=== PATIENT | male | born 1980 | race Caucasian/White ===

== ENCOUNTER 2016-06-10 08:00 | Outpatient (RCR) | payer BC, MEDICAID | END 2016-06-15 | LOC: M ST 08:00 | PROVIDERS: ATTEND Family Medicine | DX: F95.2 Tourette's disorder (principal) ==

== ENCOUNTER 2016-06-17 08:01 | Outpatient (RCR) | payer BC | END 2016-07-13 | LOC: M ST 08:01 | PROVIDERS: ATTEND Family Medicine | DX: F95.2 Tourette's disorder (principal) ==

== ENCOUNTER → 2016-07-09 | Outpatient (REF) | payer BC, MEDICAID ==
[2016-07-09 13:23] LABS: BASO % 0.8 % (0.0-1.0); EOS # 0.2 K/mm3 (0.0-0.50); EOS % 3.8 % (0.0-3.0); LARGE UNSTAINED CELL # 0.1 K/mm3 (0.0-0.4); LARGE UNSTAINED CELL % 2.5 % (0.0-4.0); LYMPH # 1.7 K/mm3 (1.5-4.5); LYMPH % 35.4 % (24.0-44.0); MEAN CORPUSCULAR HEMOGLOBIN 29.2 pg (27.0-33.0); MEAN CORPUSCULAR HGB CONC 34.4 g/dl (32.0-36.5); MONO # 0.3 K/mm3 (0.0-0.8); MONO % 6.5 % (0.0-5.0); NEUTROPHILS # 2.5 K/mm3 (1.8-7.7); PLATELET COUNT, AUTOMATED 318 k/mm3 (150-450); WHITE BLOOD COUNT 4.8 K/mm3 (4.0-10.0)
[2016-07-09 13:42] LABS: VITAMIN B12 LEVEL 492 PG/ML (247-911)
[2016-07-09 14:11] LABS: ALBUMIN 4.1 GM/DL (3.2-5.2); ALBUMIN/GLOBULIN RATIO 1.52 (1.00-1.93); ALKALINE PHOSPHATASE 77 U/L (45-117); ALT/SGPT 55 U/L (12-78); ANION GAP 10 MEQ/L (8-16); AST/SGOT 31 U/L (15-37); BILIRUBIN,TOTAL 0.5 MG/DL (0.2-1.0); BLOOD UREA NITROGEN 13 MG/DL (7-18); CALCIUM LEVEL 9.1 MG/DL (8.5-10.1); CARBON DIOXIDE LEVEL 30 MEQ/L (21-32); CHLORIDE LEVEL 105 MEQ/L (98-107); CREATININE FOR GFR 0.86 MG/DL (0.70-1.30); FREE T4 0.98 NG/DL (0.76-1.46); GLOMERULAR FILTRATION RATE > 60.0 (>60); GLUCOSE, FASTING 78 MG/DL (70-105); POTASSIUM SERUM 3.7 MEQ/L (3.5-5.1); SODIUM LEVEL 145 MEQ/L (136-145); TOTAL PROTEIN 6.8 GM/DL (6.4-8.2)
[2016-07-13 08:08] LABS: T PALLIDUM AB (FTA-AB) Non Reactive (Non Reactive)
== END ==
LOC: M SFHCADAM 08:52
PROVIDERS: ATTEND Family Medicine
DX: R44.3 Hallucinations, unspecified (principal)

== ENCOUNTER 2016-07-29 08:01 | Outpatient (RCR) | payer BC | END 2016-08-13 | LOC: M ST 08:01 | PROVIDERS: ATTEND Family Medicine | DX: F95.2 Tourette's disorder (principal) ==

== ENCOUNTER → 2016-12-08 | Outpatient (REF) | payer BC, MEDICAID ==
[2016-12-08 19:37] LABS: MEAN CORPUSCULAR HEMOGLOBIN 30.3 pg (27.0-33.0); MEAN CORPUSCULAR HGB CONC 35.5 g/dl (32.0-36.5); MEAN CORPUSCULAR VOLUME 85.3 fl (80.0-96.0); RED CELL DISTRIBUTION WIDTH 12.4 % (11.5-14.5); WHITE BLOOD COUNT 8.9 K/mm3 (4.0-10.0)
[2016-12-08 20:11] LABS: ALBUMIN 4.4 GM/DL (3.2-5.2); ALBUMIN/GLOBULIN RATIO 1.57 (1.00-1.93); ALKALINE PHOSPHATASE 74 U/L (45-117); ALT/SGPT 43 U/L (12-78); ANION GAP 7 MEQ/L (8-16); AST/SGOT 23 U/L (15-37); BILIRUBIN,TOTAL 0.6 MG/DL (0.2-1.0); BLOOD UREA NITROGEN 12 MG/DL (7-18); CALCIUM LEVEL 9.6 MG/DL (8.5-10.1); CARBON DIOXIDE LEVEL 31 MEQ/L (21-32); CHLORIDE LEVEL 100 MEQ/L (98-107); CHOLESTEROL LEVEL 148 MG/DL (<200); CREATININE FOR GFR 0.91 MG/DL (0.70-1.30); FREE T4 0.94 NG/DL (0.76-1.46); GLOMERULAR FILTRATION RATE > 60.0 (>60); GLUCOSE, FASTING 101 MG/DL (70-105); POTASSIUM SERUM 3.8 MEQ/L (3.5-5.1); SODIUM LEVEL 138 MEQ/L (136-145); TOTAL PROTEIN 7.2 GM/DL (6.4-8.2); TRIGLYCERIDES LEVEL 58 MG/DL (<150)
== END ==
LOC: M SFHCADAM 16:45
PROVIDERS: ATTEND Family Medicine
DX: F32.9 Major depressive disorder, single episode, unspecified (principal); E78.4 Other hyperlipidemia

== ENCOUNTER → 2017-05-11 | Outpatient (CLI) | payer BC, MEDICAID ==
[2017-05-11 13:08] LABS: BASO # 0.1 10^3/uL (0.0-0.2); BASO % 0.8 % (0.0-1.0); EOS # 0.2 10^3/uL (0.0-0.50); EOS % 2.5 % (0.0-3.0); IMMATURE GRANULOCYTE % 0.5 % (0-0); LYMPH # 2.1 10^3/uL (1.5-4.5); LYMPH % 28.3 % (24.0-44.0); MEAN CORPUSCULAR HEMOGLOBIN 29.1 pg (27.0-33.0); MEAN CORPUSCULAR HGB CONC 34.4 g/dl (32.0-36.5); MEAN CORPUSCULAR VOLUME 84.7 fl (80.0-96.0); MONO # 0.8 10^3/uL (0.0-0.8); MONO % 10.2 % (0.0-5.0); NEUTROPHILS # 4.4 10^3/uL (1.8-7.7); NEUTROPHILS % 57.7 % (36.0-66.0); PLATELET COUNT, AUTOMATED 333 10^3/uL (150-450); RED CELL DISTRIBUTION WIDTH 12.2 % (11.5-14.5); WHITE BLOOD COUNT 7.6 10^3/uL (4.0-10.0)
[2017-05-11 13:23] LABS: ANION GAP 5 MEQ/L (8-16); BLOOD UREA NITROGEN 15 MG/DL (7-18); CALCIUM LEVEL 9.6 MG/DL (8.5-10.1); CARBON DIOXIDE LEVEL 32 MEQ/L (21-32); CHLORIDE LEVEL 105 MEQ/L (98-107); CREATININE FOR GFR 0.83 MG/DL (0.70-1.30); GLOMERULAR FILTRATION RATE > 60.0 (>60); GLUCOSE, FASTING 83 MG/DL (70-105); POTASSIUM SERUM 4.4 MEQ/L (3.5-5.1); SODIUM LEVEL 142 MEQ/L (136-145)
== END ==
LOC: M SMT 10:23
DX: Z79.899 Other long term (current) drug therapy (principal)
CPT/HCPCS: 80048

== ENCOUNTER → 2017-07-01 | Outpatient (REF) | payer BC, MEDICAID ==
[2017-07-01 12:45] LABS: ALBUMIN 4.3 GM/DL (3.2-5.2); ALBUMIN/GLOBULIN RATIO 1.39 (1.00-1.93); ALKALINE PHOSPHATASE 85 U/L (45-117); ALT/SGPT 93 U/L (12-78); AST/SGOT 48 U/L (7-37); BILIRUBIN,DIRECT 0.2 MG/DL (0.0-0.2); BILIRUBIN,TOTAL 0.7 MG/DL (0.2-1.0); TOTAL PROTEIN 7.4 GM/DL (6.4-8.2); VALPROIC ACID (DEPAKOTE) 34.7 UG/ML (50.0-100.0)
== END ==
LOC: M LABDRAW1 10:23
DX: Z79.899 Other long term (current) drug therapy (principal)
CPT/HCPCS: 80164

== ENCOUNTER → 2017-08-04 | Outpatient (REF) | payer BC, MEDICAID ==
[2017-08-04 20:09] LABS: HEMOGLOBIN 14.9 g/dl (14.0-18.0); MEAN CORPUSCULAR HEMOGLOBIN 29.2 pg (27.0-33.0); MEAN CORPUSCULAR HGB CONC 33.1 g/dl (32.0-36.5); MEAN CORPUSCULAR VOLUME 88.2 fl (80.0-96.0); PLATELET COUNT, AUTOMATED 312 10^3/uL (150-450); RED CELL DISTRIBUTION WIDTH 12.5 % (11.5-14.5); WHITE BLOOD COUNT 6.6 10^3/uL (4.0-10.0)
[2017-08-04 20:21] LABS: ALBUMIN 4.1 GM/DL (3.2-5.2); ALBUMIN/GLOBULIN RATIO 1.32 (1.00-1.93); ALKALINE PHOSPHATASE 87 U/L (45-117); ALT/SGPT 53 U/L (12-78); ANION GAP 5 MEQ/L (8-16); AST/SGOT 26 U/L (7-37); BILIRUBIN,TOTAL 0.5 MG/DL (0.2-1.0); BLOOD UREA NITROGEN 20 MG/DL (7-18); CALCIUM LEVEL 9.2 MG/DL (8.5-10.1); CARBON DIOXIDE LEVEL 33 MEQ/L (21-32); CHLORIDE LEVEL 106 MEQ/L (98-107); CHOLESTEROL LEVEL 139 MG/DL (<200); CHOLESTEROL RISK RATIO 3.232 (<5); CREATININE FOR GFR 0.82 MG/DL (0.70-1.30); FREE T4 0.83 NG/DL (0.76-1.46); GLOMERULAR FILTRATION RATE > 60.0 (>60); GLUCOSE, FASTING 85 MG/DL (70-100); HDL CHOLESTEROL 43 MG/DL (>40); LDL CHOLESTEROL 68.8 MG/DL (<100); NON-HDL-C 96 MG/DL; POTASSIUM SERUM 4.2 MEQ/L (3.5-5.1); SODIUM LEVEL 144 MEQ/L (136-145); THYROID STIMULATING HORMONE 0.947 uIU/ML (0.358-3.740); TOTAL PROTEIN 7.2 GM/DL (6.4-8.2); TRIGLYCERIDES LEVEL 136 MG/DL (<150)
== END ==
LOC: M SFHCADAM 12:03
DX: E78.4 Other hyperlipidemia (principal); S06.9X0S Unspecified intracranial injury without loss of consciousness, sequela; F32.9 Major depressive disorder, single episode, unspecified

== ENCOUNTER → 2018-02-14 | Outpatient (REF) | payer BC, MEDICAID ==
[2018-02-14 12:47] LABS: ALBUMIN 4.1 GM/DL (3.2-5.2); ALBUMIN/GLOBULIN RATIO 1.28 (1.00-1.93); ALKALINE PHOSPHATASE 87 U/L (45-117); ALT/SGPT 38 U/L (12-78); AST/SGOT 25 U/L (7-37); BILIRUBIN,DIRECT 0.1 MG/DL (0.0-0.2); BILIRUBIN,TOTAL 0.6 MG/DL (0.2-1.0); TOTAL PROTEIN 7.3 GM/DL (6.4-8.2); VALPROIC ACID (DEPAKOTE) 26.2 UG/ML (50.0-100.0)
== END ==
LOC: M LABDRAW1 09:31
DX: Z79.899 Other long term (current) drug therapy (principal)
CPT/HCPCS: 80164

== ENCOUNTER → 2018-04-27 | Outpatient (REF) | payer BC, MEDICAID ==
[2018-04-27 13:24] LABS: HEMOGLOBIN 15.3 g/dl (13.5-17.5); MEAN CORPUSCULAR HEMOGLOBIN 29.7 pg (27.0-33.0); MEAN CORPUSCULAR VOLUME 87.2 fl (80.0-96.0); PLATELET COUNT, AUTOMATED 303 10^3/uL (150-450); RED BLOOD COUNT 5.16 10^6/uL (4.30-6.10); RED CELL DISTRIBUTION WIDTH 12.5 % (11.5-14.5); WHITE BLOOD COUNT 5.9 10^3/uL (4.0-10.0)
[2018-04-27 13:36] LABS: ALBUMIN 3.9 GM/DL (3.2-5.2); ALBUMIN/GLOBULIN RATIO 1.15 (1.00-1.93); ALKALINE PHOSPHATASE 84 U/L (45-117); ALT/SGPT 43 U/L (12-78); ANION GAP 6 MEQ/L (8-16); AST/SGOT 22 U/L (7-37); BILIRUBIN,TOTAL 0.7 MG/DL (0.2-1.0); BLOOD UREA NITROGEN 13 MG/DL (7-18); CALCIUM LEVEL 9.3 MG/DL (8.5-10.1); CARBON DIOXIDE LEVEL 31 MEQ/L (21-32); CHLORIDE LEVEL 105 MEQ/L (98-107); CHOLESTEROL LEVEL 140 MG/DL (<200); CHOLESTEROL RISK RATIO 3.111 (<5); CREATININE FOR GFR 0.89 MG/DL (0.70-1.30); FREE T4 0.94 NG/DL (0.76-1.46); GLOMERULAR FILTRATION RATE > 60.0 (>60); GLUCOSE, FASTING 81 MG/DL (70-100); HDL CHOLESTEROL 45 MG/DL (>40); LDL CHOLESTEROL 83 MG/DL (<100); NON-HDL-C 95 MG/DL; POTASSIUM SERUM 4.4 MEQ/L (3.5-5.1); SODIUM LEVEL 142 MEQ/L (136-145); TOTAL PROTEIN 7.3 GM/DL (6.4-8.2); TRIGLYCERIDES LEVEL 62 MG/DL (<150)
== END ==
LOC: M SFHCADAM 10:40
DX: E78.49 Other hyperlipidemia (principal); F32.9 Major depressive disorder, single episode, unspecified
CPT/HCPCS: 84443

== ENCOUNTER → 2018-07-06 | Outpatient (REF) | payer BC, MEDICAID | LOC: M LABDRAW1 11:43 | PROVIDERS: ATTEND Psychiatry & Neurology Psychiatry | DX: Z51.81 Encounter for therapeutic drug level monitoring (principal) ==

== ENCOUNTER → 2018-08-10 | Outpatient (REF) | payer BC, MEDICAID | LOC: M LABDRAW1 11:47 | PROVIDERS: ATTEND Psychiatry & Neurology Psychiatry | DX: Z79.899 Other long term (current) drug therapy (principal) ==

== ENCOUNTER → 2018-11-07 | Outpatient (REF) | payer BC, MEDICAID ==
[2018-11-07 13:18] LABS: HEMATOCRIT 43.4 % (42.0-52.0); HEMOGLOBIN 14.6 g/dl (13.5-17.5); MEAN CORPUSCULAR HEMOGLOBIN 29.4 pg (27.0-33.0); MEAN CORPUSCULAR HGB CONC 33.6 g/dl (32.0-36.5); MEAN CORPUSCULAR VOLUME 87.5 fl (80.0-96.0); PLATELET COUNT, AUTOMATED 264 10^3/uL (150-450); RED BLOOD COUNT 4.96 10^6/uL (4.30-6.10); WHITE BLOOD COUNT 5.3 10^3/uL (4.0-10.0)
[2018-11-07 13:59] LABS: ALBUMIN 3.9 GM/DL (3.2-5.2); ALT/SGPT 39 U/L (12-78); BILIRUBIN,TOTAL 0.5 MG/DL (0.2-1.0); BLOOD UREA NITROGEN 23 MG/DL (7-18); CALCIUM LEVEL 9.2 MG/DL (8.5-10.1); CARBON DIOXIDE LEVEL 31 MEQ/L (21-32); CHLORIDE LEVEL 105 MEQ/L (98-107); CHOLESTEROL LEVEL 136 MG/DL (<200); CHOLESTEROL RISK RATIO 2.833 (<5); CREATININE FOR GFR 1.01 MG/DL (0.70-1.30); FREE T4 0.88 NG/DL (0.76-1.46); GLOMERULAR FILTRATION RATE > 60.0 (>60); GLUCOSE, FASTING 89 MG/DL (70-100); HDL CHOLESTEROL 48 MG/DL (>40); LDL CHOLESTEROL 67 MG/DL (<100); NON-HDL-C 88 MG/DL; POTASSIUM SERUM 3.7 MEQ/L (3.5-5.1); SODIUM LEVEL 141 MEQ/L (136-145); TOTAL PROTEIN 6.8 GM/DL (6.4-8.2); TRIGLYCERIDES LEVEL 105 MG/DL (<150)
== END ==
LOC: M LABDRAW1 11:51
PROVIDERS: ATTEND Family Medicine
DX: S06.9X0S Unspecified intracranial injury without loss of consciousness, sequela (principal); E78.49 Other hyperlipidemia; W18.30XS Fall on same level, unspecified, sequela; Y92.009 Unspecified place in unspecified non-institutional (private) residence as the place of occurrence of the external cause

== ENCOUNTER → 2019-03-01 | Outpatient (CLI) | payer BC, MEDICAID | LOC: M SMT 10:44 | PROVIDERS: ATTEND Psychiatry & Neurology Psychiatry | DX: Z51.81 Encounter for therapeutic drug level monitoring (principal); Z79.899 Other long term (current) drug therapy ==

== ENCOUNTER → 2019-04-23 | Outpatient (REF) | payer BC, MEDICAID | LOC: M LAB REF 19:16 | PROVIDERS: ATTEND Dermatology | DX: C43.4 Malignant melanoma of scalp and neck (principal) ==

== ENCOUNTER → 2019-04-24 | Outpatient (REF) | payer BC, MEDICAID | LOC: M LABDRAW1 15:40 | PROVIDERS: ATTEND Psychiatry & Neurology Psychiatry | DX: Z79.899 Other long term (current) drug therapy (principal) ==

== ENCOUNTER 2019-05-05 19:39 | Emergency (ER) | payer BC, MEDICAID ==
[~2019-05-05] VITALS: Ht 165.1 cm; Wt 67.6 kg
[2019-05-05] MEDS ORDERED: SIMV10TA21 PO (20:19)
[2019-05-05] MEDS ORDERED: DIVA500T9 PO (20:19)
[2019-05-05] MEDS ORDERED: KEFL500C17 PO (20:19)
[2019-05-05] MEDS ORDERED: BUSP30TA PO (20:19)
[2019-05-05 20:43] VITALS: BP 129/65
== END 2019-05-05 20:46 | disposition home or self-care (01) ==
LOC: M ED 19:39
DX: L03.115 Cellulitis of right lower limb (principal); E78.5 Hyperlipidemia, unspecified; C43.9 Malignant melanoma of skin, unspecified; F95.2 Tourette's disorder; Z79.02 Long term (current) use of antithrombotics/antiplatelets; Z79.83 Long term (current) use of bisphosphonates; Z79.899 Other long term (current) drug therapy

== ENCOUNTER → 2019-06-13 | Outpatient (REF) | payer BC, MEDICAID ==
[~2019-06-13] MED LIST: BUSP30TA PO; DIVA500T9 PO; KEFL500C17 PO; SIMV10TA21 PO
[2019-06-13 13:18] LABS: HEMATOCRIT 44.9 % (42.0-52.0); MEAN CORPUSCULAR HEMOGLOBIN 30.2 pg (27.0-33.0); MEAN CORPUSCULAR HGB CONC 33.4 g/dl (32.0-36.5); MEAN CORPUSCULAR VOLUME 90.5 fl (80.0-96.0); PLATELET COUNT, AUTOMATED 271 10^3/uL (150-450); RED BLOOD COUNT 4.96 10^6/uL (4.30-6.10); WHITE BLOOD COUNT 5.3 10^3/uL (4.0-10.0)
[2019-06-13 13:27] LABS: ALT/SGPT 35 U/L (12-78); BILIRUBIN,TOTAL 0.4 MG/DL (0.2-1.0); BLOOD UREA NITROGEN 14 MG/DL (7-18); CALCIUM LEVEL 9.3 MG/DL (8.5-10.1); CARBON DIOXIDE LEVEL 30 MEQ/L (21-32); CHLORIDE LEVEL 107 MEQ/L (98-107); CHOLESTEROL LEVEL 175 MG/DL (<200); CHOLESTEROL RISK RATIO 2.966 (<5); CREATININE FOR GFR 0.99 MG/DL (0.70-1.30); FREE T4 1.01 NG/DL (0.76-1.46); GLOMERULAR FILTRATION RATE > 60.0 (>60); GLUCOSE, FASTING 76 MG/DL (70-100); HDL CHOLESTEROL 59 MG/DL (>40); LDL CHOLESTEROL 100 MG/DL (<100); NON-HDL-C 116 MG/DL; POTASSIUM SERUM 3.8 MEQ/L (3.5-5.1); SODIUM LEVEL 143 MEQ/L (136-145); TRIGLYCERIDES LEVEL 80 MG/DL (<150)
== END ==
LOC: M SFHCADAM 09:48
PROVIDERS: ATTEND Family Medicine
DX: S06.9X0S Unspecified intracranial injury without loss of consciousness, sequela (principal); F32.9 Major depressive disorder, single episode, unspecified; E78.49 Other hyperlipidemia; X58.XXXA Exposure to other specified factors, initial encounter

== ENCOUNTER → 2019-08-30 | Outpatient (REF) | payer BC, MEDICAID ==
[2019-08-30 12:29] LABS: BASO % 0.7 % (0.0-1.0); EOS # 0.2 10^3/uL (0.0-0.5); EOS % 5.2 % (0.0-3.0); HEMATOCRIT 42.2 % (42.0-52.0); HEMOGLOBIN 14.1 g/dl (13.5-17.5); LYMPH % 48.9 % (24.0-44.0); MEAN CORPUSCULAR HEMOGLOBIN 29.8 pg (27.0-33.0); MEAN CORPUSCULAR HGB CONC 33.4 g/dl (32.0-36.5); MEAN CORPUSCULAR VOLUME 89.2 fl (80.0-96.0); MONO # 0.5 10^3/uL (0.0-0.8); NEUTROPHILS # 1.3 10^3/uL (1.5-8.5); NEUTROPHILS % 32.7 % (36.0-66.0); PLATELET COUNT, AUTOMATED 266 10^3/uL (150-450); RED BLOOD COUNT 4.73 10^6/uL (4.30-6.10)
[2019-08-30 12:55] LABS: ALBUMIN 3.9 GM/DL (3.2-5.2); ALT/SGPT 31 U/L (12-78); BILIRUBIN,TOTAL 0.4 MG/DL (0.2-1.0); BLOOD UREA NITROGEN 20 MG/DL (7-18); CALCIUM LEVEL 9.7 MG/DL (8.5-10.1); CARBON DIOXIDE LEVEL 29 MEQ/L (21-32); CHLORIDE LEVEL 106 MEQ/L (98-107); CREATININE FOR GFR 0.75 MG/DL (0.70-1.30); GLOMERULAR FILTRATION RATE > 60.0 (>60); GLUCOSE, FASTING 95 MG/DL (70-100); POTASSIUM SERUM 3.9 MEQ/L (3.5-5.1); SODIUM LEVEL 140 MEQ/L (136-145); TOTAL PROTEIN 7.2 GM/DL (6.4-8.2)
== END ==
LOC: M SFHCPLAZ 08:54
PROVIDERS: ATTEND Internal Medicine Infectious Disease
DX: A04.71 Enterocolitis due to Clostridium difficile, recurrent (principal)

== ENCOUNTER → 2019-09-12 | Outpatient (CLI) | payer BC, MEDICAID ==
--- NOTE | 2019-09-13 05:29 | REP ---
Clinical: History of malignant melanoma of the neck/scalp. Technique: Real time clemente scale and color evaluation using linear high frequency transducer. Findings: Ultrasound examination along the right lateral neck at the site of palpable mass demonstrates two hypoechoic nodules in the subcutaneous tissues measuring 7 x 5 x 8 mm and 10 x 6 x 13 mm. Lesions demonstrate small amount of vascularity and may represent lymph nodes. Impression: Two palpable nodules suggest lymph nodes. Electronically Signed by Jasvir Petersen MD 09/13/2019 05:21 A
== END ==
LOC: M RAD 11:59
DX: C43.4 Malignant melanoma of scalp and neck (principal)

== ENCOUNTER → 2020-02-21 | Outpatient (REF) | payer BC, MEDICAID ==
[~2020-02-21] MED LIST changes: +MEKI2TAB2 PO; +TAFI75CA2 PO
[2020-02-21 17:45] LABS: BASO # 0.1 10^3/uL (0.0-0.2); BASO % 0.8 % (0.0-1.0); EOS # 0.1 10^3/uL (0.0-0.5); EOS % 1.3 % (0.0-3.0); HEMATOCRIT 45.8 % (42.0-52.0); HEMOGLOBIN 15.3 g/dl (13.5-17.5); LYMPH # 2.9 10^3/uL (1.5-5.0); LYMPH % 45.5 % (24.0-44.0); MEAN CORPUSCULAR HEMOGLOBIN 30.2 pg (27.0-33.0); MEAN CORPUSCULAR HGB CONC 33.4 g/dl (32.0-36.5); MEAN CORPUSCULAR VOLUME 90.5 fl (80.0-96.0); MONO # 0.5 10^3/uL (0.0-0.8); MONO % 8.5 % (0.0-5.0); NEUTROPHILS # 2.7 10^3/uL (1.5-8.5); NEUTROPHILS % 43.6 % (36.0-66.0); PLATELET COUNT, AUTOMATED 266 10^3/uL (150-450); RED BLOOD COUNT 5.06 10^6/uL (4.30-6.10); WHITE BLOOD COUNT 6.3 10^3/uL (4.0-10.0)
[2020-02-21 18:08] LABS: ALBUMIN 4.1 GM/DL (3.2-5.2); ALT/SGPT 35 U/L (12-78); BILIRUBIN,TOTAL 0.3 MG/DL (0.2-1.0); BLOOD UREA NITROGEN 14 MG/DL (7-18); CALCIUM LEVEL 9.2 MG/DL (8.5-10.1); CARBON DIOXIDE LEVEL 32 MEQ/L (21-32); CHLORIDE LEVEL 106 MEQ/L (98-107); CREATININE FOR GFR 0.82 MG/DL (0.70-1.30); GLOMERULAR FILTRATION RATE > 60.0 (>60); GLUCOSE, FASTING 103 MG/DL (70-100); POTASSIUM SERUM 4.3 MEQ/L (3.5-5.1); SODIUM LEVEL 142 MEQ/L (136-145); TOTAL PROTEIN 6.9 GM/DL (6.4-8.2)
== END ==
LOC: M SFHCADAM 15:44
PROVIDERS: ATTEND Family Medicine
DX: K92.1 Melena (principal)

== ENCOUNTER 2020-02-22 18:45 | Emergency (ER) | payer BC, MEDICAID ==
[~2020-02-22] VITALS: Ht 165.1 cm; Wt 70.9 kg
[~2020-02-22 18:45] MED LIST changes: -MEKI2TAB2 PO; -TAFI75CA2 PO
[2020-02-22] MEDS ORDERED: TAFI75CA2 PO (18:59)
[2020-02-22] MEDS ORDERED: MEKI2TAB2 PO (18:59)
[2020-02-22 20:24] LABS: HEMATOCRIT 43.1 % (42.0-52.0); HEMOGLOBIN 14.4 g/dl (13.5-17.5); MEAN CORPUSCULAR HEMOGLOBIN 29.6 pg (27.0-33.0); MEAN CORPUSCULAR HGB CONC 33.4 g/dl (32.0-36.5); MEAN CORPUSCULAR VOLUME 88.7 fl (80.0-96.0); PLATELET COUNT, AUTOMATED 242 10^3/uL (150-450); RED BLOOD COUNT 4.86 10^6/uL (4.30-6.10); WHITE BLOOD COUNT 5.9 10^3/uL (4.0-10.0)
[2020-02-22 20:29] VITALS: BP 117/77
[2020-02-22 20:37] LABS: INR 0.97
[2020-02-22 20:38] LABS: PARTIAL THROMBOPLASTIN TIME 30.3 SECONDS (24.2-38.5)
== END 2020-02-22 20:55 | disposition home or self-care (01) ==
LOC: M ED 18:45
DX: K92.1 Melena (principal); C43.9 Malignant melanoma of skin, unspecified; Z79.899 Other long term (current) drug therapy

== ENCOUNTER → 2020-02-25 | Outpatient (REF) | payer BC, MEDICAID ==
[~2020-02-25] MED LIST changes: +MEKI2TAB2 PO; +TAFI75CA2 PO
[2020-02-25 17:13] LABS: BASO % 0.6 % (0.0-1.0); EOS # 0.2 10^3/uL (0.0-0.5); EOS % 3.8 % (0.0-3.0); HEMATOCRIT 43.1 % (42.0-52.0); HEMOGLOBIN 14.4 g/dl (13.5-17.5); LYMPH # 2.6 10^3/uL (1.5-5.0); LYMPH % 41.1 % (24.0-44.0); MEAN CORPUSCULAR HEMOGLOBIN 30.1 pg (27.0-33.0); MEAN CORPUSCULAR HGB CONC 33.4 g/dl (32.0-36.5); MEAN CORPUSCULAR VOLUME 90.2 fl (80.0-96.0); MONO # 0.6 10^3/uL (0.0-0.8); MONO % 8.9 % (0.0-5.0); NEUTROPHILS # 2.9 10^3/uL (1.5-8.5); NEUTROPHILS % 44.8 % (36.0-66.0); PLATELET COUNT, AUTOMATED 274 10^3/uL (150-450); RED BLOOD COUNT 4.78 10^6/uL (4.30-6.10); WHITE BLOOD COUNT 6.4 10^3/uL (4.0-10.0)
[2020-02-25 17:44] LABS: ALBUMIN 3.8 GM/DL (3.2-5.2); ALT/SGPT 37 U/L (12-78); BILIRUBIN,TOTAL 0.3 MG/DL (0.2-1.0); BLOOD UREA NITROGEN 7 MG/DL (7-18); CALCIUM LEVEL 9.8 MG/DL (8.5-10.1); CARBON DIOXIDE LEVEL 32 MEQ/L (21-32); CHLORIDE LEVEL 104 MEQ/L (98-107); CREATININE FOR GFR 0.76 MG/DL (0.70-1.30); GLOMERULAR FILTRATION RATE > 60.0 (>60); GLUCOSE, FASTING 77 MG/DL (70-100); POTASSIUM SERUM 4.4 MEQ/L (3.5-5.1); SODIUM LEVEL 141 MEQ/L (136-145); TOTAL PROTEIN 6.8 GM/DL (6.4-8.2)
== END ==
LOC: M LABDRWAD 16:10
PROVIDERS: ATTEND Physician Assistant Medical
DX: C43.9 Malignant melanoma of skin, unspecified (principal); R19.4 Change in bowel habit; R14.3 Flatulence; K62.5 Hemorrhage of anus and rectum

== ENCOUNTER → 2020-03-12 | Outpatient (CLI) | payer BC, MEDICAID | LOC: M LABSMTC 11:08 | PROVIDERS: ATTEND Anesthesiology | DX: Z01.812 Encounter for preprocedural laboratory examination (principal); Z20.828 Contact with and (suspected) exposure to other viral communicable diseases ==

== ENCOUNTER 2020-03-17 11:01 | Day surgery (SDC) | payer BC, MEDICAID ==
[~2020-03-17] VITALS: Ht 175.3 cm; Wt 72.1 kg
[~2020-03-17 11:01] MED LIST changes: +NS 1,000 ML IV ONE
[2020-03-17] MEDS ORDERED: LIDOCAINE 2% 100MG/5ML SDV (FOR ANES.) As Ordered ONE (11:18)
[2020-03-17] MEDS ORDERED: propofoL 200 MG/20 ML VIAL As Ordered ONE (11:18)
[2020-03-17] MEDS ORDERED: fentaNYL 100 MCG/2 ML INJECTION (J3010) As Ordered ONE (12:13)
--- NOTE | 2020-03-17 12:26 | ROOR ---
Patient Name: Janes Bender Procedure Date: 03/17/2020 12:09 PM Date of : 1980 Age: 39 Room: [facility] Gender: Male Note Status: Finalized Procedure: Upper GI endoscopy Indications: Hematochezia, diarrhea,loose stools Providers: Reinaldo ALVARADO MD Referring MD: Janes Kelly MD Requesting Provider: Medicines: Monitored Anesthesia Care Complications: No immediate complications. Procedure: Pre-Anesthesia Assessment: - The heart rate, respiratory rate, oxygen saturations, blood pressure, adequacy of pulmonary ventilation, and response to care were monitored throughout the procedure. The Endoscope was introduced through the mouth, and advanced to the second part of duodenum. The upper GI endoscopy was accomplished without difficulty. The patient tolerated the procedure well. Findings: The examined esophagus was normal. The entire examined stomach was normal. Biopsies were taken with a cold forceps for Helicobacter pylori testing. Scattered mild inflammation characterized by erythema was found in the first portion of the duodenum. Biopsies were taken with a cold forceps for histology. Impression: - Normal esophagus. - Normal stomach. Biopsied. - Minimal duodenitis. Biopsied. Recommendation: - Observe patient's clinical course. - Telephone endoscopist for pathology results in 2 weeks. Reinaldo Alvarado MD Reinaldo ALVARADO MD 03/17/2020 12:26:10 PM Electronically signed by Reinaldo ALVARADO MD Number of Addenda: 0 Note Initiated On: 03/17/2020 12:09 PM Estimated Blood Loss: Estimated blood loss: none.
--- NOTE | 2020-03-17 12:44 | ROOR ---
Patient Name: Janes Bender Procedure Date: 03/17/2020 12:10 PM Date of : 1980 Age: 39 Room: [facility] Gender: Male Note Status: Finalized Procedure: Colonoscopy Indications: Hematochezia. (Gi bleeding in pt on BRAF kinase inhibitor and MEK inhibitor) Providers: Reinaldo ALVARADO MD Referring MD: Janes Kelly MD Requesting Provider: Medicines: Monitored Anesthesia Care Complications: No immediate complications. Procedure: Pre-Anesthesia Assessment: - The heart rate, respiratory rate, oxygen saturations, blood pressure, adequacy of pulmonary ventilation, and response to care were monitored throughout the procedure. The Colonoscope was introduced through the anus and advanced to 15 cm into the ileum. The colonoscopy was performed without difficulty. The patient tolerated the procedure well. The quality of the bowel preparation was good. Findings: The perianal and digital rectal examinations were normal. A localized area of mildly erythematous mucosa was found in the distal rectum. This was biopsied with a cold forceps for histology. Small Internal Hemorrhoids. The colon (entire examined portion) appeared normal. The terminal ileum appeared normal. Biopsies were taken with a cold forceps in the entire colon and in the terminal ileum for histology. Impression: - Mildly erythematous mucosa in the distal rectum. Biopsied. - Small Internal Hemorrhoids. - The entire examined colon is normal. - The examined portion of the ileum was normal. - Biopsies were taken with a cold forceps for histology in the entire colon and in the terminal ileum. Recommendation: - Telephone endoscopist for pathology results in 2 weeks. - Return to referring physician as previously scheduled. Reinaldo Alvarado MD Reinaldo ALVARADO MD 03/17/2020 12:43:30 PM Electronically signed by Reinaldo ALVARADO MD Number of Addenda: 0 Note Initiated On: 03/17/2020 12:10 PM Estimated Blood Loss: Estimated blood loss: none.
[2020-03-17 13:10] VITALS: BP 152/81
== END 2020-03-17 13:16 | disposition home or self-care (01) ==
LOC: M OPP 11:01
PROVIDERS: ATTEND Internal Medicine Gastroenterology
DX: K92.1 Melena (principal); R19.7 Diarrhea, unspecified; D12.6 Benign neoplasm of colon, unspecified; D12.8 Benign neoplasm of rectum; K62.89 Other specified diseases of anus and rectum; K64.8 Other hemorrhoids; D13.1 Benign neoplasm of stomach; D13.2 Benign neoplasm of duodenum; K29.80 Duodenitis without bleeding; F31.9 Bipolar disorder, unspecified; Z92.21 Personal history of antineoplastic chemotherapy; Z87.820 Personal history of traumatic brain injury; Z91.040 Latex allergy status; Z79.899 Other long term (current) drug therapy; Z85.820 Personal history of malignant melanoma of skin
CPT/HCPCS: 43239; 45380; 88305; J3010

== ENCOUNTER → 2020-04-17 | Outpatient (CLI) | payer BC, MEDICAID ==
[~2020-04-17] MED LIST changes: -NS 1,000 ML IV ONE
[2020-04-17 17:52] LABS: BASO % 0.7 % (0.0-1.0); EOS # 0.1 10^3/uL (0.0-0.5); EOS % 1.7 % (0.0-3.0); HEMATOCRIT 45.2 % (42.0-52.0); HEMOGLOBIN 15.5 g/dl (13.5-17.5); LYMPH % 50.9 % (24.0-44.0); MEAN CORPUSCULAR HEMOGLOBIN 31.4 pg (27.0-33.0); MEAN CORPUSCULAR HGB CONC 34.3 g/dl (32.0-36.5); MEAN CORPUSCULAR VOLUME 91.5 fl (80.0-96.0); MONO # 0.5 10^3/uL (0.0-0.8); MONO % 7.7 % (0.0-5.0); NEUTROPHILS # 2.3 10^3/uL (1.5-8.5); NEUTROPHILS % 38.5 % (36.0-66.0); PLATELET COUNT, AUTOMATED 225 10^3/uL (150-450); RED BLOOD COUNT 4.94 10^6/uL (4.30-6.10); WHITE BLOOD COUNT 5.8 10^3/uL (4.0-10.0)
[2020-04-17 19:00] LABS: ALBUMIN 3.9 GM/DL (3.2-5.2); ALT/SGPT 35 U/L (12-78); BILIRUBIN,TOTAL 0.3 MG/DL (0.2-1.0); BLOOD UREA NITROGEN 21 MG/DL (7-18); CALCIUM LEVEL 9.3 MG/DL (8.5-10.1); CARBON DIOXIDE LEVEL 31 MEQ/L (21-32); CHLORIDE LEVEL 105 MEQ/L (98-107); CREATININE FOR GFR 1.05 MG/DL (0.70-1.30); GLOMERULAR FILTRATION RATE > 60.0 (>60); GLUCOSE, FASTING 95 MG/DL (70-100); POTASSIUM SERUM 4.3 MEQ/L (3.5-5.1); SODIUM LEVEL 141 MEQ/L (136-145); TOTAL PROTEIN 6.8 GM/DL (6.4-8.2)
== END ==
LOC: M LAB 16:49
PROVIDERS: ATTEND Internal Medicine Hematology & Oncology
DX: C43.4 Malignant melanoma of scalp and neck (principal)

== ENCOUNTER 2020-05-08 19:18 | Emergency (ER) | payer BC, MEDICAID ==
[~2020-05-08] VITALS: Ht 165.1 cm; Wt 75.3 kg
[2020-05-08 20:24] LABS: BASO # 0.1 10^3/uL (0.0-0.2); BASO % 1.7 % (0.0-1.0); EOS # 0.3 10^3/uL (0.0-0.5); EOS % 4.3 % (0.0-3.0); HEMATOCRIT 39.3 % (42.0-52.0); HEMOGLOBIN 12.9 g/dl (13.5-17.5); LYMPH # 2.5 10^3/uL (1.5-5.0); LYMPH % 36.1 % (24.0-44.0); MEAN CORPUSCULAR HEMOGLOBIN 29.5 pg (27.0-33.0); MEAN CORPUSCULAR HGB CONC 32.8 g/dl (32.0-36.5); MEAN CORPUSCULAR VOLUME 89.9 fl (80.0-96.0); MONO # 0.9 10^3/uL (0.0-0.8); MONO % 12.9 % (0.0-5.0); NEUTROPHILS # 2.8 10^3/uL (1.5-8.5); NEUTROPHILS % 40.1 % (36.0-66.0); PLATELET COUNT, AUTOMATED 272 10^3/uL (150-450); RED BLOOD COUNT 4.37 10^6/uL (4.30-6.10)
[2020-05-08 20:43] LABS: BLOOD UREA NITROGEN 20 MG/DL (7-18); CALCIUM LEVEL 9.3 MG/DL (8.5-10.1); CARBON DIOXIDE LEVEL 28 MEQ/L (21-32); CHLORIDE LEVEL 104 MEQ/L (98-107); CREATININE FOR GFR 1.32 MG/DL (0.70-1.30); GLOMERULAR FILTRATION RATE > 60.0 (>60); GLUCOSE, FASTING 117 MG/DL (70-100); SODIUM LEVEL 140 MEQ/L (136-145)
[2020-05-08] MEDS ORDERED: ISOVUE-370 76% 100ML VIAL As Ordered ONE (20:45)
[2020-05-08 20:48] LABS: ERYTHROCYTE SEDIMENTATION RATE 20 mm/hr (0-15)
[2020-05-08] MEDS ORDERED: NS 1,000 ML IV ONE (21:00)
--- NOTE | 2020-05-08 21:26 | REPVR ---
PROCEDURE INFORMATION: Exam: CT Neck With Contrast Exam date and time: 05/08/2020 8:57 PM Age: 40 years old Clinical indication: Mass, lump, or swelling in neck; Prior surgery; Surgery date: <1 month; Surgery type: Had right sided lymph node resection 10 days ago; Additional info: Recent lymph node resection, right side. Inc pain/swelling TECHNIQUE: Imaging protocol: Computed tomography images of the neck with intravenous contrast. Radiation optimization: All CT scans at this facility use at least one of these dose optimization techniques: automated exposure control; mA and/or kV adjustment per patient size (includes targeted exams where dose is matched to clinical indication); or iterative reconstruction. Contrast material: ISOVUE 370; Contrast volume: 75 ml; Contrast route: INTRAVENOUS (IV); COMPARISON: Thyroid, ST head+neck US 09/12/2019 12:20 PM FINDINGS: Nasopharynx: Unremarkable. Oropharynx: Unremarkable. No significant tonsillar enlargement. Hypopharynx: Unremarkable. Larynx: Unremarkable. Normal epiglottis. Retropharyngeal space: Unremarkable. Submandibular/Parotid glands: Normal. Glands are normal in size. Thyroid: Normal. No enlarged or calcified nodules. Lymph nodes: Unremarkable. No lymphadenopathy. Trachea: Visualized trachea is unremarkable. Lungs: Unremarkable as visualized. Bones/joints: Unremarkable. No acute fracture. Soft tissues: There is subcutaneous induration of the right lower face and right neck with scattered foci of gas and skin thickening consistent with recent surgery. There is induration and stranding which surrounds the right sternocleidomastoid muscle which appears slightly larger than the left and may be reflection of edema. There is a relatively localized fluid collection in the lower lateral right neck which begins at the posterior aspect of the right sternocleidomastoid and extends anteriorly around the muscle more caudally. The fluid collection measures approximately the 2.8 x 5.2 x 4.3 cm and does contain some air at the cephalad aspect with a central Hounsfield measurement of 22. There are some scattered densities in the area with some having a rectangular appearance and appear to reflect residua of surgery. IMPRESSION: 1. Induration, edema and skin thickening of the lower right face and right neck with scattered gas and small scattered foreign bodies which are likely related to recent surgery. There is a relatively localized collection of fluid just beneath the skin and extending along the anterolateral aspect of the sternocleidomastoid muscle which also contains some foci of gas. Findings may reflect a postoperative seroma or lymphocele. With gas present, abscess is not excluded. 2. Otherwise negative CT soft tissue neck. Electronically signed by: Hamzah Mandujano On 05/08/2020 21:26:10 PM
[2020-05-08] MEDS ORDERED: LIDOCAINE 4% CREAM 5GM (LMX4) TOP ONE (22:15)
[2020-05-08 23:35] VITALS: BP 148/84
--- NOTE | 2020-05-09 10:02 | ED PDOC ---
Post-Departure Follow-Up radiology rpeort faxed to Kristie Garcias MD May 09, 2020 10:02
== END 2020-05-08 23:37 | disposition home or self-care (01) ==
LOC: M ED 19:18
DX: L76.34 Postprocedural seroma of skin and subcutaneous tissue following other procedure (principal); C43.9 Malignant melanoma of skin, unspecified; Z91.040 Latex allergy status
CPT/HCPCS: 70491; 80048; 85025; 85652; 86140; 96360; 99283; Q9967

== ENCOUNTER → 2020-06-05 | Outpatient (CLI) | payer BC, MEDICAID ==
[~2020-06-05] MED LIST changes: +HYDR-643 PO; +PROC10TA4 PO; +SIME125T PO
--- NOTE | 2020-06-05 11:04 | REP ---
INDICATION: LYMPHADENOPATHY SYNDROME COMPARISON: None. TECHNIQUE: Grayscale and color evaluation using linear high-frequency transducer. FINDINGS: Directed ultrasound examination to the right groin demonstrates few normal appearing lymph nodes measuring 8 x 5 x 4 mm, 7 x 5 x 4 mm, and 5 x 3 x 3 mm. No abnormal fluid collection or further pathology appreciated. IMPRESSION: Few normal right inguinal lymph nodes. <Electronically signed by Jasvir Petersen > 06/05/20 1100
== END ==
LOC: M RAD 10:20
PROVIDERS: ATTEND Family Medicine
DX: R59.9 Enlarged lymph nodes, unspecified (principal)

== ENCOUNTER → 2020-06-10 | Outpatient (REF) | payer BC, MEDICAID | LOC: M LABDRWAD 16:28 | PROVIDERS: ATTEND Registered Nurse | DX: C43.9 Malignant melanoma of skin, unspecified (principal) ==

== ENCOUNTER → 2020-06-18 | Outpatient (CLI) | payer BC, MEDICAID | LOC: M LABSMTC 09:37 | PROVIDERS: ATTEND Anesthesiology | DX: Z01.812 Encounter for preprocedural laboratory examination (principal); Z20.822 Contact with and (suspected) exposure to COVID-19 ==

== ENCOUNTER → 2020-06-20 | Outpatient (REF) | payer BC, MEDICAID | LOC: M LABDRWAD 12:26 | DX: C43.9 Malignant melanoma of skin, unspecified (principal) ==

== ENCOUNTER 2020-06-23 06:56 | Day surgery (SDC) | payer BC, MEDICAID ==
[~2020-06-23] VITALS: Ht 165.1 cm; Wt 73.9 kg
[2020-06-23] MEDS ORDERED: NS 1,000 ML IV ONE (07:00)
[2020-06-23] MEDS ORDERED: propofoL 200 MG/20 ML VIAL As Ordered ONE (07:07)
[2020-06-23] MEDS ORDERED: LIDOCAINE 2% 100MG/5ML SDV (FOR ANES.) As Ordered ONE (07:08)
--- NOTE | 2020-06-23 08:06 | ROOR ---
Patient Name: Janes Bender Procedure Date: 06/23/2020 7:33 AM Date of : 1980 Age: 40 Room: [facility] Gender: Male Note Status: Finalized Procedure: Colonoscopy Indications: Rectal bleeding, "i smell blood", change in bowels, bloating Providers: Reinaldo ALVRAADO MD Referring MD: Janes Kelly MD Requesting Provider: Medicines: Monitored Anesthesia Care Complications: No immediate complications. Procedure: Pre-Anesthesia Assessment: - The heart rate, respiratory rate, oxygen saturations, blood pressure, adequacy of pulmonary ventilation, and response to care were monitored throughout the procedure. The Colonoscope was introduced through the anus and advanced to 10 cm into the ileum. The colonoscopy was performed without difficulty. The patient tolerated the procedure well. The quality of the bowel preparation was good. Findings: The perianal and digital rectal examinations were normal. The colon (entire examined portion) appeared normal. The terminal ileum appeared normal. Biopsies for histology were taken with a cold forceps for evaluation of microscopic colitis. Impression: - The entire examined colon is normal. - The examined portion of the ileum was normal. - The perianal and digital rectal examinations were normal. - On retroflexed view, I only see minimal, if any hemorrhoidal tissue. No irritation, No erythema.- Banding not done - Colonic fluid is light yellow. - Biopsies were taken with a cold forceps for evaluation of microscopic colitis. Recommendation: - To visualize the small bowel, perform video capsule endoscopy at appointment to be scheduled. - Await pathology results. - For recurrent episodes of rectal bleeding, would refer to surgery for detail evaluation of anal canal under general anesthesia. - My office will call you in the next few days to set you up for this study/exam. Procedure Code(s): --- Professional --- 77737, Colonoscopy, flexible; with biopsy, single or multiple Diagnosis Code(s): --- Professional --- K62.5, Hemorrhage of anus and rectum CPT copyright 2019 [employer]. All rights reserved. The codes documented in this report are preliminary and upon investments manager review may be revised to meet current compliance requirements. Reinaldo Alvarado MD Reinaldo ALVARADO MD 06/23/2020 8:06:13 AM Electronically signed by Reinaldo ALVARADO MD Number of Addenda: 0 Note Initiated On: 06/23/2020 7:33 AM Estimated Blood Loss: Estimated blood loss: none.
[2020-06-23 08:20] VITALS: BP 135/97
== END 2020-06-23 08:29 | disposition home or self-care (01) ==
LOC: M OPP 06:56
PROVIDERS: ATTEND Internal Medicine Gastroenterology
DX: K62.5 Hemorrhage of anus and rectum (principal); R19.4 Change in bowel habit; R14.0 Abdominal distension (gaseous); D12.6 Benign neoplasm of colon, unspecified; E78.5 Hyperlipidemia, unspecified; R12 Heartburn; F41.9 Anxiety disorder, unspecified; F32.9 Major depressive disorder, single episode, unspecified; G47.30 Sleep apnea, unspecified; Z87.820 Personal history of traumatic brain injury; Z92.21 Personal history of antineoplastic chemotherapy; Z91.040 Latex allergy status; Z79.899 Other long term (current) drug therapy; Z85.820 Personal history of malignant melanoma of skin

== ENCOUNTER → 2020-06-27 | Outpatient (REF) | payer BC, MEDICAID | LOC: M LABDRWAD 12:14 | PROVIDERS: ATTEND Registered Nurse | DX: C43.9 Malignant melanoma of skin, unspecified (principal) ==

== ENCOUNTER → 2020-07-08 | Outpatient (REF) | payer BC, MEDICAID | LOC: M LABDRWAD 16:33 | PROVIDERS: ATTEND Registered Nurse | DX: Z01.89 Encounter for other specified special examinations (principal) ==

== ENCOUNTER → 2020-07-14 | Outpatient (REF) | payer BC, MEDICAID | LOC: M LABDRWAD 12:25 | PROVIDERS: ATTEND Registered Nurse | DX: D43.9 Neoplasm of uncertain behavior of central nervous system, unspecified (principal) ==

== ENCOUNTER → 2020-10-11 | Outpatient (CLI) | payer BC, MEDICAID ==
--- NOTE | 2020-10-14 16:10 | SLEEPCENT ---
NOCTURNAL POLYSOMNOGRAPHY DATE: 10/11/2020 ORDERED BY: NORRIS Dhillon Nocturnal polysomnography was performed evaluation of sleep physiology in this patient with a history of nonrestorative sleep. 8 hours and 38 minutes of data were reviewed. There were 428 minutes of sleep identified. Sleep latency was mildly prolonged at 35.5 minutes. REM latency was more so prolonged at 174 minutes. Sleep architecture showed fragmentation. There were two to three REM cycles noted. Overall sleep efficiency was good at 84.1%. The electrocardiogram showed a sinus rhythm with occasional ectopic beats. Average heart rate of 54 beats per minute; rate range 40 to 70. EEG showed reasonably normal waveforms for wake and sleep. There was only one obstructive respiratory event identified of 10 seconds in duration or greater; however, snoring was noted throughout the study. Respiratory related arousals were insignificant at 0.8 per hour. Of note, limb activity was noted over the entire course of the test. The limb movement arousal index was 16.7. Oxygen saturations remained 90% plus throughout the test. IMPRESSION: Periodic limb movement disorder (G47.61), limb movement arousal index 16.7. RECOMMENDATION: Interventions to reduce the frequently of arousal from limb activity should improve the quality of the patient's sleep.
== END ==
LOC: M SLEEP 20:00
PROVIDERS: ATTEND Nurse Practitioner Family
DX: R06.83 Snoring (principal)

== ENCOUNTER 2020-11-06 20:47 | Emergency (ER) | payer BC, MEDICAID ==
[~2020-11-06] VITALS: Ht 165.1 cm; Wt 74.0 kg
[2020-11-07] MEDS ORDERED: LIDOCAINE VISCOUS 2% SOLN 15ML UDC PO ONE (00:40)
[2020-11-07] MEDS ORDERED: NS 1,000 ML IV ONE (00:40)
[2020-11-07] MEDS ORDERED: MORPHINE 2 MG/ML 1ML VIAL (J2270) IV PRN (01:00)
[2020-11-07 01:02] LABS: BASO # 0.2 10^3/uL (0.0-0.2); BASO % 1.7 % (0.0-1.0); EOS # 0.2 10^3/uL (0.0-0.5); EOS % 2.1 % (0.0-3.0); HEMATOCRIT 45.7 % (42.0-52.0); HEMOGLOBIN 15.3 g/dl (13.5-17.5); LYMPH # 2.2 10^3/uL (1.5-5.0); LYMPH % 24.7 % (24.0-44.0); MEAN CORPUSCULAR HEMOGLOBIN 29.4 pg (27.0-33.0); MEAN CORPUSCULAR HGB CONC 33.5 g/dl (32.0-36.5); MEAN CORPUSCULAR VOLUME 87.7 fl (80.0-96.0); MONO # 1.1 10^3/uL (0.0-0.8); NEUTROPHILS # 4.9 10^3/uL (1.5-8.5); NEUTROPHILS % 54.7 % (36.0-66.0); PLATELET COUNT, AUTOMATED 313 10^3/uL (150-450); RED BLOOD COUNT 5.21 10^6/uL (4.30-6.10); WHITE BLOOD COUNT 8.9 10^3/uL (4.0-10.0)
[2020-11-07 01:30] LABS: BLOOD UREA NITROGEN 11 MG/DL (7-18); CALCIUM LEVEL 9.1 MG/DL (8.5-10.1); CARBON DIOXIDE LEVEL 33 MEQ/L (21-32); CHLORIDE LEVEL 101 MEQ/L (98-107); CREATININE FOR GFR 1.02 MG/DL (0.70-1.30); GLOMERULAR FILTRATION RATE > 60.0 (>60); GLUCOSE, FASTING 106 MG/DL (70-100); SODIUM LEVEL 137 MEQ/L (136-145)
[2020-11-07] MEDS ORDERED: RACEPINEPHrine 2.25 % UD INHA INH ONE (03:55)
[2020-11-07 04:50] LABS: RSV AMPLIFICATION NEGATIVE (NEGATIVE)
[2020-11-07] MEDS ORDERED: ACETAMINOPHEN/CODEINE 300MG/30MG 12.5 ML UDC PO ONE (05:10)
[2020-11-07] MEDS ORDERED: HYDR1SOL PO (06:22)
[2020-11-07 06:41] VITALS: BP 146/96
[2020-11-12] MEDS ORDERED: FLUO10CA16 (03:57)
== END 2020-11-07 06:43 | disposition home or self-care (01) ==
LOC: M ED 20:47
DX: H92.09 Otalgia, unspecified ear (principal); R07.0 Pain in throat; G89.18 Other acute postprocedural pain; Z91.040 Latex allergy status
CPT/HCPCS: 80048; 85025; 86850; 86900; 86901; 87631; 94640; 96361; 96374; 99284; J2270

== ENCOUNTER 2020-11-11 23:44 | Emergency (ER) | payer BC, MEDICAID ==
[~2020-11-11] VITALS: Ht 165.1 cm; Wt 73.8 kg
[~2020-11-11 23:44] MED LIST changes: +HYDR1SOL PO
[2020-11-12] MEDS ORDERED: OXYMETAZOLINE 0.05% NASAL SPRAY (AFRIN) ONE (00:55)
[2020-11-12 01:16] LABS: BASO # 0.1 10^3/uL (0.0-0.2); BASO % 0.8 % (0.0-1.0); EOS # 0.1 10^3/uL (0.0-0.5); EOS % 1.6 % (0.0-3.0); HEMOGLOBIN 11.3 g/dl (13.5-17.5); LYMPH # 2.6 10^3/uL (1.5-5.0); LYMPH % 32.6 % (24.0-44.0); MEAN CORPUSCULAR HGB CONC 34.2 g/dl (32.0-36.5); MEAN CORPUSCULAR VOLUME 87.5 fl (80.0-96.0); MONO # 0.6 10^3/uL (0.0-0.8); MONO % 7.8 % (2.0-8.0); NEUTROPHILS # 4.5 10^3/uL (1.5-8.5); NEUTROPHILS % 55.9 % (36.0-66.0); PLATELET COUNT, AUTOMATED 279 10^3/uL (150-450); RED BLOOD COUNT 3.77 10^6/uL (4.30-6.10)
[2020-11-12 01:26] LABS: INR 1.09; PROTHROMBIN TIME 14.3 SECONDS (12.5-14.3)
[2020-11-12 01:27] LABS: PARTIAL THROMBOPLASTIN TIME 28.1 SECONDS (24.2-38.5)
[2020-11-12 01:51] LABS: BLOOD UREA NITROGEN 31 MG/DL (7-18); CALCIUM LEVEL 8.4 MG/DL (8.5-10.1); CARBON DIOXIDE LEVEL 29 MEQ/L (21-32); CHLORIDE LEVEL 105 MEQ/L (98-107); GLOMERULAR FILTRATION RATE > 60.0 (>60); GLUCOSE, FASTING 100 MG/DL (70-100); POTASSIUM SERUM 3.9 MEQ/L (3.5-5.1); SODIUM LEVEL 141 MEQ/L (136-145)
[2020-11-12] MEDS ORDERED: NS 1,000 ML IV ONE (01:55)
[2020-11-12 03:45] VITALS: BP 135/85
[2020-11-12] MEDS ORDERED: FLUO10CA16 PO (03:57)
== END 2020-11-12 04:19 | disposition home or self-care (01) ==
LOC: M ED 23:44
DX: R04.0 Epistaxis (principal); Z90.89 Acquired absence of other organs; E78.5 Hyperlipidemia, unspecified; F42.9 Obsessive-compulsive disorder, unspecified; F95.2 Tourette's disorder; Z79.899 Other long term (current) drug therapy; Z91.040 Latex allergy status

== ENCOUNTER 2020-11-13 17:14 | Inpatient (IN) | payer BC, MEDICAID ==
[~2020-11-13] VITALS: Ht 165.1 cm; Wt 74.0 kg
[~2020-11-13 17:14] MED LIST changes: +FLUO10CA16 PO
[2020-11-13] MEDS ORDERED: ONDANSETRON 4 MG ORAL DISINTEGRATING TAB PO ONE (18:40)
[2020-11-13 20:45] LABS: BASO # 0.1 10^3/uL (0.0-0.2); BASO % 0.8 % (0.0-1.0); EOS # 0.1 10^3/uL (0.0-0.5); EOS % 1.2 % (0.0-3.0); HEMATOCRIT 30.2 % (42.0-52.0); HEMOGLOBIN 9.8 g/dl (13.5-17.5); LYMPH # 3.1 10^3/uL (1.5-5.0); LYMPH % 27.9 % (24.0-44.0); MEAN CORPUSCULAR HEMOGLOBIN 29.9 pg (27.0-33.0); MEAN CORPUSCULAR HGB CONC 32.5 g/dl (32.0-36.5); MEAN CORPUSCULAR VOLUME 92.1 fl (80.0-96.0); MONO # 0.9 10^3/uL (0.0-0.8); MONO % 7.6 % (2.0-8.0); NEUTROPHILS # 6.9 10^3/uL (1.5-8.5); NEUTROPHILS % 61.3 % (36.0-66.0); PLATELET COUNT, AUTOMATED 344 10^3/uL (150-450); RED BLOOD COUNT 3.28 10^6/uL (4.30-6.10); WHITE BLOOD COUNT 11.3 10^3/uL (4.0-10.0)
[2020-11-13 20:56] LABS: INR 1.08; PROTHROMBIN TIME 14.2 SECONDS (12.5-14.3)
[2020-11-13] MEDS: SIMVASTATIN 10 MG TAB PO SCH (21:00)
[2020-11-13] MEDS: DIVALPROEX 125 MG TAB PO SCH (21:00)
[2020-11-13] MEDS: DIVALPROEX 500MG *ER* TAB PO SCH (21:00)
[2020-11-13] MEDS ORDERED: SILVER NITRATE APPLICATOR TOP ONE (21:05)
[2020-11-13] MEDS ORDERED: METOCLOPRAMIDE 10 MG TAB PO ONE (21:10)
[2020-11-13] MEDS ORDERED: NS 1,000 ML IV ONE (22:40)
[2020-11-13] MEDS ORDERED: PANTOPRAZOLE 40MG VIAL (C9113 PER 1) IV ONE (22:40)
[2020-11-14] VITALS (21 sets, daily range): BP systolic 101–148; BP diastolic 56–81
[2020-11-14 00:17] LABS: HEMATOCRIT 23.7 % (42.0-52.0); HEMOGLOBIN 7.9 g/dl (13.5-17.5)
[2020-11-14] MEDS ORDERED: ONDANSETRON 4MG/2ML VIAL IV PRN (00:30)
--- NOTE | 2020-11-14 00:55 | HPEPDOC ---
[facility] Medical History & Physical Date of Admission Nov 13, 2020 Date of Service: Nov 13, 2020 Attending Physician: BHAVNA DE SOUZA MD MPH History and Physical CHIEF COMPLAINT: hematemesis and melena HISTORY OF PRESENT ILLNESS: Mr. Bender is a 40 year old male currently being treated for melanoma at [facility] and is now 12 days post op from bilateral tonsillectomy who presents to the ED for the third time in a week with continued production of blood. Mr. Bender received a bilateral tonsillectomy for PET signal enhancement of bilateral tonsillar pillars concerning for possible extension of malignancy. Post operatively he had poorly controlled pain for which he sought treatment at [facility] ED and was later discharged. Several days later he represented for epistaxis which was managed with Afrin and tonight he presents for continued bleeding. He has been spitting up blood and has filled up two emesis bags and a sink this evening with blood with clots. He reports a single episode of melena yesterday afternoon but other than that has been experiencing constipation. He denies true nausea or emesis of bile, but does spit up a lot of blood which he is unsure of coming from his throat or his stomach. He was seen this afternoon by ENT and was instructed to follow up in clinic for a scope and then ENT also saw the patient in the ED this evening and performed a scope during which several small castellano perficial vessels were cauterize with silver nitrate but it was determined that the bleeding was not likely caused by those lesions. ROS: A 10 point ROS was obtained and was unremarkable except as per above. 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 TOBACCO: denies ALCOHOL: occasional PHYSICAL EXAMINATION: VITAL SIGNS: Reviewed, see below GENERAL: Very pale middle aged male, sitting up in bed, not in obvious distress, dried blood on chin HEENT: AT/NC, pale conjunctiva, sclera are anicteric, EOMI, PERRLA, throat and tongue have flecks of dark blood, no obvious posterior oropharyngeal swelling or bleeding NECK: No appreciable LAD, scarring to right lateral SCM from surgical resection of melanoma HEART: slightly tachycardic, regular rhythm, no M/R/G LUNGS: CTAB ABDOMEN: Soft, non tender, active bowel sounds, no hepatomegaly, no ascites, no caput medusa SKIN: pale, warm, dry, no appreciable rashes, surgical scarring to posterior scalp and lateral neck MSK: moving all extremities, no deformities NEURO: AOx3, no FND PSYCH: euthymic LABS: reviewed RADIOLOGY: No recent MICROBIOLOGY: No recent ASSESSMENT: Mr. Bender is a 40 year old male now 12 days post tonsillectomy presenting for hematochezia. He was scoped with ENT and the throat was not felt to be the etiology of his bleeding and was thus admitted for serial CBCs and possible scope by gen surg in the morning as GI is not prison classification counselor this weekend. PLAN: # Hematochezia: Not likely from ENT source despite recent tonsillectomy. Patient does not have prior history of GI bleed and is not at high risk for ulceration or variceal bleed, has no history of cirrhosis and no LFT abnormalities to suggest previously undiagnosed cirrhosis. At this time will closely monitor blood counts and have type and crossed for 2U PRBCs. Meds: Protonix 40mg IV BID Zofran 2mg Q4H PRN nausea Consider Erythromycin 250mg just prior to an endoscopy Gen Surg consult in the morning for possible EGD NPO after midnight Consented for blood products and type and crossed 2U PRBCs Transfusion threshold 12/03 # Acute blood loss anemia Meds: As per above # Leukocytosis This is a new issue and is without bandemia. Likely reactive in the setting of recent surgery and acute blood loss. Will continue to monitor. Low threshold to administer abx and obtain cultures. Meds: None Daily CBC # Bipolar disorder No active issues, continue home medications. DISPO: ICU obs pending consideration for EGD in the AM DIET: NPO after midnight DVT PROPHY: Mechanical DISCHARGE: Pending stabilization of H&H CONSULTS: General surgery in the morning Vital Signs Vital Signs Date Time Temp Pulse Resp B/P (MAP) Pulse Ox O2 Delivery O2 Flow Rate FiO2 11/13/20 22:34 103 18 129/78 (95) 99 Room Air 11/13/20 17:15 98.2 Laboratory Data Labs 24H Laboratory Tests 2 11/13/20 20:26: Immature Granulocyte % (Auto) 1.2, Neutrophils (%) (Auto) 61.3, Lymphocytes (%) (Auto) 27.9, Monocytes (%) (Auto) 7.6, Eosinophils (%) (Auto) 1.2, Basophils (%) (Auto) 0.8, Neutrophils # (Auto) 6.9, Lymphocytes # (Auto) 3.1, Monocytes # (Auto) 0.9H, Eosinophils # (Auto) 0.1, Basophils # (Auto) 0.1, Nucleated Red Blood Cells % (auto) 0.0, Prothrombin Time 14.2H, Prothromb Time International Ratio 1.08 11/14/20 00:29: CBC/BMP Laboratory Tests 11/13/20 20:26 11/13/20 23:35 Home Medications Scheduled Buspirone HCl (Buspirone HCl) 30 Mg Tablet, 30 MG PO BID Divalproex Sodium (Divalproex Sodium ER) 500 Mg Tab.er.24h, 1,500 MG PO QPM Fluoxetine Hcl (Fluoxetine HCl) 10 Mg Capsule, 10 MG DAILY Simethicone (Gas-X) 125 Mg Tab.chew, 125 MG PO PRN Simvastatin (Simvastatin) 10 Mg Tablet, 10 MG PO DAILY Scheduled PRN Hydrocodone/Acetaminophen (Hydrocodone-Acetamn 7.5-325/15) 118 Ml Solution, 15 ML PO Q4-6HP PRN for pain Hydroxyzine HCl (Hydroxyzine HCl) 10 Mg Tablet, 10 MG PO PRN PRN for AN XIETY/AGITATION Prochlorperazine Maleate (Prochlorperazine Maleate) 10 Mg Tablet, 10 MG PO Q6H PRN for NAUSEA OR VOMITING Allergies Coded Allergies: latex (Verified Allergy, Unknown, rash, 06/20/20) A-FIB/CHADSVASC A-FIB History Current/History of A-Fib/PAF?: No Current PO Anticoag Therapy: No Age/Risk Factor Scoring CHADSVASC: CHADSVASC Response (Comments) Value Age Risk Factor Age < 65 years old 0 Gender Risk Factor Male 0 Hx of CHF No 0 Hx of HTN No 0 Hx of Stroke/TIA/or VTE No 0 Hx of Diabetes No 0 Hx of Vascular Disease No 0 Total 0 Treatment Treatment ordered: NONE Reason Anticoagulant not given: Current bleeding BHAVNA DE SOUZA MD MPH Nov 14, 2020 00:55
[2020-11-14] MEDS ORDERED: LIDVISCBTL PO (01:55)
[2020-11-14] MEDS ORDERED: FLON1SPR (01:55)
[2020-11-14] MEDS ORDERED: HYDR1SOL PO (01:55)
[2020-11-14] MEDS ORDERED: DIVA1TAB48 PO (01:55)
[2020-11-14] MEDS ORDERED: BETA5OI TOP (01:55)
[2020-11-14] MEDS ORDERED: KETO2CR EXT (01:55)
[2020-11-14 06:38] LABS: HEMATOCRIT 27.9 % (42.0-52.0); HEMOGLOBIN 9.5 g/dl (13.5-17.5); MEAN CORPUSCULAR HEMOGLOBIN 30.3 pg (27.0-33.0); MEAN CORPUSCULAR HGB CONC 34.1 g/dl (32.0-36.5); MEAN CORPUSCULAR VOLUME 88.9 fl (80.0-96.0); RED BLOOD COUNT 3.14 10^6/uL (4.30-6.10); WHITE BLOOD COUNT 8.4 10^3/uL (4.0-10.0)
[2020-11-14 06:39] LABS: PLATELET COUNT, AUTOMATED 226 10^3/uL (150-450)
[2020-11-14] MEDS ORDERED: KETOROLAC 30 MG/ML 1ML VIAL IV PRN (06:50)
[2020-11-14 07:06] LABS: BLOOD UREA NITROGEN 39 MG/DL (7-18); CALCIUM LEVEL 7.8 MG/DL (8.5-10.1); CARBON DIOXIDE LEVEL 28 MEQ/L (21-32); CHLORIDE LEVEL 110 MEQ/L (98-107); CREATININE FOR GFR 0.61 MG/DL (0.70-1.30); GLOMERULAR FILTRATION RATE > 60.0 (>60); GLUCOSE, FASTING 102 MG/DL (70-100); POTASSIUM SERUM 3.9 MEQ/L (3.5-5.1); SODIUM LEVEL 143 MEQ/L (136-145)
[2020-11-14] MEDS: PANTOPRAZOLE 40MG VIAL (C9113 PER 1) IV SCH ×2 (08:18→21:45)
[2020-11-14] MEDS: FLUoxetine 10 MG CAP PO SCH (08:18)
[2020-11-14] MEDS: busPIRone 10 MG TAB PO SCH ×2 (08:19→21:44)
--- NOTE | 2020-11-14 09:25 | IPNPDOC ---
Text Note Date of Service The patient was seen on 11/14/20. NOTE This is a 40 yo who underwent uncomplicated Tonisllectomy for positive PET 2 w eeks ago. He has been producing blood per os, vomiting up large amounts of old clot and and has hematochezia His Hct has dropped to 23.1 His exam has NEVER revealed any blood leaving his tonsil fossa. He was seen in [place] by his surgeon 4 days ago and at that time, no sign of bleeding could be elicited. His endoscopic exam shows no obvious upper airway bleeding site TIMES 3 !!!!! The appearance of his emesis struck me as more of a GI bleeding event , as to lose this much blood from a post Tonsillectomy hemorrhage, one would expect to see some active bright red bleeding from his tonsil fossa. He needs transfusion and a GI work up in the meantime VS,Ham[place]bone, I+O VS, [place], I+O Laboratory Tests 11/13/20 20:26 11/13/20 23:35 11/14/20 06:25 Vital Signs Date Time Temp Pulse Resp B/P (MAP) Pulse Ox O2 Delivery O2 Flow Rate FiO2 11/14/20 08:00 97.9 56 18 118/73 (88) 100 Room Air 11/14/20 03:48 99.0 I&O- Last 24 Hours up to 6 AM 11/14/20 06:00 Intake Total 800 ml Output Total 525 ml Balance 275 ml YAKELIN BALLARD MD Nov 14, 2020 09:25
[2020-11-14] MEDS ORDERED: CARBAMIDE PEROXIDE 6.5% OTIC SOLN 15ML AU SCH (09:55)
--- NOTE | 2020-11-14 10:51 | IPNPDOC ---
Subjective Date Seen The patient was seen on 11/14/20. Subjective Chief Complaint/HPI Mr. Bender is a 40 year old male with melanoma being treated at [facility] who is here for hematemesis and acute blood loss anemia. This morning, he was feeling better. Nausea and abdominal pain improved. He is still has soft dark brown bowel movements this morning. I reached out to General surgery, Dr. Braxton, this morning to discuss this case. ED did speak with Dr. Braxton prior, and he was aware of the patient. At this time, recommended monitoring patient's symptoms and hemoglobin. Objective Physical Examination General Exam: Positive: Alert, Cooperative Eye Exam: Negative: Sclera icteric ENT Exam: Positive: Atraumatic Neck Exam: Positive: Supple Chest Exam: Positive: Clear to auscultation; Negative: Rales, Rhonchi, Wheezing Heart Exam: Positive: Rate Normal, Regular Rhythm Abdomen Exam: Positive: Normal bowel sounds, Soft Psych Exam: Positive: Mental status NL, Mood NL Assessment /Plan Assessment Mr. Bender is a 40 year old male with melanoma being treated at [facility] who is here for hematemesis and acute blood loss anemia. Will monitor patient's symptoms. If patient were to have more hematemesis, drop in blood pressure, or drop in H&H, will reach out to general surgery again. Otherwise, IV Protonix and clear liquid diet. Plan/VTE VTE Prophylaxis Ordered?: Yes Plan 1. Acute blood loss anemia from suspected UGI source -Patient was having hematemesis on admission -ENT evaluated patient, and cauterized several small superficial vessels, but symptoms unlikely from this source -Spoke with general surgery, plan to monitor symptoms and H&H. If worsening, will recontact general surgery -Clear liquid diet -IV protonix 2. Bipolar disorder -Stable -Continue home medication 3. Hyperlipidemia -Continue simvastatin 4. DVT ppx -No chemical ppx due to suspected UGIB -SCD and TEDs Disposition: Pending improvement in symptoms and H&H VS, I&O, 24H, Fishbone Vital Signs/I&O Vital Signs Date Time Temp Pulse Resp B/P (MAP) Pulse Ox O2 Delivery O2 Flow Rate FiO2 11/14/20 08:00 97.9 56 18 118/73 (88) 100 Room Air 11/14/20 03:48 99.0 I&O- Last 24 Hours up to 6 AM 11/14/20 05:59 Intake Total 800 ml Output Total 525 ml Balance 275 ml Laboratory Data 24H LABS Laboratory Tests 2 11/13/20 20:26: Immature Granulocyte % (Auto) 1.2, Neutrophils (%) (Auto) 61.3, Lymphocytes (%) (Auto) 27.9, Monocytes (%) (Auto) 7.6, Eosinophils (%) (Auto) 1.2, Basophils (%) (Auto) 0.8, Neutrophils # (Auto) 6.9, Lymphocytes # (Auto) 3.1, Monocytes # (Auto) 0.9H, Eosinophils # (Auto) 0.1, Basophils # (Auto) 0.1, Nucleated Red Blood Cells % (auto) 0.0, Prothrombin Time 14.2H, Prothromb Time International Ratio 1.08 11/14/20 00:29: Coronavirus (COVID-19)(PCR) NEGATIVE 11/14/20 06:25: Nucleated Red Blood Cells % (auto) 0.0, Anion Gap 5L, Glomerular Filtration Rate > 60.0, Calcium Level 7.8L CBC/BMP Laboratory Tests 11/13/20 20:26 11/13/20 23:35 11/14/20 06:25 LARISSA LANGFORD DO Nov 14, 2020 10:51
[2020-11-14 12:22] LABS: HEMATOCRIT 27.5 % (42.0-52.0); HEMOGLOBIN 9.4 g/dl (13.5-17.5); MEAN CORPUSCULAR HEMOGLOBIN 30.4 pg (27.0-33.0); MEAN CORPUSCULAR HGB CONC 34.2 g/dl (32.0-36.5); PLATELET COUNT, AUTOMATED 215 10^3/uL (150-450); RED BLOOD COUNT 3.09 10^6/uL (4.30-6.10); WHITE BLOOD COUNT 7.2 10^3/uL (4.0-10.0)
[2020-11-14 18:58] LABS: HEMATOCRIT 27.1 % (42.0-52.0); HEMOGLOBIN 9.2 g/dl (13.5-17.5); MEAN CORPUSCULAR HEMOGLOBIN 30.1 pg (27.0-33.0); MEAN CORPUSCULAR HGB CONC 33.9 g/dl (32.0-36.5); MEAN CORPUSCULAR VOLUME 88.6 fl (80.0-96.0); PLATELET COUNT, AUTOMATED 214 10^3/uL (150-450); RED BLOOD COUNT 3.06 10^6/uL (4.30-6.10); WHITE BLOOD COUNT 6.3 10^3/uL (4.0-10.0)
[2020-11-14] MEDS: SIMVASTATIN 10 MG TAB PO SCH (21:44)
[2020-11-14] MEDS: DIVALPROEX 500MG *ER* TAB PO SCH (21:45)
[2020-11-14] MEDS: DIVALPROEX 125 MG TAB PO SCH (21:45)
[2020-11-14] MEDS: PERCOCET 5MG/325MG TAB PO PRN (21:46)
[2020-11-14 23:52] LABS: HEMOGLOBIN 9.2 g/dl (13.5-17.5); MEAN CORPUSCULAR HEMOGLOBIN 30.4 pg (27.0-33.0); MEAN CORPUSCULAR HGB CONC 34.1 g/dl (32.0-36.5); MEAN CORPUSCULAR VOLUME 89.1 fl (80.0-96.0); PLATELET COUNT, AUTOMATED 204 10^3/uL (150-450); RED BLOOD COUNT 3.03 10^6/uL (4.30-6.10); WHITE BLOOD COUNT 5.9 10^3/uL (4.0-10.0)
[2020-11-15] MEDS: hydrOXYzine 10 MG TAB PO PRN
[2020-11-15 02:00] VITALS: BP 129/68
[2020-11-15 06:00] VITALS: BP 133/84
[2020-11-15] MEDS: PERCOCET 5MG/325MG TAB PO PRN (06:09)
[2020-11-15 06:21] LABS: HEMATOCRIT 27.3 % (42.0-52.0); HEMOGLOBIN 9.3 g/dl (13.5-17.5); MEAN CORPUSCULAR HEMOGLOBIN 30.3 pg (27.0-33.0); MEAN CORPUSCULAR HGB CONC 34.1 g/dl (32.0-36.5); MEAN CORPUSCULAR VOLUME 88.9 fl (80.0-96.0); PLATELET COUNT, AUTOMATED 220 10^3/uL (150-450); RED BLOOD COUNT 3.07 10^6/uL (4.30-6.10); WHITE BLOOD COUNT 5.8 10^3/uL (4.0-10.0)
[2020-11-15 06:42] LABS: BLOOD UREA NITROGEN 16 MG/DL (7-18); CALCIUM LEVEL 8.3 MG/DL (8.5-10.1); CARBON DIOXIDE LEVEL 29 MEQ/L (21-32); CHLORIDE LEVEL 109 MEQ/L (98-107); CREATININE FOR GFR 0.64 MG/DL (0.70-1.30); GLOMERULAR FILTRATION RATE > 60.0 (>60); GLUCOSE, FASTING 88 MG/DL (70-100); POTASSIUM SERUM 3.6 MEQ/L (3.5-5.1); SODIUM LEVEL 144 MEQ/L (136-145)
[2020-11-15] MEDS: busPIRone 10 MG TAB PO SCH ×2 (09:44→20:57)
[2020-11-15] MEDS: FLUoxetine 10 MG CAP PO SCH (09:44)
[2020-11-15] MEDS: PANTOPRAZOLE 40MG VIAL (C9113 PER 1) IV SCH ×2 (09:44→20:58)
--- NOTE | 2020-11-15 11:21 | IPN ---
PROGRESS NOTE DATE: 11/15/2020 SUBJECTIVE: Cooper is seen on [address] Gutierrez asked to transfer him to my service. He is admitted with hematemesis and acute blood loss anemia. He is passing melena today. He has previously been seen by ENT cauterized of some superficial vessels. He did not feel that the symptoms were coming from that source. General surgery is also involved. I did speak to Janes's today as well and have a call out for Dr. Braxton. OBJECTIVE: VITAL SIGNS: Afebrile. Vital signs stable with blood pressure 133/84. GENERAL APPEARANCE: He is alert and conversant in no distress. LUNGS: Clear. HEART: Regular rhythm. ABDOMEN: Soft and nontender with no masses. EXTREMITIES: No peripheral edema. LABORATORY DATA: Hemoglobin stable at 9.3. BUN is down to 16. IMPRESSION AND PLAN: 1. Upper either airway or gastrointestinal tract bleeding with acute blood loss anemia status post transfusion of two units of packed red blood cells. I have reviewed the ENT note who does not feel the bleeding is coming from the tonsil surgical site. Dr. Braxton is involved from general surgery and we will discuss the case. Hemoglobin is stable. If he drops his hemoglobin, he will need an upper endoscopy. There is no GI coverage for the next four days at this facility. 2. Melanoma metastatic. Status post recent bilateral tonsillectomy at [facility]. 3. Bipolar disorder. Continue current medications. 4. Seizure disorder. Continue current medications.
[2020-11-15 13:14] LABS: HEMATOCRIT 28.2 % (42.0-52.0); HEMOGLOBIN 9.3 g/dl (13.5-17.5); MEAN CORPUSCULAR HEMOGLOBIN 30.4 pg (27.0-33.0); MEAN CORPUSCULAR VOLUME 92.2 fl (80.0-96.0); PLATELET COUNT, AUTOMATED 224 10^3/uL (150-450); RED BLOOD COUNT 3.06 10^6/uL (4.30-6.10); WHITE BLOOD COUNT 5.3 10^3/uL (4.0-10.0)
[2020-11-15 14:00] VITALS: BP 127/87
[2020-11-15] MEDS: ACETAMINOPHEN TAB 650MG DOSE (2X325MG) PO PRN ×2 (15:29→20:58)
[2020-11-15] MEDS: DIVALPROEX 125 MG TAB PO SCH (20:57)
[2020-11-15] MEDS: SIMVASTATIN 10 MG TAB PO SCH (20:57)
[2020-11-15] MEDS: DIVALPROEX 500MG *ER* TAB PO SCH (20:57)
[2020-11-15 22:00] VITALS: BP 136/84
[2020-11-15 22:29] LABS: HEMATOCRIT 28.8 % (42.0-52.0); HEMOGLOBIN 9.5 g/dl (13.5-17.5); MEAN CORPUSCULAR HEMOGLOBIN 30.1 pg (27.0-33.0); MEAN CORPUSCULAR VOLUME 91.1 fl (80.0-96.0); PLATELET COUNT, AUTOMATED 266 10^3/uL (150-450); RED BLOOD COUNT 3.16 10^6/uL (4.30-6.10); WHITE BLOOD COUNT 5.2 10^3/uL (4.0-10.0)
[2020-11-16] MEDS: hydrOXYzine 10 MG TAB PO PRN (00:51)
[2020-11-16 06:00] VITALS: BP 123/83
[2020-11-16] MEDS: ACETAMINOPHEN TAB 650MG DOSE (2X325MG) PO PRN (06:27)
[2020-11-16 06:51] LABS: HEMATOCRIT 28.8 % (42.0-52.0); HEMOGLOBIN 9.7 g/dl (13.5-17.5); MEAN CORPUSCULAR HEMOGLOBIN 30.2 pg (27.0-33.0); MEAN CORPUSCULAR HGB CONC 33.7 g/dl (32.0-36.5); MEAN CORPUSCULAR VOLUME 89.7 fl (80.0-96.0); PLATELET COUNT, AUTOMATED 267 10^3/uL (150-450); RED BLOOD COUNT 3.21 10^6/uL (4.30-6.10); WHITE BLOOD COUNT 7.6 10^3/uL (4.0-10.0)
[2020-11-16 07:20] LABS: BLOOD UREA NITROGEN 6 MG/DL (7-18); CALCIUM LEVEL 8.1 MG/DL (8.5-10.1); CARBON DIOXIDE LEVEL 31 MEQ/L (21-32); CHLORIDE LEVEL 109 MEQ/L (98-107); CREATININE FOR GFR 0.74 MG/DL (0.70-1.30); GLOMERULAR FILTRATION RATE > 60.0 (>60); GLUCOSE, FASTING 85 MG/DL (70-100); POTASSIUM SERUM 3.9 MEQ/L (3.5-5.1); SODIUM LEVEL 144 MEQ/L (136-145)
[2020-11-16] MEDS: busPIRone 10 MG TAB PO SCH (08:18)
[2020-11-16] MEDS: PANTOPRAZOLE 40MG VIAL (C9113 PER 1) IV SCH (08:18)
[2020-11-16] MEDS: FLUoxetine 10 MG CAP PO SCH (08:18)
--- NOTE | 2020-11-16 10:08 | DSES ---
DISCHARGE SUMMARY DATE OF ADMISSION: 11/13/2020 DATE OF DISCHARGE: 11/16/2020 PRINCIPAL DIAGNOSIS: Upper gastrointestinal (GI) bleeding from presumed tonsillar fossa with acute blood loss anemia. SECONDARY DIAGNOSES: 1. Metastatic malignant melanoma. 2. History of bipolar disorder. HISTORY: Janes Bender has metastatic malignant melanoma and is followed through [facility]. He had a PET scan with bilateral tonsil signal enhancement. He underwent bilateral tonsillectomy at [facility]. He suddenly developed epistaxis and after that, he was presented with the finding of blood. ENT saw him and several small superficial vessels were cauterized. He was admitted for further observation. HOSPITAL COURSE: He had no recurrence of bleeding or necrosis through the hospitalization. He had serial CBCs drawn after being transfused two units of packed red blood cells. His hemoglobin remained stable. Hemoglobin was 9.8 on admission and 7.9 later that evening. He was transfused two units up to 9.5 and stayed stable. His hemoglobin today is 9.7. DISCHARGE PHYSICAL EXAMINATION: GENERAL APPEARANCE: On the day of discharge, he is resting comfortably. VITAL SIGNS: Stable. HEENT: No bleeding in the oropharynx noted. LUNGS: Clear. HEART: Regular rate and rhythm. ABDOMEN: Soft and nontender. LABORATORY DATA: Today white count 7.6, hemoglobin 9.7, platelets 267,000. Sodium 144, potassium 3.9, BUN 6, creatinine 0.7, glucose 85. ProTime normal. COVID test negative. DISCHARGE DISPOSITION: He is discharged home in improved and stable condition. He will follow-up with me in the office in a week. DISCHARGE ACTIVITY: As tolerated. DISCHARGE DIET: Mechanically soft diet for now. DISCHARGE MEDICATIONS: He will resume - 1. Buspirone 30 mg b.i.d. 2. Divalproex ER 1500 mg q. h.s. together with divalproex sodium immediate release 125 mg q. h.s. 3. Fluoxetine 10 mg daily. 4. Fluticasone nasal spray. 5. Hydroxyzine as needed. 6. Simvastatin 10 mg daily. 7. Simethicone qjob-cxn-baulazs as needed. At this time of this dictation, there are no pending labs.
--- NOTE | 2020-11-17 10:16 | CR ---
CONSULTATION DATE: 11/16/2020 REASON FOR CONSULTATION: Melena. HISTORY OF PRESENT ILLNESS: The patient is a 40-year-old male currently being treated for melanoma at [facility]. He is now 15 days postop from bilateral tonsillectomy. He came in to the emergency room on November 13 with complaints of bleeding from his tonsils. He was evaluated by ENT and they did a little bit of cauterization in the back of his throat. However, they did not feel that that was the cause of his hematemesis or melena and recommended possible GI consult for EGD. However, given his history when they called me initially I was not very concerned, I felt that he probably swallowed a lot of blood and coughed it back up and that was the cause of his hematemesis and melena. The patient agreed that he felt that he swallowed a large volume of blood and his family also is in agreement. He claims that he never has any problems with blood in his stools or melanotic stools prior to the surgery. No changes in diet or medications since the surgery other than pain pill that he was taking but he was always taking it with food in his stomach and never on an empty stomach. He has never had any problems with any acid reflux or heartburn. He does not smoke, no alcohol, no drugs. No medications on an empty stomach. No large volumes of caffeine, spicy foods or acidic foods. There is no indication of him having a bleeding ulcer or significant gastritis at this point. He has been in the hospital for the last few days. His hemoglobin has been completely stable and trending up continuously. He claims that when he did first start feeling the blood from his tonsils he said he could feel it dripping down the back of his throat constantly prior to coming into the hospital. MEDICAL HISTORY: Melanoma, bipolar. SURGICAL HISTORY: Three melanoma resections, tonsillectomy. FAMILY HISTORY: Noncontributory. SOCIAL HISTORY: Denies drug, alcohol, tobacco abuse. ALLERGIES: LATEX. MEDICATIONS: Please see MedRec. REVIEW OF SYSTEMS: Pertinent positive and negatives as noted in HPI. PHYSICAL EXAMINATION: GENERAL: Alert and oriented x3, no acute distress. VITALS: Temp 97.4, pulse 89, respirations 18, blood pressure 123/83, pulse ox 96% on room air. HEENT: Pupils equal, round and reactive to light and accommodation. HEART: S1, S2, regular rate and rhythm. LUNGS: Clear to auscultation bilaterally. ABDOMEN: Soft, nontender, non-distended. EXTREMITIES: No cyanosis, clubbing or edema. LABS: White count 7.6, hemoglobin 9.7, his last five hemoglobins were 9.2, 9.3, 9.3, 9.5 and 9.7. IMAGING: None this admission. ASSESSMENT/PLAN: The patient is a 40-year-old male with post-tonsillar bleed, status post tonsillectomy. He had hematemesis as well as melena. This was most likely associated to his postop bleeding which has all stopped since he had cauterization done in the emergency room. There is no indication for any upper endoscopy at this time. His hemoglobin has been stable. He has not had any more bleeding. The patient agrees with me. If for some reason his bleeding does restart after discharge we can always consider an outpatient upper endoscopy at that time. NIRALI
[2020-11-17] MEDS ORDERED: ACET-841 PO (19:38)
== END 2020-11-16 09:45 | disposition home or self-care (01) | DRG 813 ==
LOC: M ED 17:14 → M ED INP 17:15 → M ICU 11-14 02:10 → M MS5PR 11-14 15:35 → OBSVTOIN 11-16 07:09 → UNDODISOB 11-16 11:20
PROVIDERS: ADMIT General Practice; ATTEND Family Medicine
PROC: 30233N1 Transfusion of Nonautologous Red Blood Cells into Peripheral Vein, Percutaneous Approach (ICD-10-PCS; principal; 2020-11-16)
DX: K91.840 Postprocedural hemorrhage of a digestive system organ or structure following a digestive system procedure (principal); C43.4 Malignant melanoma of scalp and neck; E78.49 Other hyperlipidemia; D72.829 Elevated white blood cell count, unspecified; F31.9 Bipolar disorder, unspecified; G40.909 Epilepsy, unspecified, not intractable, without status epilepticus; Z91.040 Latex allergy status; Z79.899 Other long term (current) drug therapy; K59.00 Constipation, unspecified; Z20.822 Contact with and (suspected) exposure to COVID-19; D62 Acute posthemorrhagic anemia

== ENCOUNTER 2020-11-17 19:24 | Emergency (ER) | payer BC, MEDICAID ==
[~2020-11-17] VITALS: Ht 165.1 cm; Wt 73.9 kg
[~2020-11-17 19:24] MED LIST changes: +BETA5OI TOP; +DIVA1TAB48 PO; +FLON1SPR; +KETO2CR EXT; +LIDVISCBTL PO
[2020-11-17] MEDS ORDERED: ACET-841 PO (19:38)
[2020-11-18 01:24] LABS: BASO # 0.1 10^3/uL (0.0-0.2); BASO % 1.1 % (0.0-1.0); EOS # 0.2 10^3/uL (0.0-0.5); EOS % 3.2 % (0.0-3.0); HEMATOCRIT 29.4 % (42.0-52.0); HEMOGLOBIN 9.9 g/dl (13.5-17.5); LYMPH # 2.3 10^3/uL (1.5-5.0); LYMPH % 40.7 % (24.0-44.0); MEAN CORPUSCULAR HEMOGLOBIN 30.2 pg (27.0-33.0); MEAN CORPUSCULAR HGB CONC 33.7 g/dl (32.0-36.5); MEAN CORPUSCULAR VOLUME 89.6 fl (80.0-96.0); MONO # 0.5 10^3/uL (0.0-0.8); MONO % 8.3 % (2.0-8.0); NEUTROPHILS # 2.5 10^3/uL (1.5-8.5); NEUTROPHILS % 44.7 % (36.0-66.0); PLATELET COUNT, AUTOMATED 314 10^3/uL (150-450); RED BLOOD COUNT 3.28 10^6/uL (4.30-6.10); WHITE BLOOD COUNT 5.6 10^3/uL (4.0-10.0)
[2020-11-18 01:32] LABS: ALBUMIN 3.2 GM/DL (3.2-5.2); ALT/SGPT 36 U/L (12-78); BILIRUBIN,DIRECT < 0.1 MG/DL (0.0-0.2); BILIRUBIN,TOTAL 0.3 MG/DL (0.2-1.0); BLOOD UREA NITROGEN 13 MG/DL (7-18); CALCIUM LEVEL 8.6 MG/DL (8.5-10.1); CARBON DIOXIDE LEVEL 32 MEQ/L (21-32); CHLORIDE LEVEL 105 MEQ/L (98-107); CREATININE FOR GFR 0.75 MG/DL (0.70-1.30); GLOMERULAR FILTRATION RATE > 60.0 (>60); GLUCOSE, FASTING 96 MG/DL (70-100); LIPASE 258 U/L (73-393); POTASSIUM SERUM 4.5 MEQ/L (3.5-5.1); SODIUM LEVEL 140 MEQ/L (136-145); TOTAL PROTEIN 6.1 GM/DL (6.4-8.2)
[2020-11-18] MEDS ORDERED: ISOVUE-370 76% 100ML VIAL As Ordered ONE (01:57)
--- NOTE | 2020-11-18 02:46 | REPVR ---
PROCEDURE INFORMATION: Exam: CT Abdomen And Pelvis With Contrast Exam date and time: 11/18/2020 2:09 AM Age: 40 years old Clinical indication: Abdominal pain; Localized; Left lower quadrant (llq); Additional info: Abdominal pain llq TECHNIQUE: Imaging protocol: Computed tomography of the abdomen and pelvis with contrast. Radiation optimization: All CT scans at this facility use at least one of these dose optimization techniques: automated exposure control; mA and/or kV adjustment per patient size (includes targeted exams where dose is matched to clinical indication); or iterative reconstruction. Contrast material: ISOVUE 370; Contrast volume: 100 ml; Contrast route: INTRAVENOUS (IV); COMPARISON: Pelvis, limited US 06/05/2020 10:48 AM FINDINGS: Lungs: No suspicious mass or airspace process in the visualized lung bases. Mediastinal space: Small hiatal hernia is present. Liver: Liver appears normal with no focal abnormality. Gallbladder and bile ducts: Gallbladder is present and shows no evidence of gallstone. Pancreas: Pancreas appears normal. No focal mass or peripancreatic inflammation. Spleen: Spleen appears homogeneous without focal mass. Adrenal glands: Adrenal glands are normal in appearance. Kidneys and ureters: Kidneys appear normal, with no stone, solid mass or hydronephrosis. Stomach and bowel: No evidence of small bowel obstruction. No evidence of acute diverticulitis. Moderate pattern of colonic stool is present. Appendix: Appendix is not seen. No RLQ inflammation to suggest appendicitis. Intraperitoneal space: No pneumoperitoneum. Vasculature: No aortic aneurysm. Main portal and splenic veins enhance normally. Lymph nodes: No enlarged lymph nodes. Urinary bladder: Urinary bladder appears normal. Reproductive: No overt enlargement of the prostate gland. Bones/joints: Bony structures show no acute fracture or destructive process. Soft tissues: No concerning focal abnormality of the extra-abdominal and pelvic soft tissues. IMPRESSION: No acute or concerning focal abdominal or pelvic process Electronically signed by: Rhett Menendez On 11/18/2020 02:46:32 AM
[2020-11-18 03:04] VITALS: BP 121/80
== END 2020-11-18 03:06 | disposition home or self-care (01) ==
LOC: M ED 19:24
DX: K59.00 Constipation, unspecified (principal); R10.9 Unspecified abdominal pain; F31.9 Bipolar disorder, unspecified; E78.5 Hyperlipidemia, unspecified; Z91.040 Latex allergy status; Z79.899 Other long term (current) drug therapy
CPT/HCPCS: 36415; 74177; 80048; 80076; 81001; 83690; 85025; 99284; Q9967

== ENCOUNTER → 2021-02-12 | Outpatient (CLI) | payer BC, MEDICAID ==
[~2021-02-12] MED LIST changes: +ACET-841 PO
--- NOTE | 2021-02-12 10:56 | REP ---
INDICATION: TESTICULAR PAIN COMPARISON: None. TECHNIQUE: Covarrubias scale and color Doppler evaluation using linear and curved array transducer with color Doppler evaluation. FINDINGS: The testicles and epididymi are relatively symmetric and normal in contour, size, echogenicity, vascularity and overall appearance. Incidental 3 mm right and 4 mm left epididymal head cyst noted. 7 mm cystic structure adjacent to the left epididymal head also likely represents exophytic cyst. Left-sided varicoceles measuring up to 3 mm diameter with increased flow on Valsalva noted. No evidence for hydrocele.. Right testicle measures 4.8 x 2.6 x 3.4 cm. Left testicle measures 4.9 x 2.5 x 3.2 cm. IMPRESSION: 1. Few small benign epididymal cysts (left greater than right). 2. Mild early left-sided varicoceles up to 3 mm diameter with increased flow on Valsalva. 3. Normal symmetric appearance of the bilateral testicles. <Electronically signed by Jasvir Petersen > 02/12/21 [id number]
== END ==
LOC: M RAD 10:01
PROVIDERS: ATTEND Nurse Practitioner Women's Health
DX: N50.819 Testicular pain, unspecified (principal)

== ENCOUNTER 2021-03-13 10:29 | Inpatient (IN) | payer BC, MEDICAID ==
[~2021-03-13] VITALS: Ht 165.1 cm; Wt 79.0 kg
[~2021-03-13 10:29] MED LIST changes: -FLON1SPR; +FLON1SPR NARES
--- OUTSIDE RECORDS SUMMARY | 2021-03-13 10:38 | CCD ---
Author Author [facility] Organization [facility] Address Unknown Phone Unavailable Care Team Providers Care Supervisor Elementary Education Name Role Phone Rafael Pickard Unavailable PROBLEMS Type Condition ICD9-CM Code [id number] Code Onset Dates Condition S tatus W/U Status Risk SNOMED Code Notes Problem Tourette's disorder F95.2 Active confirmed 8378506 Problem Decreased libido R68.82 Active confirmed 835 7008 Problem Other hyperlipidemia E78.4 Active confirmed 91920773 Problem Hallucinations R44.3 Active confirmed 36892 01 Problem Closed TBI (traumatic brain injury), without loss of consciousness, sequela S06.9X0S Active confirmed 8893459 Problem Melanoma of scalp C43.4 Active confirmed 18 1998112 Problem LEIGH (obstructive sleep apnea) G47.33 Active confirm ed 12482952 Problem Melanocytic nevi of left lower limb, including hip D22.72 Active confirmed 607157492 Problem Allergic rhinitis, unspecifi ed chronicity, unspecified seasonality, unspecified trigger J30.9 Active confirmed 97670867 Problem Melanocytic nevi of left upper limb, including shoulder D22.62 Active confirmed 671692048 Problem Melanocytic nevi of right lower limb, including hip D22.71 Active confirmed 642252181 Problem Melanocytic nevi of trunk D22.5 Active confirmed 450639619 Problem Melanocytic nevi of right upper limb, including shoulder D22.61 Active confirmed 445783342 Problem Melanocytic nevi of face D22.30 Active confirmed 190926694 Problem Kendrick angioma I78.1 Active confirmed 15512 01 Problem 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 Active confirmed 4848631535575 Problem Lymphadenopathy of head and neck R59.1 Active conf irmed 426323198 Problem Malignant melanoma, metastatic C79.9 Active confir med 744381483 Problem Fungal dermatitis B36.9 Active confirmed 14 728066 Problem Visual hallucinations R44.1 Active confirmed 34664893 Problem Varicocele I86.1 Active confirmed 02950933 Problem Depression, unspecified depression type F32.9 Active confirmed 14063712 Problem 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 Act devaughn confirmed 627940076 Problem Bipolar 1 disorder, depressed F31.9 Active confirm ed 66832958 Problem 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 Active confirmed 99822595 Problem Human immunodeficiency virus [HIV] disease B20 Active confirmed 139152738 Problem Secondary hypothyroidism E03.8 Active confirmed 20183781 ALLERGIES Allergen (clinical drug ingredient) Drug/Non Drug Allergy do cumented on EMR Reaction Allergy Type Onset Date Status Latex (for allergy use only) Hives Drug Allergy Active Luvox ED Non Drug Allergy Active Lexapro, Zoloft drive mouth, anger issues, sexual SE Non D rug Allergy Active Adderall extreme anxiety attacks Non Drug Allergy Active ENCOUNTERS from 1980 to 2021-02-20 Encounter Location Date Provider Diagnosis [facility] [id number] [phone] [place] [address] 07 Feb, 2021 Rafael Pickard Fungal dermatitis B36.9 and Varicocele I 86.1 IMMUNIZATIONS Vaccine Route Administration Date Status Influenza Pharmacy Given Unknown Feb 14, 2018 Adminis tered TDAP 0.5mL (Boostrix) Unknown Apr 15, 2011 Administer ed Influenza 6mo & up Fluzone Unknown Feb 07, 2016 Admin istered Influenza 6mo & up Fluzone Unknown Feb 08, 2015 Admin istered SOCIAL HISTORY Sex Assigned At : Social History Observation Description Sex Assigned At Unknown Education: Question Answer Notes Level of Education: Finished High School Sexual Hx: Question Answer Notes Had sex in the last 12 months (vaginal, oral, or anal)? Yes Have you ever had an STD? No Prevention Strategies discussed: Other with Women only Use protection? No Alcohol Screening: Question Answer Notes Did you have a drink containing alcohol in the past year? No Points 0 Interpretation Negative REASON FOR REFERRAL No Information VITAL SIGNS No information MEDICATIONS Medication SIG (Take, Route, Frequency, Duration) Notes Start Da te End Date Status Elderberry 575 MG/5ML as directed Orally Not-Taking Divalproex Sodium 500 MG 3 tablets Orally once a day Not-Taking Ketoconazole 2 % APPLY TOPICALLY TO AFFECTED AREA TWO TIMES A DAY External for 30 Active Divalproex Sodium ER 500 MG TAKE THREE TABLETS BY MOUT H EVERY NIGHT 125mg at bedtime Oral Active Vitamin C 250 MG Orally Not-Takporsche ng Anusol-HC 2.5 % 1 application Externally thr ee times daily as needed for 10 day(s) May, Not-Taking Lidocaine Viscous HCl 2 % APPLY TO AFFECTED AREA 4 6 T IMES PER DAY NEEDED FOR PAIN Mouth/Throat for 5 Active Zinc 140 Daily Not-Taking hydrOXYzine HCl 10 MG TAKE TWO TABLETS BY MOUTH TW ICE A DAY NEEDED FOR ANXIETY Oral for 14 Active Vancomycin HCl 250 MG 1 cap Orally every 6 hrs for 14 day(s) Jul, Not-Taking Dabrafenib Mesylate 75 MG 2 capsules 1 hour before or 2 hours after meals Orally Twice a day Not-Taking Trametinib Dimethyl Sulfoxide 2 MG 1 tablet 1 hour bef ore or 2 hours after a meal Orally Once a day Not-Takin g Simvastatin 10 MG 1 tablet in the evening orally once daily for 30 Active Nivolumab 40 MG/4ML as directed Intravenous Not-Taking Levothyroxine Sodium 50 MCG 1 tablet in the morning on an empty stomach Orally Once a day for 30 day(s) Active Prochlorperazine Maleate 10 MG TAKE ONE TABLET BY MOUT H FOUR TIMES A DAY NEEDED FOR NAUSEA Oral for 30 Ac tive Fluoxetine HCl 10 MG TAKE ONE CAPSULE BY MOUTH EVERY MORNING Oral for 30 Active Gas Relief Active Diflucan 150 MG 1 tablet Orally Feb, Ac tive Magnesium Oxide 400 MG 1 tablet as needed Orally Once a day for 30 da y(s) Not-Taking busPIRone HCl 30 MG 2 tab Orally bid Not-Taking Betamethasone Dipropionate 0.05 % 1 application Externally Once a day Active Fluticasone Propionate 50 MCG/ACT 1 spray in each nost ril Nasally Once a day for 30 day(s) Apr, Not-Taking Mupirocin Calcium 2 % 1 application Externally Three times a day for 10 day(s) Aug, Not-Taking PROCEDURES No Information RESULTS No Results REASON FOR VISIT SCROTAL ISSUES MEDICAL (GENERAL) HISTORY Type Description Date Medical History nodular melanoma scalp--pT3a Nx, s/p wide excision [place] 11/2018; rianna metastases 2019, chemotx by [facility] Medical History Tourette's syndrome Medical History hyperlipidemia Medical History anxiety Medical History OCD? Medical History ? migraines--has light sensi tivities, saw neuro/ophtho/neuro-ophtho Medical History c diff colitis 08/02 Surgical History tympanostomy tubes Surgical History hand recontructed right Surgical History biopsy neck 05/21/2019 Surgical History 72 lymph nodes removed from right side o f neck Surgical History tonsillectomy 10/2020 Hospitalization History surgery related Hospitalization History vomiting blood 11/03 Goals Section No Information Health Concerns No Information MEDICAL EQUIPMENT No Information MENTAL STATUS No Information FUNCTIONAL STATUS No Information ASSESSMENTS Encounter Date Diagnosis Assessment Notes Treatment Notes Treatm ent Clinical Notes Feb, Varicocele (ICD-10 - I86.1) Feb, Fungal dermatitis (ICD-10 - B36.9) - script for diflucan sent for likely fungal infection - patient to try to keep the groin dry to help prevent recurrent infection - 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 week - f/u w/ me in 2 wks PLAN OF TREATMENT Medication Medication Name Sig Start Date Stop Date Diflucan 150 MG 1 tablet Orally Feb, Treatment Notes Assessment Notes Clinical Notes Fungal dermatitis - script for difluca n sent for likely fungal infection- patient to try to keep the groin dry to help prevent recurrent infection- 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
--- OUTSIDE RECORDS SUMMARY | 2021-03-13 10:38 | CCD ---
Author Author [facility] Organization [facility] Address Unknown Phone Unavailable Care Team Providers Care Heat Treater Name Role Phone Janes Kelly Unavailable PROBLEMS Type Condition ICD9-CM Code [id number] Code Onset Dates Condition S tatus W/U Status Risk SNOMED Code Notes Problem Tourette's disorder F95.2 Active confirmed 0274258 Problem Decreased libido R68.82 Active confirmed 835 7008 Problem Other hyperlipidemia E78.4 Active confirmed 42624111 Problem Hallucinations R44.3 Active confirmed 37241 01 Problem Closed TBI (traumatic brain injury), without loss of consciousness, sequela S06.9X0S Active confirmed 5371524 Problem Melanoma of scalp C43.4 Active confirmed 18 8555721 Problem LEIGH (obstructive sleep apnea) G47.33 Active confirm ed 68005829 Problem Melanocytic nevi of left lower limb, including hip D22.72 Active confirmed 163687782 Problem Allergic rhinitis, unspecifi ed chronicity, unspecified seasonality, unspecified trigger J30.9 Active confirmed 00483233 Problem Melanocytic nevi of left upper limb, including shoulder D22.62 Active confirmed 622069695 Problem Melanocytic nevi of right lower limb, including hip D22.71 Active confirmed 307395694 Problem Melanocytic nevi of trunk D22.5 Active confirmed 612856681 Problem Melanocytic nevi of right upper limb, including shoulder D22.61 Active confirmed 878924460 Problem Melanocytic nevi of face D22.30 Active confirmed 816474146 Problem Kendrick angioma I78.1 Active confirmed 19994 01 Problem 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 Active confirmed 3529226145808 Problem Lymphadenopathy of head and neck R59.1 Active conf irmed 932908273 Problem Malignant melanoma, metastatic C79.9 Active confir med 263059280 Problem Fungal dermatitis B36.9 Active confirmed 14 029310 Problem Visual hallucinations R44.1 Active confirmed 42912760 Problem Varicocele I86.1 Active confirmed 91154459 Problem Depression, unspecified depression type F32.9 Active confirmed 92266052 Problem 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 Act devaughn confirmed 703936264 Problem Bipolar 1 disorder, depressed F31.9 Active confirm ed 45455838 Problem 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 Active confirmed 34551120 Problem Human immunodeficiency virus [HIV] disease B20 Active confirmed 433141138 Problem Secondary hypothyroidism E03.8 Active confirmed 17733904 ALLERGIES Allergen (clinical drug ingredient) Drug/Non Drug Allergy do cumented on EMR Reaction Allergy Type Onset Date Status Latex (for allergy use only) Hives Drug Allergy Active Luvox ED Non Drug Allergy Active Lexapro, Zoloft drive mouth, anger issues, sexual SE Non D rug Allergy Active Adderall extreme anxiety attacks Non Drug Allergy Active ENCOUNTERS from 1980 to 2021-02-19 Encounter Location Date Provider Diagnosis [place] [address] [facility] [phone] [place] [address] 07 Feb, 2021 Janes Kelly IMMUNIZATIONS Vaccine Route Administration Date Status Influenza [...] Oral Active Vitamin C 250 MG Orally Not-Yoko maynard Anusol-HC 2.5 % 1 application Externally thr [...] after a meal Orally Once a day Not-[place] Simvastatin 10 MG 1 tablet in the [...] Information RESULTS No Results REASON FOR VISIT urology concerns MEDICAL (GENERAL) HISTORY Type Description Date Medical History nodular melanoma scalp--pT3a Nx, s/p wide excision [facility] 11/2018; rianna metastases 2019, chemotx by [facility] Medical History Tourette's syndrome Medical History hyperlipidemia [...] No Information FUNCTIONAL STATUS No Information ASSESSMENTS No Information PLAN OF TREATMENT Medication Medication Name Sig Start Date Stop Date Diflucan 150 MG 1 tablet Orally Feb, Next Appt Details Provider Name:Rafael Saab Neeraj, 08:15:00 AM, [id number], , [place], [address], Insurance Providers Payer Name Payer Address Payer Phone Insured Name Patient Relati onship to Insured Coverage Start Date Coverage End Date MEDICAID [id number] [address] [facility] [address] J[place]ES MAZARIEGOS self BCBS [facility] Elias PPO [phone] [facility] [employer] [facility] [id number] JANES MAZARIEGOS self
--- OUTSIDE RECORDS SUMMARY | 2021-03-13 10:38 | CCD ---
Author Author [facility] Organization 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 Act devaughn confirmed 459181993 Problem Visual hallucinations R44.1 Active confirmed 96341034 Problem Melanocytic nevi of left lower limb, including hip D22.72 Active confirmed 675509833 Problem Allergic rhinitis, unspecifi ed chronicity, unspecified seasonality, unspecified trigger J30.9 Active confirmed 66006497 Problem Melanocytic nevi of left upper limb, including shoulder D22.62 Active confirmed 848465385 Problem Melanocytic nevi of right lower limb, including hip D22.71 Active confirmed 947930568 Problem Melanocytic nevi of trunk D22.5 Active confirmed 303471182 Problem Melanocytic nevi of right upper limb, including shoulder D22.61 Active confirmed 923594661 Problem LEIGH (obstructive sleep apnea) G47.33 Active confirm ed 27833398 Problem Melanoma of scalp C43.4 Active confirmed 18 6377030 Problem 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 Active confirmed 4381495933134 Problem Human immunodeficiency virus [HIV] disease B20 Active confirmed 733126328 Problem Depression, unspecified depression type F32.9 Active confirmed 35949860 Problem Secondary hypothyroidism E03.8 Active confirmed 04086738 Problem Closed TBI (traumatic brain injury), without loss of consciousness, sequela S06.9X0S Active confirmed 8736007 Problem Hallucinations R44.3 Active confirmed 38492 01 Problem Lymphadenopathy of head and neck R59.1 Active conf irmed 434718583 Problem Malignant melanoma, metastatic C79.9 Active confir med 880999017 Problem Bipolar 1 disorder, depressed F31.9 Active confirm ed 59573049 Problem 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 Active confirmed 25994502 ALLERGIES Allergen (clinical drug ingredient) Drug/Non Drug Allergy do cumented on EMR Reaction Allergy Type Onset Date Status Latex (for allergy use only) Hives Drug Allergy Active Luvox ED Non Drug Allergy Active Lexapro, Zoloft drive mouth, anger issues, sexual SE Non D rug Allergy Active Adderall extreme anxiety attacks Non Drug Allergy Active ENCOUNTERS from 1980 to 2021-02-13 Encounter Location Date Provider Diagnosis [facility] [phone] [place] [address] Jan, 2021 Norma Hess IMMUNIZATIONS Vaccine Route Administration Date Status Influenza [...] Notes Start Da te End Date Status Divalproex Sodium ER 500 MG TAKE THREE TABLETS BY MOUT H EVERY NIGHT 125mg at bedtime Oral Active Vancomycin HCl 250 MG 1 cap Orally every 6 hrs for 14 day(s) Jul, Not-Taking Anusol-HC 2.5 % 1 application Externally thr ee times daily as needed for 10 day(s) May, Not-Taking Prochlorperazine Maleate 10 MG TAKE ONE TABLET BY MOUT H FOUR TIMES A DAY NEEDED FOR NAUSEA Oral for 30 Ac tive Levothyroxine Sodium 50 MCG 1 tablet in the morning on an empty stomach Orally Once a day for 30 day(s) Active Divalproex Sodium 500 MG 3 tablets Orally once a day Not-Taking Lidocaine Viscous HCl 2 % APPLY TO AFFECTED AREA 4 6 T IMES PER DAY NEEDED FOR PAIN Mouth/Throat for 5 Active Mupirocin Calcium 2 % 1 application Externally Three times a day for 10 day(s) Aug, Not-Taking hydrOXYzine HCl 10 MG TAKE TWO TABLETS BY MOUTH TW ICE A DAY NEEDED FOR ANXIETY Oral for 14 Active Magnesium Oxide 400 MG 1 tablet as needed Orally Once a day for 30 da y(s) Not-Taking busPIRone HCl 30 MG 2 tab Orally bid Not-Taking Dabrafenib Mesylate 75 MG 2 capsules 1 hour before or 2 hours after meals Orally Twice a day Not-Taking Fluticasone Propionate 50 MCG/ACT 1 spray in each nost ril Nasally Once a day for 30 day(s) Apr, Not-Taking Vitamin C 250 MG Orally Not-Yoko maynard Betamethasone Dipropionate 0.05 % 1 application Externally Once a day Active Nivolumab 40 MG/4ML as directed Intravenous Not-Taking Elderberry 575 MG/5ML as directed Orally Not-Taking Zinc 140 Daily Not-Taking Simvastatin 10 MG 1 tablet in the evening orally once daily for 30 Active Gas Relief Active Fluoxetine HCl 10 MG TAKE ONE CAPSULE BY MOUTH EVERY MORNING Oral for 30 Active Ketoconazole 2 % APPLY TOPICALLY TO AFFECTED AREA TWO TIMES A DAY External for 30 Active Trametinib Dimethyl Sulfoxide 2 MG 1 tablet 1 hour bef ore or 2 hours after a meal Orally Once a day Not-[place] PROCEDURES No Information RESULTS No Results REASON FOR VISIT US MEDICAL (GENERAL) HISTORY Type Description Date Medical History nodular melanoma scalp--pT3a Nx, s/p wide excision [facility] 11/2018; rianna metastases 2019, chemotx by [facility] Medical History Tourette's syndrome Medical [...] Information ASSESSMENTS No Information PLAN OF TREATMENT No Information Insurance Providers Payer Name Payer Address Payer Phone Insured Name Patient Relati onship to Insured Coverage Start Date Coverage End Date MEDICAID [employer] [address] [facility] [address] KAITLYNN BENDER self [facility] [address]PO [phone] [facility] [place] [facility] [address] KAITLYNN BENDER self
--- OUTSIDE RECORDS SUMMARY | 2021-03-13 10:39 | CCD ---
Author Author [facility] Organization [facility] Address Unknown Phone Unavailable Care Team Providers Care Installer Inspector Final Name Role Phone Norma Hess Unavailable PROBLEMS Type Condition ICD9-CM Code LRI46-CP Code Onset Dates Condition S tatus W/U Status Risk SNOMED Code Notes Problem Tourette's disorder F95.2 Active confirmed 5888581 Problem Decreased libido R68.82 Active confirmed 835 7008 Problem Other hyperlipidemia E78.4 Active confirmed 60592424 Problem Melanocytic nevi of face D22.30 Active confirmed 321477299 Problem Kendrick angioma I78.1 Active confirmed 20675 01 Problem 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 Act devaughn confirmed 077568071 Problem Visual hallucinations R44.1 Active confirmed 08549077 Problem Melanocytic nevi of left lower limb, including hip D22.72 Active confirmed 343558729 Problem Allergic rhinitis, unspecifi ed chronicity, unspecified seasonality, unspecified trigger J30.9 Active confirmed 36715252 Problem Melanocytic nevi of left upper limb, including shoulder D22.62 Active confirmed 077803249 Problem Melanocytic nevi of right lower limb, including hip D22.71 Active confirmed 784557947 Problem Melanocytic nevi of trunk D22.5 Active confirmed 511462395 Problem Melanocytic nevi of right upper limb, including shoulder D22.61 Active confirmed 467424856 Problem LEIGH (obstructive sleep apnea) G47.33 Active confirm ed 92424785 Problem Melanoma of scalp C43.4 Active confirmed 18 2068107 Problem 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 Active confirmed 8002749785397 Problem Human immunodeficiency virus [HIV] disease B20 Active confirmed 840279007 Problem Depression, unspecified depression type F32.9 Active confirmed 88427652 Problem Secondary hypothyroidism E03.8 Active confirmed 00381011 Problem Closed TBI (traumatic brain injury), without loss of consciousness, sequela S06.9X0S Active confirmed 9707757 Problem Hallucinations R44.3 Active confirmed 39143 01 Problem Lymphadenopathy of head and neck R59.1 Active conf irmed 451068425 Problem Malignant melanoma, metastatic C79.9 Active confir med 101235441 Problem Bipolar 1 disorder, depressed F31.9 Active confirm ed 27656114 Problem 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 Active confirmed 07311655 ALLERGIES Allergen (clinical drug ingredient) Drug/Non Drug Allergy do cumented on EMR Reaction Allergy Type Onset Date Status Latex (for allergy use only) Hives Drug Allergy Active Luvox ED Non Drug Allergy Active Lexapro, Zoloft drive mouth, anger issues, sexual SE Non D rug Allergy Active Adderall extreme anxiety attacks Non Drug Allergy Active ENCOUNTERS from 1980 to 2021-01-09 Encounter Location Date Provider Diagnosis [facility] [address] [phone] [place] [address] Dec, Norma Recore Testicular pain, unspecified N50.819 IMMUNIZATIONS Vaccine Route Administration Date Status Influenza [...] Apr, Not-Taking Vitamin C 250 MG Orally Not-Taki ng Betamethasone Dipropionate 0.05 % 1 application Externally [...] a meal Orally Once a day Not-Dimas g PROCEDURES No Information RESULTS No Results REASON FOR VISIT left testicle sore MEDICAL (GENERAL) HISTORY Type Description Date Medical History nodular melanoma scalp--pT3a Nx, s/p wide excision [facility] 11/2018; rianna metastases 2019, chemotx by [facility] Medical History Tourette's syndrome Medical [...] Notes Treatment Notes Treatm ent Clinical Notes Dec, Testicular pain, unspecified (ICD-10 - N50.819) PLAN OF TREATMENT Treatment Notes Test Name Order Date [facility] Scrotal, 2021-01-08 Next Appt Details we will call with results Reason: Insurance Providers Payer Name Payer Address Payer Phone Insured Name Patient Relati onship to Insured Coverage Start Date Coverage End Date MEDICAID [employer] [address] [facility] [address] KAITLYNN BENDER [place] [facility] PPO [phone] [facility] [employer] [place] [address] KAITLYNN BENDER self
--- OUTSIDE RECORDS SUMMARY | 2021-03-13 10:39 | CCD ---
Author Author [facility] Organization [facility] Address Unknown Phone Unavailable Care Team Providers Care Dermatology Sales Representative Name Role Phone Janes Kelly Unavailable PROBLEMS Type Condition ICD9-CM Code LXF19-AW Code Onset Dates Condition S tatus W/U Status Risk SNOMED Code Notes Problem Tourette's disorder F95.2 Active confirmed 3046340 Problem Decreased libido R68.82 Active confirmed 835 7008 Problem Other hyperlipidemia E78.4 Active confirmed 32886392 Problem Melanocytic nevi of face D22.30 Active confirmed 359100470 Problem Kendrick angioma I78.1 Active confirmed 81391 01 Problem 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 Act devaughn confirmed 159318782 Problem Visual hallucinations R44.1 Active confirmed 00234174 Problem Melanocytic nevi of left lower limb, including hip D22.72 Active confirmed 270861318 Problem Allergic rhinitis, unspecifi ed chronicity, unspecified seasonality, unspecified trigger J30.9 Active confirmed 14044517 Problem Melanocytic nevi of left upper limb, including shoulder D22.62 Active confirmed 230962190 Problem Melanocytic nevi of right lower limb, including hip D22.71 Active confirmed 281199925 Problem Melanocytic nevi of trunk D22.5 Active confirmed 986983526 Problem Melanocytic nevi of right upper limb, including shoulder D22.61 Active confirmed 065235469 Problem LEIGH (obstructive sleep apnea) G47.33 Active confirm ed 27739921 Problem Melanoma of scalp C43.4 Active confirmed 18 7579463 Problem 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 Active confirmed 6352940013730 Problem Human immunodeficiency virus [HIV] disease B20 Active confirmed 122690016 Problem Depression, unspecified depression type F32.9 Active confirmed 58526351 Problem Secondary hypothyroidism E03.8 Active confirmed 59088914 Problem Closed TBI (traumatic brain injury), without loss of consciousness, sequela S06.9X0S Active confirmed 0061210 Problem Hallucinations R44.3 Active confirmed 58211 01 Problem Lymphadenopathy of head and neck R59.1 Active conf irmed 568502037 Problem Malignant melanoma, metastatic C79.9 Active confir med 316391379 Problem Bipolar 1 disorder, depressed F31.9 Active confirm ed 66539443 Problem 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 Active confirmed 69843483 ALLERGIES Allergen (clinical drug ingredient) Drug/Non Drug Allergy do cumented on EMR Reaction Allergy Type Onset Date Status Latex (for allergy use only) Hives Drug Allergy Active Luvox ED Non Drug Allergy Active Lexapro, Zoloft drive mouth, anger issues, sexual SE Non D rug Allergy Active Adderall extreme anxiety attacks Non Drug Allergy Active ENCOUNTERS from 1980 to 2020-12-26 Encounter Location Date Provider Diagnosis [facility] [address] [place] [address] Dec, 2020 Janes Kelly IMMUNIZATIONS Vaccine Route Administration Date [...] Notes Start Da te End Date Status Mupirocin Calcium 2 % 1 application Externally Three times a day for 10 day(s) Aug, Not-Taking Prochlorperazine Maleate 10 MG TAKE ONE TABLET BY MOUT H FOUR TIMES A DAY NEEDED FOR NAUSEA Oral for 30 Ac tive Zinc 140 Daily Not-Taking Nivolumab 40 MG/4ML as directed Intravenous Not-Taking hydrOXYzine HCl 10 MG TAKE TWO TABLETS BY MOUTH TW ICE A DAY NEEDED FOR ANXIETY Oral for 14 Active Simvastatin 10 MG 1 tablet in the evening orally once daily for 30 Active Divalproex Sodium ER 500 MG TAKE THREE TABLETS BY MOUT H EVERY NIGHT 125mg at bedtime Oral Active Anusol-HC 2.5 % 1 application Externally thr ee times daily as needed for 10 day(s) May, Not-Taking Trametinib Dimethyl Sulfoxide 2 MG 1 tablet 1 hour bef ore or 2 hours after a meal Orally Once a day Not-Takin g Vancomycin HCl 250 MG 1 cap Orally every 6 hrs for 14 day(s) Jul, Not-Taking Betamethasone Dipropionate 0.05 % 1 application Externally Once a day Active Lidocaine Viscous HCl 2 % APPLY TO AFFECTED AREA 4 6 T IMES PER DAY NEEDED FOR PAIN Mouth/Throat for 5 Active Magnesium Oxide 400 MG 1 tablet as needed Orally Once a day for 30 da y(s) Not-Taking Divalproex Sodium 500 MG 3 tablets Orally once a day Not-Taking Ketoconazole 2 % APPLY TOPICALLY TO AFFECTED AREA TWO TIMES A DAY External for 30 Active Fluticasone Propionate 50 MCG/ACT 1 spray in each nost ril Nasally Once a day for 30 day(s) Apr, Not-Taking busPIRone HCl 30 MG 2 tab Orally bid Not-Taking Vitamin C 250 MG Orally Not-Taki ng Levothyroxine Sodium 50 MCG 1 tablet in the morning on an empty stomach Orally Once a day for 30 day(s) Active Dabrafenib Mesylate 75 MG 2 capsules 1 hour before or 2 hours after meals Orally Twice a day Not-Taking Gas Relief Active Fluoxetine HCl 10 MG TAKE ONE CAPSULE BY MOUTH EVERY MORNING Oral for 30 Active Elderberry 575 MG/5ML as directed Orally Not-Taking PROCEDURES No Information RESULTS No Results REASON FOR VISIT letter for hearing aids MEDICAL (GENERAL) HISTORY Type Description Date Medical History nodular melanoma scalp--pT3a Nx, s/p wide excision [facility] 11/2018; rianna metastases 2019, chemotx by [facility] Medical History Tourette's syndrome Medical History hyperlipidemia [...] Insured Coverage Start Date Coverage End Date [place]BS [place] [facility] PPO [phone] [facility] [employer] [facility] [address] JANES MAZARIEGOS self MEDICAID [employer] [address] [place] [facility] [address] JANES MAZARIEGOS self
--- OUTSIDE RECORDS SUMMARY | 2021-03-13 10:39 | CCD ---
Author Author [facility] Organization [facility] Address Unknown Phone Unavailable Care Team Providers Care Repairing Calibrator Name Role Phone TRAE LIVINGSTON MD Unavailable Unavailable TRAE LIVINGSTON MD Unavailable Unavailable TRAE LIVINGSTON MD Unavailable Unavailable TRAE LIVINGSTON MD Unavailable Unavailable TRAE LIVINGSTON MD Unavailable Unavailable TRAE LIVINGSTON MD Unavailable Unavailable TRAE LIVINGSTON MD Unavailable Unavailable TRAE LIVINGSTON MD Unavailable Unavailable TRAE LIVINGSTON MD Unavailable Unavailable TRAE LIVINGSTON MD Unavailable Unavailable TRAE LIVINGSTON MD Unavailable Unavailable TRAE LIVINGSTON MD Unavailable Unavailable TRAE LIVINGSTON MD Unavailable Unavailable TRAE LIVINGSTON MD Unavailable Unavailable TRAE LIVINGSTON MD Unavailable Unavailable TRAE LIVINGSTON MD Unavailable Unavailable TRAE LIVINGSTON MD Unavailable Unavailable TRAE LIVINGSTON MD Unavailable Unavailable TRAE LIVINGSTON MD Unavailable Unavailable TRAE LIVINGSTON MD Unavailable Unavailable TRAE LIVINGSTON MD Unavailable Unavailable TRAE LIVINGSTON MD Unavailable Unavailable TRAE LIVINGSTON MD Unavailable Unavailable TRAE LIVINGSTON MD Unavailable Unavailable TRAE LIVINGSTON MD Unavailable Unavailable TRAE LIVINGSTON MD Unavailable Unavailable TRAE LIVINGSTON MD Unavailable Unavailable TRAE LIVINGSTON MD Unavailable Unavailable REINDL, TRAE COSTA Unavailable Unavailable REINDL, TRAE COSTA Unavailable Unavailable REINDL, TRAE COSTA Unavailable Unavailable REINDL, TRAE COSTA Unavailable Unavailable REINDL, TRAE COSTA Unavailable Unavailable REINDL, TRAE COSTA Unavailable Unavailable REINDL, TRAE COSTA Unavailable Unavailable REINDL, TRAE COSTA Unavailable Unavailable REINDL, TRAE COSTA Unavailable Unavailable REINDL, TRAE COSTA Unavailable Unavailable REINDL, TRAE COSTA Unavailable Unavailable REINDL, TRAE COSTA Unavailable Unavailable REINDL, TRAE COSTA Unavailable Unavailable REINDL, TRAE COSTA Unavailable Unavailable Maldonado, Isatu SEMICONDUCTOR BONDER Unavailable Unavailable Maldonado, Isatu SEMICONDUCTOR BONDER Unavailable Unavailable Maldonado, Isatu SEMICONDUCTOR BONDER Unavailable Unavailable Maldonado, Isatu SEMICONDUCTOR BONDER Unavailable Unavailable Maldonado, Isatu SEMICONDUCTOR BONDER Unavailable Unavailable Maldonado, Isatu SEMICONDUCTOR BONDER Unavailable Unavailable Maldonado, Isatu SEMICONDUCTOR BONDER Unavailable Unavailable Maldonado, Isatu SEMICONDUCTOR BONDER Unavailable Unavailable Maldonado, Isatu SEMICONDUCTOR BONDER Unavailable Unavailable Maldonado, Isatu SEMICONDUCTOR BONDER Unavailable Unavailable Maldonado, Isatu SEMICONDUCTOR BONDER Unavailable Unavailable Maldonado, Isatu SEMICONDUCTOR BONDER Unavailable Unavailable Maldonado, Isatu SEMICONDUCTOR BONDER Unavailable Unavailable Maldonado, Isatu SEMICONDUCTOR BONDER Unavailable Unavailable Maldonado, Isatu SEMICONDUCTOR BONDER Unavailable Unavailable Maldonado, Isatu SEMICONDUCTOR BONDER Unavailable Unavailable Maldonado, Isatu SEMICONDUCTOR BONDER Unavailable Unavailable Maldonado, Isatu SEMICONDUCTOR BONDER Unavailable Unavailable Maldonado, Isatu SEMICONDUCTOR BONDER Unavailable Unavailable Maldonado, Isatu SEMICONDUCTOR BONDER Unavailable Unavailable Maldonado, Isatu SEMICONDUCTOR BONDER Unavailable Unavailable Maldonado, Isatu SEMICONDUCTOR BONDER Unavailable Unavailable Charlebois, A Nargis RPA C Unavailable Unavailable Charlebois, A Nargis RPA C Unavailable Unavailable Charlebois, A Nargis RPA C Unavailable Unavailable Charlebois, A Nargis RPA C Unavailable Unavailable Charlebois, A Nargis RPA C Unavailable Unavailable Charlebois, A Nargis RPA C Unavailable Unavailable Charlebois, A Nargis RPA C Unavailable Unavailable Charlebois, A Nargis RPA C Unavailable Unavailable Charlebois, A Nargis RPA C Unavailable Unavailable Charlebois, A Nargis RPA C Unavailable Unavailable Charlebois, A Nargis RPA C Unavailable Unavailable Charlebois, A Nargis RPA C Unavailable Unavailable Charlebois, A Nargis RPA C Unavailable Unavailable Charlebois, A Nargis RPA C Unavailable Unavailable Charlebois, A Nargis RPA C Unavailable Unavailable Charlebois, A Nargis RPA C Unavailable Unavailable Charlebois, A Nargis RPA C Unavailable Unavailable Charlebois, A Nargis RPA C Unavailable Unavailable Charlebois, A Nargis RPA C Unavailable Unavailable Charlebois, A Nargis RPA C Unavailable Unavailable Charlebois, A Nargis RPA C Unavailable Unavailable Charlebois, A Nargis RPA C Unavailable Unavailable Charlebois, A Nargis RPA C Unavailable Unavailable Charlebois, A Nargis RPA C Unavailable Unavailable Charlebois, A Nargis RPA C Unavailable Unavailable Charlebois, A Nargis RPA C Unavailable Unavailable Charlebois, A Nargis RPA C Unavailable Unavailable Charlebois, A Nargis RPA C Unavailable Unavailable Charlebois, A Nargis RPA C Unavailable Unavailable Charlebois, A Nargis RPA C Unavailable Unavailable Charlebois, A Nargis RPA C Unavailable Unavailable Charlebois, A Nargis RPA C Unavailable Unavailable Charlebois, A Nargis RPA C Unavailable Unavailable Abriss, Darlene Goodson MD Unavailable Unavailable Abriss, Darlene Goodson MD Unavailable Unavailable Abriss, Darlene Goodson MD Unavailable Unavailable Abriss, Darlene Goodson MD Unavailable Unavailable Abriss, Darlene Goodson MD Unavailable Unavailable Abriss, Darlene Goodson MD Unavailable Unavailable Abriss, Darlene Goodson MD Unavailable Unavailable Abriss, Darlene Goodson MD Unavailable Unavailable Abriss, Darlene Goodson MD Unavailable Unavailable Abriss, Darlene Goodson MD Unavailable Unavailable Abriss, Darlene Goodson MD Unavailable Unavailable Abriss, Darlene Goodson MD Unavailable Unavailable Abriss, Darlene Goodson MD Unavailable Unavailable Abriss, Darlene Goodson MD Unavailable Unavailable Abriss, Darlene Goodson MD Unavailable Unavailable Abriss, Darlene Goodson MD Unavailable Unavailable Abriss, Darlene Goodson MD Unavailable Unavailable Abriss, Darlene Goodson MD Unavailable Unavailable Abriss, Darlene Goodson MD Unavailable Unavailable JOSE DANIEL, LITTLE STEVE CARE CONNECTOR-C Unavailable Unavailable JOSE DANIEL, LITTLE STEVE CARE CONNECTOR-C Unavailable Unavailable JOSE DANIEL, LITTLE STEVE CARE CONNECTOR-C Unavailable Unavailable JOSE DANIEL, LITTLE STEVE CARE CONNECTOR-C Unavailable Unavailable JOSE DANIEL, LITTLE STEVE CARE CONNECTOR-C Unavailable Unavailable JOSE DANIEL, LITTLE STEVE CARE CONNECTOR-C Unavailable Unavailable JOSE DANIEL, LITTLE STEVE CARE CONNECTOR-C Unavailable Unavailable JOSE DANIEL, LITTLE STEVE CARE CONNECTOR-C Unavailable Unavailable JOSE DANIEL, LITTLE STEVE CARE CONNECTOR-C Unavailable Unavailable JOSE DANIEL, LITTLE STEVE CARE CONNECTOR-C Unavailable Unavailable JOSE DANIEL, LITTLE STEVE CARE CONNECTOR-C Unavailable Unavailable JOSE DANIEL, LITTLE STEVE CARE CONNECTOR-C Unavailable Unavailable JOSE DANIEL, LITTLE STEVE CARE CONNECTOR-C Unavailable Unavailable JOSE DANIEL, LITTLE STEVE CARE CONNECTOR-C Unavailable Unavailable JOSE DANIEL, LITTLE STEVE CARE CONNECTOR-C Unavailable Unavailable JOSE DANIEL, LITTLE STEVE CARE CONNECTOR-C Unavailable Unavailable JOSE DANIEL, LITTLE STEVE CARE CONNECTOR-C Unavailable Unavailable Re-disclosure Warning The records that you are about to access may contain information from federally-assisted alcohol or drug abuse programs. If such information is present, then the following federally mandated warning applies: This information has been disclosed to you from records protected by federal confidentiality rules (42 CFR part 2). The federal rules prohibit you from making any further disclosure of this information unless further disclosure is expressly permitted by the written consent of the person to whom it pertains or as otherwise permitted by 42 CFR part 2. A general authorization for the release of medical or other information is NOT sufficient for this purpose. The Federal rules restrict any use of the information to criminally investigate or prosecute any alcohol or drug abuse patient.The records that you are about to access may contain highly sensitive health information, the redisclosure of which is protected by Article 27-F of the [facility] Public Health law. If you continue you may have access to information: Regarding HIV / AIDS; Provided by facilities licensed or operated by the [facility] Office of Mental Health; or Provided by the [facility] Office for People With Developmental Disabilities. If such information is present, then the following [facility] mandated warning applies: This information has been disclosed to you from confidential records which are protected by state law. State law prohibits you from making any further disclosure of this information without the specific written consent of the person to whom it pertains, or as otherwise permitted by law. Any unauthorized further disclosure in violation of state law may result in a fine or nursing home sentence or both. A general authorization for the release of medical or other information is NOT sufficient authorization for further disc losure. Family History Family Member Name Family Member Gender Family Member Status Date o f Status Description Data Source(s) Unknown Unknown Problem MEDENT ([facility]) Unknown Male Problem MEDENT ([facility] Encounters Encounter Providers Location Date Indications Data Source(s ) [place] [address] [address] 02/19/2021 12:00:00 AM EDT [facility]CW1 ([facility]) Unknown [address] [facility] [place] [address] 02/19/2021 12:00:00 AM EDT [facility]CW1 [facility] [place] [address] [address] 02/12/2021 12:00:00 AM EDT eCW1 ([facility]) [place] [address] [address] 01/08/2021 12:00:00 AM EDT eCW1 ([facility]) Unknown [address] [facility] [place] [address] 01/07/2021 12:00:00 AM EDT eCW1 ([facility]) [place] [address] [address] 12/26/2020 12:00:00 AM EDT eCW1 ([facility]) [place] [address] [address] 12/16/2020 12:00:00 AM EDT eCW1 ([facility]) [place] [address] [facility] [place] [address] 11/27/2020 12:00:00 AM EDT eCW1 [facility] [place] [address] [address] 11/19/2020 12:00:00 AM EDT eCW1 ([facility]) Unknown [address] [facility] [place] [address] 11/18/2020 12:00:00 AM EDT eCW1 ([facility]) Outpatient Attender: STEVE Figueroa/Leandra/Amanda brunner 11/12/2020 03:45:00 PM EDT MEDENT ([facility] [place] [address] [address] 11/12/2020 12:00:00 AM EDT eCW1 ([facility]) [place] [address] [address] 11/11/2020 12:00:00 AM EDT eCW1 ([facility]) [place] [address] [address] 11/06/2020 12:00:00 AM EDT [facility] [place] [address] [address] 10/15/2020 12:00:00 AM EDT [facility]) [place] [address] [address] 10/10/2020 12:00:00 AM EDT [facility]1 [facility]) Outpatient Attender: STEVE Figueroa/Leandra/Dipesh/R eindl 09/24/2020 09:45:00 AM EDT MEDENT ([facility]) [place] [address] [address] 09/10/2020 12:00:00 AM EDT eCW1 ([facility]) [place] [address] [address] 09/09/2020 12:00:00 AM EDT eCW1 ([facility]) Outpatient Attender: Hamzah Figueroa/Leandra/Dipesh/Re indl 08/06/2020 09:00:00 AM EDT MEDENT ([facility]) [place] [address] [address] 07/31/2020 12:00:00 AM EDT eCW1 ([facility]) Outpatient Attender: Hamzah Figueroa/Leandra/Dipesh/Re indl 07/09/2020 08:15:00 AM EST MEDENT ([facility]) Outpatient<td ID="encounterTypeDescripti onID0">COVID 19 IMM</td><td>Isatu Maldonado CARE CONNECTOR</td><td>[facility]</td><td>06/25/2020</td><td>2:01PM</td><td>2:19PM</td><td></td> Attender: Isatu Maldonado NP [facility] 06/25/2020 02:01:00 PM EST - 06/25/2020 02:19:00 PM EST BEAR ([facility]) 06/24/2020 12:00:00 AM EST [facility] ([facility]) [place]patient [address] [address] 06/10/2020 12:00:00 AM EST eCW1 ([facility]) [place]patient [address] [facility] [place] [address] 06/09/2020 12:00:00 AM EST eCW1 ([facility]) [place] [address] [address] 06/09/2020 12:00:00 AM EST eCW1 ([facility]) [place] [address] [address] 06/09/2020 12:00:00 AM EST eCW1 ([facility]) [place] [address] [address] 06/03/2020 12:00:00 AM EST eCW1 ([facility]) Outpatient<td ID="encounterTypeDescripti onID1">COVID 19 IMM</td><td>Isatu MERCER</td><td>[facility]</td><td>05/28/2020</td><td>1:59PM</td><td>2:17PM</td><td></td> Attender: [facility] 01:59:00 PM EST - 05/28/2020 02:17:00 PM EST REINALDO ([facility]) [place] [address] [address] 05/19/2020 12:00:00 AM EST eCW1 ([facility]) [place] [address] [address] 05/19/2020 12:00:00 AM EST eCW1 ([facility]) [place] [address] [address] 05/05/2020 12:00:00 AM EST [facility]1 [facility]) Outpatient Attender: TRAE Figueroa/Leandra/Dipesh/Charles garrett 04/17/2020 02:45:00 PM EST MEDENT ([facility] Tato arce, [facility]SE[facility]) [place] [address] [address] 03/19/2020 12:00:00 AM EST [facility]CW1 [facility]) Outpatient Attender: Nargis Figueroa/Leandra/Deepali martines/Jenny 03/10/2020 11:00:00 AM EDT MEDENT ([facility] RUSSELL Gomez) [place] [address] [address] 03/04/2020 12:00:00 AM EDT eCW1 ([facility]) [place] [address] [address] 03/03/2020 12:00:00 AM EDT eCW1 ([facility]) Outpatient [address] [facility] [place] [address] 02/28/2020 12:00:00 AM EDT eCW1 ([facility]) Unknown [address] [facility] [place] [address] 02/22/2020 12:00:00 AM EDT eCW1 ([facility]) Outpatient [address] [facility] [place] [address] 02/21/2020 12:00:00 AM EDT eCW1 ([facility]) [facility] [address] [facility] [place] [address] 02/21/2020 12:00:00 AM EDT eCW1 ([facility]) Immunizations Vaccine Date Status Description Data Source(s) Moderna COVID-19 06/25/2020 02:05:00 PM EST completed <td ID="Kswiftbysbzdy-Yruakrqkknv-OC2">Moderna COVID-19</td><td ID="ImmunizationDose-5">2</td><td>06/25/2020</td><td ID="Twuhopmoxsgec-HrxdjKnqn-SQ5">Right Deltoid</td><td></td><td ID="Vsyenvycawyfd-Voyadi-GT9">Complete (Administered)</td><td>[facility]</td><td ID="Edehlezrbjqxt-Deafz-Dzeo-Comment-ID5"></td> REINALDO ([facility]) COVID-19 VACCINE a 06/25/2020 12:00:00 AM EST completed [facility] Vaccine Series Complete: YESThis Data wa s Submitted to [facility] Via [employer]. Moderna COVID-19 05/28/2020 02:02:00 PM EST completed <td ID="Rfunyurwxahbx-Iuihnijzqyy-KR3">Moderna COVID-19</td><td ID="ImmunizationDose-4">1</td><td>05/28/2020</td><td ID="Ovkohmyriwqms-DeifhFifk-JQ1">Left Deltoid</td><td></td><td ID="Hvduuhftaaicn-Ztigcg-OK4">Complete (Administered)</td><td>[facility]</td><td ID="Hzmfwffyqcewo-Rhnrk-Giqe-Comment-ID4"></td> REINALDO ([facility]) Note: VACCINE ADMINISTERED BY ANABEL Moctezuma LPN COVID-19 VACCINE a 05/28/2020 12:00:00 AM EST completed [facility] Vaccine Series Complete: NOThis Data was Submitted to [facility] Via [employer]. Medications Medication Brand Name Start Date Product Form Dose Route Admi nistrative Instructions Pharmacy Instructions Status Indications Reaction Description Data Source(s) Fluconazole 150 MG Oral Tablet [Diflucan] Diflucan 150 MG Di flucan 150 MG 02/19/2021 12:00:00 AM EDT 1.0 {tablet} active Diflucan 150 MG eCW1 ([facility]) Fluconazole 150 MG Oral Tablet [Diflucan] Diflucan 150 MG Di flucan 150 MG 02/19/2021 12:00:00 AM EDT 1.0 {tablet} active Diflucan 150 MG eCW1 ([facility]) Covid-19 vaccine, Unspecified 06/25/2020 12:00:00 AM EST completed MEDENT ([facility], ) Medication administered onsite POLYETHYLENE GLYCOL 3350 142 MG/ML Oral Solution [Miralax] M iralax 06/23/2020 12:00:00 AM EST completed MEDENT ([facility], ) Hydrocortisone 25 MG/ML Topical Cream [Anusol HC] Anus ol-HC 2.5 % Anusol-HC 2.5 % 06/10/2020 12:00:00 AM EST 1.0 {application} suspended Anusol-HC 2.5 % eCW1 ([facility]) Hydrocortisone 25 MG/ML Topical Cream [Anusol HC] Anus ol-HC 2.5 % Anusol-HC 2.5 % 06/10/2020 12:00:00 AM EST 1.0 {application} active Anusol-HC 2.5 % eCW1 ([facility]) Hydrocortisone 25 MG/ML Topical Cream [Anusol HC] Anus ol-HC 2.5 % Anusol-HC 2.5 % 06/10/2020 12:00:00 AM EST 1.0 {application} active Anusol-HC 2.5 % eCW1 ([facility]) Hydrocortisone 25 MG/ML Topical Cream [Anusol HC] Anus ol-HC 2.5 % Anusol-HC 2.5 % 06/10/2020 12:00:00 AM EST 1.0 {application} suspended Anusol-HC 2.5 % eCW1 ([facility]) Hydrocortisone 25 MG/ML Topical Cream [Anusol HC] Anus ol-HC 2.5 % Anusol-HC 2.5 % 06/10/2020 12:00:00 AM EST 1.0 {application} suspended Anusol-HC 2.5 % eCW1 ([facility]) Hydrocortisone 25 MG/ML Topical Cream [Anusol HC] Anus ol-HC 2.5 % Anusol-HC 2.5 % 06/10/2020 12:00:00 AM EST 1.0 {application} suspended Anusol-HC 2.5 % eCW1 ([facility]) Hydrocortisone 25 MG/ML Topical Cream [Anusol HC] Anus ol-HC 2.5 % Anusol-HC 2.5 % 06/10/2020 12:00:00 AM EST 1.0 {application} suspended Anusol-HC 2.5 % eCW1 ([facility]) Hydrocortisone 25 MG/ML Topical Cream [Anusol HC] Anus ol-HC 2.5 % Anusol-HC 2.5 % 06/10/2020 12:00:00 AM EST 1.0 {application} suspended Anusol-HC 2.5 % eCW1 ([facility]) Hydrocortisone 25 MG/ML Topical Cream [Anusol HC] Anus ol-HC 2.5 % Anusol-HC 2.5 % 06/10/2020 12:00:00 AM EST 1.0 {application} active Anusol-HC 2.5 % eCW1 ([facility]) Hydrocortisone 25 MG/ML Topical Cream [Anusol HC] Anus ol-HC 2.5 % Anusol-HC 2.5 % 06/10/2020 12:00:00 AM EST 1.0 {application} active Anusol-HC 2.5 % eCW1 ([facility]) Hydrocortisone 25 MG/ML Topical Cream [Anusol HC] Anus ol-HC 2.5 % Anusol-HC 2.5 % 06/10/2020 12:00:00 AM EST 1.0 {application} suspended Anusol-HC 2.5 % eCW1 ([facility]) Hydrocortisone 25 MG/ML Topical Cream [Anusol HC] Anus ol-HC 2.5 % Anusol-HC 2.5 % 06/10/2020 12:00:00 AM EST 1.0 {application} suspended Anusol-HC 2.5 % eCW1 ([facility]) Hydrocortisone 25 MG/ML Topical Cream [Anusol HC] Anus ol-HC 2.5 % Anusol-HC 2.5 % 06/10/2020 12:00:00 AM EST 1.0 {application} active Anusol-HC 2.5 % eCW1 ([facility]) Hydrocortisone 25 MG/ML Topical Cream [Anusol HC] Anus ol-HC 2.5 % Anusol-HC 2.5 % 06/10/2020 12:00:00 AM EST 1.0 {application} active Anusol-HC 2.5 % eCW1 ([facility]) Hydrocortisone 25 MG/ML Topical Cream [Anusol HC] Anus ol-HC 2.5 % Anusol-HC 2.5 % 06/10/2020 12:00:00 AM EST 1.0 {application} active Anusol-HC 2.5 % eCW1 ([facility]) Hydrocortisone 25 MG/ML Topical Cream [Anusol HC] Anus ol-HC 2.5 % Anusol-HC 2.5 % 06/10/2020 12:00:00 AM EST 1.0 {application} active Anusol-HC 2.5 % eCW1 ([facility]) Hydrocortisone 25 MG/ML Topical Cream [Anusol HC] Anus ol-HC 2.5 % Anusol-HC 2.5 % 06/10/2020 12:00:00 AM EST 1.0 {application} active Anusol-HC 2.5 % eCW1 ([facility]) Hydrocortisone 25 MG/ML Topical Cream [Anusol HC] Anus ol-HC 2.5 % Anusol-HC 2.5 % 06/10/2020 12:00:00 AM EST 1.0 {application} active Anusol-HC 2.5 % eCW1 ([facility]) Hydrocortisone 25 MG/ML Topical Cream [Anusol HC] Anus ol-HC 2.5 % Anusol-HC 2.5 % 06/10/2020 12:00:00 AM EST 1.0 {application} active Anusol-HC 2.5 % eCW1 ([facility]) Hydrocortisone 25 MG/ML Topical Cream [Anusol HC] Anus ol-HC 2.5 % Anusol-HC 2.5 % 06/10/2020 12:00:00 AM EST 1.0 {application} suspended Anusol-HC 2.5 % eCW1 ([facility]) Covid-19 vaccine, Unspecified 05/28/2020 12:00:00 AM EST completed MEDENT ([facility], ) Medication administered onsite Suprep Bowel Prep Kit Suprep Bowel Prep Kit 04/17/2020 12:00:00 AM EST completed MEDENT ([facility], ) hydrocortisone acetate 25 MG Rectal Suppository [Anucort-HC] Anucort-HC 03/19/2020 12:00:00 AM EST completed MEDENT ([facility], ) Magnesium Hydroxide 80 MG/ML Oral Suspension Milk Of Magnesi a 03/10/2020 12:00:00 AM EDT ORAL completed MEDENT ([facility], ) Suprep Bowel Prep Kit Suprep Bowel Prep Kit 03/10/2020 12:00:00 AM EDT completed MEDENT ([facility], ) Insurance Providers Payer name Policy type / Coverage type Policy ID Covered libertarian ID Covered libertarian's relationship to krishna Policy Krishna Plan Information Medicaid of [place] Other 01 [id number] Self 01 BLUE CROSS [id number] SP [id number] BCBS of [facility] Other 0 [id number] Self 0 BLUE CROSS [id number] SP [id number] BCBS of [facility] Other 0 [id number] Self 0 EXCELLUS C [id number] Self [id number] MEDICAID M [id number] Self [id number] BCBS of [facility] Other 0 [id number] Self 0 [place]/[id number] SP [id number] [place]/307 [id number] SP [id number] MEDICAID [id number] Medicaid - [facility] [id number] Medica id [id number] ID IDENTIFICATION [id number] Other Insurance [id number] [employer] Blue Cross [id number] Blue Cross/Kathie eld [id number] ANSI-Commercial [id number] ANSI-Medicaid [id number] ANSI-Medicaid [id number] ANSI-Commercial [id number] ANSI-Medicaid [id number] ANSI-Commercial [id number] BCBS/[place] Commercial [id number] Self [id number] [place]/307 [id number] SP [id number] ANSI-Medicaid [id number] ANSI-Commercial [id number] BCBS/[place] Commercial [id number] Self Medicaid of [place] Other 01 [id number] Self 01 [id number] SP [id number] EXCELLUS BC BS [id number] SP [id number] [employer] Blue Cross Commercial [id number] Self [place] 302/307 [id number] SP [id number] [place] 306/806 [id number] SP [id number] BLUE CROSS [id number] SP [id number] [employer] MEDICAID [id number] SP [id number] [place] 302/307 [id number] SP [id number] [place]/307 [id number] SP [id number] SP [id number] BCBS of [facility] Other 0 [id number] Self 0 [place] P[place] [phone] [id number] SP [id number] Medicaid of [place] Other 01 [id number] Self 01 MEDICAID M [id number] S [id number] [place] BCBS B [id number] S [id number] Problems, Conditions, and Diagnoses Code Display Name Description Problem Type Effective Dates Data Source(s) I86.1 Varicocele Varicocele Problem 02/19/2021 12:00:00 AM ED T eCW1 ([facility]) B36.9 Fungal dermatitis Fungal dermatitis Problem 02/19/2021 12:00:00 AM EDT eCW1 ([facility]) E03.8 [id number] Secondary hypothyroidism Problem 11/27/2020 12:00:00 AM EDT eCW1 ([facility]) B20 [id number] Human immunodeficiency virus [HIV] diseas e Problem 05/05/2020 12:00:00 AM EST eCW1 ([facility]) C79.89 [id number] 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 Problem 02/28/2020 12:00:00 AM EDT eCW1 ([facility]) F31.9 [id number] Bipolar 1 disorder, depressed Problem 2019 12:00:00 AM EDT eCW1 ([facility]) C79.9 [id number] Malignant melanoma, metastatic Problem 02/28/2020 12:00:00 AM EDT eCW1 ([facility]) Surgeries/Procedures Procedure Description Date Indications Data Source(s) LARYNGOSCOPY FLEXIBLE FIBEROPTIC DIAGNOSTIC 11/13/2020 12:00:00 AM EDT MEDENT ([facility], ) OFFICE OUTPATIENT VISIT 15 MINUTES 11/12/2020 12:00:00 AM EDT MEDENT ([facility]) OFFICE OUTPATIENT VISIT 15 MINUTES 09/24/2020 12:00:00 AM EDT MEDENT ([facility]) OFFICE OUTPATIENT VISIT 15 MINUTES 08/06/2020 12:00:00 AM EDT MEDENT ([facility]) Capsule Endoscopy Small Bowel 07/14/2020 12:00:[address] [facility]ENT ([facility]) OFFICE OUTPATIENT VISIT 25 MINUTES 07/09/2020 12:00:00 AM EST MEDENT ([facility]) Moderna COVID-19 Vaccine Moderna COVID-19 Vaccine 06/25/2020 12:00: 00 AM EST REINALDO ([facility]) Colonoscopy Flexible Proximal To Splenic Flexure W/Biopsy Si ngle/ 06/23/2020 12:00:00 AM EST MEDENT ([facility], ) Moderna COVID-19 Vaccine Moderna COVID-19 Vaccine 05/28/2020 12:00: 00 AM EST REINALDO ([facility]) Moderna COVID19 Vaccine Administration First Dose Mode rna COVID19 Vaccine Administration First Dose 05/28/2020 12:00:00 AM EST GREENWA Y ([facility]) Endoscopy Upper GI Biopsy 03/17/2020 12:00:00 AM EST MEDENT ([facility], ) Colonoscopy Flexible Proximal To Splenic Flexure W/Biopsy Si ngle/ 03/17/2020 12:00:00 AM EST MEDENT ([facility], ) Results ID Date Data Source [id number] 11/14/2020 12:29:00 AM EDT [facility] Name Value Range Interpretation Code Description Data Barb rce(s) Supporting Document(s) SARS coronavirus 2 RNA [Presence] in Res piratory specimen by BRADLEY with probe detection NEGATIVE [facility] This lab was ordered by [facility] a nd reported by [facility]. ID Date Data Source [id number] 11/07/2020 03:56:00 AM EDT [facility] Name Value Range Interpretation Code Description Data Barb rce(s) Supporting Document(s) SARS coronavirus 2 RNA [Presence] in Res piratory specimen by BRADLEY with probe detection NEGATIVE [facility] This lab was ordered by [facility] a nd reported by [facility]. ID Date Data Source [id number] 10/30/2020 01:08:00 PM EDT [facility] Name Value Range Interpretation Code Description Data Barb rce(s) Supporting Document(s) SARS coronavirus 2 RNA NOT DETECTED [facility] This lab was ordered by [facility] and reported by [facility]. ID Date Data Source [id number] 06/23/2020 07:53:00 AM EST MEDENT ([facility], ) Name Value Range Interpretation Code Description Data Barb rce(s) Supporting Document(s) Surgical pathology study Laboratory test result [facility] ([facility], ) FINAL DIAGNOSIS Colon, random, biopsies: Colonic mucosa with no specific pathologic findings. No evidence for microscopic colitis. 06/24/2020 - 1310 CLINICAL DIAGNOSIS Rectal bleeding 06/23/2020 - 1328 GROSS DIAGNOSIS Received in formalin labeled "random colon biopsy, R/O microscopic colitis" are three fragments of hassan tissue, 0.4 x 0.3 x 0.2 cm in aggregate. All in one. -SV 06/23/2020 - 1328 Signed DELROY CONTRERAS MD 06/24/2020 1422 ID Date Data Source [id number] 06/18/2020 01:05:00 PM EST [facility] Name Value Range Interpretation Code Description Data Barb rce(s) Supporting Document(s) SARS coronavirus 2 RNA Not Detected [facility] This lab was ordered by [facility] and reported by [facility]. ID Date Data Source [id number] 04/28/2020 07:43:00 PM EST [facility] Name Value Range Interpretation Code Description Data Barb rce(s) Supporting Document(s) SARS coronavirus 2 RNA [facility] This lab was ordered by [facility] and reported by [facility]. ID Date Data Source [id number] 04/17/2020 05:01:00 PM EST MED[facility] ([facility] ) Name Value Range Interpretation Code Description Data Barb rce(s) Supporting Document(s) Glucose, Fasting 95 mg/dL 70-100 Normal (applies to non-numeric results) MEDENT ([facility], ) Blood Urea Nitrogen 21 mg/dL 7-18 Above high normal [facility] ([facility], ) Glomerular Filtration Rate Laboratory test result Normal (applies to non- numeric results) [facility] ([facility], ) <content>Units are mL/min/1.73 m2</content>
<content></content>
<content>Chronic Kidney Disease Staging per NKF:</content>
<content></content>
<content>Stage I & II GFR >=60 Normal to Mildly Decreased</content>
<content>Stage III GFR 30- 59 Moderately Decreased</content>
<content>Stage IV GFR 15-29 Severely Decreased</content>
<content>Stage V GFR <15 Very Little GFR Left</content>
<content>ESRD GFR <15 on JAVA ENGINEER</content>
<content></content> Creatinine For GFR 1.05 mg/dL 0.70-1.30 Normal (applies to non -numeric results) [facility] ) Sodium Level 141 meq/L 136-145 Normal (applies to non-numeric res ults) [facility]) Chloride Level 105 meq/L 98-107 Normal (applies to non-numeric r esults) [facility]) Potassium Serum 4.3 meq/L 3.5-5.1 Normal (applies to non-numeric results) [facility] ([facility]) Calcium Level 9.3 mg/dL 8.5-10.1 Normal (applies to non-numeric re sults) [facility]) Carbon Dioxide Level 31 meq/L 21-32 Normal (applies to non-num evin results) [facility]) Anion Gap 5 meq/L 8-16 Below low normal [facility] ( [facility]) Ast/Sgot 37 U/L 7-37 Normal (applies to non-numeric resul ts) [facility] ([facility]) Alt/SGPT 35 U/L 12-78 Normal (applies to non-numeric resul ts) [facility]) Alkaline Phosphatase 74 U/L 45-117 Normal (applies to non-num evin results) [facility]) Bilirubin,Total 0.3 mg/dL 0.2-1.0 Normal (applies to non-numeric results) [facility] ([facility]) Albumin 3.9 GM/DL 3.2-5.2 Normal (applies to non-numeric resul ts) [facility] ([facility]) Albumin/Globulin Ratio 1.3 Normal (applies to non-n umeric results) [facility]) Total Protein 6.8 GM/DL 6.4-8.2 Normal (applies to non-numeric re sults) [facility]) ID Date Data Source [id number] 04/17/2020 05:00:00 PM EST [facility] ([facility]) Name Value Range Interpretation Code Description Data Barb rce(s) Supporting Document(s) White Blood Count 5.8 10 4.0-10.0 Normal (applies to non-numeri c results) [facility] ([facility], ) Hemoglobin 15.5 g/dL 13.5-17.5 Normal (applies to non-numeric resul ts) [facility] ([facility]) Red Blood Count 4.94 10 4.30-6.10 Normal (applies to non-numeric results) [facility] ([facility], ) Hematocrit 45.2 % 42.0-52.0 Normal (applies to non-numeric resul ts) [facility] ([facility]) Mean Corpuscular Volume 91.5 fl 80.0-96.0 Normal ( applies to non-numeric results) [facility] ([facility]) Mean Corpuscular Hemoglobin 31.4 pg 27.0-33.0 Norm al (applies to non-numeric results) [facility] ([facility]) Mean Corpuscular HGB Conc 34.3 g/dL 32.0-36.5 Normal (applies to non-numeric results) [facility] ([facility]) Red Cell Distribution Width 12.2 % 11.5-14.5 Norm al (applies to non-numeric results) [facility] ([facility]) Platelet Count, Automated 225 10 150-450 Normal (applies to non-numeric results) [facility] ([facility]) Neutrophils % 38.5 % 36.0-66.0 Normal (applies to non-numeric re sults) [facility] ([facility], ) Lymph % 50.9 % 24.0-44.0 Above high normal [facility] ([facility], ) Isabella % 7.7 % 0.0-5.0 Above high normal [facility] ([facility], ) Baso % 0.7 % 0.0-1.0 Normal (applies to non-numeric resul ts) [facility]) Eos % 1.7 % 0.0-3.0 Normal (applies to non-numeric resul ts) [facility], ) Immature Granulocyte % 0.5 % 0-3.0 Normal (applies to non-n umeric results) [facility] ([facility], ) Nucleated Red Blood Cell % 0.0 % 0-0 Normal (applies to n on-numeric results) [facility] ([facility]) Neutrophils # 2.3 10 1.5-8.5 Normal (applies to non-numeric re sults) [facility] ([facility]) Isabella # 0.5 10 0.0-0.8 Normal (applies to non-numeric resul ts) [facility] ([facility]) Lymph # 3.0 10 1.5-5.0 Normal (applies to non-numeric resul ts) [facility] ([facility]) Baso # 0.0 10 0.0-0.2 Normal (applies to non-numeric resul ts) [facility] ([facility]) Eos # 0.1 10 0.0-0.5 Normal (applies to non-numeric resul ts) [facility] ([facility]) ID Date Data Source [id number] 03/19/2020 03:06:00 PM EST [facility] Name Value Range Interpretation Code Description Data Barb rce(s) Supporting Document(s) SARS coronavirus 2 RNA panel N [facility] This lab was ordered by [facility] and reported by [facility]. ID Date Data Source [id number] 03/17/2020 12:41:00 PM EST MEDENT ([facility]) Name Value Range Interpretation Code Description Data Barb rce(s) Supporting Document(s) Surgical pathology study Laboratory test result MEDENT ([facility]) <content>FINAL DIAGNOSIS</content>
< content></content>
<content>A - Duodenum, biopsy:</content>
<content>Duodenal mucosa with intact villous architecture.</content>
<content>No evidence of celiac disease.</content>
<content></content>
<content>B - Stomach, biopsy:</content>
<content>Gastric mucosa with mild reactive gastropathy.</content>
<content>No evidence for H. pylori like organisms on H & E stain.</content>
<content></content>
<content>C - Small bowel, random biopsies:</content>
<content>Small intestinal mucosa with lymphoid aggregates and intact villous</content>
<content>architecture.</content>
<content>No evidence for celiac disease.</content>
<content></content>
<content>D - Colon, random biopsy:</content>
<content>Colonic mucosa with no significant pathologic changes.</content>
<content>No evidence for microscopic colitis.</content>
<content></content>
<content></content>
<content></content>
<content>E - Rectum, biopsy:</content>
<content>Colonic mucosa with nonspecific inflammation.</content>
<content>No evidence for proctitis.</content>
<content>03/18/2020 - 1155</content>
<content></content>
<content>CLINICAL DIAGNOSIS</content>
<content></content>
<content>Rectal bleeding, change in bowel habits</content>
<content>03/17/2020 - 1530</content>
<content></content>
<content>GROSS DIAGNOSIS</content>
<content></content>
<content>A - Received in formalin labeled "duodenal biopsy, R/O celiac" consists</content>
<content>of four fragments of hassan tissue, 0.4 x 0.3 x 0.2 cm in aggregate. All</content>
<content>in one.</content>
<content></content>
<content>B - Received in formalin labeled "gastric biopsy, R/O H. pylori"</content>
<content>consists of one fragment of hassan tissue, 0.4 x 0.2 x 0.2 cm. All in one.</content>
<content></content>
<content></content>
<content>C - Received in formalin labeled "small bowel biopsy, random" consists</content>
<content>of one fragment hassan tissue, 0.2 x 0.2 x 0.2 cm. All in one.</content>
<content></content>
<content>D - Received in formalin labeled "random colon biopsy for</content>
<content>diarrhea/colitis" consists of two fragments of hassan tissue, 0.3 x 0.3 x</content>
<content>0.2 cm in aggregate. All in one.</content>
<content></content>
<content>E - Received in formalin labeled "rectal biopsy for proctitis" consists</content>
<content>of two fragments of hassan tissue measuring 0.5 x 0.3 x 0.2 cm in</content>
<content>aggregate. All in one.</content>
<content>-SV</content>
<content>03/17/2020 - 1530</content>
<content></content>
<content>Signed DELROY CONTRERAS MD 03/18/2020 1437</content>
<content></content> ID Date Data Source [id number] 03/12/2020 10:30:00 AM EDT [facility] Name Value Range Interpretation Code Description Data Barb rce(s) Supporting Document(s) SARS coronavirus 2 RNA [facility] This lab was ordered by [facility] and reported by [facility]. Procedure Social History Code Duration Value Status Description Data Source(s ) Smoking 11/12/2020 12:00:00 AM EDT Non Smoker completed Non Smoke r MEDENT ([facility], ) Vital Signs ID Date Data Source UNK Name Value Range Interpretation Code Description Data Source(s) Body weight 170 [lb_av] 170 [lb_av] eCW1 ([facility]) Body height 65 [in_i] 65 [in_i] [facility] Body mass index (BMI) [Ratio] 28.29 kg/m2 28.29 kg/m2 eCW1 ([facility]) Heart rate 90 /min 90 /min eCW1 ([facility]) Respiratory rate 18 /min 18 /min eCW1 ([facility]) Body temperature 96.6 [degF] 96.6 [degF] eCW1 ( [facility]) Systolic blood pressure 116 mm[Hg] 116 mm[Hg] e CW1 ([facility]) Diastolic blood pressure 62 mm[Hg] 62 mm[Hg] eCW1 ([facility]) Body weight 161.8 [lb_av] 161.8 [lb_av] eCW1 ([facility]) Body height 65 [in_i] 65 [in_i] eCW1 ([facility] Body mass index (BMI) [Ratio] 26.92 kg/m2 26.92 kg/m2 eCW1 ([facility]) Heart rate 96 /min 96 /min eCW1 ([facility]) Respiratory rate 18 /min 18 /min eCW1 ([facility]) Body temperature 97.3 [degF] 97.3 [degF] eCW1 ( [facility]) Systolic blood pressure 120 mm[Hg] 120 mm[Hg] e CW1 ([facility]) Diastolic blood pressure 70 mm[Hg] 70 mm[Hg] eCW1 ([facility]) [place] body weight 136 [lb_av] 136 [lb_av] MEDEN T ([facility], ) Body weight 72.576 kg 72.576 kg MEDENT ([facility], ) Body height 65 [in_i] 65 [in_i] MEDENT ([facility], ) 5'5" Body weight 160.00 [lb_av] 160.00 [lb_av] MEDEN T ([facility]) Body mass index (BMI) [Ratio] 26.6 kg/m2 26.6 k g/m2 [facility] ([facility]) Body surface area Derived from formula 1.80 m2 1.80 m2 [facility] ([facility]) Oxygen saturation in Arterial blood by Pulse oximetry 96 % 96 % [facility] ([facility]) Systolic blood pressure 120 mm[Hg] 120 mm[Hg] M EDENT ([facility]) Diastolic blood pressure 64 mm[Hg] 64 mm[Hg] MEDENT ([facility]) Body surface area Derived from formula 1.81 m2 1.81 m2 [facility] ([facility]) Body weight 73.937 kg 73.937 kg [facility] ([facility]) Heart rate 66 /min 66 /min [facility] ([facility]) Body temperature 97.8 [degF] 97.8 [degF] [facility] ([facility]) Body height 65 [in_i] 65 [in_i] [facility] ([facility]) 5'5" Body weight 163.00 [lb_av] 163.00 [lb_av] MEDEN T ([facility]) Body mass index (BMI) [Ratio] 27.1 kg/m2 27.1 k g/m2 [facility] ([facility]) [place] body weight 136 [lb_av] 136 [lb_av] MEDEN T ([facility]) Diastolic blood pressure 64 mm[Hg] 64 mm[Hg] [facility] ([facility]) Heart rate 75 /min 75 /min [facility] ([facility]) Oxygen saturation in Arterial blood by Pulse oximetry 99 % 99 % [facility] ([facility]) Body temperature 97.0 [degF] 97.0 [degF] [facility] ([facility]) Body height 65 [in_i] 65 [in_i] [facility] ([facility]) 5'5" Body weight 166.00 [lb_av] 166.00 [lb_av] MEDEN T ([facility]) Body mass index (BMI) [Ratio] 27.6 kg/m2 27.6 k g/m2 [facility] ([facility]) [place] body weight 136 [lb_av] 136 [lb_av] MEDEN T ([facility]) Body weight 75.298 kg 75.298 kg [facility] ([facility]) Body surface area Derived from formula 1.83 m2 1.83 m2 [facility] ([facility]) Systolic blood pressure 110 mm[Hg] 110 mm[Hg] M EDENT ([facility]) Body weight 155.00 [lb_av] 155.00 [lb_av] MEDEN T ([facility]) Body mass index (BMI) [Ratio] 25.8 kg/m2 25.8 k g/m2 [facility] ([facility]) Body height 65 [in_i] 65 [in_i] MED[facility] ([facility]) 5'5" [place] body weight 136 [lb_av] 136 [lb_av] MEDEN T ([facility]) Body weight 70.308 kg 70.308 kg [facility] ([facility]) Body surface area Derived from formula 1.78 m2 1.78 m2 [facility] ([facility]) Body height 65 [in_i] 65 [in_i] [facility] ([facility]) 5'5" Body weight 155.00 [lb_av] 155.00 [lb_av] MEDEN T ([facility]) Body mass index (BMI) [Ratio] 25.8 kg/m2 25.8 k g/m2 [facility]) [place] body weight 136 [lb_av] 136 [lb_av] MEDEN T ([facility]) Body weight 70.308 kg 70.308 kg MEDENT ([facility]) Body surface area Derived from formula 1.78 m2 1.78 m2 [facility] ([facility]) Body weight 167 [lb_av] 167 [lb_av] eCW1 ([facility]) Body height 65 [in_i] 65 [in_i] eCW1 ([facility]) Body mass index (BMI) [Ratio] 27.79 kg/m2 27.79 kg/m2 eCW1 ([facility]) Heart rate 85 /min 85 /min eCW1 ([facility]) Respiratory rate 18 /min 18 /min eCW1 ([facility]) Body temperature 96.7 [degF] 96.7 [degF] eCW1 ( [facility]) Systolic blood pressure 132 mm[Hg] 132 mm[Hg] e CW1 ([facility]) Diastolic blood pressure 70 mm[Hg] 70 mm[Hg] eCW1 ([facility]) Body weight 165.4 [lb_av] 165.4 [lb_av] eCW1 ([facility]) Body height 65 [in_i] 65 [in_i] eCW1 ([facility] Body mass index (BMI) [Ratio] 27.52 kg/m2 27.52 kg/m2 eCW1 ([facility]) Heart rate 56 /min 56 /min eCW1 ([facility]) Respiratory rate 18 /min 18 /min eCW1 ([facility]) Systolic blood pressure 116 mm[Hg] 116 mm[Hg] e CW1 ([facility]) Diastolic blood pressure 68 mm[Hg] 68 mm[Hg] eCW1 ([facility]) Systolic blood pressure 138 mm[Hg] 138 mm[Hg] M EDENT ([facility], ) Diastolic blood pressure 100 mm[Hg] 100 mm[Hg] MEDENT ([facility], ) Body weight 155.00 [lb_av] 155.00 [lb_av] MEDEN T ([facility], ) Body height 65 [in_i] 65 [in_i] MEDENT ([facility], ) 5'5" Body mass index (BMI) [Ratio] 25.8 kg/m2 25.8 k g/m2 MED[facility] ([facility], ) [place] body weight 136 [lb_av] 136 [lb_av] MEDEN T ([facility]) Body weight 70.308 kg 70.308 kg [facility] ([facility]) Body surface area Derived from formula 1.78 m2 1.78 m2 [facility] ([facility]) Systolic blood pressure 138 mm[Hg] 138 mm[Hg] M EDENT ([facility]) Diastolic blood pressure 72 mm[Hg] 72 mm[Hg] [facility] ([facility]) Body height 65 [in_i] 65 [in_i] [facility] ([facility]) 5'5" Body weight 160.00 [lb_av] 160.00 [lb_av] MEDEN T ([facility]) Body mass index (BMI) [Ratio] 26.6 kg/m2 26.6 k g/m2 [facility] ([facility]) [place] body weight 136 [lb_av] 136 [lb_av] MEDEN T ([facility]) Body weight 72.576 kg 72.576 kg [facility] ([facility]) Body surface area Derived from formula 1.80 m2 1.80 m2 [facility] ([facility]) Body weight 165 [lb_av] 165 [lb_av] eCW1 ([facility]) Body height 65 [in_i] 65 [in_i] eCW1 ([facility]) Body mass index (BMI) [Ratio] 27.45 kg/m2 27.45 kg/m2 eCW1 ([facility]) Heart rate 89 /min 89 /min eCW1 ([facility]) Respiratory rate 18 /min 18 /min eCW1 ([facility]) Body temperature 97.2 [degF] 97.2 [degF] eCW1 ( [facility]) Systolic blood pressure 106 mm[Hg] 106 mm[Hg] e CW1 ([facility]) Diastolic blood pressure 66 mm[Hg] 66 mm[Hg] eCW1 ([facility]) Body weight 159 [lb_av] 159 [lb_av] eCW1 ([facility]) Body height 65 [in_i] 65 [in_i] eCW1 ([facility]) Body mass index (BMI) [Ratio] 26.46 kg/m2 26.46 kg/m2 eCW1 ([facility]) Heart rate 97 /min 97 /min eCW1 ([facility]) Respiratory rate 18 /min 18 /min eCW1 ([facility]) Body temperature 97.9 [degF] 97.9 [degF] eCW1 ( [facility]) Systolic blood pressure 102 mm[Hg] 102 mm[Hg] e CW1 ([facility]) Diastolic blood pressure 74 mm[Hg] 74 mm[Hg] eCW1 ([facility]) Patient Treatment Plan of Care Planned Activity Planned Date Details Description Data Source (s) Fluconazole 150 MG Oral Tablet [Diflucan] 02/19/2021 12:00:00 AM ED T eCW1 ([facility]) Fluconazole 150 MG Oral Tablet [Diflucan] 02/19/2021 12:00:00 AM ED T eCW1 ([facility]) Hydrocortisone 25 MG/ML Topical Cream [Anusol HC] 06/10/2020 12: 00:00 AM EST eCW1 ([facility]) Hydrocortisone 25 MG/ML Topical Cream [Anusol HC] 06/10/2020 12: 00:00 AM EST eCW1 ([facility]) Hydrocortisone 25 MG/ML Topical Cream [Anusol HC] 06/10/2020 12: 00:00 AM EST eCW1 ([facility]) Hydrocortisone 25 MG/ML Topical Cream [Anusol HC] 06/10/2020 12: 00:00 AM EST eCW1 ([facility]) Hydrocortisone 25 MG/ML Topical Cream [Anusol HC] 06/10/2020 12: 00:00 AM EST eCW1 ([facility]) Hydrocortisone 25 MG/ML Topical Cream [Anusol HC] 06/10/2020 12: 00:00 AM EST eCW1 ([facility]) Hydrocortisone 25 MG/ML Topical Cream [Anusol HC] 06/10/2020 12: 00:00 AM EST eCW1 ([facility]) Hydrocortisone 25 MG/ML Topical Cream [Anusol HC] 06/10/2020 12: 00:00 AM EST eCW1 ([facility]) Hydrocortisone 25 MG/ML Topical Cream [Anusol HC] 06/10/2020 12: 00:00 AM EST eCW1 ([facility]) Hydrocortisone 25 MG/ML Topical Cream [Anusol HC] 06/10/2020 12: 00:00 AM EST eCW1 ([facility]) Hydrocortisone 25 MG/ML Topical Cream [Anusol HC] 06/10/2020 12: 00:00 AM EST eCW1 ([facility])
--- OUTSIDE RECORDS SUMMARY | 2021-03-13 10:39 | CCD ---
Author Author [facility] Organization [facility] Address Unknown Phone Unavailable Care Team Providers Care Cyber Workforce Developer And Manager Name Role Phone Janes Kelly Unavailable PROBLEMS Type Condition ICD9-CM Code BBS89-CT Code Onset Dates Condition S tatus W/U Status Risk SNOMED Code Notes Problem Tourette's disorder F95.2 Active confirmed 7306083 Problem Decreased libido R68.82 Active confirmed 835 7008 Problem Other hyperlipidemia E78.4 Active confirmed 84632001 Problem Melanocytic nevi of face D22.30 Active confirmed 220130405 Problem Kendrick angioma I78.1 Active confirmed 03237 01 Problem 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 Act devaughn confirmed 739137076 Problem Visual hallucinations R44.1 Active confirmed 37294372 Problem Melanocytic nevi of left lower limb, including hip D22.72 Active confirmed 870783581 Problem Allergic rhinitis, unspecifi ed chronicity, unspecified seasonality, unspecified trigger J30.9 Active confirmed 57847594 Problem Melanocytic nevi of left upper limb, including shoulder D22.62 Active confirmed 466388087 Problem Melanocytic nevi of right lower limb, including hip D22.71 Active confirmed 308136601 Problem Melanocytic nevi of trunk D22.5 Active confirmed 646713702 Problem Melanocytic nevi of right upper limb, including shoulder D22.61 Active confirmed 420071623 Problem LEIGH (obstructive sleep apnea) G47.33 Active confirm ed 26259033 Problem Melanoma of scalp C43.4 Active confirmed 18 6654546 Problem 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 Active confirmed 2042774826907 Problem Human immunodeficiency virus [HIV] disease B20 Active confirmed 773982538 Problem Depression, unspecified depression type F32.9 Active confirmed 23749738 Problem Secondary hypothyroidism E03.8 Active confirmed 95501343 Problem Closed TBI (traumatic brain injury), without loss of consciousness, sequela S06.9X0S Active confirmed 5089643 Problem Hallucinations R44.3 Active confirmed 04960 01 Problem Lymphadenopathy of head and neck R59.1 Active conf irmed 898962142 Problem Malignant melanoma, metastatic C79.9 Active confir med 233594542 Problem Bipolar 1 disorder, depressed F31.9 Active confirm ed 56498507 Problem 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 [phone] [place] [address] Dec, Janes Kelly IMMUNIZATIONS Vaccine Route Administration Date [...] Information RESULTS No Results REASON FOR VISIT testicle pain MEDICAL (GENERAL) HISTORY Type Description Date Medical History nodular melanoma scalp--pT3a Nx, s/p wide excision [facility] 11/2018; rianna metastases 2019, chemotx by [facility] [...] Information ASSESSMENTS No Information PLAN OF TREATMENT Next Appt Details Provider Name:Norma Saab Deshawn, 2020-12-15 6 03:30:00 PM, [id number], , [place], [address], Insurance Providers Payer Name Payer Address Payer Phone Insured Name Patient Relati onship to Insured Coverage Start Date Coverage End Date [facility] [facility] [phone] [facility] [employer] [facility] [id number] JAN[address] BENDER self MEDICAID [employer] [address] [facility] [id number] JANES BENDER self
--- OUTSIDE RECORDS SUMMARY | 2021-03-13 10:39 | CCD ---
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 Name Role Phone Janes Kelly Unavailable PROBLEMS Type Condition ICD9-CM Code WAS44-TX Code Onset Dates Condition S tatus W/U Status Risk SNOMED Code Notes Problem Tourette's disorder F95.2 Active confirmed 5549450 Problem Decreased libido R68.82 Active confirmed 835 7008 Problem Other hyperlipidemia E78.4 Active confirmed 77153966 Problem Melanocytic nevi of face D22.30 Active confirmed 096294314 Problem Kendrick angioma I78.1 Active confirmed 36541 01 Problem 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 Act devaughn confirmed 198194216 Problem Visual hallucinations R44.1 Active confirmed 52323686 Problem Melanocytic nevi of left lower limb, including hip D22.72 Active confirmed 882370201 Problem Allergic rhinitis, unspecifi ed chronicity, unspecified seasonality, unspecified trigger J30.9 Active confirmed 77295350 Problem Melanocytic nevi of left upper limb, including shoulder D22.62 Active confirmed 771235635 Problem Melanocytic nevi of right lower limb, including hip D22.71 Active confirmed 417056243 Problem Melanocytic nevi of trunk D22.5 Active confirmed 868561849 Problem Melanocytic nevi of right upper limb, including shoulder D22.61 Active confirmed 025420158 Problem LEIGH (obstructive sleep apnea) G47.33 Active confirm ed 77262171 Problem Melanoma of scalp C43.4 Active confirmed 18 0494478 Problem 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 Active confirmed 1105981027027 Problem Human immunodeficiency virus [HIV] disease B20 Active confirmed 806453518 Problem Depression, unspecified depression type F32.9 Active confirmed 59387023 Problem Secondary hypothyroidism E03.8 Active confirmed 42831572 Problem Closed TBI (traumatic brain injury), without loss of consciousness, sequela S06.9X0S Active confirmed 6271334 Problem Hallucinations R44.3 Active confirmed 80310 01 Problem Lymphadenopathy of head and neck R59.1 Active conf irmed 404123174 Problem Malignant melanoma, metastatic C79.9 Active confir med 999993233 Problem Bipolar 1 disorder, depressed F31.9 Active confirm ed 94831047 Problem 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.] Information RESULTS No Results REASON FOR VISIT cll back MEDICAL (GENERAL) HISTORY Type Description Date Medical History nodular melanoma scalp--pT3a Nx, s/p wide excision [facility] 11/2018; rianna metastases 2019, chemotx by [facility] Medical History Tourette's syndrome Medical History [...] Start Date Coverage End Date [facility] [phone] [facility] [employer] [facility] [address] JANES MAZARIEGOS self MEDICAID [employer] [address] [facility] [id number] JANES MAZARIEGOS self
--- OUTSIDE RECORDS SUMMARY | 2021-03-13 11:25 | CCD ---
Author Author [facility] Organization [facility] Address Unknown Phone Unavailable Care Team Providers Care Hand Assembler For Puller Over Name Role Phone TRAE LIVINGSTON MD Unavailable [...] REINDL, TRAE COSTA Unavailable Unavailable Maldonado, Isatu TAXONOMY TEACHER Unavailable Unavailable Maldonado, Isatu TAXONOMY TEACHER Unavailable Unavailable Maldonado, Isatu TAXONOMY TEACHER Unavailable Unavailable Maldonado, Isatu TAXONOMY TEACHER Unavailable Unavailable Maldonado, Isatu TAXONOMY TEACHER Unavailable Unavailable Maldonado, Isatu TAXONOMY TEACHER Unavailable Unavailable Maldonado, Isatu TAXONOMY TEACHER Unavailable Unavailable Maldonado, Isatu TAXONOMY TEACHER Unavailable Unavailable Maldonado, Isatu TAXONOMY TEACHER Unavailable Unavailable Maldonado, Isatu TAXONOMY TEACHER Unavailable Unavailable Maldonado, Isatu TAXONOMY TEACHER Unavailable Unavailable Maldonado, Isatu TAXONOMY TEACHER Unavailable Unavailable Maldonado, Isatu TAXONOMY TEACHER Unavailable Unavailable Maldonado, Isatu TAXONOMY TEACHER Unavailable Unavailable Maldonado, Isatu TAXONOMY TEACHER Unavailable Unavailable Maldonado, Isatu TAXONOMY TEACHER Unavailable Unavailable Maldonado, Isatu TAXONOMY TEACHER Unavailable Unavailable Maldonado, Isatu TAXONOMY TEACHER Unavailable Unavailable Maldonado, Isatu TAXONOMY TEACHER Unavailable Unavailable Maldonado, Isatu TAXONOMY TEACHER Unavailable Unavailable Maldonado, Isatu TAXONOMY TEACHER Unavailable Unavailable Maldonado, Isatu TAXONOMY TEACHER Unavailable Unavailable Charlebois, A Nargis RPA C [...] MD Unavailable Unavailable JOSE DANIEL, LITTLE STEVE AIR VALUE TESTER-C Unavailable Unavailable JOSE DANIEL, LITTLE STEVE AIR VALUE TESTER-C Unavailable Unavailable JOSE DANIEL, LITTLE STEVE AIR VALUE TESTER-C Unavailable Unavailable JOSE DANIEL, LITTLE STEVE AIR VALUE TESTER-C Unavailable Unavailable JOSE DANIEL, LITTLE STEVE AIR VALUE TESTER-C Unavailable Unavailable JOSE DANIEL, LITTLE STEVE AIR VALUE TESTER-C Unavailable Unavailable JOSE DANIEL, LITTLE STEVE AIR VALUE TESTER-C Unavailable Unavailable JOSE DANIEL, LITTLE STEVE AIR VALUE TESTER-C Unavailable Unavailable JOSE DANIEL, LITTLE STEVE AIR VALUE TESTER-C Unavailable Unavailable JOSE DANIEL, LITTLE STEVE AIR VALUE TESTER-C Unavailable Unavailable JOSE DANIEL, LITTLE STEVE AIR VALUE TESTER-C Unavailable Unavailable JOSE DANIEL, LITTLE STEVE AIR VALUE TESTER-C Unavailable Unavailable JOSE DANIEL, LITTLE STEVE AIR VALUE TESTER-C Unavailable Unavailable JOSE DANIEL, LITTLE STEVE AIR VALUE TESTER-C Unavailable Unavailable JOSE DANIEL, LITTLE STEVE AIR VALUE TESTER-C Unavailable Unavailable JOSE DANIEL, LITTLE STEVE AIR VALUE TESTER-C Unavailable Unavailable JOSE DANIEL, LITTLE STEVE AIR VALUE TESTER-C Unavailable Unavailable Re-disclosure Warning The records that [...] is protected by Article 27-F of the [facility] Public Health law. If you continue you may have access to information: Regarding HIV / AIDS; Provided by facilities licensed or operated by the [facility] Office of Mental Health; or Provided by the [facility] Office for People With Developmental Disabilities. If such information is present, then the following [facility] mandated warning applies: This information has been [...] law may result in a fine or half-way sentence or both. A general authorization for the release of medical or other information is NOT sufficient authorization for further disc losure. Family History Family Member Name Family Member Gender Family Member Status Date o f Status Description Data Source(s) Unknown Unknown Problem MEDENT ([facility]) Unknown Male Problem MEDENT ([facility] Encounters Encounter Providers Location Date Indications Data Source(s ) Outpatient [address] [facility] [address] 02/19/2021 12:00:00 AM EDT eCW1 ([facility]) Unknown [address] [facility] [place] [address] 02/19/2021 12:00:00 AM EDT eCW1 ([facility]) Unknown [address] [facility] [address] 02/12/2021 12:00:00 AM EDT eCW1 ([facility]) Outpatient [address] [facility] [address] 01/08/2021 12:00:00 AM EDT eCW1 ([facility]) Unknown [address] [facility] [place] [address] 01/07/2021 12:00:00 AM EDT eCW1 ([facility]) Unknown [address] [facility] [address] 12/26/2020 12:00:00 AM EDT eCW1 ([facility]) Unknown [address] [facility] [place] [address] 12/16/2020 12:00:00 AM EDT eCW1 ([facility]) Outpatient [address] [facility] [place] [address] 11/27/2020 12:00:00 AM EDT [facility]CW1 [facility] Outpatient [address] [facility] [place] [address] 11/19/2020 12:00:00 AM EDT eCW1 ([facility]) Unknown [address] [facility] [place] [address] 11/18/2020 12:00:00 AM EDT eCW1 ([facility]) Outpatient Attender: STEVE Figueroa/Leandra/Amanda brunner 11/12/2020 03:45:00 PM EDT MEDENT ([facility] Unknown [address] [facility] [address] 11/12/2020 12:00:00 AM EDT eCW1 ([facility]) Unknown [address] [facility] [place] [address] 11/11/2020 12:00:00 AM EDT eCW1 ([facility]) Unknown [address] [facility] [place] [address] 11/06/2020 12:00:00 AM EDT [facility] Unknown [address] [facility] [place] [address] 10/15/2020 12:00:00 AM EDT [facility]CW1 [facility]) Unknown [address] [facility] [address] 10/10/2020 12:00:00 AM EDT eCW1 [facility]) Outpatient Attender: STEVE Figueroa/Leandra/Dipesh/R eindl 09/24/2020 09:45:00 AM EDT MEDENT ([facility]) Unknown [address] [facility] [address] 09/10/2020 12:00:00 AM EDT eCW1 ([facility]) Unknown [address] [facility] [place] [address] 09/09/2020 12:00:00 AM EDT eCW1 ([facility]) Outpatient Attender: Hamzah Figueroa/Leandra/Dipesh/Re indl 08/06/2020 09:00:00 AM EDT MEDENT ([facility] Unknown [address] [facility] [place] [address] 07/31/2020 12:00:00 AM EDT eCW1 ([facility]) Outpatient Attender: Hamzah Figueroa/Leandra/Dipesh/Re indl 07/09/2020 08:15:00 AM EST MEDENT ([facility] ) <td ID="encounterTypeDescriptionID0">COV ID 19 IMM</td><td>Isatu SANTANAP</td><td>[facility]</td><td>06/25/2020</td><td>2:01PM</td><td>2:19PM</td><td></td>Outpatient Attender: Isatu Maldonado NP [facility] 06/25/2020 02:01:00 PM EST - 06/25/2020 02:19:00 PM EST COLVER ([facility]) 06/24/2020 12:00:00 AM EST [facility] ([facility]) Outpatient [address] [facility] [address] 06/10/2020 12:00:00 AM EST eCW1 ([facility]) Outpatient [address] [facility] [place] [address] 06/09/2020 12:00:00 AM EST eCW1 ([facility]) Unknown [address] [facility] [place] [address] 06/09/2020 12:00:00 AM EST eCW1 ([facility]) Unknown [address] [facility] [place] [address] 06/09/2020 12:00:00 AM EST eCW1 ([facility]) Unknown [address] [facility] [place] [address] 06/03/2020 12:00:00 AM EST eCW1 ([facility]) <td ID="encounterTypeDescriptionID1">COV ID 19 IMM</td><td>Isatu MERCER</td><td>[facility]</td><td>05/28/2020</td><td>1:59PM</td><td>2:17PM</td><td></td>Outpatient Attender: Isatu Maldonado NP [facility] 05/28/2020 01:59:00 PM EST - 05/28/2020 02:17:00 PM EST REINALDO ([facility]) Unknown [address] [facility] [address] 05/19/2020 12:00:00 AM EST eCW1 ([facility]) Unknown [address] [facility] [address] 05/19/2020 12:00:00 AM EST eCW1 ([facility]) Unknown [address] [facility] [address] 05/05/2020 12:00:00 AM EST [facility]CW1 [facility]) Outpatient Attender: TRAE Figueroa/Leandra/Dipesh/Rein gerry 04/17/2020 02:45:00 PM EST MEDENT ([facility] Tato arce, RUSSELL) Unknown [address] [facility] [address] 03/19/2020 12:00:00 AM EST eCW1 ([facility]) Outpatient Attender: Nargis Figueroa/Leandra/Deepali martines/Jenny 03/10/2020 11:00:00 AM EDT MEDENT ([facility] RUSSELL Gomez) Unknown [address] [facility] [address] 03/04/2020 12:00:00 AM EDT eCW1 ([facility]) Unknown [address] [facility] [place] [address] 03/03/2020 12:00:00 AM EDT eCW1 ([facility]) Outpatient [address] [facility] [place] [address] 02/28/2020 12:00:00 AM EDT eCW1 ([facility]) Unknown [address] [facility] [place] [address] 02/22/2020 12:00:00 AM EDT eCW1 ([facility]) Outpatient [address] [facility] [place] [address] 02/21/2020 12:00:00 AM EDT eCW1 ([facility]) [facility] [address] [facility] [place] [address] 02/21/2020 12:00:00 AM EDT eCW1 ([facility] to [facility]) Immunizations Vaccine Date Status Description Data Source(s) Moderna COVID-19 06/25/2020 02:05:00 PM EST completed <td ID="Jgpmywnskdlyc-Ywskpwgoebf-RB9">Moderna COVID-19</td><td ID="ImmunizationDose-5">2</td><td>06/25/2020</td><td ID="Idobngtanwkzb-TamakXktz-HY6">Right Deltoid</td><td></td><td ID="Elohvvozdtwri-Owbpxd-HP8">Complete (Administered)</td><td>[facility]</td><td ID="Menrdsreguska-Otvhv-Urzv-Comment-ID5"></td> REINALDO ([facility]) COVID-19 VACCINE a 06/25/2020 12:00:00 AM EST completed [facility] Vaccine Series Complete: YESThis Data wa s Submitted to [facility] Via [employer]. Moderna COVID-19 05/28/2020 02:02:00 PM EST completed <td ID="Uzwrsijdepxwv-Zbhvgjamwbz-SO9">Moderna COVID-19</td><td ID="ImmunizationDose-4">1</td><td>05/28/2020</td><td ID="Blqfvvbibyrxp-OqeebXjkx-XU3">Left Deltoid</td><td></td><td ID="Twnquvcwytrky-Gzffbp-GA7">Complete (Administered)</td><td>[facility]</td><td ID="Pbnbqxdtoqoyw-Imhae-Mamp-Comment-ID4"></td> REINALDO ([facility]) Note: VACCINE ADMINISTERED BY ANABEL Moctezuma LPN COVID-19 VACCINE a 05/28/2020 12:00:00 AM EST completed [facility] Vaccine Series Complete: NOThis Data was Submitted to [facility] Via [employer]. Medications Medication Brand Name Start Date Product Form Dose Route Admi nistrative Instructions Pharmacy Instructions Status Indications Reaction Description Data Source(s) Fluconazole 150 MG Oral Tablet [Diflucan] Diflucan 150 MG Di flucan 150 MG 02/19/2021 12:00:00 AM EDT 1.0 {tablet} active Diflucan 150 MG eCW1 ([facility]) Fluconazole 150 MG Oral Tablet [Diflucan] Diflucan 150 MG Di flucan 150 MG 02/19/2021 12:00:00 AM EDT 1.0 {tablet} active Diflucan 150 MG eCW1 ([facility]) Covid-19 vaccine, Unspecified 06/25/2020 12:00:00 AM EST completed MEDENT ([facility], ) Medication administered onsite POLYETHYLENE GLYCOL 3350 142 MG/ML Oral Solution [Miralax] M iralax 06/23/2020 12:00:00 AM EST completed MEDENT ([facility], ) Hydrocortisone 25 MG/ML Topical Cream [Anusol HC] Anus ol-HC 2.5 % Anusol-HC 2.5 % 06/10/2020 12:00:00 AM EST 1.0 {application} suspended Anusol-HC 2.5 % eCW1 ([facility]) Hydrocortisone 25 MG/ML Topical Cream [Anusol HC] Anus ol-HC 2.5 % Anusol-HC 2.5 % 06/10/2020 12:00:00 AM EST 1.0 {application} active Anusol-HC 2.5 % eCW1 ([facility]) Hydrocortisone 25 MG/ML Topical Cream [Anusol HC] Anus ol-HC 2.5 % Anusol-HC 2.5 % 06/10/2020 12:00:00 AM EST 1.0 {application} active Anusol-HC 2.5 % eCW1 ([facility]) Hydrocortisone 25 MG/ML Topical Cream [Anusol HC] Anus ol-HC 2.5 % Anusol-HC 2.5 % 06/10/2020 12:00:00 AM EST 1.0 {application} suspended Anusol-HC 2.5 % eCW1 ([facility]) Hydrocortisone 25 MG/ML Topical Cream [Anusol HC] Anus ol-HC 2.5 % Anusol-HC 2.5 % 06/10/2020 12:00:00 AM EST 1.0 {application} suspended Anusol-HC 2.5 % eCW1 ([facility]) Hydrocortisone 25 MG/ML Topical Cream [Anusol HC] Anus ol-HC 2.5 % Anusol-HC 2.5 % 06/10/2020 12:00:00 AM EST 1.0 {application} suspended Anusol-HC 2.5 % eCW1 ([facility]) Hydrocortisone 25 MG/ML Topical Cream [Anusol HC] Anus ol-HC 2.5 % Anusol-HC 2.5 % 06/10/2020 12:00:00 AM EST 1.0 {application} suspended Anusol-HC 2.5 % eCW1 ([facility]) Hydrocortisone 25 MG/ML Topical Cream [Anusol HC] Anus ol-HC 2.5 % Anusol-HC 2.5 % 06/10/2020 12:00:00 AM EST 1.0 {application} suspended Anusol-HC 2.5 % eCW1 ([facility]) Hydrocortisone 25 MG/ML Topical Cream [Anusol HC] Anus ol-HC 2.5 % Anusol-HC 2.5 % 06/10/2020 12:00:00 AM EST 1.0 {application} active Anusol-HC 2.5 % eCW1 ([facility]) Hydrocortisone 25 MG/ML Topical Cream [Anusol HC] Anus ol-HC 2.5 % Anusol-HC 2.5 % 06/10/2020 12:00:00 AM EST 1.0 {application} active Anusol-HC 2.5 % eCW1 ([facility]) Hydrocortisone 25 MG/ML Topical Cream [Anusol HC] Anus ol-HC 2.5 % Anusol-HC 2.5 % 06/10/2020 12:00:00 AM EST 1.0 {application} suspended Anusol-HC 2.5 % eCW1 ([facility]) Hydrocortisone 25 MG/ML Topical Cream [Anusol HC] Anus ol-HC 2.5 % Anusol-HC 2.5 % 06/10/2020 12:00:00 AM EST 1.0 {application} suspended Anusol-HC 2.5 % eCW1 ([facility]) Hydrocortisone 25 MG/ML Topical Cream [Anusol HC] Anus ol-HC 2.5 % Anusol-HC 2.5 % 06/10/2020 12:00:00 AM EST 1.0 {application} active Anusol-HC 2.5 % eCW1 ([facility]) Hydrocortisone 25 MG/ML Topical Cream [Anusol HC] Anus ol-HC 2.5 % Anusol-HC 2.5 % 06/10/2020 12:00:00 AM EST 1.0 {application} active Anusol-HC 2.5 % eCW1 ([facility]) Hydrocortisone 25 MG/ML Topical Cream [Anusol HC] Anus ol-HC 2.5 % Anusol-HC 2.5 % 06/10/2020 12:00:00 AM EST 1.0 {application} active Anusol-HC 2.5 % eCW1 ([facility]) Hydrocortisone 25 MG/ML Topical Cream [Anusol HC] Anus ol-HC 2.5 % Anusol-HC 2.5 % 06/10/2020 12:00:00 AM EST 1.0 {application} active Anusol-HC 2.5 % eCW1 ([facility]) Hydrocortisone 25 MG/ML Topical Cream [Anusol HC] Anus ol-HC 2.5 % Anusol-HC 2.5 % 06/10/2020 12:00:00 AM EST 1.0 {application} active Anusol-HC 2.5 % eCW1 ([facility]) Hydrocortisone 25 MG/ML Topical Cream [Anusol HC] Anus ol-HC 2.5 % Anusol-HC 2.5 % 06/10/2020 12:00:00 AM EST 1.0 {application} active Anusol-HC 2.5 % eCW1 ([facility]) Hydrocortisone 25 MG/ML Topical Cream [Anusol HC] Anus ol-HC 2.5 % Anusol-HC 2.5 % 06/10/2020 12:00:00 AM EST 1.0 {application} active Anusol-HC 2.5 % eCW1 ([facility]) Hydrocortisone 25 MG/ML Topical Cream [Anusol HC] Anus ol-HC 2.5 % Anusol-HC 2.5 % 06/10/2020 12:00:00 AM EST 1.0 {application} suspended Anusol-HC 2.5 % eCW1 ([facility]) Covid-19 vaccine, Unspecified 05/28/2020 12:00:00 AM EST completed MEDENT ([facility], ) Medication administered onsite Suprep Bowel Prep Kit Suprep Bowel Prep Kit 04/17/2020 12:00:00 AM EST completed MEDENT ([facility], ) hydrocortisone acetate 25 MG Rectal Suppository [Anucort-HC] Anucort-HC 03/19/2020 12:00:00 AM EST completed MEDENT ([facility], ) Magnesium Hydroxide 80 MG/ML Oral Suspension Milk Of Magnesi a 03/10/2020 12:00:00 AM EDT ORAL completed MEDENT ([facility], ) Suprep Bowel Prep Kit Suprep Bowel Prep Kit 03/10/2020 12:00:00 AM EDT completed MEDENT ([facility], ) Insurance Providers Payer name Policy type / Coverage type Policy ID Covered green party ID Covered green party's relationship to krishna Policy Krishna Plan Information Medicaid of [place] Other 01 [id number] Self 01 BLUE CROSS [id number] SP [id number] BCBS of [facility] Other 0 [id number] Self 0 BLUE CROSS [id number] SP [id number] BCBS of [facility] Other 0 [id number] Self 0 EXCELLUS C [id number] Self [id number] MEDICAID M [id number] Self [id number] BCBS of [facility] Other 0 [id number] Self 0 [place]/307 [id number] SP [id number] [place]/307 [id number] SP [id number] MEDICAID [id number] SP [id number] Medicaid - [employer] [facility] [id number] Medica id [id number] ID IDENTIFICATION [id number] Other Insurance .[id number] [employer] [id number] Blue Cross/Kathie eld [id number] ANSI-Commercial [id number] ANSI-Medicaid [id number] ANSI-Medicaid [id number] ANSI-Commercial [id number] ANSI-Medicaid [id number] ANSI-Commercial [id number] BCBS/[employer] Commercial [id number] Self [id number] [place]BS [place]/307 [id number] SP [id number] ANSI-Medicaid [id number] ANSI-Commercial [id number] BCBS/[employer] Commercial [id number] Self Medicaid of [place] Other 01 [id number] Self 01 [facility] COMMUNITY PLAN [facility] [id number] SP [id number] EXCELLUS BC BS [id number] SP [id number] [employer] Blue Cross Commercial [id number] Self BCBS [place] 302/307 [id number] SP [id number] [place] 306/806 [id number] SP [id number] BLUE CROSS [id number] SP [id number] [place] MED[place] [id number] SP [id number] BC[place] 302/307 [id number] SP [id number] BCBS [place] 302/307 [id number] SP [id number] [place] [id number] SP [id number] BCBS of [facility] Other 0 [id number] Self 0 BCBS [place] PPO 302/307 [id number] SP [id number] Medicaid of [place] Other 01 [id number] Self 01 MEDICAID M [id number] S [id number] EX[employer]LLUS BCBS B [id number] S [id number] Problems, Conditions, and Diagnoses Code Display Name Description Problem Type Effective Dates Data Source(s) I86.1 Varicocele Varicocele Problem 02/19/2021 12:00:00 AM ED T eCW1 ([facility]) B36.9 Fungal dermatitis Fungal dermatitis Problem 02/19/2021 12:00:00 AM EDT eCW1 ([facility]) E03.8 [id number] Secondary hypothyroidism Problem 11/27/2020 12:00:00 AM EDT eCW1 ([facility]) B20 [id number] Human immunodeficiency virus [HIV] diseas e Problem 05/05/2020 12:00:00 AM EST eCW1 ([facility]) C79.89 [id number] 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 Problem 02/28/2020 12:00:00 AM EDT eCW1 ([facility]) F31.9 [id number] Bipolar 1 disorder, depressed Problem 2019 12:00:00 AM EDT eCW1 ([facility]) C79.9 [id number] Malignant melanoma, metastatic Problem 02/28/2020 12:00:00 AM EDT eCW1 ([facility]) Surgeries/Procedures Procedure Description Date Indications Data Source(s) LARYNGOSCOPY FLEXIBLE FIBEROPTIC DIAGNOSTIC 11/13/2020 12:00:00 AM EDT MEDENT ([facility], ) OFFICE OUTPATIENT VISIT 15 MINUTES 11/12/2020 12:00:00 AM EDT MEDENT ([facility]) OFFICE OUTPATIENT VISIT 15 MINUTES 09/24/2020 12:00:00 AM EDT MEDENT ([facility]) OFFICE OUTPATIENT VISIT 15 MINUTES 08/06/2020 12:00:00 AM EDT MEDENT ([facility]) Capsule Endoscopy Small Bowel 07/14/2020 12:00:[address] MEDENT ([facility]) OFFICE OUTPATIENT VISIT 25 MINUTES 07/09/2020 12:00:00 AM EST MEDENT ([facility]) Moderna COVID-19 Vaccine Moderna COVID-19 Vaccine 06/25/2020 12:00: 00 AM EST REINALDO ([facility]) Colonoscopy Flexible Proximal To Splenic Flexure W/Biopsy Si ngle/ 06/23/2020 12:00:00 AM EST MEDENT ([facility], ) Moderna COVID-19 Vaccine Moderna COVID-19 Vaccine 05/28/2020 12:00: 00 AM EST REINALDO ([facility]) Moderna COVID19 Vaccine Administration First Dose Mode rna COVID19 Vaccine Administration First Dose 05/28/2020 12:00:00 AM EST GREENWA Y ([facility]) Endoscopy Upper GI Biopsy 03/17/2020 12:00:00 AM EST MEDENT ([facility], ) Colonoscopy Flexible Proximal To Splenic Flexure W/Biopsy Si ngle/ 03/17/2020 12:00:00 AM EST MEDENT ([facility], ) Results ID Date Data Source [id number] 11/14/2020 12:29:00 AM EDT [facility] Name Value Range Interpretation Code Description Data Barb rce(s) Supporting Document(s) SARS coronavirus 2 RNA [Presence] in Res piratory specimen by BRADLEY with probe detection NEGATIVE [facility] This lab was ordered by [facility] a nd reported by [facility]. ID Date Data Source [id number] 11/07/2020 03:56:00 AM EDT [facility] Name Value Range Interpretation Code Description Data Barb rce(s) Supporting Document(s) SARS coronavirus 2 RNA [Presence] in Res piratory specimen by BRADLEY with probe detection NEGATIVE [facility] This lab was ordered by [facility] a nd reported by [facility]. ID Date Data Source [id number] 10/30/2020 01:08:00 PM EDT [facility] Name Value Range Interpretation Code Description Data Barb rce(s) Supporting Document(s) SARS coronavirus 2 RNA NOT DETECTED [facility] [place] This lab was ordered by [facility] and reported by [facility]. ID Date Data Source [id number] 06/23/2020 07:53:00 AM EST MEDENT ([facility], ) Name Value Range Interpretation Code Description Data Barb rce(s) Supporting Document(s) Surgical pathology study Laboratory test result MEDENT ([facility], ) FINAL DIAGNOSIS Colon, random, biopsies: Colonic [...] MD 06/24/2020 1422 ID Date Data Source [id number] 06/18/2020 01:05:00 PM EST [facility] Name Value Range Interpretation Code Description Data Barb rce(s) Supporting Document(s) SARS coronavirus 2 RNA Not Detected [facility] This lab was ordered by [facility] and reported by [facility]. ID Date Data Source [id number] 04/28/2020 07:43:00 PM EST [facility] Name Value Range Interpretation Code Description Data Barb rce(s) Supporting Document(s) [facility] by [facility] and reported by [facility]. ID Date Data Source [id number] 04/17/2020 05:01:00 PM EST [facility] ([facility], ) Name Value Range Interpretation Code Description Data Barb rce(s) Supporting Document(s) Glucose, Fasting 95 mg/dL 70-100 Normal (applies to non-numeric results) [facility] ([facility], ) Blood Urea Nitrogen 21 mg/dL 7-18 Above high normal [facility], ) Glomerular Filtration Rate Laboratory test result Normal (applies to non- numeric results) [facility], ) <content>Units are mL/min/1.73 m2</content>
<content></content>
<content>Chronic Kidney Disease Staging per NKF:</content>
<content></content>
<content>Stage I & II GFR >=60 Normal to Mildly Decreased</content>
<content>Stage III GFR 30- 59 Moderately Decreased</content>
<content>Stage IV GFR 15-29 Severely Decreased</content>
<content>Stage V GFR <15 Very Little GFR Left</content>
<content>ESRD GFR <15 on [facility] TECHNICAL ARCHITECT</content>
<content></content> Creatinine For GFR 1.05 mg/dL 0.70-1.30 Normal (applies to non -numeric results) [facility] ([facility]) Sodium Level 141 meq/L 136-145 Normal (applies to non-numeric res ults) [facility] ([facility]) Chloride Level 105 meq/L 98-107 Normal (applies to non-numeric r esults) [facility]) Potassium Serum 4.3 meq/L 3.5-5.1 Normal (applies to non-numeric results) [facility] ([facility]) Calcium Level 9.3 mg/dL 8.5-10.1 Normal (applies to non-numeric re sults) [facility]) Carbon Dioxide Level 31 meq/L 21-32 Normal (applies to non-num evin results) [facility]) Anion Gap 5 meq/L 8-16 Below low normal [facility] ( [facility]) Ast/Sgot 37 U/L 7-37 Normal (applies to non-numeric resul ts) [facility] ([facility]) Alt/SGPT 35 U/L 12-78 Normal (applies to non-numeric resul ts) [facility]) Alkaline Phosphatase 74 U/L 45-117 Normal (applies to non-num evin results) [facility]) Bilirubin,Total 0.3 mg/dL 0.2-1.0 Normal (applies to non-numeric results) [facility] ([facility]) Albumin 3.9 GM/DL 3.2-5.2 Normal (applies to non-numeric resul ts) [facility] ([facility]) Albumin/Globulin Ratio 1.3 Normal (applies to non-n umeric results) [facility]) Total Protein 6.8 GM/DL 6.4-8.2 Normal (applies to non-numeric re sults) [facility]) ID Date Data Source [id number] 04/17/2020 05:00:00 PM EST [facility] ([facility]) Name Value Range Interpretation Code Description Data Barb rce(s) Supporting Document(s) White Blood Count 5.8 10 4.0-10.0 Normal (applies to non-numeri c results) [facility], ) Hemoglobin 15.5 g/dL 13.5-17.5 Normal (applies to non-numeric resul ts) [facility] Red Blood Count 4.94 10 4.30-6.10 Normal (applies to non-numeric results) [facility] ([facility]) Hematocrit 45.2 % 42.0-52.0 Normal (applies to non-numeric resul ts) [facility] ([facility]) Mean Corpuscular Volume 91.5 fl 80.0-96.0 Normal ( applies to non-numeric results) [facility]) Mean Corpuscular Hemoglobin 31.4 pg 27.0-33.0 Norm al (applies to non-numeric results) [facility] ([facility]) Mean Corpuscular HGB Conc 34.3 g/dL 32.0-36.5 Normal (applies to non-numeric results) [facility] ([facility]) Red Cell Distribution Width 12.2 % 11.5-14.5 Norm al (applies to non-numeric results) [facility] ([facility]) Platelet Count, Automated 225 10 150-450 Normal (applies to non-numeric results) [facility] ([facility]) Neutrophils % 38.5 % 36.0-66.0 Normal (applies to non-numeric re sults) [facility] Lymph % 50.9 % 24.0-44.0 Above high normal [facility] ([facility]) [place] % 7.7 % 0.0-5.0 Above high normal [facility] ([facility]) Baso % 0.7 % 0.0-1.0 Normal (applies to non-numeric resul ts) [facility] Eos % 1.7 % 0.0-3.0 Normal (applies to non-numeric resul ts) [facility]) Immature Granulocyte % 0.5 % 0-3.0 Normal (applies to non-n umeric results) [facility] ([facility], ) Nucleated Red Blood Cell % 0.0 % 0-0 Normal (applies to n on-numeric results) [facility] ([facility]) Neutrophils # 2.3 10 1.5-8.5 Normal (applies to non-numeric re sults) [facility] ([facility]) [place] # 0.5 10 0.0-0.8 Normal (applies to non-numeric resul ts) [facility] ([facility]) Lymph # 3.0 10 1.5-5.0 Normal (applies to non-numeric resul ts) [facility] ([facility]) Baso # 0.0 10 0.0-0.2 Normal (applies to non-numeric resul ts) [facility] ([facility]) Eos # 0.1 10 0.0-0.5 Normal (applies to non-numeric resul ts) [facility] ([facility]) ID Date Data Source [id number] 03/19/2020 03:06:00 PM EST [facility] Name Value Range Interpretation Code Description Data Barb rce(s) Supporting Document(s) SARS coronavirus 2 RNA panel N [facility] This lab was ordered by [facility] and reported by [facility]. ID Date Data Source [id number] 03/17/2020 12:41:00 PM EST [facility] ([facility]) Name Value Range Interpretation Code Description Data Barb rce(s) Supporting Document(s) Surgical pathology study Laboratory test result [facility] ([facility]) <content>FINAL DIAGNOSIS</content>
< content></content>
<content>A - Duodenum, [...] 03/18/2020 1437</content>
<content></content> ID Date Data Source [id number] 03/12/2020 10:30:00 AM EDT [facility] Name Value Range Interpretation Code Description Data Barb rce(s) Supporting Document(s) SARS coronavirus 2 RNA [facility] This lab was ordered by [facility] and reported by [facility]. Procedure Social History Code Duration Value Status Description Data Source(s ) Smoking 11/12/2020 12:00:00 AM EDT Non Smoker completed Non Smoke r [facility] ([facility], ) Vital Signs ID Date Data Source UNK Name Value Range Interpretation Code Description Data Source(s) Body weight 170 [lb_av] 170 [lb_av] eCW1 ([facility]) Body height 65 [in_i] 65 [in_i] eCW1 ([facility]) Body mass index (BMI) [Ratio] 28.29 kg/m2 28.29 kg/m2 eCW1 ([facility]) Heart rate 90 /min 90 /min eCW1 ([facility]) Respiratory rate 18 /min 18 /min eCW1 ([facility]) Body temperature 96.6 [degF] 96.6 [degF] eCW1 ( [facility]) Systolic blood pressure 116 mm[Hg] 116 mm[Hg] e CW1 ([facility]) Diastolic blood pressure 62 mm[Hg] 62 mm[Hg] eCW1 ([facility]) Body weight 161.8 [lb_av] 161.8 [lb_av] eCW1 ([facility]) Body height 65 [in_i] 65 [in_i] eCW1 ([facility]) Body mass index (BMI) [Ratio] 26.92 kg/m2 26.92 kg/m2 eCW1 ([facility]) Heart rate 96 /min 96 /min eCW1 ([facility]) Respiratory rate 18 /min 18 /min eCW1 ([facility]) Body temperature 97.3 [degF] 97.3 [degF] eCW1 ( [facility]) Systolic blood pressure 120 mm[Hg] 120 mm[Hg] e CW1 ([facility]) Diastolic blood pressure 70 mm[Hg] 70 mm[Hg] eCW1 ([facility]) [place] body weight 136 [lb_av] 136 [lb_av] MEDEN T ([facility], ) Body weight 72.576 kg 72.576 kg [facility] ([facility], ) Body height 65 [in_i] 65 [in_i] [facility] ([facility], ) 5'5" Body weight 160.00 [lb_av] 160.00 [lb_av] [facility] Body mass index (BMI) [Ratio] 26.6 kg/m2 26.6 k g/m2 [facility] ([facility]) Body surface area Derived from formula 1.80 m2 1.80 m2 [facility] ([facility]) Oxygen saturation in Arterial blood by Pulse oximetry 96 % 96 % [facility] ([facility]) Systolic blood pressure 120 mm[Hg] 120 mm[Hg] M EDENT ([facility]) Diastolic blood pressure 64 mm[Hg] 64 mm[Hg] [facility] ([facility]) Body surface area Derived from formula 1.81 m2 1.81 m2 [facility] ([facility]) Body weight 73.937 kg 73.937 kg [facility] ([facility]) Heart rate 66 /min 66 /min [facility] ([facility]) Body temperature 97.8 [degF] 97.8 [degF] [facility] ([facility]) Body height 65 [in_i] 65 [in_i] [facility] ([facility]) 5'5" Body weight 163.00 [lb_av] 163.00 [lb_av] [facility] T ([facility]) Body mass index (BMI) [Ratio] 27.1 kg/m2 27.1 k g/m2 [facility] ([facility]) [place] body weight 136 [lb_av] 136 [lb_av] [facility] T ([facility]) Diastolic blood pressure 64 mm[Hg] 64 mm[Hg] [facility] ([facility]) Oxygen saturation in Arterial blood by Pulse oximetry 99 % 99 % [facility] ([facility]) Body weight 75.298 kg 75.298 kg [facility] ([facility]) Body surface area Derived from formula 1.83 m2 1.83 m2 [facility] ([facility]) Systolic blood pressure 110 mm[Hg] 110 mm[Hg] [facility] Body temperature 97.0 [degF] 97.0 [degF] [facility] ([facility]) Body height 65 [in_i] 65 [in_i] [facility] ([facility]) 5'5" Body weight 166.00 [lb_av] 166.00 [lb_av] MEDEN T ([facility]) Body mass index (BMI) [Ratio] 27.6 kg/m2 27.6 k g/m2 [facility] ([facility]) [place] body weight 136 [lb_av] 136 [lb_av] MED[facility] T ([facility]) Heart rate 75 /min 75 /min [facility] ([facility]) Body weight 155.00 [lb_av] 155.00 [lb_av] MED[facility] T ([facility]) Body mass index (BMI) [Ratio] 25.8 kg/m2 25.8 k g/m2 [facility] ([facility]) Body height 65 [in_i] 65 [in_i] [facility] ([facility]) 5'5" [place] body weight 136 [lb_av] 136 [lb_av] [facility] T ([facility]) Body weight 70.308 kg 70.308 kg [facility] ([facility]) Body surface area Derived from formula 1.78 m2 1.78 m2 [facility] ([facility]) Body height 65 [in_i] 65 [in_i] [facility] ([facility]) 5'5" Body weight 155.00 [lb_av] 155.00 [lb_av] [facility] T ([facility]) Body mass index (BMI) [Ratio] 25.8 kg/m2 25.8 k g/m2 [facility] [place] body weight 136 [lb_av] 136 [lb_av] [facility] T ([facility]) Body weight 70.308 kg 70.308 kg [facility] ([facility]) Body surface area Derived from formula 1.78 m2 1.78 m2 [facility] ([facility]) Body weight 167 [lb_av] 167 [lb_av] eCW1 ([facility]) Body height 65 [in_i] 65 [in_i] eCW1 ([facility]) Body mass index (BMI) [Ratio] 27.79 kg/m2 27.79 kg/m2 eCW1 ([facility]) Heart rate 85 /min 85 /min eCW1 ([facility]) Respiratory rate 18 /min 18 /min eCW1 ([facility]) Body temperature 96.7 [degF] 96.7 [degF] eCW1 ( [facility]) Systolic blood pressure 132 mm[Hg] 132 mm[Hg] e CW1 ([facility]) Diastolic blood pressure 70 mm[Hg] 70 mm[Hg] eCW1 ([facility]) Body weight 165.4 [lb_av] 165.4 [lb_av] eCW1 ([facility]) Body height 65 [in_i] 65 [in_i] eCW1 ([facility]) Body mass index (BMI) [Ratio] 27.52 kg/m2 27.52 kg/m2 eCW1 ([facility]) Heart rate 56 /min 56 /min eCW1 ([facility]) Respiratory rate 18 /min 18 /min eCW1 ([facility]) Systolic blood pressure 116 mm[Hg] 116 mm[Hg] e CW1 ([facility]) Diastolic blood pressure 68 mm[Hg] 68 mm[Hg] eCW1 ([facility]) Body weight 155.00 [lb_av] 155.00 [lb_av] MEDEN T ([facility], ) Systolic blood pressure 138 mm[Hg] 138 mm[Hg] M EDENT ([facility], ) Diastolic blood pressure 100 mm[Hg] 100 mm[Hg] [facility] ([facility], ) Body height 65 [in_i] 65 [in_i] [facility] ([facility], ) 5'5" Body mass index (BMI) [Ratio] 25.8 kg/m2 25.8 k g/m2 [facility] ([facility] ) [place] body weight 136 [lb_av] 136 [lb_av] MED[facility] T ([facility]) Body weight 70.308 kg 70.308 kg [facility] ([facility]) Body surface area Derived from formula 1.78 m2 1.78 m2 [facility] ([facility]) Systolic blood pressure 138 mm[Hg] 138 mm[Hg] M EDENT ([facility]) Diastolic blood pressure 72 mm[Hg] 72 mm[Hg] [facility] ([facility]) Body height 65 [in_i] 65 [in_i] [facility] ([facility]) 5'5" Body weight 160.00 [lb_av] 160.00 [lb_av] MED[facility] T ([facility]) Body mass index (BMI) [Ratio] 26.6 kg/m2 26.6 k g/m2 [facility] ([facility]) [place] body weight 136 [lb_av] 136 [lb_av] MED[facility] T ([facility]) Body weight 72.576 kg 72.576 kg [facility] ([facility]) Body surface area Derived from formula 1.80 m2 1.80 m2 [facility] ([facility]) Body weight 165 [lb_av] 165 [lb_av] eCW1 ([facility]) Body height 65 [in_i] 65 [in_i] eCW1 ([facility]) Body mass index (BMI) [Ratio] 27.45 kg/m2 27.45 kg/m2 eCW1 ([facility]) Heart rate 89 /min 89 /min eCW1 ([facility]) Respiratory rate 18 /min 18 /min eCW1 ([facility]) Body temperature 97.2 [degF] 97.2 [degF] eCW1 ( [facility]) Systolic blood pressure 106 mm[Hg] 106 mm[Hg] e CW1 ([facility]) Diastolic blood pressure 66 mm[Hg] 66 mm[Hg] eCW1 ([facility]) Body weight 159 [lb_av] 159 [lb_av] eCW1 ([facility]) Body height 65 [in_i] 65 [in_i] eCW1 ([facility]) Body mass index (BMI) [Ratio] 26.46 kg/m2 26.46 kg/m2 eCW1 ([facility]) Heart rate 97 /min 97 /min eCW1 ([facility]) Respiratory rate 18 /min 18 /min eCW1 ([facility]) Body temperature 97.9 [degF] 97.9 [degF] eCW1 ( [facility]) Systolic blood pressure 102 mm[Hg] 102 mm[Hg] e CW1 ([facility]) Diastolic blood pressure 74 mm[Hg] 74 mm[Hg] eCW1 ([facility]) Patient Treatment Plan of Care Planned Activity Planned Date Details Description Data Source (s) Fluconazole 150 MG Oral Tablet [Diflucan] 02/19/2021 12:00:00 AM ED T eCW1 ([facility]) Fluconazole 150 MG Oral Tablet [Diflucan] 02/19/2021 12:00:00 AM ED T eCW1 ([facility]) Hydrocortisone 25 MG/ML Topical Cream [Anusol HC] 06/10/2020 12: 00:00 AM EST eCW1 ([facility]) Hydrocortisone 25 MG/ML Topical Cream [Anusol HC] 06/10/2020 12: 00:00 AM EST eCW1 ([facility]) Hydrocortisone 25 MG/ML Topical Cream [Anusol HC] 06/10/2020 12: 00:00 AM EST eCW1 ([facility]) Hydrocortisone 25 MG/ML Topical Cream [Anusol HC] 06/10/2020 12: 00:00 AM EST eCW1 ([facility]) Hydrocortisone 25 MG/ML Topical Cream [Anusol HC] 06/10/2020 12: 00:00 AM EST eCW1 ([facility]) Hydrocortisone 25 MG/ML Topical Cream [Anusol HC] 06/10/2020 12: 00:00 AM EST eCW1 ([facility]) Hydrocortisone 25 MG/ML Topical Cream [Anusol HC] 06/10/2020 12: 00:00 AM EST eCW1 ([facility]) Hydrocortisone 25 MG/ML Topical Cream [Anusol HC] 06/10/2020 12: 00:00 AM EST eCW1 ([facility]) Hydrocortisone 25 MG/ML Topical Cream [Anusol HC] 06/10/2020 12: 00:00 AM EST eCW1 ([facility]) Hydrocortisone 25 MG/ML Topical Cream [Anusol HC] 06/10/2020 12: 00:00 AM EST eCW1 ([facility]) Hydrocortisone 25 MG/ML Topical Cream [Anusol HC] 06/10/2020 12: 00:00 AM EST eCW1 ([facility])
[2021-03-13 11:34] LABS: HEMATOCRIT 43.4 % (42.0-52.0); HEMOGLOBIN 14.6 g/dl (13.5-17.5); MEAN CORPUSCULAR HEMOGLOBIN 28.3 pg (27.0-33.0); MEAN CORPUSCULAR HGB CONC 33.6 g/dl (32.0-36.5); MEAN CORPUSCULAR VOLUME 84.1 fl (80.0-96.0); PLATELET COUNT, AUTOMATED 250 10^3/uL (150-450); RED BLOOD COUNT 5.16 10^6/uL (4.30-6.10); WHITE BLOOD COUNT 4.9 10^3/uL (4.0-10.0)
[2021-03-13 12:08] LABS: AMPHETAMINES LEVEL URINE NEGATIVE (NEGATIVE); BARBITURATES URINE NEGATIVE (NEGATIVE); BENZODIAZEPINES URINE NEGATIVE (NEGATIVE); CANNABINOIDS URINE NEGATIVE (NEGATIVE); COCAINE METABOLITE URINE NEGATIVE (NEGATIVE); METHADONE URINE NEGATIVE (NEGATIVE); OPIATES URINE NEGATIVE (NEGATIVE); PHENCYCLIDINE URINE NEGATIVE (NEGATIVE)
[2021-03-13 12:12] LABS: ACETAMINOPHEN LEVEL < 2.0 UG/ML (10.0-30.0); ALBUMIN 3.9 GM/DL (3.2-5.2); ALT/SGPT 42 U/L (12-78); BILIRUBIN,DIRECT 0.1 MG/DL (0.0-0.2); BILIRUBIN,TOTAL 0.4 MG/DL (0.2-1.0); BLOOD UREA NITROGEN 15 MG/DL (7-18); CALCIUM LEVEL 9.7 MG/DL (8.5-10.1); CARBON DIOXIDE LEVEL 32 MEQ/L (21-32); CHLORIDE LEVEL 105 MEQ/L (98-107); CREATININE FOR GFR 0.96 MG/DL (0.70-1.30); ETHYL ALCOHOL (ETHANOL) < 0.003 % (0.000-0.010); GLOMERULAR FILTRATION RATE > 60.0 (>60); GLUCOSE, FASTING 97 MG/DL (70-100); POTASSIUM SERUM 4.1 MEQ/L (3.5-5.1); SALICYLATE LEVEL < 1.7 MG/DL (5.0-30.0); SODIUM LEVEL 141 MEQ/L (136-145); TOTAL PROTEIN 7.1 GM/DL (6.4-8.2)
[2021-03-13 18:20] LABS: RSV AMPLIFICATION NEGATIVE (NEGATIVE)
[2021-03-13] MEDS ORDERED: MOM 30ML SUSPENSION UDC PO PRN (18:30)
--- OUTSIDE RECORDS SUMMARY | 2021-03-13 18:44 | CCD ---
Author Author [facility] Organization [facility] Address Unknown Phone Unavailable Care Team Providers Care Pit Slagman Name Role Phone TRAE LIVINGSTON MD Unavailable [...] REINDL, TRAE COSTA Unavailable Unavailable Maldonado, Isatu SCHOOL SUPERINTENDENT Unavailable Unavailable Maldonado, Isatu SCHOOL SUPERINTENDENT Unavailable Unavailable Maldonado, Isatu SCHOOL SUPERINTENDENT Unavailable Unavailable Maldonado, Isatu SCHOOL SUPERINTENDENT Unavailable Unavailable Maldonado, Isatu SCHOOL SUPERINTENDENT Unavailable Unavailable Maldonado, Isatu SCHOOL SUPERINTENDENT Unavailable Unavailable Maldonado, Isatu SCHOOL SUPERINTENDENT Unavailable Unavailable Maldonado, Isatu SCHOOL SUPERINTENDENT Unavailable Unavailable Maldonado, Isatu SCHOOL SUPERINTENDENT Unavailable Unavailable Maldonado, Isatu SCHOOL SUPERINTENDENT Unavailable Unavailable Maldonado, Isatu SCHOOL SUPERINTENDENT Unavailable Unavailable Maldonado, Isatu SCHOOL SUPERINTENDENT Unavailable Unavailable Maldonado, Istau SCHOOL SUPERINTENDENT Unavailable Unavailable Maldonado, Isatu SCHOOL SUPERINTENDENT Unavailable Unavailable Maldonado, Isatu SCHOOL SUPERINTENDENT Unavailable Unavailable Maldonado, Isatu SCHOOL SUPERINTENDENT Unavailable Unavailable Maldonado, Isatu SCHOOL SUPERINTENDENT Unavailable Unavailable Maldonado, Isatu SCHOOL SUPERINTENDENT Unavailable Unavailable Maldonado, Isatu SCHOOL SUPERINTENDENT Unavailable Unavailable Maldonado, Isatu SCHOOL SUPERINTENDENT Unavailable Unavailable Maldonado, Isatu SCHOOL SUPERINTENDENT Unavailable Unavailable Maldonado, Isatu SCHOOL SUPERINTENDENT Unavailable Unavailable Charlebois, A Nargis RPA C [...] MD Unavailable Unavailable JOSE DANIEL, LITTLE STEVE CHURNER-C Unavailable Unavailable JOSE DANIEL, LITTLE STEVE CHURNER-C Unavailable Unavailable JOSE DANIEL, LITTLE STEVE CHURNER-C Unavailable Unavailable JOSE DANIEL, LITTLE STEVE CHURNER-C Unavailable Unavailable JOSE DANIEL, LITTLE STEVE CHURNER-C Unavailable Unavailable JOSE DANIEL, LITTLE STEVE CHURNER-C Unavailable Unavailable JOSE DANIEL, LITTLE STEVE CHURNER-C Unavailable Unavailable JOSE DANIEL, LITTLE STEVE CHURNER-C Unavailable Unavailable JOSE DANIEL, LITTLE STEVE CHURNER-C Unavailable Unavailable JOSE DANIEL, LITTLE STEVE CHURNER-C Unavailable Unavailable JOSE DANIEL, LITTLE STEVE CHURNER-C Unavailable Unavailable JOSE DANIEL, LITTLE STEVE CHURNER-C Unavailable Unavailable JOSE DANIEL, LITTLE STEVE CHURNER-C Unavailable Unavailable JOSE DANIEL, LITTLE STEVE CHURNER-C Unavailable Unavailable JOSE DANIEL, LITTLE STEVE CHURNER-C Unavailable Unavailable JOSE DANIEL, LITTLE STVEE CHURNER-C Unavailable Unavailable JOSE DANIEL, LITTLE STEVE CHURNER-C Unavailable Unavailable Re-disclosure Warning The records that [...] is protected by Article 27-F of the [facility] Public Health law. If you continue you may have access to information: Regarding HIV / AIDS; Provided by facilities licensed or operated by the [facility] Office of Mental Health; or Provided by the [facility] Office for People With Developmental Disabilities. If such information is present, then the following [facility] mandated warning applies: This information [...] law may result in a fine or residential sentence or both. A general authorization for the release of medical or other information is NOT sufficient authorization for further disc losure. Family History Family Member Name Family Member Gender Family Member Status Date o f Status Description Data Source(s) Unknown Unknown Problem MEDENT ([facility]) Unknown Male Problem MEDENT ([facility] Encounters Encounter Providers Location Date Indications Data Source(s ) Outpatient [address] [facility], [place] [address] 02/19/2021 12:00:00 AM EDT [facility]1 [facility] Unknown [address] [facility] Y [address] 02/19/2021 12:00:00 AM EDT [facility]CW1 [facility] Unknown [address] [facility] [address] 02/12/2021 12:00:00 AM EDT eCW1 ([facility]) Outpatient [address] [facility] [address] 01/08/2021 12:00:00 AM EDT eCW1 ([facility]) Unknown [address] [facility] Y [address] 01/07/2021 12:00:00 AM EDT eCW1 ([facility]) Unknown [address] [facility] [address] 12/26/2020 12:00:00 AM EDT eCW1 ([facility]) Unknown [address] [facility] [address] 12/16/2020 12:00:00 AM EDT eCW1 ([facility]) Outpatient [address] [facility] N [place] [address] 11/27/2020 12:00:00 AM EDT [facility]patient [address] [facility] [address] 11/19/2020 12:00:00 AM EDT eCW1 ([facility]) Unknown [address] [facility] Y [address] 11/18/2020 12:00:00 AM EDT eCW1 ([facility]) Outpatient Attender: STEVE Figueroa/Leandra/Amanda brunner 11/12/2020 03:45:00 PM EDT MEDENT ([facility] Unknown [address] [facility] [address] 11/12/2020 12:00:00 AM EDT eCW1 ([facility]) Unknown [address] [facility] [address] 11/11/2020 12:00:00 AM EDT eCW1 ([facility]) Unknown [address] [facility] [address] 11/06/2020 12:00:00 AM EDT [facility] Unknown [address] [facility] [address] 10/15/2020 12:00:00 AM EDT [facility]CW1 [facility] Unknown [address] [facility] [address] 10/10/2020 12:00:00 AM EDT eCW1 [facility]) Outpatient Attender: STEVE Figueroa/Leandra/Dipesh/R eindl 09/24/2020 09:45:00 AM EDT MEDENT ([facility] Unknown [address] [facility] [address] 09/10/2020 12:00:00 AM EDT eCW1 ([facility]) Unknown [address] [facility] [address] 09/09/2020 12:00:00 AM EDT eCW1 ([facility]) Outpatient Attender: Hamzah Figueroa/Leandra/Dipesh/Re indl 08/06/2020 09:00:00 AM EDT MEDENT ([facility] Unknown [address] [facility] [address] 07/31/2020 12:00:00 AM EDT eCW1 ([facility]) Outpatient Attender: Hamzah Figueroa/Leandra/Dipesh/Re indl 07/09/2020 08:15:00 AM EST MEDENT ([facility] ) <td ID="encounterTypeDescriptionID0">COV ID 19 IMM</td><td>Isatu MERCER</td><td>[facility]</td><td>06/25/2020</td><td>2:01PM</td><td>2:19PM</td><td></td>Outpatient Attender: Isatu Maldonado NP [facility] 06/25/2020 02:01:00 PM EST - 06/25/2020 02:19:00 PM EST [place] ([facility]) 06/24/2020 12:00:00 AM EST [facility] ([facility]) Outpatient [address] [facility] [address] 06/10/2020 12:00:00 AM EST [facility]CW1 [facility] Outpatient [address] [facility] [place] [address] 06/09/2020 12:00:00 AM EST eCW1 ([facility] Unknown [address] [facility] [address] 06/09/2020 12:00:00 AM EST eCW1 [facility] Unknown [address] [facility] [place] [address] 06/09/2020 12:00:00 AM EST eCW1 ([facility]) Unknown [address] [facility] [address] 06/03/2020 12:00:00 AM EST eCW1 ([facility]) Outpatient<td ID="encounterTypeDescripti onID1">COVID 19 IMM</td><td>Isatu MERCER</td><td>[facility]</td><td>05/28/2020</td><td>1:59PM</td><td>2:17PM</td><td></td> Attender: Isatu Maldonado NP [facility] 05/28/2020 01:59:00 PM EST - 05/28/2020 02:17:00 PM EST [place] ([facility]) Unknown [address] [facility], [place] [address] 05/19/2020 12:00:00 AM EST eCW1 ([facility]) Unknown [address] [facility] [address] 05/19/2020 12:00:00 AM EST eCW1 ([facility]) Unknown [address] [facility] [address] 05/05/2020 12:00:00 AM EST [facility]CW1 [facility]) Outpatient Attender: TRAE Figueroa/Leandra/Dipesh/Charles garrett 04/17/2020 02:45:00 PM EST MEDENT ([facility] Tato arce, RUSSELL) Unknown [address] [facility], [place] [address] 03/19/2020 12:00:00 AM EST eCW1 ([facility]) Outpatient Attender: Nargis Figueroa/Leandra/Deepali martines/Jenny 03/10/2020 11:00:00 AM EDT MEDENT ([facility] RUSSELL Gomez) Unknown [address] [facility], [place] [address] 03/04/2020 12:00:00 AM EDT eCW1 ([facility]) Unknown [address] [facility] Y [address] 03/03/2020 12:00:00 AM EDT eCW1 ([facility] Outpatient [address] [facility] Y [address] 02/28/2020 12:00:00 AM EDT eCW1 ([facility]) Unknown [address] [facility] Y [address] 02/22/2020 12:00:00 AM EDT eCW1 ([facility]) Outpatient [address] [facility] Y [address] 02/21/2020 12:00:00 AM EDT eCW1 ([facility] [address] [facility] [place] [address] 02/21/2020 12:00:00 AM EDT eCW1 ([facility]) Immunizations Vaccine Date Status Description Data Source(s) Moderna COVID-19 06/25/2020 02:05:00 PM EST completed <td ID="Aswqnpynlpgqi-Ojzpsfbwrgo-KY1">Moderna COVID-19</td><td ID="ImmunizationDose-5">2</td><td>06/25/2020</td><td ID="Yvxmsvclpnwex-JjbauCdhm-BZ8">Right Deltoid</td><td></td><td ID="Ducxnienupvsk-Dcznkr-EK1">Complete (Administered)</td><td>[facility]</td><td ID="Pluyxuyqegcmq-Ivcwb-Yxgd-Comment-ID5"></td> REINAL[place] ([facility]) COVID-19 VACCINE a 06/25/2020 12:00:00 AM EST completed [facility] Vaccine Series Complete: YESThis Data wa s Submitted to [facility] Via [employer] Moderna COVID-19 05/28/2020 02:02:00 PM EST completed <td ID="Wbeemokpziiuh-Aoubcqmlufj-BH5">Moderna COVID-19</td><td ID="ImmunizationDose-4">1</td><td>05/28/2020</td><td ID="Lswwzgrkjacpu-YlypwTvgm-IU2">Left Deltoid</td><td></td><td ID="Wzgeprjikrodd-Qaswwx-QS0">Complete (Administered)</td><td>[facility]</td><td ID="Wkbbrjefbqieo-Vafyu-Brwz-Comment-ID4"></td> REINALDO ([facility]) Note: VACCINE ADMINISTERED BY ANABEL Moctezuma LPN COVID-19 VACCINE a 05/28/2020 12:00:00 AM EST completed [facility] Vaccine Series Complete: NOThis Data was Submitted to [facility] Via [employer] Medications Medication Brand Name Start Date Product Form Dose Route Admi nistrative Instructions Pharmacy Instructions Status Indications Reaction Description Data Source(s) Fluconazole 150 MG Oral Tablet [Diflucan] Diflucan 150 MG Di flucan 150 MG 02/19/2021 12:00:00 AM EDT 1.0 {tablet} active Diflucan 150 MG eCW1 ([facility]) Fluconazole 150 MG Oral Tablet [Diflucan] Diflucan 150 MG Di flucan 150 MG 02/19/2021 12:00:00 AM EDT 1.0 {tablet} active Diflucan 150 MG eCW1 ([facility]) Covid-19 vaccine, Unspecified 06/25/2020 12:00:00 AM EST completed MEDENT ([facility], ) Medication administered onsite POLYETHYLENE GLYCOL 3350 142 MG/ML Oral Solution [Miralax] M iralax 06/23/2020 12:00:00 AM EST completed MEDENT ([facility], ) Hydrocortisone 25 MG/ML Topical Cream [Anusol HC] Anus ol-HC 2.5 % Anusol-HC 2.5 % 06/10/2020 12:00:00 AM EST 1.0 {application} suspended Anusol-HC 2.5 % eCW1 ([facility]) Hydrocortisone 25 MG/ML Topical Cream [Anusol HC] Anus ol-HC 2.5 % Anusol-HC 2.5 % 06/10/2020 12:00:00 AM EST 1.0 {application} active Anusol-HC 2.5 % eCW1 ([facility]) Hydrocortisone 25 MG/ML Topical Cream [Anusol HC] Anus ol-HC 2.5 % Anusol-HC 2.5 % 06/10/2020 12:00:00 AM EST 1.0 {application} active Anusol-HC 2.5 % eCW1 ([facility]) Hydrocortisone 25 MG/ML Topical Cream [Anusol HC] Anus ol-HC 2.5 % Anusol-HC 2.5 % 06/10/2020 12:00:00 AM EST 1.0 {application} suspended Anusol-HC 2.5 % eCW1 ([facility]) Hydrocortisone 25 MG/ML Topical Cream [Anusol HC] Anus ol-HC 2.5 % Anusol-HC 2.5 % 06/10/2020 12:00:00 AM EST 1.0 {application} suspended Anusol-HC 2.5 % eCW1 ([facility]) Hydrocortisone 25 MG/ML Topical Cream [Anusol HC] Anus ol-HC 2.5 % Anusol-HC 2.5 % 06/10/2020 12:00:00 AM EST 1.0 {application} suspended Anusol-HC 2.5 % eCW1 ([facility]) Hydrocortisone 25 MG/ML Topical Cream [Anusol HC] Anus ol-HC 2.5 % Anusol-HC 2.5 % 06/10/2020 12:00:00 AM EST 1.0 {application} suspended Anusol-HC 2.5 % eCW1 ([facility]) Hydrocortisone 25 MG/ML Topical Cream [Anusol HC] Anus ol-HC 2.5 % Anusol-HC 2.5 % 06/10/2020 12:00:00 AM EST 1.0 {application} suspended Anusol-HC 2.5 % eCW1 ([facility]) Hydrocortisone 25 MG/ML Topical Cream [Anusol HC] Anus ol-HC 2.5 % Anusol-HC 2.5 % 06/10/2020 12:00:00 AM EST 1.0 {application} active Anusol-HC 2.5 % eCW1 ([facility]) Hydrocortisone 25 MG/ML Topical Cream [Anusol HC] Anus ol-HC 2.5 % Anusol-HC 2.5 % 06/10/2020 12:00:00 AM EST 1.0 {application} active Anusol-HC 2.5 % eCW1 ([facility]) Hydrocortisone 25 MG/ML Topical Cream [Anusol HC] Anus ol-HC 2.5 % Anusol-HC 2.5 % 06/10/2020 12:00:00 AM EST 1.0 {application} suspended Anusol-HC 2.5 % eCW1 ([facility]) Hydrocortisone 25 MG/ML Topical Cream [Anusol HC] Anus ol-HC 2.5 % Anusol-HC 2.5 % 06/10/2020 12:00:00 AM EST 1.0 {application} suspended Anusol-HC 2.5 % eCW1 ([facility]) Hydrocortisone 25 MG/ML Topical Cream [Anusol HC] Anus ol-HC 2.5 % Anusol-HC 2.5 % 06/10/2020 12:00:00 AM EST 1.0 {application} active Anusol-HC 2.5 % eCW1 ([facility]) Hydrocortisone 25 MG/ML Topical Cream [Anusol HC] Anus ol-HC 2.5 % Anusol-HC 2.5 % 06/10/2020 12:00:00 AM EST 1.0 {application} active Anusol-HC 2.5 % eCW1 ([facility]) Hydrocortisone 25 MG/ML Topical Cream [Anusol HC] Anus ol-HC 2.5 % Anusol-HC 2.5 % 06/10/2020 12:00:00 AM EST 1.0 {application} active Anusol-HC 2.5 % eCW1 ([facility]) Hydrocortisone 25 MG/ML Topical Cream [Anusol HC] Anus ol-HC 2.5 % Anusol-HC 2.5 % 06/10/2020 12:00:00 AM EST 1.0 {application} active Anusol-HC 2.5 % eCW1 ([facility]) Hydrocortisone 25 MG/ML Topical Cream [Anusol HC] Anus ol-HC 2.5 % Anusol-HC 2.5 % 06/10/2020 12:00:00 AM EST 1.0 {application} active Anusol-HC 2.5 % eCW1 ([facility]) Hydrocortisone 25 MG/ML Topical Cream [Anusol HC] Anus ol-HC 2.5 % Anusol-HC 2.5 % 06/10/2020 12:00:00 AM EST 1.0 {application} active Anusol-HC 2.5 % eCW1 ([facility]) Hydrocortisone 25 MG/ML Topical Cream [Anusol HC] Anus ol-HC 2.5 % Anusol-HC 2.5 % 06/10/2020 12:00:00 AM EST 1.0 {application} active Anusol-HC 2.5 % eCW1 ([facility]) Hydrocortisone 25 MG/ML Topical Cream [Anusol HC] Anus ol-HC 2.5 % Anusol-HC 2.5 % 06/10/2020 12:00:00 AM EST 1.0 {application} suspended Anusol-HC 2.5 % eCW1 ([facility]) Covid-19 vaccine, Unspecified 05/28/2020 12:00:00 AM EST completed MEDENT ([facility], ) Medication administered onsite Suprep Bowel Prep Kit Suprep Bowel Prep Kit 04/17/2020 12:00:00 AM EST completed MEDENT ([facility], ) hydrocortisone acetate 25 MG Rectal Suppository [Anucort-HC] Anucort-HC 03/19/2020 12:00:00 AM EST completed MEDENT ([facility], ) Magnesium Hydroxide 80 MG/ML Oral Suspension Milk Of Magnesi a 03/10/2020 12:00:00 AM EDT ORAL completed MEDENT ([facility], ) Suprep Bowel Prep Kit Suprep Bowel Prep Kit 03/10/2020 12:00:00 AM EDT completed MEDENT ([facility], ) Insurance Providers Payer name Policy type / Coverage type Policy ID Covered libertarian ID Covered libertarian's relationship to krishna Policy Krishna Plan Information Medicaid of [place] Other 01 [id number] Self 01 BLUE CROSS [id number] SP [id number] BCBS of [facility] Other 0 [id number] Self 0 BLUE CROSS [id number] SP [id number] BCBS of [facility] Other 0 [id number] Self 0 EXCELLUS C [id number] Self [id number] MEDICAID M [id number] Self [id number] BCBS of [facility] Other 0 [id number] Self 0 [place]/307 [id number] SP [id number] [place]/307 [id number] SP [id number] MEDICAID [id number] SP [id number] Medicaid - [id number] [facility] [id number] Medica id [id number] ID IDENTIFICATION [id number] Other Insurance .[id number] [employer] Blue Cross [id number] Blue Cross/Kathie eld [id number] ANSI-Commercial [id number] ANSI-Medicaid [id number] ANSI-Medicaid [id number] ANSI-Commercial [id number] ANSI-Medicaid [id number] ANSI-Commercial [id number] BCBS/[employer] Commercial [id number] Self [id number] [place]BS [place] 302/307 [id number] SP [id number] ANSI-Medicaid [id number] ANSI-Commercial [id number] BCBS/[employer] Commercial [id number] Self Medicaid of [place] Other 01 [id number] Self 01 [facility] COMMUNITY PLAN [facility] [id number] SP [id number] EXCELLUS BC BS [id number] SP [id number] [employer] Blue Cross Commercial [id number] Self BCBS [place] PPO 302/307 [id number] SP [id number] BCBS OF [place] 306/806 [id number] SP [id number] BLUE CROSS [id number] SP [id number] [facility] MEDICAID [id number] SP [id number] [place]BS [place] PPO 302/307 [id number] SP [id number] BCBS [place] PPO 302/307 [id number] SP [id number] SP [id number] BCBS of [facility] Other 0 [id number] Self 0 BCBS [place] PPO 302/307 [id number] SP [id number] Medicaid [facility] Other 01 [id number] Self 01 MEDICAID M [id number] S [id number] EXCELLUS BCBS B [id number] S [id number] Problems, Conditions, and Diagnoses Code Display Name Description Problem Type Effective Dates Data Source(s) I86.1 Varicocele Varicocele Problem 02/19/2021 12:00:00 AM ED T eCW1 ([facility]) B36.9 Fungal dermatitis Fungal dermatitis Problem 02/19/2021 12:00:00 AM EDT eCW1 ([facility]) E03.8 [id number] Secondary hypothyroidism Problem 11/27/2020 12:00:00 AM EDT eCW1 ([facility]) B20 [id number] Human immunodeficiency virus [HIV] diseas e Problem 05/05/2020 12:00:00 AM EST eCW1 ([facility]) C79.89 [id number] 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, ) OFFICE OUTPATIENT VISIT 15 MINUTES 11/12/2020 12:00:00 AM EDT MEDENT ([facility]) OFFICE OUTPATIENT VISIT 15 MINUTES 09/24/2020 12:00:00 AM EDT MEDENT ([facility]) OFFICE OUTPATIENT VISIT 15 MINUTES 08/06/2020 12:00:00 AM EDT MEDENT ([facility]) Capsule Endoscopy Small Bowel 07/14/2020 12:00:[address] MEDENT ([facility]) OFFICE OUTPATIENT VISIT 25 MINUTES 07/09/2020 12:00:00 AM EST MEDENT ([facility]) Moderna COVID-19 Vaccine Moderna COVID-19 Vaccine 06/25/2020 12:00: 00 AM EST REINAL[place] ([facility]) Colonoscopy Flexible Proximal To Splenic Flexure W/Biopsy Si ngle/ 06/23/2020 12:00:00 AM EST MEDENT ([facility], ) Moderna COVID-19 Vaccine Moderna COVID-19 Vaccine 05/28/2020 12:00: 00 AM EST REINALDO ([facility]) Moderna COVID19 Vaccine Administration First Dose Mode rna COVID19 Vaccine Administration First Dose 05/28/2020 12:00:00 AM EST [place] ([facility]) Endoscopy Upper GI Biopsy 03/17/2020 12:00:00 AM EST MEDENT ([facility], ) Colonoscopy Flexible Proximal To Splenic Flexure W/Biopsy Si ngle/ 03/17/2020 12:00:00 AM EST MEDENT ([facility], ) Results ID Date Data Source [id number] 11/14/2020 12:29:00 AM EDT [facility] Name Value Range Interpretation Code Description Data Barb rce(s) Supporting Document(s) SARS coronavirus 2 RNA [Presence] in Res piratory specimen by BRADLEY with probe detection NEGATIVE [facility] This lab was ordered by [facility] a nd reported by [facility]. ID Date Data Source [id number] 11/07/2020 03:56:00 AM EDT [facility] Name Value Range Interpretation Code Description Data Barb rce(s) Supporting Document(s) SARS coronavirus 2 RNA [Presence] in Res piratory specimen by BRADLEY with probe detection NEGATIVE [facility] This lab was ordered by [facility] a nd reported by [facility]. ID Date Data Source [id number] 10/30/2020 01:08:00 PM EDT [facility] Name Value Range Interpretation Code Description Data Barb rce(s) Supporting Document(s) SARS coronavirus 2 RNA NOT DETECTED [facility] [place] This lab was ordered by [facility] and reported by [facility]. ID Date Data Source [id number] 06/23/2020 07:53:00 AM EST MEDENT ([facility], ) Name Value Range Interpretation Code Description Data Barb rce(s) Supporting Document(s) Surgical pathology study [facility], ) FINAL DIAGNOSIS Colon, random, biopsies: [...] MD 06/24/2020 1422 ID Date Data Source [id number] 06/18/2020 01:05:00 PM EST [facility] Name Value Range Interpretation Code Description Data Barb rce(s) Supporting Document(s) SARS coronavirus 2 RNA Not Detected [facility] [place] This lab was ordered by [facility] and reported by [facility]. ID Date Data Source [id number] 04/28/2020 07:43:00 PM EST [facility] Name Value Range Interpretation Code Description Data Barb rce(s) Supporting Document(s) SARS coronavirus 2 RNA [facility] This lab was ordered by [facility] and reported by [facility]. ID Date Data Source [id number] 04/17/2020 05:01:00 PM EST [facility] ([facility], ) Name Value Range Interpretation Code Description Data Barb rce(s) Supporting Document(s) Glucose, Fasting 95 mg/dL 70-100 Normal (applies to non-numeric results) [facility] ([facility], ) Blood Urea Nitrogen 21 mg/dL 7-18 Above high normal [facility] ([facility], ) Glomerular Filtration Rate Laboratory test result Normal (applies to non- numeric results) [facility] ) <content>Units are mL/min/1.73 m2</content>
<content></content>
<content>Chronic Kidney Disease Staging per NKF:</content>
<content></content>
<content>Stage I & II GFR >=60 Normal to Mildly Decreased</content>
<content>Stage III GFR 30- 59 Moderately Decreased</content>
<content>Stage IV GFR 15-29 Severely Decreased</content>
<content>Stage V GFR <15 Very Little GFR Left</content>
<content>ESRD GFR <15 on [facility]ALTH[facility] RECEPTIONIST</content>
<content></content> Creatinine For GFR 1.05 mg/dL 0.70-1.30 Normal (applies to non -numeric results) [facility] ([facility], ) Sodium Level 141 meq/L 136-145 Normal (applies to non-numeric res ults) [facility] ([facility]) Chloride Level 105 meq/L 98-107 Normal (applies to non-numeric r esults) [facility]) Potassium Serum 4.3 meq/L 3.5-5.1 Normal (applies to non-numeric results) [facility] ([facility]) Calcium Level 9.3 mg/dL 8.5-10.1 Normal (applies to non-numeric re sults) [facility]) Carbon Dioxide Level 31 meq/L 21-32 Normal (applies to non-num evin results) [facility]) Anion Gap 5 meq/L 8-16 Below low normal [facility] ( [facility]) Ast/Sgot 37 U/L 7-37 Normal (applies to non-numeric resul ts) [facility] ([facility]) Alt/SGPT 35 U/L 12-78 Normal (applies to non-numeric resul ts) [facility]) Alkaline Phosphatase 74 U/L 45-117 Normal (applies to non-num evin results) [facility]) Bilirubin,Total 0.3 mg/dL 0.2-1.0 Normal (applies to non-numeric results) [facility] ([facility]) Albumin 3.9 GM/DL 3.2-5.2 Normal (applies to non-numeric resul ts) [facility] ([facility]) Albumin/Globulin Ratio 1.3 Normal (applies to non-n umeric results) [facility]) Total Protein 6.8 GM/DL 6.4-8.2 Normal (applies to non-numeric re sults) [facility]) ID Date Data Source [id number] 04/17/2020 05:00:00 PM EST [facility] Name Value Range Interpretation Code Description Data Barb rce(s) Supporting Document(s) White Blood Count 5.8 10 4.0-10.0 Normal (applies to non-numeri c results) [facility] ([facility], ) Hemoglobin 15.5 g/dL 13.5-17.5 Normal (applies to non-numeric resul ts) [facility] Red Blood Count 4.94 10 4.30-6.10 Normal (applies to non-numeric results) [facility] ([facility], ) Hematocrit 45.2 % 42.0-52.0 Normal (applies to non-numeric resul ts) [facility]) Mean Corpuscular Volume 91.5 fl 80.0-96.0 Normal ( applies to non-numeric results) [facility]) Mean Corpuscular Hemoglobin 31.4 pg 27.0-33.0 Norm al (applies to non-numeric results) [facility] ([facility]) Mean Corpuscular HGB Conc 34.3 g/dL 32.0-36.5 Normal (applies to non-numeric results) [facility] ([facility]) Red Cell Distribution Width 12.2 % 11.5-14.5 Norm al (applies to non-numeric results) [facility] ([facility]) Platelet Count, Automated 225 10 150-450 Normal (applies to non-numeric results) [facility] ([facility]) Neutrophils % 38.5 % 36.0-66.0 Normal (applies to non-numeric re sults) [facility] Lymph % 50.9 % 24.0-44.0 Above high normal [facility] ([facility]) [place] % 7.7 % 0.0-5.0 Above high normal [facility] ([facility], ) Baso % 0.7 % 0.0-1.0 Normal (applies to non-numeric resul ts) [facility] Eos % 1.7 % 0.0-3.0 Normal (applies to non-numeric resul ts) [facility] Immature Granulocyte % 0.5 % 0-3.0 Normal (applies to non-n umeric results) [facility] ([facility], ) Nucleated Red Blood Cell % 0.0 % 0-0 Normal (applies to n on-numeric results) [facility] ([facility]) Neutrophils # 2.3 10 1.5-8.5 Normal (applies to non-numeric re sults) [facility] ([facility]) [place] # 0.5 10 0.0-0.8 Normal (applies to non-numeric resul ts) [facility] ([facility]) Lymph # 3.0 10 1.5-5.0 Normal (applies to non-numeric resul ts) [facility] ([facility]) Baso # 0.0 10 0.0-0.2 Normal (applies to non-numeric resul ts) [facility] ([facility]) Eos # 0.1 10 0.0-0.5 Normal (applies to non-numeric resul ts) [facility] ([facility]) ID Date Data Source [id number] 03/19/2020 03:06:00 PM EST [facility] Name Value Range Interpretation Code Description Data Barb rce(s) Supporting Document(s) SARS coronavirus 2 RNA panel N [facility] This lab was ordered by [facility] and reported by [facility]. ID Date Data Source [id number] 03/17/2020 12:41:00 PM EST [facility] ([facility]) Name Value Range Interpretation Code Description Data Barb rce(s) Supporting Document(s) Surgical pathology study Laboratory test result [facility] ([facility]) <content>FINAL DIAGNOSIS</content>
< content></content>
<content>A - [...] 03/18/2020 1437</content>
<content></content> ID Date Data Source [id number] 03/12/2020 10:30:00 AM EDT [facility] Name Value Range Interpretation Code Description Data Barb rce(s) Supporting Document(s) SARS coronavirus 2 RNA [facility] This lab was ordered by [facility] and reported by [facility]. Procedure Social History Code Duration Value Status Description Data Source(s ) Smoking 11/12/2020 12:00:00 AM EDT Non Smoker completed Non Smoke r [facility] ([facility], ) Vital Signs ID Date Data Source UNK Name Value Range Interpretation Code Description Data Source(s) Body weight 170 [lb_av] 170 [lb_av] eCW1 ([facility]) Body height 65 [in_i] 65 [in_i] eCW1 ([facility]) Body mass index (BMI) [Ratio] 28.29 kg/m2 28.29 kg/m2 eCW1 ([facility]) Heart rate 90 /min 90 /min eCW1 ([facility]) Respiratory rate 18 /min 18 /min eCW1 ([facility]) Body temperature 96.6 [degF] 96.6 [degF] eCW1 ( [facility]) Systolic blood pressure 116 mm[Hg] 116 mm[Hg] e CW1 ([facility]) Diastolic blood pressure 62 mm[Hg] 62 mm[Hg] eCW1 ([facility]) Body weight 161.8 [lb_av] 161.8 [lb_av] eCW1 ([facility]) Body height 65 [in_i] 65 [in_i] eCW1 ([facility]) Body mass index (BMI) [Ratio] 26.92 kg/m2 26.92 kg/m2 eCW1 ([facility]) Heart rate 96 /min 96 /min eCW1 ([facility]) Respiratory rate 18 /min 18 /min eCW1 ([facility]) Body temperature 97.3 [degF] 97.3 [degF] eCW1 ( [facility]) Systolic blood pressure 120 mm[Hg] 120 mm[Hg] e CW1 ([facility]) Diastolic blood pressure 70 mm[Hg] 70 mm[Hg] eCW1 ([facility]) [place] body weight 136 [lb_av] 136 [lb_av] [facility] T ([facility], ) Body weight 72.576 kg 72.576 kg [facility] ([facility], ) Body height 65 [in_i] 65 [in_i] [facility] ([facility], ) 5'5" Body weight 160.00 [lb_av] 160.00 [lb_av] [facility] T ([facility]) Body mass index (BMI) [Ratio] 26.6 kg/m2 26.6 k g/m2 [facility] ([facility]) Body surface area Derived from formula 1.80 m2 1.80 m2 [facility] ([facility]) Oxygen saturation in Arterial blood by Pulse oximetry 96 % 96 % [facility] ([facility]) Systolic blood pressure 120 mm[Hg] 120 mm[Hg] [facility] Diastolic blood pressure 64 mm[Hg] 64 mm[Hg] [facility] ([facility]) Body surface area Derived from formula 1.81 m2 1.81 m2 [facility] ([facility] Body weight 73.937 kg 73.937 kg [facility] ([facility]) Heart rate 66 /min 66 /min [facility] ([facility]) Body temperature 97.8 [degF] 97.8 [degF] [facility] ([facility]) Body height 65 [in_i] 65 [in_i] [facility] ([facility]) 5'5" Body weight 163.00 [lb_av] 163.00 [lb_av] [facility] T ([facility]) Body mass index (BMI) [Ratio] 27.1 kg/m2 27.1 k g/m2 [facility] ([facility]) [place] body weight 136 [lb_av] 136 [lb_av] [facility] T ([facility]) Oxygen saturation in Arterial blood by Pulse oximetry 99 % 99 % [facility] ([facility]) Body temperature 97.0 [degF] 97.0 [degF] [facility] ([facility]) Body height 65 [in_i] 65 [in_i] [facility] ([facility]) 5'5" Body weight 166.00 [lb_av] 166.00 [lb_av] [facility] T ([facility]) Body mass index (BMI) [Ratio] 27.6 kg/m2 27.6 k g/m2 [facility] ([facility]) [place] body weight 136 [lb_av] 136 [lb_av] [facility] T ([facility]) Body weight 75.298 kg 75.298 kg [facility] ([facility]) Body surface area Derived from formula 1.83 m2 1.83 m2 [facility] ([facility]) Systolic blood pressure 110 mm[Hg] 110 mm[Hg] [facility] ([facility]) Diastolic blood pressure 64 mm[Hg] 64 mm[Hg] [facility] Heart rate 75 /min 75 /min [facility] ([facility]) Body weight 155.00 [lb_av] 155.00 [lb_av] [facility] T ([facility]) Body mass index (BMI) [Ratio] 25.8 kg/m2 25.8 k g/m2 [facility] ([facility]) Body height 65 [in_i] 65 [in_i] [facility] 5'5" [place] body weight 136 [lb_av] 136 [lb_av] [facility] T ([facility]) Body weight 70.308 kg 70.308 kg [facility] ([facility]) Body surface area Derived from formula 1.78 m2 1.78 m2 [facility] ([facility]) Body height 65 [in_i] 65 [in_i] [facility] ([facility]) 5'5" Body weight 155.00 [lb_av] 155.00 [lb_av] [facility] T ([facility]) Body mass index (BMI) [Ratio] 25.8 kg/m2 25.8 k g/m2 [facility] ([facility]) [place] body weight 136 [lb_av] 136 [lb_av] [facility] T ([facility]) Body weight 70.308 kg 70.308 kg [facility] ([facility]) Body surface area Derived from formula 1.78 m2 1.78 m2 [facility] ([facility]) Body weight 167 [lb_av] 167 [lb_av] eCW1 ([facility]) Body height 65 [in_i] 65 [in_i] eCW1 ([facility]) Body mass index (BMI) [Ratio] 27.79 kg/m2 27.79 kg/m2 eCW1 ([facility]) Heart rate 85 /min 85 /min eCW1 ([facility]) Respiratory rate 18 /min 18 /min eCW1 ([facility]) Body temperature 96.7 [degF] 96.7 [degF] eCW1 ( [facility]) Systolic blood pressure 132 mm[Hg] 132 mm[Hg] e CW1 ([facility]) Diastolic blood pressure 70 mm[Hg] 70 mm[Hg] eCW1 ([facility]) Body weight 165.4 [lb_av] 165.4 [lb_av] eCW1 ([facility]) Body height 65 [in_i] 65 [in_i] eCW1 ([facility]) Body mass index (BMI) [Ratio] 27.52 kg/m2 27.52 kg/m2 eCW1 ([facility]) Heart rate 56 /min 56 /min eCW1 ([facility]) Respiratory rate 18 /min 18 /min eCW1 ([facility]) Systolic blood pressure 116 mm[Hg] 116 mm[Hg] e CW1 ([facility]) Diastolic blood pressure 68 mm[Hg] 68 mm[Hg] eCW1 ([facility]) Diastolic blood pressure 100 mm[Hg] 100 mm[Hg] [facility] ([facility], ) Systolic blood pressure 138 mm[Hg] 138 mm[Hg] M [facility] ([facility], ) Body weight 155.00 [lb_av] 155.00 [lb_av] [facility] T ([facility], ) Body height 65 [in_i] 65 [in_i] [facility] ([facility], ) 5'5" Body mass index (BMI) [Ratio] 25.8 kg/m2 25.8 k g/m2 [facility] ([facility], ) [place] body weight 136 [lb_av] 136 [lb_av] [facility] T ([facility]) Body weight 70.308 kg 70.308 kg [facility] ([facility]) Body surface area Derived from formula 1.78 m2 1.78 m2 [facility] ([facility]) Systolic blood pressure 138 mm[Hg] 138 mm[Hg] M [facility] ([facility]) Diastolic blood pressure 72 mm[Hg] 72 mm[Hg] [facility] ([facility]) Body height 65 [in_i] 65 [in_i] [facility] ([facility]) 5'5" Body weight 160.00 [lb_av] 160.00 [lb_av] [facility] T ([facility]) Body mass index (BMI) [Ratio] 26.6 kg/m2 26.6 k g/m2 [facility] ([facility]) [place] body weight 136 [lb_av] 136 [lb_av] [facility] T ([facility]) Body weight 72.576 kg 72.576 kg [facility] ([facility]) Body surface area Derived from formula 1.80 m2 1.80 m2 [facility] ([facility]) Body weight 165 [lb_av] 165 [lb_av] eCW1 ([facility]) Body height 65 [in_i] 65 [in_i] eCW1 ([facility]) Body mass index (BMI) [Ratio] 27.45 kg/m2 27.45 kg/m2 eCW1 ([facility]) Heart rate 89 /min 89 /min eCW1 ([facility]) Respiratory rate 18 /min 18 /min eCW1 ([facility]) Body temperature 97.2 [degF] 97.2 [degF] eCW1 ( [facility]) Systolic blood pressure 106 mm[Hg] 106 mm[Hg] e CW1 ([facility]) Diastolic blood pressure 66 mm[Hg] 66 mm[Hg] eCW1 ([facility]) Body weight 159 [lb_av] 159 [lb_av] eCW1 ([facility]) Body height 65 [in_i] 65 [in_i] eCW1 ([facility]) Body mass index (BMI) [Ratio] 26.46 kg/m2 26.46 kg/m2 eCW1 ([facility]) Heart rate 97 /min 97 /min eCW1 ([facility]) Respiratory rate 18 /min 18 /min eCW1 ([facility]) Body temperature 97.9 [degF] 97.9 [degF] eCW1 ( [facility]) Systolic blood pressure 102 mm[Hg] 102 mm[Hg] e CW1 ([facility]) Diastolic blood pressure 74 mm[Hg] 74 mm[Hg] eCW1 ([facility]) Patient Treatment Plan of Care Planned Activity Planned Date Details Description Data Source (s) Fluconazole 150 MG Oral Tablet [Diflucan] 02/19/2021 12:00:00 AM ED T eCW1 ([facility]) Fluconazole 150 MG Oral Tablet [Diflucan] 02/19/2021 12:00:00 AM ED T eCW1 ([facility]) Hydrocortisone 25 MG/ML Topical Cream [Anusol HC] 06/10/2020 12: 00:00 AM EST eCW1 ([facility]) Hydrocortisone 25 MG/ML Topical Cream [Anusol HC] 06/10/2020 12: 00:00 AM EST eCW1 ([facility]) Hydrocortisone 25 MG/ML Topical Cream [Anusol HC] 06/10/2020 12: 00:00 AM EST eCW1 ([facility]) Hydrocortisone 25 MG/ML Topical Cream [Anusol HC] 06/10/2020 12: 00:00 AM EST eCW1 ([facility]) Hydrocortisone 25 MG/ML Topical Cream [Anusol HC] 06/10/2020 12: 00:00 AM EST eCW1 ([facility]) Hydrocortisone 25 MG/ML Topical Cream [Anusol HC] 06/10/2020 12: 00:00 AM EST eCW1 ([facility]) Hydrocortisone 25 MG/ML Topical Cream [Anusol HC] 06/10/2020 12: 00:00 AM EST eCW1 ([facility]) Hydrocortisone 25 MG/ML Topical Cream [Anusol HC] 06/10/2020 12: 00:00 AM EST eCW1 ([facility]) Hydrocortisone 25 MG/ML Topical Cream [Anusol HC] 06/10/2020 12: 00:00 AM EST eCW1 ([facility]) Hydrocortisone 25 MG/ML Topical Cream [Anusol HC] 06/10/2020 12: 00:00 AM EST eCW1 ([facility]) Hydrocortisone 25 MG/ML Topical Cream [Anusol HC] 06/10/2020 12: 00:00 AM EST eCW1 ([facility])
[2021-03-13] MEDS ORDERED: ONDA8TAB10 PO (18:51)
[2021-03-13] MEDS ORDERED: LEVO75TA4 PO (18:51)
[2021-03-13] MEDS ORDERED: ACET-683 PO (18:51)
[2021-03-13] MEDS ORDERED: PANT40TA29 PO (18:51)
[2021-03-13] MEDS ORDERED: HOME MED LIST COMPLETE! XX SCH (18:55)
[2021-03-13] MEDS: traZODone 50 MG TAB PO PRN (21:53)
[2021-03-13] MEDS: DIVALPROEX 250 MG TAB PO SCH (21:53)
[2021-03-14 06:28] VITALS: BP 117/78
[2021-03-14] MEDS: LURASIDONE HCL 40 MG TAB (LATUDA) PO SCH (08:35)
[2021-03-14] MEDS: DIVALPROEX 250 MG TAB PO SCH (08:35)
--- NOTE | 2021-03-14 10:17 | HPEPDOC ---
[facility] Medical History & Physical Date of Admission Mar 13, 2021 Date of Service: Mar 14, 2021 History and Physical CHIEF COMPLAINT: Suicidal ideation HISTORY OF PRESENT ILLNESS: 40-year-old male presents for several day history of suicidal ideation. Patient notes an excessive amount of social stressors. He also notes auditory and visual hallucinations - hearing music, and seeing birds and people. On evaluation he denies chest pain, shortness of breath, abdominal pain, nausea, vomiting, diarrhea, headaches, changes in vision. 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 #Migraines SOCIAL HISTORY: Denies alcohol, tobacco or illicit drug use. FAMILY HISTORY: Father: Dyslipidemia, still alive Mother: Patient not certain regarding medical history, still alive ALLERGIES: Please see below. REVIEW OF SYSTEMS: Negative except as per HPI HOME MEDICATIONS: Please see below. PHYSICAL EXAMINATION: Vital Signs: reviewed General: NAD, lying comfortably in bed HEENT: NC/AT, EOMI Neck: supple, no masses Chest: lungs CTA B/L Heart: +S1S2, RRR Abd: soft, NT, ND, +BS Ext: no edema Skin: no rashes MSK: full ROM at large joints Neuro: no gross focal deficits Psych: AAOx3 LABORATORY DATA: See below. IMAGING: MICROBIOLOGY: Please see below. A/P: Vital Signs Vital Signs Date Time Temp Pulse Resp B/P (MAP) Pulse Ox O2 Delivery O2 Flow Rate FiO2 03/14/21 06:28 97.1 75 16 117/78 (91) Room Air 03/13/21 10:35 100 Laboratory Data Labs 24H Laboratory Tests 2 03/13/21 11:15: Nucleated Red Blood Cells % (auto) 0.0, Anion Gap 4L, Glomerular Filtration Rate > 60.0, Calcium Level 9.7, Total Bilirubin 0.4, Direct Bilirubin 0.1, Aspartate Amino Transf (AST/SGOT) 35, Alanine Aminotransferase (ALT/SGPT) 42, Alkaline Phosphatase 66, Total Protein 7.1, Albumin 3.9, Albumin/Globulin Ratio 1.2, Thyroid Stimulating Hormone (TSH) 4.300H, Salicylates Level < 1.7L, Urine Opiates Screen NEGATIVE, Urine Methadone Screen NEGATIVE, Acetaminophen Level < 2.0L, Urine Barbiturates Screen NEGATIVE, Urine Phencyclidine Screen NEGATIVE, Urine Amphetamines Screen NEGATIVE, Urine Benzodiazepines Screen NEGATIVE, Urine Cocaine Metabolite Screen NEGATIVE, Urine Cannabinoids Screen NEGATIVE, Ethyl Alcohol Level < 0.003 03/13/21 17:33: Coronavirus (COVID-19)(PCR) NEGATIVE, Influenza Type A (RT-PCR) NEGATIVE, Inf luenza Type B (RT-PCR) NEGATIVE, Respiratory Syncytial Virus (PCR) NEGATIVE CBC/BMP Laboratory Tests 03/13/21 11:15 Home Medications Scheduled Buspirone HCl (Buspirone HCl) 30 Mg Tablet, 30 MG PO BID Divalproex Sodium (Divalproex Sodium ER) 500 Mg Tab.er.24h, 1,500 MG PO QHS Divalproex Sodium (Divalproex Sodium) 125 Mg Tablet.dr, 125 MG PO QHS Ketoconazole (Ketoconazole) 15 Gm Cream..g., 1 DOSE EXT BID APPLY TO FEET Levothyroxine Sodium (Levothyroxine Sodium) 75 Mcg Tablet, 75 MCG PO DAILY Pantoprazole Sodium (Pantoprazole Sodium) 40 Mg Tablet.dr, 40 MG PO DAILY Simvastatin (Simvastatin) 10 Mg Tablet, 10 MG PO QHS Scheduled PRN Acetaminophen (Acetaminophen) 500 Mg Tablet, 1,000 MG PO Q6H PRN for PAIN LEVEL 1-4 Betamethasone Dip (Betamethasone Dipropionate) 15 Gm Oint...g., 1 DOSE TOP BID PRN for CRACKS IN SKIN APPLIES TO HANDS AND FEET Fluticasone Propionate (Flonase Allergy Relief) 9.9 Ml [place].susp, 2 SPRAY NARES DAILY PRN for CONGESTION Hydroxyzine HCl (Hydroxyzine HCl) 10 Mg Tablet, 20 MG PO BID PRN for ANXIETY Ondansetron HCl (Ondansetron HCl) 8 Mg Tablet, 8 MG PO Q8H PRN for NAUSEA OR VOMITING Simethicone (Gas-X) 125 Mg Tab.chew, 125 MG PO Q6H PRN for GAS PAIN Allergies Coded Allergies: latex (Verified Allergy, Unknown, rash, 06/20/20) A-FIB/CHADSVASC A-FIB History Current/History of A-Fib/PAF?: No JOHN DOMINGO MD Mar 14, 2021 10:17
[2021-03-14] MEDS ORDERED: FLUTICASONE PROP 0.05% NASAL SPRAY 16 GM (FLONASE) NARES PRN (10:20)
[2021-03-14] MEDS: PANTOPRAZOLE 40MG TAB (PROTONIX) PO SCH (11:27)
[2021-03-14] MEDS: ONDANSETRON 4 MG TAB PO PRN (12:37)
[2021-03-14] MEDS: KETOCONAZOLE 2% CREAM EXT SCH ×2 (14:00→20:32)
[2021-03-14] MEDS: NYSTATIN CREAM 15 GM TOP SCH ×2 (14:00→20:32)
[2021-03-14 16:20] VITALS: BP 143/81
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
[2021-03-14] MEDS: SIMVASTATIN 10 MG TAB PO SCH (20:32)
[2021-03-14] MEDS: traZODone 50 MG TAB PO PRN (20:33)
[2021-03-14] MEDS: DIVALPROEX 250MG *ER* TAB PO SCH (20:33)
[2021-03-15] MEDS: LEVOTHYROXINE 75MCG TABLET (0.075MG) PO SCH (06:38)
[2021-03-15 07:01] VITALS: BP 141/77
[2021-03-15] MEDS: PANTOPRAZOLE 40MG TAB (PROTONIX) PO SCH (08:33)
[2021-03-15] MEDS: LURASIDONE HCL 40 MG TAB (LATUDA) PO SCH (08:33)
[2021-03-15] MEDS: DIVALPROEX 250MG *ER* TAB PO SCH ×2 (08:33→21:17)
[2021-03-15] MEDS: ONDANSETRON 4 MG TAB PO PRN ×2 (08:34→17:52)
[2021-03-15] MEDS: NYSTATIN CREAM 15 GM TOP SCH ×2 (08:34→21:17)
[2021-03-15] MEDS: KETOCONAZOLE 2% CREAM EXT SCH ×2 (08:34→21:18)
[2021-03-15] MEDS: ACETAMINOPHEN TAB 650MG DOSE (2X325MG) PO PRN (11:01)
--- NOTE | 2021-03-15 11:22 | MHIPNPDOC ---
[facility] Progress Note Progress Note DATE OF SERVICE: 03/15/21 HISTORY: 40 year old male with h/o dena and hallucinations who complaints of nausea because and vertigo. He says he has received treatment for it. Reports he has a melanoma, he has a Neurologist. Reports recent passive SI but says he never had a plan or intent. He denies SI/HI today. VITAL SIGNS: See below. NEW TEST RESULTS: See below CURRENT MEDICATIONS: See below. MENTAL STATUS EXAMINATION: General Appearance: well groomed, appears stated age, hospital scubs/clothing Build: average Demeanor: average Eye Contact: avoidant Activity: anxious Behavior: cooperative Speech: not slurred today, less rapid today Mood: anxious Affect: full, appropriate, congruent Thought Process: logical/linear, he doesn't present with FOI today Thought Content (Delusions): none reported Thought Content (Other): guilty Thought Content (Aggressive): none reported Perception (Hallucinations): visual hallucinations, not all the time Perception (Other): depersonalization (he says he feels "zoned out" ) Cognition(Intelligence Est.): average Oriented: Awake, Alert, Oriented times three Insight: slowly improving Judgment: Poor Diagnoses 1. Unspecified mood disorder 2. R/O Bipolar Disorder ASSESSMENT: He shows some improvement, his speech is more clear, less disorganized, he says his anxiety is 7/10 and his depression is an 8/10. MANAGEMENT PLAN: Continue with current treatment plan TIME SPENT: 20 minutes. Vital Signs Vital Signs Date Time Temp Pulse Resp B/P (MAP) Pulse Ox O2 Delivery O2 Flow Rate FiO2 03/15/21 07:01 97.7 84 18 141/77 (98) 99 03/14/21 16:20 Room Air Current Medications Current Medications Medications (Trade) Dose Ordered Sig/Valeria Route PRN Reason Start Time Stop Time Status Last Admin Dose Admin Acetaminophen (Tylenol Tab) 650 mg Q6HP PRN PO HEADACHE or MILD DISCOMFORT 03/13/21 18:30 03/15/21 11:01 Al Hydrox/Mg Hydrox/Simethicone (Mylanta) 30 ml Q4HP PRN PO HEARTBURN/INDIGESTION 03/13/21 18:30 Betamethasone Dipropionate (Diprosone) 1 dose BID PRN TOP CRACKS IN SKIN 03/14/21 10:20 Divalproex Sodium (Depakote Er) 750 mg BID PO 03/14/21 21:00 03/15/21 08:33 Divalproex Sodium (Depakote) 250 mg BID PO 03/13/21 21:00 03/14/21 16:19 DC 03/14/21 08:35 Fluticasone Propionate (Flonase 0.05% Nasal [place]) 2 SPRAYS IN EACH NOSTRIL DAILY PRN NARES CONGESTION 03/14/21 10:20 Home Med (Home Med List Complete!) ASDIRECTED XX 03/13/21 18:55 03/13/21 18:56 DC Ketoconazole (Nizoral) 1 dose BID EXT 03/14/21 09:00 03/15/21 08:34 Levothyroxine Sodium (Synthroid) 75 mcg DAILY@0600 PO 03/15/21 06:00 03/15/21 06:38 Lurasidone HCl (Latuda) 40 mg DAILY@08 PO 03/14/21 08:00 03/15/21 08:33 Magnesium Hydroxide (Milk Of Magnesia) 30 ml DAILYPRN PRN PO CONSTIPATION 03/13/21 18:30 Nystatin (Mycostatin) 1 dose BID TOP 03/14/21 12:00 03/15/21 08:34 Ondansetron HCl (Zofran) 8 mg Q8H PRN PO NAUSEA OR VOMITING 03/14/21 10:20 03/15/21 08:34 Pantoprazole Sodium (Protonix) 40 mg DAILY PO 03/14/21 09:00 03/15/21 08:33 Simvastatin (Zocor) 10 mg QHS PO 03/14/21 21:00 03/14/21 20:32 Trazodone HCl (Desyrel) 50 mg QHSP PRN PO INSOMNIA 03/13/21 18:30 03/14/21 20:33 Allergies Coded Allergies: latex (Verified Allergy, Unknown, rash, 06/20/20) MAMTA WHITE MD Mar 15, 2021 11:22
[2021-03-15 16:12] VITALS: BP 125/78
[2021-03-15] MEDS: hydrOXYzine 25 MG TAB PO PRN (19:15)
[2021-03-15] MEDS: busPIRone 10 MG TAB PO SCH (21:17)
[2021-03-15] MEDS: SIMVASTATIN 10 MG TAB PO SCH (21:17)
[2021-03-16] MEDS: traZODone 50 MG TAB PO PRN ×2 (02:17→22:25)
[2021-03-16] MEDS: LEVOTHYROXINE 75MCG TABLET (0.075MG) PO SCH (06:22)
[2021-03-16 06:44] VITALS: BP 119/60
[2021-03-16] MEDS: NYSTATIN CREAM 15 GM TOP SCH ×2 (08:23→20:16)
[2021-03-16] MEDS: KETOCONAZOLE 2% CREAM EXT SCH ×2 (08:24→20:16)
[2021-03-16] MEDS: ONDANSETRON 4 MG TAB PO PRN (08:25)
[2021-03-16] MEDS: PANTOPRAZOLE 40MG TAB (PROTONIX) PO SCH (08:26)
[2021-03-16] MEDS: DIVALPROEX 250MG *ER* TAB PO SCH ×2 (08:26→20:15)
[2021-03-16] MEDS: busPIRone 10 MG TAB PO SCH ×2 (08:26→20:15)
[2021-03-16] MEDS: LURASIDONE HCL 40 MG TAB (LATUDA) PO SCH (08:26)
[2021-03-16] MEDS: ACETAMINOPHEN TAB 650MG DOSE (2X325MG) PO PRN (08:51)
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
[2021-03-16] MEDS ORDERED: MECLIZINE 12.5 MG TAB PO ONE (10:00)
[2021-03-16] MEDS: hydrOXYzine 25 MG TAB PO PRN (15:33)
[2021-03-16 15:57] VITALS: BP 145/89
[2021-03-16] MEDS: SIMVASTATIN 10 MG TAB PO SCH (20:15)
[2021-03-16] MEDS: BETAMETHASONE DIP 0.05% OINT 15 GM TOP PRN (22:23)
[2021-03-17] MEDS: LEVOTHYROXINE 75MCG TABLET (0.075MG) PO SCH (06:10)
[2021-03-17 07:12] VITALS: BP 106/61
[2021-03-17] MEDS: DIVALPROEX 250MG *ER* TAB PO SCH ×2 (08:40→20:26)
[2021-03-17] MEDS: ONDANSETRON 4 MG TAB PO PRN ×2 (08:40→21:29)
[2021-03-17] MEDS: LURASIDONE HCL 40 MG TAB (LATUDA) PO SCH (08:40)
[2021-03-17] MEDS: busPIRone 10 MG TAB PO SCH ×2 (08:41→20:27)
[2021-03-17] MEDS: PANTOPRAZOLE 40MG TAB (PROTONIX) PO SCH (08:41)
[2021-03-17] MEDS: KETOCONAZOLE 2% CREAM EXT SCH ×2 (08:43→20:25)
[2021-03-17] MEDS: NYSTATIN CREAM 15 GM TOP SCH ×2 (08:43→20:25)
[2021-03-17] MEDS: hydrOXYzine 25 MG TAB PO PRN ×2 (11:44→18:11)
--- NOTE | 2021-03-17 12:58 | MHIPNPDOC ---
[facility] Progress Note Progress Note Date of History: 03/17/21 HISTORY: Patient is a 40-year-old, , Employed, male with h/o dena and hallucinations who complains of nausea because and vertigo. He says he has received treatment for it. Reports he has a melanoma, he has a Neurologist. Reports recent passive SI but says he never had a plan or intent. He denies SI/HI today. PER ED REPORT: Pt states he came for MHE due to being very depressed. Pt has poor eye contact, and had to be redirected multiple times during interview. Pt A&O x4, however pt. had difficultly maintaining current thoughts and would continuously speak of ideas from three years ago. Pt did state currently, he is diagnosed with stage 3 melanoma. Pt denies S/I and H/I. Pt states A/H- hearing music, and V/H seeing birds and people "after they are done with their yoga." Pt states a history of excessive masturbation as a child, and now he has three young daughters in the house, pt. has had an erection two times around his girls. Pt states he would never act on anything, but this has him fearing being around his children. Pt states he may be bipolar, but is unsure at this time. Pt's Anais states pt.s recent scan in January 2021 was clear from any new cancer. Pt is at a standstill with treatment at this time. Anais states pt.s anger towards her and the children has increased since December 2020, and has gotten to an unacceptable level in the last two weeks. Per Anais, pt. has been blaming her for his cancer, their situation, and everything. Anais states pt. has admitted to her some V/H but would not discuss the nature. Anais is aware of pt. having two erections around the children and states pt. is not welcome home again until he received the help he needs. Dr. Jean Baptiste called stating that pt. is suspected Bipolar. At pt.s baseline, pt. can be difficult to understand due to pts rapid talking. Pt has admitted to V/H of gnosticist nature and agrees that pt. needs admission due to pt.s decompensation over the last two weeks. VITAL SIGNS: See below. NEW TEST RESULTS: None CURRENT MEDICATIONS: See below. MENTAL STATUS EXAMINATION: Patient is a 40-year-old, , Employed, male with h/o dena and hallucinations who complains of nausea because and vertigo Speech: Is slurred at times, fast rate, regular tone and normal volume Language skills are intact Thought processes including: linear and coherent Thought content: Reports moderate depression and anxiety. Denies suicidal/homicidal ideation, planning or intent. Abstract reasoning, and computation: fair Description of associations: Reports dull auditory hallucinations in visual hallucinations - lights and burning bodies Description of abnormal or psychotic thoughts: denies, none observed. Judgment: fair Insight: fair Orientation: alert and oriented to person, place, time and situation Recent and remote memory: intact Attention span and concentration: good Language: expansive Fund of knowledge: average Mood: Depressed mood Affect: Constricted DIAGNOSES: Bipolar disorder, current episode manic possibly with psychotic features. ASSESSMENT: Reports that the Meclizine helped with his Vertigo yesterday. Reports Visual Hallucinations, burning body on tables and lights on the floor, bright lights across the floor. Sees colors and shapes. Reports that nothing is scaring him "it's annoying" Reports that his depression is better. Is unsure what his future is like, states "I am trying to have a positive outlook on life" States that he had a headache this morning. But reports decreased depression and anxiety. Had a family meeting with Animal Control Supervisor and Brother Dr. Bender who supports the patient staying a few more days. is not accept ing patient back to their home at this time. MANAGEMENT PLAN: Continue all medications and supportive therapy. Ordered Me clizine 12.5 mg BID for Vertigo TIME SPENT: 25 minutes. Vital Signs Vital Signs Date Time Temp Pulse Resp B/P (MAP) Pulse Ox O2 Delivery O2 Flow Rate FiO2 03/16/21 15:57 98.7 80 18 145/89 (107) 100 Room Air Current Medications Current Medications Medications (Trade) Dose Ordered Sig/Valeria Route PRN Reason Start Time Stop Time Status Last Admin Dose Admin Acetaminophen (Tylenol Tab) 650 mg Q6HP PRN PO HEADACHE or MILD DISCOMFORT 03/13/21 18:30 03/16/21 08:51 Al Hydrox/Mg Hydrox/Simethicone (Mylanta) 30 ml Q4HP PRN PO HEARTBURN/INDIGESTION 03/13/21 18:30 Betamethasone Dipropionate (Diprosone) 1 dose BID PRN TOP CRACKS IN SKIN 03/14/21 10:20 03/16/21 22:23 Buspirone HCl (Buspar) 30 mg BID PO 03/15/21 21:00 03/16/21 20:15 Divalproex Sodium (Depakote Er) 750 mg BID PO 03/14/21 21:00 03/16/21 20:15 Divalproex Sodium (Depakote) 250 mg BID PO 03/13/21 21:00 03/14/21 16:19 DC 03/14/21 08:35 Fluticasone Propionate (Flonase 0.05% Nasal [place]) 2 SPRAYS IN EACH NOSTRIL DAILY PRN NARES CONGESTION 03/14/21 10:20 Home Med (Home Med List Complete!) ASDIRECTED XX 03/13/21 18:55 03/13/21 18:56 DC Hydroxyzine HCl (Atarax) 25 mg Q6HP PRN PO ANXIETY 03/15/21 17:15 03/16/21 15:33 Ketoconazole (Nizoral) 1 dose BID EXT 03/14/21 09:00 03/16/21 20:16 Levothyroxine Sodium (Synthroid) 75 mcg DAILY@0600 PO 03/15/21 06:00 03/17/21 06:10 Lurasidone HCl (Latuda) 40 mg DAILY@08 PO 03/14/21 08:00 03/16/21 08:26 Magnesium Hydroxide (Milk Of Magnesia) 30 ml DAILYPRN PRN PO CONSTIPATION 03/13/21 18:30 Nystatin (Mycostatin) 1 dose BID TOP 03/14/21 12:00 03/16/21 20:16 Ondansetron HCl (Zofran) 8 mg Q8H PRN PO NAUSEA OR VOMITING 03/14/21 10:20 03/16/21 08:25 Pantoprazole Sodium (Protonix) 40 mg DAILY PO 03/14/21 09:00 03/16/21 08:26 Simvastatin (Zocor) 10 mg QHS PO 03/14/21 21:00 03/16/21 20:15 Trazodone HCl (Desyrel) 50 mg QHSP PRN PO INSOMNIA 03/13/21 18:30 03/16/21 22:25 Allergies Coded Allergies: latex (Verified Allergy, Unknown, rash, 06/20/20) KELLEY BARBA NP Mar 17, 2021 06:44
[2021-03-17 19:08] VITALS: BP 141/80
[2021-03-17] MEDS: BETAMETHASONE DIP 0.05% OINT 15 GM TOP PRN (20:25)
[2021-03-17] MEDS: SIMVASTATIN 10 MG TAB PO SCH (20:27)
[2021-03-17] MEDS: ACETAMINOPHEN TAB 650MG DOSE (2X325MG) PO PRN (20:29)
[2021-03-17] MEDS: traZODone 50 MG TAB PO PRN (21:29)
[2021-03-18] MEDS: LEVOTHYROXINE 75MCG TABLET (0.075MG) PO SCH (05:55)
[2021-03-18] MEDS: ONDANSETRON 4 MG TAB PO PRN (05:57)
[2021-03-18 06:24] VITALS: BP 133/78
[2021-03-18] MEDS: LURASIDONE HCL 40 MG TAB (LATUDA) PO SCH (08:29)
[2021-03-18] MEDS: NYSTATIN CREAM 15 GM TOP SCH ×2 (08:29→20:17)
[2021-03-18] MEDS: KETOCONAZOLE 2% CREAM EXT SCH ×2 (08:29→20:27)
[2021-03-18] MEDS: PANTOPRAZOLE 40MG TAB (PROTONIX) PO SCH (08:30)
[2021-03-18] MEDS: DIVALPROEX 250MG *ER* TAB PO SCH ×2 (08:30→20:15)
[2021-03-18] MEDS: busPIRone 10 MG TAB PO SCH ×2 (08:30→20:15)
[2021-03-18] MEDS: hydrOXYzine 25 MG TAB PO PRN (08:31)
[2021-03-18 10:03] VITALS: BP 170/103
[2021-03-18] MEDS: ACETAMINOPHEN TAB 650MG DOSE (2X325MG) PO PRN (16:57)
[2021-03-18 18:00] VITALS: BP 155/83
[2021-03-18] MEDS: SIMVASTATIN 10 MG TAB PO SCH (20:15)
[2021-03-18] MEDS: BETAMETHASONE DIP 0.05% OINT 15 GM TOP PRN (20:17)
[2021-03-18] MEDS: traZODone 50 MG TAB PO PRN (20:57)
[2021-03-18] MEDS: MAALOX 30 ML SUSP *UDC PO PRN (20:57)
[2021-03-19] MEDS: LEVOTHYROXINE 75MCG TABLET (0.075MG) PO SCH (05:46)
[2021-03-19 06:32] VITALS: BP 131/68
[2021-03-19] MEDS: MAALOX 30 ML SUSP *UDC PO PRN (06:36)
[2021-03-19] MEDS: NYSTATIN CREAM 15 GM TOP SCH ×2 (08:20→20:50)
[2021-03-19] MEDS: LURASIDONE HCL 40 MG TAB (LATUDA) PO SCH (08:20)
[2021-03-19] MEDS: ONDANSETRON 4 MG TAB PO PRN (08:20)
[2021-03-19] MEDS: BETAMETHASONE DIP 0.05% OINT 15 GM TOP PRN (08:20)
[2021-03-19] MEDS: PANTOPRAZOLE 40MG TAB (PROTONIX) PO SCH (08:20)
[2021-03-19] MEDS: busPIRone 10 MG TAB PO SCH ×2 (08:20→20:50)
[2021-03-19] MEDS: DIVALPROEX 250MG *ER* TAB PO SCH ×2 (08:20→20:51)
[2021-03-19] MEDS: ACETAMINOPHEN TAB 650MG DOSE (2X325MG) PO PRN (09:22)
[2021-03-19] MEDS: KETOCONAZOLE 2% CREAM EXT SCH ×2 (09:35→20:50)
[2021-03-19] MEDS: LORazepam 0.5 MG TAB PO PRN (09:46)
[2021-03-19] MEDS: MECLIZINE 12.5 MG TAB PO PRN (11:37)
--- NOTE | 2021-03-19 17:52 | MHIPN ---
[facility] PROGRESS NOTE DATE: 03/18/2021 VITAL SIGNS: Blood pressure 145/83, pulse 78, temperature 98.1. This is a video assessment. He is seen in the inpatient psychiatry unit in the presence of staff. I am at the clinic. I am assigned to his care for today, as his clinician is away. CHIEF COMPLAINT: Feels anxious. SUBJECTIVE: Seen for followup. Indicates has been feeling anxious. He feels that the anxiety is somewhat worsened since he has been in the hospital. Perceptual disturbances, such as the visions and images, tend to continue. Says at times has seen animals, like a rat. Cannot hear the images, however. Sleep somewhat erratic. Says feels anxious but overall better over the last couple of days since he has come in. Says last spoke with his a couple of days or so ago. MENTAL STATUS EXAMINATION: He is neat. He is cooperative. Speech spontaneous, somewhat rapid but not as rapid as it has been in the past. Less tangential. Denies any suicidal thoughts or intents. No homicidal ideas or intents. Affect fairly broad. Does not appear internally preoccupied at present. Cognition is grossly intact. Judgment and insight remain somewhat compromised. ASSESSMENT: Bipolar disorder, current episode manic, possibly with psychotic features. The perceptual disturbances continue. Mood is a bit elevated. Affect somewhat expansive possibly. This is despite his feeling anxious, somewhat depressed, and it should be noted the perceptual in terms of visual hallucinations, burning bodies on tables, lights on the floor, bright lights, including when he closes his eyes, are somewhat unusual and not typical of psychotic features in the context of mood disorder. The contribution of medications that he has been on, including ____, needs to be considered. It is possible the perceptual disturbances are also ____ by the melanoma, though as far as I am aware, there are no overt brain metastases. PLAN: He is on Latuda at 40 mg daily, and I would suggest continuing with that for now. I do not think it is useful increasing the Latuda at this point, though that may need to be considered. Buspirone is to continue at current doses, and I suggest that the Depakote is continued as well. I would recommend discontinuing the hydroxyzine and starting on the lorazepam at 0.5 mg twice a day as needed for anxiety. The lorazepam may be "smoother" in terms of diminishing the anxiety. It mostly ought to be used only when he is in the hospital. He is to be encouraged to participate in activities in the unit as tolerated. Further recommendations to be made depending on the clinical picture. The assessment took 15 minutes.
[2021-03-19 19:31] VITALS: BP 136/86
[2021-03-19] MEDS: SIMVASTATIN 10 MG TAB PO SCH (20:50)
[2021-03-19] MEDS: traZODone 50 MG TAB PO PRN (21:20)
[2021-03-20] MEDS: LEVOTHYROXINE 75MCG TABLET (0.075MG) PO SCH (05:38)
[2021-03-20 06:05] VITALS: BP 134/65
[2021-03-20] MEDS: DIVALPROEX 250MG *ER* TAB PO SCH ×2 (08:47→20:11)
[2021-03-20] MEDS: LURASIDONE HCL 40 MG TAB (LATUDA) PO SCH (08:47)
[2021-03-20] MEDS: PANTOPRAZOLE 40MG TAB (PROTONIX) PO SCH (08:47)
[2021-03-20] MEDS: busPIRone 10 MG TAB PO SCH ×2 (08:47→20:12)
[2021-03-20] MEDS: KETOCONAZOLE 2% CREAM EXT SCH ×2 (08:48→20:11)
[2021-03-20] MEDS: NYSTATIN CREAM 15 GM TOP SCH ×2 (08:49→20:11)
[2021-03-20] MEDS: ONDANSETRON 4 MG TAB PO PRN ×2 (08:49→22:16)
--- NOTE | 2021-03-20 09:37 | MHIPN ---
[facility] PROGRESS NOTE DATE: 03/19/2021 He is seen in the inpatient psychiatry unit. This is via video. He is in the shane. He is seen in the presence of staff. I am at the clinic. CHIEF COMPLAINT: Feels anxious. SUBJECTIVE: Seen for followup. Indicates feels anxious but that he is less anxious than yesterday, though vague on this. Says does not feel as depressed. Says had a better night and has felt rested. Has been eating okay. Spends time outside the room. MENTAL STATUS EXAMINATION: He is neat. He is cooperative. No agitation. Speech somewhat overly productive, though not as prominent as it has been in the past. He denies any thoughts of harming himself or anyone else at present. No overt psychosis. Does not appear internally preoccupied, thought has suggested that he has continued seeing images and lights but not as intensely. Cognition in that sense is grossly intact. Judgment and insight, though possibly improved, remain compromised. ASSESSMENT: Bipolar disorder, current episode possibly manic or mixed with psychotic features. PLAN: Continue current care. The hydroxyzine has been replaced with the lorazepam on attempted basis, short term. Would suggest continuing with Depakote at the current dose as well as buspirone. He is arranging for his living in a different place when he is discharged from hospital. Says, in fact, his and his brother are making the arrangements rather than him returning home at this point. Suggests that concerns are regarding those expressed prior to his coming here and indicates the timing of the ____ essentially confined to when he has been in the children's presence. Further recommendations will be made depending on the clinical picture.
[2021-03-20] MEDS: ACETAMINOPHEN TAB 650MG DOSE (2X325MG) PO PRN ×2 (09:42→20:30)
[2021-03-20] MEDS: MECLIZINE 12.5 MG TAB PO PRN (09:42)
--- NOTE | 2021-03-20 12:47 | REP ---
INDICATION: Congestion COMPARISON: None. TECHNIQUE: PA/Lateral FINDINGS: Lungs: Clear, no infiltrate. Heart: Normal in size. Mediastinum: Mediastinal silhouette unremarkable. Pleural angles: Unremarkable.. Bones and soft tissues: Unremarkable. IMPRESSION: No acute pulmonary disease. <Electronically signed by Mason Covarrubias > 03/20/21 1845
[2021-03-20] MEDS: LORATADINE 5 MG HALF-TAB PO SCH (14:00)
[2021-03-20 19:14] VITALS: BP 125/82
[2021-03-20] MEDS: SIMVASTATIN 10 MG TAB PO SCH (20:11)
[2021-03-20] MEDS: traZODone 50 MG TAB PO PRN (21:34)
[2021-03-20] MEDS: LORazepam 0.5 MG TAB PO PRN (22:16)
[2021-03-21] MEDS: LEVOTHYROXINE 75MCG TABLET (0.075MG) PO SCH (06:05)
[2021-03-21 06:42] VITALS: BP 124/76
[2021-03-21] MEDS: LURASIDONE HCL 40 MG TAB (LATUDA) PO SCH (08:39)
[2021-03-21] MEDS: ONDANSETRON 4 MG TAB PO PRN (08:39)
[2021-03-21] MEDS: LORATADINE 5 MG HALF-TAB PO SCH (09:22)
[2021-03-21] MEDS: PANTOPRAZOLE 40MG TAB (PROTONIX) PO SCH (09:22)
[2021-03-21] MEDS: busPIRone 10 MG TAB PO SCH ×2 (09:22→20:04)
[2021-03-21] MEDS: DIVALPROEX 250MG *ER* TAB PO SCH ×2 (09:23→20:04)
[2021-03-21] MEDS: NYSTATIN CREAM 15 GM TOP SCH ×2 (09:23→20:04)
[2021-03-21] MEDS: KETOCONAZOLE 2% CREAM EXT SCH ×2 (09:24→20:04)
[2021-03-21] MEDS: LORazepam 0.5 MG TAB PO PRN (13:29)
--- NOTE | 2021-03-21 14:03 | MHIPN ---
[facility] PROGRESS NOTE DATE: 03/20/2021 VITAL SIGNS: Blood pressure 125/82, pulse 95, temperature 97.3. This is a video assessment. We are doing this because of the pandemic. He is in the inpatient psychiatry unit in the presence of staff. I am at the clinic. CHIEF COMPLAINT: Says feels okay. SUBJECTIVE: Seen for followup. Indicates has been feeling somewhat down and anxious and not as upbeat as yesterday. Says slept well. Been resting during the day as well. Moods are bit down. Appetite fair. Has been throwing up today. [place] nauseated. He says his has wanted him to talk about a couple of matters. He had some notes, and he talked of the recent events, including his getting erections in the presence of his children, but he was difficult to understand, as speech was a bit on the rapid side. Also mentioned something about trauma when he was younger but did not go into detail. I did suggest that focusing on the here and now and his current functioning and coping are probably more useful. Continues experiencing perceptual disturbances. Spoke of seeing a grid of sorts in front of him on occasions. Denies suicidal thoughts or intents. Says has spoken with his . He indicates arrangements are still being made regarding a residence that he can go to when he leaves. MENTAL STATUS EXAMINATION: Fair hygiene. He is cooperative. No agitation. No psychomotor retardation but at times seems a bit restless and fidgety possibly with mildly overly productive speech, more difficult to understand. Affect fairly broad in range. Somewhat incongruent with the topic at hand, where he has quite a broad affect. Denies any suicidal thoughts or intents. Denies any homicidal ideas or intents. At present does not appear to be internally preoccupied. No delusional ideations elicited. He is alert. He is oriented. Judgment is compromised, as is insight at this point. ASSESSMENT: Bipolar disorder, current episode possibly manic with psychotic features. The possibility of mixed episode is also considered. The psychotic features in terms of the visual hallucinations do not seem to be typical in that visual hallucinations are not common, and this manifestation remains somewhat unclear. Possibility of brain lesion is to be considered. He had an MRI of the brain within the last couple months at [facility] in [place], [place]. We will ask for records from there. May need to consider an MRI of the brain here. As for the nausea and vomiting, I will monitor this and also ask the hospitalist's help. I also understand the patient has a postnasal drip, which may contribute to this. PLAN: I would suggest obtaining a valproic acid level tomorrow morning. This will help with the decision regarding Depakote, possibly increasing it, to help with stabilizing his mood. The other alternative is to increase the lurasidone after assessment to help with mood, though that in itself may not help with the visual disturbances. Matters have changed considerably for the patient and his family given these recent events, and safe discharge planning will be necessary from a broader aspect as well. The patient's brother had asked to speak with me. The patient gave me permission to do, and after my assessment, I met with his brother, and we discussed at length what the patient had been through and in recent times and these experiences, which have disturbed the brother and family. We spoke of a safe discharge, including with residence given that it is not telles for the patient to return home at this point. His brother discussed implications of the changes and a new residence for the patient as well as his exploring the idea of being an official advocate for the patient. He also says his family and the patient's family get along well. I discussed with his brother my assessment and my recommendations at length. The patient will be seen by on-call psychiatry over the weekend (today is Tuesday), and after the weekend he will be seen by Kasey Yeboah, who will be proceeding further with the patient's care. His brother is aware of this. The assessment took 30 minutes.
[2021-03-21 18:39] VITALS: BP 120/77
[2021-03-21] MEDS: SIMVASTATIN 10 MG TAB PO SCH (20:04)
[2021-03-21] MEDS: traZODone 50 MG TAB PO PRN (21:08)
[2021-03-22] MEDS: ONDANSETRON 4 MG TAB PO PRN (05:08)
[2021-03-22] MEDS: LEVOTHYROXINE 75MCG TABLET (0.075MG) PO SCH (06:08)
[2021-03-22 06:54] VITALS: BP 115/71
[2021-03-22] MEDS: LORATADINE 5 MG HALF-TAB PO SCH (08:38)
[2021-03-22] MEDS: NYSTATIN CREAM 15 GM TOP SCH ×2 (08:39→20:46)
[2021-03-22] MEDS: LURASIDONE HCL 40 MG TAB (LATUDA) PO SCH (08:39)
[2021-03-22] MEDS: busPIRone 10 MG TAB PO SCH ×2 (08:39→20:46)
[2021-03-22] MEDS: KETOCONAZOLE 2% CREAM EXT SCH ×2 (08:39→20:44)
[2021-03-22] MEDS: DIVALPROEX 250MG *ER* TAB PO SCH ×2 (08:40→20:46)
[2021-03-22] MEDS: PANTOPRAZOLE 40MG TAB (PROTONIX) PO SCH (08:40)
[2021-03-22] MEDS: LORazepam 0.5 MG TAB PO PRN (15:33)
[2021-03-22 18:19] VITALS: BP 139/81
[2021-03-22] MEDS: ACETAMINOPHEN TAB 650MG DOSE (2X325MG) PO PRN (18:24)
[2021-03-22] MEDS: MAALOX 30 ML SUSP *UDC PO PRN (19:57)
[2021-03-22] MEDS: SIMVASTATIN 10 MG TAB PO SCH (20:47)
[2021-03-22] MEDS: traZODone 50 MG TAB PO PRN (20:49)
[2021-03-23] MEDS: LEVOTHYROXINE 75MCG TABLET (0.075MG) PO SCH (05:32)
[2021-03-23 06:29] VITALS: BP 111/55
[2021-03-23] MEDS: MECLIZINE 12.5 MG TAB PO PRN (08:49)
[2021-03-23] MEDS: NYSTATIN CREAM 15 GM TOP SCH ×2 (08:49→21:04)
[2021-03-23] MEDS: DIVALPROEX 250MG *ER* TAB PO SCH ×2 (08:49→21:05)
[2021-03-23] MEDS: BETAMETHASONE DIP 0.05% OINT 15 GM TOP PRN (08:49)
[2021-03-23] MEDS: LORATADINE 5 MG HALF-TAB PO SCH (08:50)
[2021-03-23] MEDS: LURASIDONE HCL 40 MG TAB (LATUDA) PO SCH (08:50)
[2021-03-23] MEDS: KETOCONAZOLE 2% CREAM EXT SCH ×2 (08:50→21:02)
[2021-03-23] MEDS: busPIRone 10 MG TAB PO SCH ×2 (08:50→21:06)
[2021-03-23] MEDS: PANTOPRAZOLE 40MG TAB (PROTONIX) PO SCH (08:50)
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
[2021-03-23 17:00] VITALS: BP 130/68
[2021-03-23] MEDS: LORazepam 0.5 MG TAB PO PRN (17:10)
[2021-03-23] MEDS: traZODone 50 MG TAB PO PRN (21:05)
[2021-03-23] MEDS: SIMVASTATIN 10 MG TAB PO SCH (21:23)
[2021-03-23] MEDS: MAALOX 30 ML SUSP *UDC PO PRN (21:25)
[2021-03-24] MEDS: LEVOTHYROXINE 75MCG TABLET (0.075MG) PO SCH (05:17)
[2021-03-24 06:13] VITALS: BP 138/65
[2021-03-24] MEDS: BETAMETHASONE DIP 0.05% OINT 15 GM TOP PRN (09:06)
[2021-03-24] MEDS: NYSTATIN CREAM 15 GM TOP SCH (09:06)
[2021-03-24] MEDS: PANTOPRAZOLE 40MG TAB (PROTONIX) PO SCH (09:07)
[2021-03-24] MEDS: LURASIDONE HCL 40 MG TAB (LATUDA) PO SCH (09:07)
[2021-03-24] MEDS: LORATADINE 5 MG HALF-TAB PO SCH (09:07)
[2021-03-24] MEDS: busPIRone 10 MG TAB PO SCH (09:07)
[2021-03-24] MEDS: DIVALPROEX 250MG *ER* TAB PO SCH (09:07)
[2021-03-24] MEDS: KETOCONAZOLE 2% CREAM EXT SCH (09:11)
[2021-03-24] MEDS: MECLIZINE 12.5 MG TAB PO PRN (09:14)
[2021-03-24] MEDS: ONDANSETRON 4 MG TAB PO PRN (09:54)
[2021-03-24] MEDS ORDERED: DEPA250T2 PO (09:57)
[2021-03-24] MEDS ORDERED: BUSP30TA PO (09:57)
[2021-03-24] MEDS ORDERED: HYDR-643 PO (09:57)
[2021-03-24] MEDS ORDERED: LATU40TA PO (09:57)
--- NOTE | 2021-03-24 14:05 | MHDSPDOC ---
[facility] Discharge Summary Discharge Summary DATE OF ADMISSION: Mar 13, 2021 at 18:28 DATE OF DISCHARGE: Mar 24, 2021 at 11:07 DISCHARGE DIAGNOSES: Bipolar disorder, current episode manic possibly with psychotic features. REASON FOR ADMISSION: Patient is a 40-year-old, , Employed, male with h/o dena and hallucinations who complains of nausea because and vertigo. He says he has received treatment for it. Reports he has a melanoma, he has a Neurologist. Reports recent passive SI but says he never had a plan or intent. He denies SI/HI today. They psychotic features in terms of the visual hallucinations do not seem to be typical in that visual hallucinations are not common, and this manifestation remains somewhat unclear per Dr. Baig. Per PET scanning from [facility] -there is no significant or suspicion of lymph adenopathy, however there is a mild heterogeneous abnormal FDG uptake involving the subcutaneous soft tissues PER ED REPORT: Pt states he came for [facility] due to being very depressed. Pt has poor eye contact, and had to be redirected multiple times during interview. Pt A&O x4, however pt. had difficultly maintaining current thoughts and would continuously speak of ideas from three years ago. Pt did state currently, he is diagnosed with stage 111 melanoma. Pt denies S/I and H/I. Pt states A/H- hearing music, and V/H seeing birds and people "after they are done with their yoga." Pt states a history of excessive masturbation as a child, and now he has three young daughters in the house, pt. has had an erection two times around his girls. Pt states he would never act on anything, but this has him fearing being around his children. Pt states he may be bipolar, but is unsure at this time. Pt's Anais states pt.s recent scan in January 2021 was clear from any new cancer. Pt is at a standstill with treatment at this time. Anais states pt.s anger towards her and the children has increased since December 2020, and has gotten to an unacceptable level in the last two weeks. Per Anais, pt. has been blaming her for his cancer, their situation, and everything. Anais states pt. has admitted to her some V/H but would not discuss the nature. Anais is aware of pt. having two erections around the children and states pt. is not welcome home again until he received the help he needs. Dr. Jean Baptiste called stating that pt. is suspected Bipolar. At pt.s baseline, pt. can be difficult to understand due to pts rapid talking. Pt has admitted to V/H of denominational nature and agrees that pt. needs admission due to pt.s decompensation over the last two weeks. VITAL SIGNS: See below. CONSULTANTS INVOLVED: See Medical H + P by Hospitalist TREATMENT AND PROGRESS ON THE UNIT: Patient was admitted to the [facility] on a legal status was afforded the following treatment modalities: 1) Individual Therapy 2) Group Therapy 3) Medication Management 4) Milieu Therapy 5) Safe Environment HOSPITAL COURSE: Patient was admitted to [facility] on a legal status. Patient was restarted on his home medications, Depakote was increased to 750 mg twice daily. He had an additional Latuda 40 mg daily and found medications beneficial and tolerated them well. Patient initially had complained about vertigo with visual hallucinations. These visual hallucinations did not appear to be a psychotic manifestation. And he was able to report these hallucinations and not act on any thinking or behavior in unusual or aggressive manner. His mood, anxiety, and intrusive thoughts improved with treatment. Pt attended groups daily during stay. He was mildly social with peers. Discharge planners had discussed his treatment and prognosis while he was admitted on the unit with both his and his brother. He did not report any side effects or adverse problems with any of the medications, and he did report good effect in this of the meds. The pts symptoms improved with treatment. On day of discharge pt. denied depression, anxiety, insomnia, SI/HI, hallucinations, delusions. Pt was discharged home with follow-up with [facility]. Pt felt safe for discharge. DISCHARGE ASSESSMENT: In today's interview, patient is alert and oriented, pt.s dress is appropriate. Hygiene and grooming is well-kempt. Smiles on approach and is pleasant and engaged in the interview. Denies depression and anxiety. Denies suicidal and homicidal ideation, planning or intent. Denies and is not observed with dena, psychotic symptoms of delusions, bizarre thinking, obsessions, paranoia, ruminations illogical thoughts, flight of ideas or having poor insight and judgement. Reinforced with patient need to abstain from alcohol and drugs. At discharge patient has normal mentation, declines further hospitalization on a voluntary status and meets criteria for discharge today. Discussed indications of medications, potential benefits and risks, alternatives (including no treatment) and questions were encouraged and answered. Patient encouraged to return to hospital if symptoms worsen or change and encouraged to call unit if he/she/they needs to speak to provider for questions regarding medications or care. MENTAL STATUS EXAMINATION ON DISCHARGE: Patient is a 40-year-old, , Employed, male with h/o dena and hallucinations who complains of nausea because and vertigo. He says he has received treatment for it. Speech: Is fast rate, normal tone and volume, slurred at times Language skills are intact Thought processes including: linear and goal oriented Thought content: denies depression and anxiety. Denies suicidal/homicidal ideation, planning or intent. Abstract reasoning, and computation: fair Description of associations: denies, none observed Description of abnormal or psychotic thoughts: denies, none observed. Judgment: fair Insight: fair Orientation: alert and oriented to person, place, time and situation Recent and remote memory: intact Attention span and concentration: good Language: expansive Fund of knowledge: average Mood: Euthymic Mood Affect: reactive Suicide Risk Assessment: 1) Does the patient wish to be ? No 2) Since your admission, have you had any actual thought of killing yourself? No 3) Since your admission, have you been thinking about how you might do this? No 4) Since your admission, have you had these thoughts and had some intention of acting on them? No 5) Since your admission, have you started to work out or worked out the details of how to kill yourself? No 5A) Do you intent to carry out this plan? No and NA 6) Have you ever done anything, started anything, or prepared to do anything with any intent to ? No 6A) How long since your admission did you do any of these? NA MEDICATIONS ON DISCHARGE: See Medication Reconciliation PLAN/FOLLOWUP ARRANGEMENTS: [facility] The amount of time spent in the coordination of care for this patient was approximately 25 minutes. ETOH/Disorder Med Rx ETOH/DRUG DISORDER RX: N/A Vital Signs/I&Os Vital Signs Date Time Temp Pulse Resp B/P (MAP) Pulse Ox O2 Delivery O2 Flow Rate FiO2 03/24/21 06:13 97.6 69 16 138/65 (89) 99 Room Air Medications Scheduled Buspirone HCl (Buspirone HCl) 30 Mg Tablet, 30 MG PO BID for Anxiety, #14 Divalproex Sodium (Depakote ER) 250 Mg Tab.er.24h, 750 MG PO BID for Mood, #42 Ketoconazole (Ketoconazole) 15 Gm Cream..g., 1 DOSE EXT BID, (Reported) APPLY TO FEET Levothyroxine Sodium (Levothyroxine Sodium) 75 Mcg Tablet, 75 MCG PO DAILY, (Reported) Lurasidone Hydrochloride (Latuda) 40 Mg Tablet, 40 MG PO DAILY@08 for Mood, #7 Pantoprazole Sodium (Pantoprazole Sodium) 40 Mg Tablet.dr, 40 MG PO DAILY, (Reported) Simvastatin (Simvastatin) 10 Mg Tablet, 10 MG PO QHS, (Reported) Scheduled PRN Acetaminophen (Acetaminophen) 500 Mg Tablet, 1,000 MG PO Q6H PRN for PAIN LEVEL 1-4, (Reported) Betamethasone Dip (Betamethasone Dipropionate) 15 Gm Oint...g., 1 DOSE TOP BID PRN for CRACKS IN SKIN, (Reported) APPLIES TO HANDS AND FEET Fluticasone Propionate (Flonase Allergy Relief) 9.9 Ml [place].susp, 2 SPRAY NARES DAILY PRN for CONGESTION, (Reported) Hydroxyzine HCl (Hydroxyzine HCl) 10 Mg Tablet, 20 MG PO BID PRN for ANXIETY, # 14 Ondansetron HCl (Ondansetron HCl) 8 Mg Tablet, 8 MG PO Q8H PRN for NAUSEA OR VOMITING, (Reported) Simethicone (Gas-X) 125 Mg Tab.chew, 125 MG PO Q6H PRN for GAS PAIN, (Reported) Allergies Coded Allergies: latex (Verified Allergy, Unknown, rash, 06/20/20) KELLEY BARBA MANAGER NON PROFIT Mar 24, 2021 13:54
== END 2021-03-24 11:07 | disposition home or self-care (01) | DRG 753 ==
LOC: M ED 10:29 → M ED INP 18:28 → M PSY 21:13
PROVIDERS: ADMIT Psychiatry & Neurology Psychiatry; ATTEND Psychiatry & Neurology Psychiatry
DX: F31.2 Bipolar disorder, current episode manic severe with psychotic features (principal); F95.2 Tourette's disorder; Z79.899 Other long term (current) drug therapy; Z91.040 Latex allergy status; Z92.21 Personal history of antineoplastic chemotherapy; E78.5 Hyperlipidemia, unspecified; G43.909 Migraine, unspecified, not intractable, without status migrainosus; Z86.007 Personal history of in-situ neoplasm of skin

== ENCOUNTER 2021-03-27 15:53 | Inpatient (IN) | payer BC, MEDICAID ==
[~2021-03-27] VITALS: Ht 165.1 cm; Wt 80.5 kg
[~2021-03-27 15:53] MED LIST changes: +ACET-683 PO; +DEPA250T2 PO; +DIVALPROEX 250 MG TAB PO SCH; +LATU40TA PO; +LEVO75TA4 PO; +ONDA8TAB10 PO; +PANT40TA29 PO
--- OUTSIDE RECORDS SUMMARY | 2021-03-27 16:04 | CCD ---
Author Author [facility] Organization [facility] Address Unknown Phone Unavailable Care Team Providers Care Civil Geotechnical Engineer Name Role Phone TRAE LIVINGSTON MD Unavailable [...] Unavailable Unavailable REINDL, TRAE COSTA Unavailable Unavailable Abriss, Darlene Goodson MD Unavailable [...] Unavailable Abriss, Darlene Goodson MD Unavailable Unavailable Maldonado, Isatu WELDING PANTOGRAPH OPERATOR Unavailable Unavailable Maldonado, Isatu WELDING PANTOGRAPH OPERATOR Unavailable Unavailable Maldonado, Isatu WELDING PANTOGRAPH OPERATOR Unavailable Unavailable Maldonado, Isatu WELDING PANTOGRAPH OPERATOR Unavailable Unavailable Maldonado, Isatu WELDING PANTOGRAPH OPERATOR Unavailable Unavailable Maldonado, Isatu WELDING PANTOGRAPH OPERATOR Unavailable Unavailable Maldonado, Istau WELDING PANTOGRAPH OPERATOR Unavailable Unavailable Maldonado, Isatu WELDING PANTOGRAPH OPERATOR Unavailable Unavailable Maldonado, Isatu WELDING PANTOGRAPH OPERATOR Unavailable Unavailable Maldonado, Isatu WELDING PANTOGRAPH OPERATOR Unavailable Unavailable Maldonado, Isatu WELDING PANTOGRAPH OPERATOR Unavailable Unavailable Maldonado, Isatu WELDING PANTOGRAPH OPERATOR Unavailable Unavailable Maldonado, Isatu WELDING PANTOGRAPH OPERATOR Unavailable Unavailable Maldonado, Isatu WELDING PANTOGRAPH OPERATOR Unavailable Unavailable Maldonado, Isatu WELDING PANTOGRAPH OPERATOR Unavailable Unavailable Maldonado, Isatu WELDING PANTOGRAPH OPERATOR Unavailable Unavailable Maldonado, Isatu WELDING PANTOGRAPH OPERATOR Unavailable Unavailable Maldonado, Isatu WELDING PANTOGRAPH OPERATOR Unavailable Unavailable Maldonado, Isatu WELDING PANTOGRAPH OPERATOR Unavailable Unavailable Maldonado, Isatu WELDING PANTOGRAPH OPERATOR Unavailable Unavailable Maldonado, Isatu WELDING PANTOGRAPH OPERATOR Unavailable Unavailable Maldonado, Isatu WELDING PANTOGRAPH OPERATOR Unavailable Unavailable Charlebois, A Nargis RPA C [...] Charlebois, A Nargis RPA C Unavailable Unavailable JOSE DANIEL, LITTLE STEVE CENTRAL OFFICE OPERATOR SUPERVISOR-C Unavailable Unavailable JOSE DANIEL, LITTLE STEVE CENTRAL OFFICE OPERATOR SUPERVISOR-C Unavailable Unavailable JOSE DANIEL, LITTLE STEVE CENTRAL OFFICE OPERATOR SUPERVISOR-C Unavailable Unavailable JOSE DANIEL, LITTLE STEVE CENTRAL OFFICE OPERATOR SUPERVISOR-C Unavailable Unavailable JOSE DANIEL, LITTLE STEVE CENTRAL OFFICE OPERATOR SUPERVISOR-C Unavailable Unavailable JOSE DANIEL, LITTLE STEVE CENTRAL OFFICE OPERATOR SUPERVISOR-C Unavailable Unavailable JOSE DANIEL, LITTLE STEVE CENTRAL OFFICE OPERATOR SUPERVISOR-C Unavailable Unavailable JOSE DANIEL, LITTLE STEVE CENTRAL OFFICE OPERATOR SUPERVISOR-C Unavailable Unavailable JOSE DANIEL, LITTLE STEVE CENTRAL OFFICE OPERATOR SUPERVISOR-C Unavailable Unavailable JOSE DANIEL, LITTLE STEVE CENTRAL OFFICE OPERATOR SUPERVISOR-C Unavailable Unavailable JOSE DANIEL, LITTLE STEVE CENTRAL OFFICE OPERATOR SUPERVISOR-C Unavailable Unavailable JOSE DANIEL, LITTLE STEVE CENTRAL OFFICE OPERATOR SUPERVISOR-C Unavailable Unavailable JOSE DANIEL, LITTLE STEVE CENTRAL OFFICE OPERATOR SUPERVISOR-C Unavailable Unavailable JOSE DANIEL, LITTLE STEVE CENTRAL OFFICE OPERATOR SUPERVISOR-C Unavailable Unavailable JOSE DANIEL, LITTLE STEVE CENTRAL OFFICE OPERATOR SUPERVISOR-C Unavailable Unavailable JOSE DANIEL, LITTLE STEVE CENTRAL OFFICE OPERATOR SUPERVISOR-C Unavailable Unavailable JOSE DANIEL, LITTLE STEVE CENTRAL OFFICE OPERATOR SUPERVISOR-C Unavailable Unavailable Re-disclosure Warning The records that [...] is protected by Article 27-F of the [facility] Public Health law. If you continue you may have access to information: Regarding HIV / AIDS; Provided by facilities licensed or operated by the [facility] Office of Mental Health; or Provided by the [facility] Office for People With Developmental Disabilities. If such information is present, then the following [facility] mandated warning applies: This information has [...] law may result in a fine or halfway sentence or both. A general authorization for the release of medical or other information is NOT sufficient authorization for further disc losure. Family History Family Member Name Family Member Gender Family Member Status Date o f Status Description Data Source(s) Unknown Unknown Problem MEDENT ([facility]) Unknown Male Problem MEDENT ([facility] Encounters Encounter Providers Location Date Indications Data Source(s ) Unknown [address] [facility] [address] 03/25/2021 12:00:00 AM EST eCW1 ([facility]) Outpatient [address] [facility] [address] 02/19/2021 12:00:00 AM EDT eCW1 ([facility]) Unknown [address] [facility] [address] 02/19/2021 12:00:00 AM EDT eCW1 ([facility]) Unknown [address] [facility] [address] 02/12/2021 12:00:00 AM EDT eCW1 ([facility]) Outpatient [address] [facility] [address] 01/08/2021 12:00:00 AM EDT eCW1 ([facility]) Unknown [address] [facility] [address] 01/07/2021 12:00:00 AM EDT eCW1 ([facility]) Unknown [address] [facility] [address] 12/26/2020 12:00:00 AM EDT eCW1 ([facility]) Unknown [address] [facility] [address] 12/16/2020 12:00:00 AM EDT eCW1 ([facility]) Outpatient [address] [facility] [address] 11/27/2020 12:00:00 AM EDT eCW1 ([facility]) Outpatient [address] [facility] [address] 11/19/2020 12:00:00 AM EDT eCW1 ([facility]) Unknown [address] [facility] [address] 11/18/2020 12:00:00 AM EDT eCW1 ([facility]) Outpatient Attender: STEVE Figueroa/Leandra/Dipesh/R eindl 11/12/2020 03:45:00 PM EDT MEDENT ([facility], ) Unknown [address] [facility] [address] 11/12/2020 12:00:00 AM EDT eCW1 ([facility]) Unknown [address] [facility] [address] 11/11/2020 12:00:00 AM EDT eCW1 ([facility]) Unknown [address] [facility] [address] 11/06/2020 12:00:00 AM EDT eCW1 ([facility]) Unknown [address] [facility] [address] 10/15/2020 12:00:00 AM EDT eCW1 ([facility]) Unknown [address] [facility] [address] 10/10/2020 12:00:00 AM EDT eCW1 ([facility]) Outpatient Attender: STEVE Figueroa/Leandra/Dipesh/R eindl 09/24/2020 09:45:00 AM EDT MEDENT ([facility], ) Unknown [address] [facility] [address] 09/10/2020 12:00:00 AM EDT eCW1 ([facility]) Unknown [address] [facility] [address] 09/09/2020 12:00:00 AM EDT eCW1 ([facility]) Outpatient Attender: Hamzah Figueroa/Leandra/Dipesh/Re indl 08/06/2020 09:00:00 AM EDT MEDENT ([facility] ) Unknown [address] [facility] [address] 07/31/2020 12:00:00 AM EDT eCW1 [facility]) Outpatient Attender: Hamzah Figueroa/Leandra/Dipesh/Martina art 07/09/2020 08:15:00 AM EST MED[facility] ([facility] ) Outpatient<td ID="encounterTypeDescripti onID0">COVID 19 IMM</td><td>Isatu Maldonado CENTRAL OFFICE OPERATOR SUPERVISOR</td><td>[facility]</td><td>06/25/2020</td><td>2:01PM</td><td>2:19PM</td><td></td> Attender: Isatu Maldonado NP [facility] 06/25/2020 02:01:00 PM EST - 06/25/2020 02:19:00 PM EST REINALDO ([facility]) 06/24/2020 12:00:00 AM EST [facility] ([facility]) Outpatient [address] [facility] [address] 06/10/2020 12:00:00 AM EST eCW1 ([facility]) Outpatient [address] [facility] [place] [address] 06/09/2020 12:00:00 AM EST eCW1 ([facility]) Unknown [address] [facility] [place] [address] 06/09/2020 12:00:00 AM EST eCW1 ([facility]) Unknown [address] [facility] [place] [address] 06/09/2020 12:00:00 AM EST eCW1 ([facility]) Unknown [address] [facility] [place] [address] 06/03/2020 12:00:00 AM EST eCW1 ([facility]) <td ID="encounterTypeDescriptionID1">COV ID 19 IMM</td><td>Isatu Maldonado CENTRAL OFFICE OPERATOR SUPERVISOR</td><td>[facility]</td><td>05/28/2020</td><td>1:59PM</td><td>2:17PM</td><td></td>Outpatient Attender: Isatu Maldonado NP [facility] 05/28/2020 01:59:00 PM EST - 05/28/2020 02:17:00 PM EST REINALDO ([facility]) Unknown [address] [facility] [address] 05/19/2020 12:00:00 AM EST eCW1 ([facility]) Unknown [address] [facility] [address] 05/19/2020 12:00:00 AM EST eCW1 ([facility]) Unknown [address] [facility] Y [address] 05/05/2020 12:00:00 AM EST eCW1 ([facility]) Outpatient Attender: TRAE Figueroa/Leandra/Dipesh/Charles garrett 04/17/2020 02:45:00 PM EST MEDENT ([facility]) Unknown [address] [facility] Y [address] 03/19/2020 12:00:00 AM EST [facility]CW1 [facility] Outpatient Attender: Nargis Figueroa/Leandra/Deepali martines/Jenny 03/10/2020 11:00:00 AM EDT MEDENT ([facility] Marely mooney, RUSSELL) Unknown [address] [facility] Y [address] 03/04/2020 12:00:00 AM EDT eCW1 ([facility]) Unknown [address] [facility] Y [address] 03/03/2020 12:00:00 AM EDT eCW1 ([facility] Outpatient [address] [facility] Y [address] 02/28/2020 12:00:00 AM EDT eCW1 ([facility]) Unknown [address] [facility] [place] [address] 02/22/2020 12:00:00 AM EDT eCW1 ([facility]) Outpatient [address] [facility] [place] [address] 02/21/2020 12:00:00 AM EDT eCW1 ([facility]) Unknown [address] [facility] [address] 02/21/2020 12:00:00 AM EDT eCW1 ([facility]) Immunizations Vaccine Date Status Description Data Source(s) Moderna COVID-19 06/25/2020 02:05:00 PM EST completed <td ID="Dnyrkfpyawvnu-Pbrygbawija-ZW9">Moderna COVID-19</td><td ID="ImmunizationDose-5">2</td><td>06/25/2020</td><td ID="Yttgyoocllbhc-EtmxsMmwj-GE4">Right Deltoid</td><td></td><td ID="Uccwdqbmzgacl-Aynhez-XW3">Complete (Administered)</td><td>[facility]</td><td ID="Ebpglaykkcqer-Ytwfh-Gfka-Comment-ID5"></td> REINALDO ([facility]) COVID-19 VACCINE a 06/25/2020 12:00:00 AM EST completed [facility] Vaccine Series Complete: YESThis Data wa s Submitted to [facility] Via [facility]. Moderna COVID-19 05/28/2020 02:02:00 PM EST completed <td ID="Vielgrpwnvunc-Spjysvboxur-UO2">Moderna COVID-19</td><td ID="ImmunizationDose-4">1</td><td>05/28/2020</td><td ID="Ooywredlitatn-MsyylUdbh-SF6">Left Deltoid</td><td></td><td ID="Lyibeqlbsmkoh-Qizjqw-LX5">Complete (Administered)</td><td>[facility]</td><td ID="Keythrcdvctcb-Llfwm-Wgss-Comment-ID4"></td> REINALDO ([facility]) Note: VACCINE ADMINISTERED BY ANABEL Moctezuma LPN COVID-19 VACCINE Moderna 05/28/2020 12:00:00 AM EST completed [facility] Vaccine Series Complete: NOThis Data was Submitted to [facility] Via [employer]. Medications Medication Brand Name Start Date Product Form Dose Route Admi nistrative Instructions Pharmacy Instructions Status Indications Reaction Description Data Source(s) Ondansetron 4 MG Oral Tablet Ondansetron HCl 4 MG Ondansetro n HCl 4 MG 03/25/2021 12:00:00 AM EST 1.0 {tablet} active Ondansetron HCl 4 MG eCW1 ([facility]) Fluconazole [...] Unspecified 06/25/2020 12:00:00 AM EST completed MEDENT ([facility]) Medication administered onsite POLYETHYLENE GLYCOL 3350 142 MG/ML Oral Solution [Miralax] M iralax 06/23/2020 12:00:00 AM EST completed MEDENT ([facility]) Hydrocortisone 25 MG/ML Topical Cream [Anusol HC] [...] Unspecified 05/28/2020 12:00:00 AM EST completed MEDENT ([facility]) Medication administered onsite Suprep Bowel Prep Kit Suprep Bowel Prep Kit 04/17/2020 12:00:00 AM EST completed MEDENT ([facility]) hydrocortisone acetate 25 MG Rectal Suppository [Anucort-HC] Anucort-HC 03/19/2020 12:00:00 AM EST completed MEDENT ([facility]) Magnesium Hydroxide 80 MG/ML Oral Suspension Milk Of Magnesi a 03/10/2020 12:00:00 AM EDT ORAL completed MEDENT ([facility], ) Suprep Bowel Prep Kit Suprep Bowel Prep Kit 03/10/2020 12:00:00 AM EDT completed MEDENT ([facility], ) Insurance Providers Payer name Policy type / Coverage type Policy ID Covered democrat ID Covered democrat's relationship to krishna Policy Krishna Plan Information Medicaid of [place] Other 01 [id number] Self 01 BLUE CROSS [id number] SP [id number] BCBS of [facility] Other 0 [id number] Self 0 BLUE CROSS [id number] SP [id number] BCBS of [facility] Other 0 [id number] Self 0 EXCELLUS C [id number] Self [id number] MEDICAID M [id number] Self [id number] BCBS of [facility] Other 0 [id number] Self 0 [place]/307 [id number] SP [id number] [place]/307 [id number] SP [id number] MEDICAID [id number] Medicaid - Rezee [id number] Medica id [id number] ID IDENTIFICATION [id number] Other Insurance [id number] Excell[employer] Blue Cross [id number] Blue Cross/Kathie eld [id number] ANSI-Commercial [id number] ANSI-Medicaid [id number] [facility]-Medicaid [id number] ANSI-Commercial [id number] ANSI-Medicaid [id number] ANSI-Commercial [id number] BCBS/[employer] Commercial [id number] Self [id number] [place]/307 [id number] SP [id number] ANSI-Medicaid [id number] ANSI-Commercial [id number] BCBS/[employer] Commercial [id number] Self Medicaid of [place] Other 01 [id number] Self 01 [facility] [id number] SP [id number] EXCELLUS BC BS [id number] SP [id number] Excell[employer] Blue Cross Commercial [id number] Self [place] 302/307 [id number] SP [id number] BCBS OF [place] 306/806 [id number] SP [id number] BLUE CROSS [id number] SP [id number] [place] [id number] SP [id number] [place] 302/307 [id number] SP [id number] BCBS [place] 302/307 [id number] SP [id number] [id number] SP [id number] BCBS of [facility] Other 0 [id number] Self 0 BCBS [place] P[place] 302/307 [id number] SP [id number] Medicaid [facility] Other 01 [id number] Self 01 MEDICAID M [id number] S [id number] EXCELLUS BCBS B [id number] S [id number] Problems, Conditions, and Diagnoses Code Display Name Description Problem Type Effective Dates Data Source(s) N48.9 Disorder of penis Penile abnormality Problem 03/10/2021 12:00:00 AM EDT eCW1 ([facility]) I86.1 Varicocele Varicocele Problem 02/19/2021 12:00:00 AM ED T eCW1 ([facility]) B36.9 Fungal dermatitis Fungal dermatitis Problem 02/19/2021 12:00:00 AM EDT eCW1 ([facility]) E03.8 [id number] Secondary hypothyroidism Problem 11/27/2020 12:00:00 AM EDT eCW1 ([facility]) B20 [id number] Human immunodeficiency virus [HIV] diseas e Problem 05/05/2020 12:00:00 AM EST eCW1 ([facility]) C79.89 [id number] 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 Problem 02/28/2020 12:00:00 AM EDT eCW1 ([facility]) F31.9 [id number] Bipolar 1 disorder, depressed Problem 2019 12:00:00 AM EDT eCW1 ([facility]) C79.9 [id number] Malignant melanoma, metastatic Problem 02/28/2020 12:00:00 AM EDT eCW1 ([facility]) Surgeries/Procedures Procedure Description Date Indications Data Source(s) LARYNGOSCOPY FLEXIBLE FIBEROPTIC DIAGNOSTIC 11/13/2020 12:00:00 AM EDT MEDENT ([facility]) OFFICE OUTPATIENT VISIT 15 MINUTES 11/12/2020 12:00:00 AM EDT MEDENT ([facility]) OFFICE OUTPATIENT VISIT 15 MINUTES 09/24/2020 12:00:00 AM EDT MEDENT ([facility]) OFFICE OUTPATIENT VISIT 15 MINUTES 08/06/2020 12:00:00 AM EDT MEDENT ([facility]) Capsule Endoscopy Small Bowel 07/14/2020 12:00:[address] MEDENT ([facility]) OFFICE OUTPATIENT VISIT 25 MINUTES 07/09/2020 12:00:00 AM EST MEDENT ([facility]) Moderna COVID-19 Vaccine Moderna COVID-19 Vaccine 06/25/2020 12:00: 00 AM EST REINALDO ([facility]) Colonoscopy Flexible Proximal To Splenic Flexure W/Biopsy Si ngle/ 06/23/2020 12:00:00 AM EST MEDENT ([facility]) Moderna COVID-19 Vaccine Moderna COVID-19 Vaccine 05/28/2020 12:00: 00 AM EST REINALDO ([facility]) Moderna COVID19 Vaccine Administration First Dose Mode rna COVID19 Vaccine Administration First Dose 05/28/2020 12:00:00 AM EST [place] ([facility]) Endoscopy Upper GI Biopsy 03/17/2020 12:00:00 AM EST MEDENT ([facility]) Colonoscopy Flexible Proximal To Splenic Flexure W/Biopsy Si ngle/ 03/17/2020 12:00:00 AM EST MEDENT ([facility]) Results ID Date Data Source [id number] 03/13/2021 05:33:00 PM EDT [facility] Name Value Range Interpretation Code Description Data Barb rce(s) Supporting Document(s) SARS coronavirus 2 RNA [Presence] in Res piratory specimen by BRADLEY with probe detection NEGATIVE [facility] This lab was ordered by [facility] a nd reported by [facility]. ID Date Data Source [id number] 11/14/2020 12:29:00 AM EDT [facility] Name Value Range Interpretation Code Description Data Barb rce(s) Supporting Document(s) SARS coronavirus 2 RNA [Presence] in Res piratory specimen by BRADLEY with probe detection NEGATIVE [facility] This lab was ordered by [facility] a nd reported by [facility]. ID Date Data Source [id number] 11/07/2020 03:56:00 AM EDT [facility] Name Value Range Interpretation Code Description Data Barb rce(s) Supporting Document(s) SARS coronavirus 2 RNA [Presence] in Res piratory specimen by BRADLEY with probe detection NEGATIVE [facility] This lab was ordered by [facility] a nd reported by [facility]. ID Date Data Source [id number] 10/30/2020 01:08:00 PM EDT [facility] Name Value Range Interpretation Code Description Data Barb rce(s) Supporting Document(s) SARS coronavirus 2 RNA NOT DETECTED [facility] [place] This lab was ordered by [facility] and reported by [facility]. ID Date Data Source [id number] 06/23/2020 07:53:00 AM EST MEDENT ([facility], ) Name Value Range Interpretation Code Description Data Barb rce(s) Supporting Document(s) Surgical pathology study Laboratory test result MEDENT ([facility], ) FINAL DIAGNOSIS Colon, random, biopsies: Colonic mucosa with no specific pathologic findings. No evidence for microscopic colitis. 06/24/2020 - 1309 CLINICAL DIAGNOSIS Rectal bleeding 06/23/2020 - 1327 GROSS DIAGNOSIS Received in formalin labeled "random colon biopsy, R/O microscopic colitis" are three fragments of hassan tissue, 0.4 x 0.3 x 0.2 cm in aggregate. All in one. -SV 06/23/2020 - 1327 Signed DELROY CONTRERAS MD 06/24/2020 1422 ID Date Data Source [id number] 06/18/2020 01:05:00 PM EST [facility] Name Value Range Interpretation Code Description Data Barb rce(s) Supporting Document(s) SARS coronavirus 2 RNA Not Detected [facility] [place] This lab was ordered by [facility] and reported by [facility]. ID Date Data Source [id number] 04/28/2020 07:43:00 PM EST [facility] Name Value Range Interpretation Code Description Data Barb rce(s) Supporting Document(s) SARS coronavirus 2 RNA [facility] This lab was ordered by [facility] [place] and reported by [facility] [place]. ID Date Data Source [id number] 04/17/2020 05:01:00 PM EST MEDENT ([facility], ) Name Value Range Interpretation Code Description Data Barb rce(s) Supporting Document(s) Glucose, Fasting 95 mg/dL 70-100 Normal (applies to non-numeric results) MEDENT ([facility], ) Blood Urea Nitrogen 21 mg/dL 7-18 Above high normal [facility] ([facility], ) Glomerular Filtration Rate Laboratory test result Normal (applies to non- numeric results) [facility] ([facility], ) <content>Units are mL/min/1.73 m2</content>
<content></content>
<content>Chronic Kidney Disease Staging per NKF:</content>
<content></content>
<content>Stage I & II GFR >=60 Normal to Mildly Decreased</content>
<content>Stage III GFR 30- 59 Moderately Decreased</content>
<content>Stage IV GFR 15-29 Severely Decreased</content>
<content>Stage V GFR <15 Very Little GFR Left</content>
<content>ESRD GFR <15 on TECHNICAL AGRONOMIST</content>
<content></content> Creatinine For GFR 1.05 mg/dL 0.70-1.30 Normal (applies to non -numeric results) [facility] ([facility], ) Sodium Level 141 meq/L 136-145 Normal (applies to non-numeric res ults) [facility] ([facility]) Chloride Level 105 meq/L 98-107 Normal (applies to non-numeric r esults) [facility] ([facility], ) Potassium Serum 4.3 meq/L 3.5-5.1 Normal (applies to non-numeric results) [facility] ([facility], ) Calcium Level 9.3 mg/dL 8.5-10.1 Normal (applies to non-numeric re sults) [facility] ([facility], ) Carbon Dioxide Level 31 meq/L 21-32 Normal (applies to non-num evin results) [facility]) Anion Gap 5 meq/L 8-16 Below low normal [facility] ( [facility]) Ast/Sgot 37 U/L 7-37 Normal (applies to non-numeric resul ts) [facility] ([facility]) Alt/SGPT 35 U/L 12-78 Normal (applies to non-numeric resul ts) [facility]) Alkaline Phosphatase 74 U/L 45-117 Normal (applies to non-num evin results) [facility]) Bilirubin,Total 0.3 mg/dL 0.2-1.0 Normal (applies to non-numeric results) [facility] ([facility]) Albumin 3.9 GM/DL 3.2-5.2 Normal (applies to non-numeric resul ts) [facility] ([facility]) Albumin/Globulin Ratio 1.3 Normal (applies to non-n umeric results) [facility] ([facility]) Total Protein 6.8 GM/DL 6.4-8.2 Normal (applies to non-numeric re sults) [facility] [facility]) ID Date Data Source [id number] 04/17/2020 05:00:[address] [facility] ([facility]) Name Value Range Interpretation Code Description Data Barb rce(s) Supporting Document(s) White Blood Count 5.8 10 4.0-10.0 Normal (applies to non-numeri c results) [facility] ([facility], ) Hemoglobin 15.5 g/dL 13.5-17.5 Normal (applies to non-numeric resul ts) [facility]) Red Blood Count 4.94 10 4.30-6.10 Normal (applies to non-numeric results) [facility]) Hematocrit 45.2 % 42.0-52.0 Normal (applies to non-numeric resul ts) [facility]) Mean Corpuscular Volume 91.5 fl 80.0-96.0 Normal ( applies to non-numeric results) [facility] ([facility]) Mean Corpuscular Hemoglobin 31.4 pg 27.0-33.0 Norm al (applies to non-numeric results) [facility]) Mean Corpuscular HGB Conc 34.3 g/dL 32.0-36.5 Normal (applies to non-numeric results) [facility] ([facility]) Red Cell Distribution Width 12.2 % 11.5-14.5 Norm al (applies to non-numeric results) [facility] ([facility]) Platelet Count, Automated 225 10 150-450 Normal (applies to non-numeric results) [facility]) Neutrophils % 38.5 % 36.0-66.0 Normal (applies to non-numeric re sults) [facility]) Lymph % 50.9 % 24.0-44.0 Above high normal [facility] ([facility]) [place] % 7.7 % 0.0-5.0 Above high normal [facility] ([facility]) Baso % 0.7 % 0.0-1.0 Normal (applies to non-numeric resul ts) [facility] Eos % 1.7 % 0.0-3.0 Normal (applies to non-numeric resul ts) [facility]) Immature Granulocyte % 0.5 % 0-3.0 Normal (applies to non-n umeric results) [facility]) Nucleated Red Blood Cell % 0.0 % 0-0 Normal (applies to n on-numeric results) [facility]) Neutrophils # 2.3 10 1.5-8.5 Normal (applies to non-numeric re sults) [facility]) [place] # 0.5 10 0.0-0.8 Normal (applies to non-numeric resul ts) [facility] Lymph # 3.0 10 1.5-5.0 Normal (applies to non-numeric resul ts) [facility] Baso # 0.0 10 0.0-0.2 Normal (applies to non-numeric resul ts) [facility] ([facility]) Eos # 0.1 10 0.0-0.5 Normal (applies to non-numeric resul ts) [facility] ([facility], ) ID Date Data Source [id number] 03/19/2020 03:06:00 PM EST [facility] Name Value Range Interpretation Code Description Data Barb rce(s) Supporting Document(s) SARS coronavirus 2 RNA panel N [facility] This lab was ordered by [facility] [place] and reported by [facility]. ID Date Data Source [id number] 03/17/2020 12:41:00 PM EST [facility] ([facility]) Name Value Range Interpretation Code Description Data Barb rce(s) Supporting Document(s) Surgical pathology study Laboratory test result [facility] ([facility]) <content>FINAL DIAGNOSIS</content>
< content></content>
<content>A - Duodenum, [...] bleeding, change in bowel habits</content>
<content>03/17/2020 - 153</content>
<content></content>
<content>GROSS DIAGNOSIS</content>
<content></content>
<content>A - Received [...] 03/18/2020 1437</content>
<content></content> ID Date Data Source [id number] 03/12/2020 10:30:00 AM EDT [facility] Name Value Range Interpretation Code Description Data Barb rce(s) Supporting Document(s) SARS coronavirus 2 RNA [facility] This lab was ordered by [facility] and reported by [facility]. Procedure Social History Code Duration Value Status Description Data Source(s ) Smoking 11/12/2020 12:00:00 AM EDT Non Smoker completed Non Smoke r [facility] ([facility], ) Vital Signs ID Date Data Source UNK Name Value Range Interpretation Code Description Data Source(s) Diastolic blood pressure 62 mm[Hg] 62 mm[Hg] eCW1 ([facility]) Body weight 170 [lb_av] 170 [lb_av] eCW1 ([facility]) Body height 65 [in_i] 65 [in_i] eCW1 ([facility]) Body mass index (BMI) [Ratio] 28.29 kg/m2 28.29 kg/m2 eCW1 ([facility]) Heart rate 90 /min 90 /min eCW1 ([facility]) Respiratory rate 18 /min 18 /min eCW1 ([facility]) Body temperature 96.6 [degF] 96.6 [degF] eCW1 ( [facility]) Systolic blood pressure 116 mm[Hg] 116 mm[Hg] e CW1 ([facility]) Body weight 161.8 [lb_av] 161.8 [lb_av] eCW1 ([facility]) Body height 65 [in_i] 65 [in_i] eCW1 ([facility]) Body mass index (BMI) [Ratio] 26.92 kg/m2 26.92 kg/m2 eCW1 ([facility]) Heart rate 96 /min 96 /min eCW1 ([facility]) Respiratory rate 18 /min 18 /min eCW1 ([facility]) Body temperature 97.3 [degF] 97.3 [degF] eCW1 ( [facility]) Systolic blood pressure 120 mm[Hg] 120 mm[Hg] e CW1 ([facility]) Diastolic blood pressure 70 mm[Hg] 70 mm[Hg] eCW1 ([facility]) [place] body weight 136 [lb_av] 136 [lb_av] [facility] T ([facility], ) Body weight 72.576 kg [address] [facility] ([facility], ) Body height 65 [in_i] 65 [in_i] [facility] ([facility]) 5'5" Body weight 160.00 [lb_av] 160.00 [lb_av] [facility] T ([facility], ) Body mass index (BMI) [Ratio] 26.6 kg/m2 26.6 k g/m2 [facility] ([facility]) Body surface area Derived from formula 1.80 m[address] [facility] ([facility], ) Oxygen saturation in Arterial blood by Pulse oximetry 96 % 96 % [facility] ([facility]) Systolic blood pressure 120 mm[Hg] 120 mm[Hg] M EDENT ([facility], ) Diastolic blood pressure 64 mm[Hg] 64 mm[Hg] [facility] ([facility], ) Body surface area Derived from formula 1.81 m2 1.[address] [facility] ([facility]) Body weight 73.937 kg 73.937 kg [facility] ([facility]) Heart rate 66 /min 66 /min [facility] ([facility]) Body temperature 97.8 [degF] 97.8 [degF] [facility] ([facility]) Body height 65 [in_i] 65 [in_i] [facility] ([facility]) 5'5" Body weight 163.00 [lb_av] 163.00 [lb_av] [facility] T ([facility]) Body mass index (BMI) [Ratio] 27.1 kg/m2 27.1 k g/m2 [facility] ([facility]) [place] body weight 136 [lb_av] 136 [lb_av] [facility] ([facility]) Diastolic blood pressure 64 mm[Hg] 64 mm[Hg] [facility] ([facility]) Oxygen saturation in Arterial blood by Pulse oximetry 99 % 99 % [facility] ([facility]) Body mass index (BMI) [Ratio] 27.6 kg/m2 27.6 k g/m2 [facility] ([facility]) [place] body weight 136 [lb_av] 136 [lb_av] [facility] ([facility]) Body weight 75.298 kg 75.[address] [facility] ([facility]) Body surface area Derived from formula 1.83 m2 [address] [facility] ([facility]) Body temperature 97.0 [degF] 97.0 [degF] [facility] ([facility]) Body height 65 [in_i] 65 [in_i] [facility] ([facility]) 5'5" Body weight 166.00 [lb_av] 166.00 [lb_av] [facility] T ([facility]) Systolic blood pressure 110 mm[Hg] 110 mm[Hg] M EDENT ([facility]) Heart rate 75 /min 75 /min [facility] ([facility]) Body height 65 [in_i] 65 [in_i] [facility] ([facility]) 5'5" [place] body weight 136 [lb_av] 136 [lb_av] [facility] T ([facility]) Body weight 70.308 kg [address] [facility] ([facility]) Body surface area Derived from formula 1.78 m2 [address] [facility] ([facility]) Body weight 155.00 [lb_av] 155.00 [lb_av] [facility] ([facility]) Body mass index (BMI) [Ratio] 25.8 kg/m2 25.8 k g/m2 [facility] ([facility]) Body height 65 [in_i] 65 [in_i] [facility] ([facility]) 5'5" Body weight 155.00 [lb_av] 155.00 [lb_av] [facility] ([facility]) Body mass index (BMI) [Ratio] 25.8 kg/m2 25.8 k g/m2 [facility] ([facility]) [place] body weight 136 [lb_av] 136 [lb_av] [facility] ([facility]) Body weight 70.308 kg [address] [facility] ([facility]) Body surface area Derived from formula 1.78 m2 [address] [facility] ([facility]) Body weight 167 [lb_av] 167 [lb_av] eCW1 ([facility]) Body height 65 [in_i] 65 [in_i] eCW1 ([facility]) Body mass index (BMI) [Ratio] 27.79 kg/m2 27.79 kg/m2 eCW1 ([facility]) Heart rate 85 /min 85 /min eCW1 ([facility]) Respiratory rate 18 /min 18 /min eCW1 ([facility]) Body temperature 96.7 [degF] 96.7 [degF] eCW1 ( [facility]) Systolic blood pressure 132 mm[Hg] 132 mm[Hg] e CW1 ([facility]) Diastolic blood pressure 70 mm[Hg] 70 mm[Hg] eCW1 ([facility]) Body weight 165.4 [lb_av] 165.4 [lb_av] eCW1 ([facility]) Body height 65 [in_i] 65 [in_i] eCW1 ([facility]) Body mass index (BMI) [Ratio] 27.52 kg/m2 27.52 kg/m2 eCW1 ([facility]) Heart rate 56 /min 56 /min eCW1 ([facility]) Respiratory rate 18 /min 18 /min eCW1 ([facility]) Systolic blood pressure 116 mm[Hg] 116 mm[Hg] e CW1 ([facility]) Diastolic blood pressure 68 mm[Hg] 68 mm[Hg] eCW1 ([facility]) Systolic blood pressure 138 mm[Hg] 138 mm[Hg] M EDENT ([facility], ) Diastolic blood pressure 100 mm[Hg] 100 mm[Hg] [facility] ([facility], ) Body weight 155.00 [lb_av] 155.00 [lb_av] MED[facility] T ([facility], ) Body height 65 [in_i] 65 [in_i] [facility] 5'5" Body mass index (BMI) [Ratio] 25.8 kg/m2 25.8 k g/m2 [facility] ([facility], ) [place] body weight 136 [lb_av] 136 [lb_av] [facility] T ([facility], ) Body weight 70.308 kg [address] [facility] ([facility]) Body surface area Derived from formula 1.78 m2 [address] [facility] ([facility], ) Systolic blood pressure 138 mm[Hg] 138 mm[Hg] M [facility] ([facility], ) Diastolic blood pressure 72 mm[Hg] 72 mm[Hg] [facility] Body height 65 [in_i] 65 [in_i] [facility] ([facility], ) 5'5" Body weight 160.00 [lb_av] 160.00 [lb_av] [facility] T ([facility]) Body mass index (BMI) [Ratio] 26.6 kg/m2 26.6 k g/m2 [facility] ([facility]) [place] body weight 136 [lb_av] 136 [lb_av] [facility] T ([facility]) Body weight 72.576 kg [address] [facility] ([facility]) Body surface area Derived from formula 1.80 m2 [address] [facility] ([facility]) Body weight 165 [lb_av] 165 [lb_av] eCW1 ([facility]) Body height 65 [in_i] 65 [in_i] eCW1 ([facility]) Body mass index (BMI) [Ratio] 27.45 kg/m2 27.45 kg/m2 W1 ([facility]) Heart rate 89 /min 89 /min eCW1 ([facility]) Respiratory rate 18 /min 18 /min eCW1 ([facility]) Body temperature 97.2 [degF] 97.2 [degF] eCW1 ( [facility]) Systolic blood pressure 106 mm[Hg] 106 mm[Hg] e CW1 ([facility]) Diastolic blood pressure 66 mm[Hg] 66 mm[Hg] eCW1 ([facility]) Body weight 159 [lb_av] 159 [lb_av] eCW1 ([facility]) Body height 65 [in_i] 65 [in_i] eCW1 ([facility]) Body mass index (BMI) [Ratio] 26.46 kg/m2 26.46 kg/m2 eCW1 ([facility]) Heart rate 97 /min 97 /min eCW1 ([facility]) Respiratory rate 18 /min 18 /min eCW1 ([facility]) Body temperature 97.9 [degF] 97.9 [degF] eCW1 ( [facility]) Systolic blood pressure 102 mm[Hg] 102 mm[Hg] e CW1 ([facility]) Diastolic blood pressure 74 mm[Hg] 74 mm[Hg] eCW1 ([facility]) Patient Treatment Plan of Care Planned Activity Planned Date Details Description Data Source (s) Ondansetron 4 MG Oral Tablet 03/25/2021 12:00:00 AM EST eCW1 ([facility]) Fluconazole 150 [...]
--- OUTSIDE RECORDS SUMMARY | 2021-03-27 18:39 | CCD ---
Author Author [facility] Organization [facility] Address Unknown Phone Unavailable Care Team Providers Care Foxing Painter Name Role Phone TRAE LIVINGSTON MD Unavailable [...] Darlene Goodson MD Unavailable Unavailable Abriss, Darlene Godoson MD Unavailable Unavailable Abriss, Darlene Goodson MD Unavailable Unavailable Abriss, Darlene Goodson MD Unavailable Unavailable Abriss, Darlene Goodson MD Unavailable Unavailable Abriss, Darlene Goodson MD Unavailable Unavailable Abriss, Darlene Goodson MD Unavailable Unavailable Abriss, Darlene Goodson MD Unavailable Unavailable Abriss, Darlene Goodson MD Unavailable Unavailable Abriss, Darlene Goodson MD Unavailable Unavailable Abriss, Darlene Goodson MD Unavailable Unavailable Maldonado, Isatu RAIL DETECTOR CAR OPERATOR Unavailable Unavailable Maldonado, Isatu RAIL DETECTOR CAR OPERATOR Unavailable Unavailable Malodnado, Isatu RAIL DETECTOR CAR OPERATOR Unavailable Unavailable Maldonado, Isatu RAIL DETECTOR CAR OPERATOR Unavailable Unavailable Maldonado, Isatu RAIL DETECTOR CAR OPERATOR Unavailable Unavailable Maldonado, Isatu RAIL DETECTOR CAR OPERATOR Unavailable Unavailable Maldonado, Isatu RAIL DETECTOR CAR OPERATOR Unavailable Unavailable Maldonado, Isatu RAIL DETECTOR CAR OPERATOR Unavailable Unavailable Maldonado, Isatu RAIL DETECTOR CAR OPERATOR Unavailable Unavailable Maldonado, Isatu RAIL DETECTOR CAR OPERATOR Unavailable Unavailable Maldonado, Isatu RAIL DETECTOR CAR OPERATOR Unavailable Unavailable Maldonado, Isatu RAIL DETECTOR CAR OPERATOR Unavailable Unavailable Maldonado, Isatu RAIL DETECTOR CAR OPERATOR Unavailable Unavailable Maldonado, Isatu RAIL DETECTOR CAR OPERATOR Unavailable Unavailable Maldonado, Isatu RAIL DETECTOR CAR OPERATOR Unavailable Unavailable Maldonado, Isatu RAIL DETECTOR CAR OPERATOR Unavailable Unavailable Maldonado, Isatu RAIL DETECTOR CAR OPERATOR Unavailable Unavailable Maldonado, Isatu RAIL DETECTOR CAR OPERATOR Unavailable Unavailable Maldonado, Isatu RAIL DETECTOR CAR OPERATOR Unavailable Unavailable Maldonado, Isatu RAIL DETECTOR CAR OPERATOR Unavailable Unavailable Maldonado, Isatu RAIL DETECTOR CAR OPERATOR Unavailable Unavailable Maldonado, Isatu RAIL DETECTOR CAR OPERATOR Unavailable Unavailable Charlebois, A Nargis RPA [...] C Unavailable Unavailable JOSE DANIEL, LITTLE STEVE PRESIDENT AND CHIEF COMMERCIAL OFFICER-C Unavailable Unavailable JOSE DANIEL, LITTLE STEVE PRESIDENT AND CHIEF COMMERCIAL OFFICER-C Unavailable Unavailable JOSE DANIEL, LITTLE STEVE PRESIDENT AND CHIEF COMMERCIAL OFFICER-C Unavailable Unavailable JOSE DANIEL, LITTLE STEVE PRESIDENT AND CHIEF COMMERCIAL OFFICER-C Unavailable Unavailable JOSE DANIEL, LITTLE STEVE PRESIDENT AND CHIEF COMMERCIAL OFFICER-C Unavailable Unavailable JOSE DANIEL, LITTLE STEVE PRESIDENT AND CHIEF COMMERCIAL OFFICER-C Unavailable Unavailable JOSE DANIEL, LITTLE STEVE PRESIDENT AND CHIEF COMMERCIAL OFFICER-C Unavailable Unavailable JOSE DANIEL, LITTLE STEVE PRESIDENT AND CHIEF COMMERCIAL OFFICER-C Unavailable Unavailable JOSE DANIEL, LITTLE STEVE PRESIDENT AND CHIEF COMMERCIAL OFFICER-C Unavailable Unavailable JOSE DANIEL, LITTLE STEVE PRESIDENT AND CHIEF COMMERCIAL OFFICER-C Unavailable Unavailable JOSE DANIEL, LITTLE STEVE PRESIDENT AND CHIEF COMMERCIAL OFFICER-C Unavailable Unavailable JOSED ANIEL, LITTLE STEVE PRESIDENT AND CHIEF COMMERCIAL OFFICER-C Unavailable Unavailable JOSE DANIEL, LITTLE STEVE PRESIDENT AND CHIEF COMMERCIAL OFFICER-C Unavailable Unavailable JOSE DANIEL, LITTLE STEVE PRESIDENT AND CHIEF COMMERCIAL OFFICER-C Unavailable Unavailable JOSE DANIEL, LITTLE STEVE PRESIDENT AND CHIEF COMMERCIAL OFFICER-C Unavailable Unavailable JOSE DANIEL, LITTLE STEVE PRESIDENT AND CHIEF COMMERCIAL OFFICER-C Unavailable Unavailable JOSE DANIEL, LITTLE STEVE PRESIDENT AND CHIEF COMMERCIAL OFFICER-C Unavailable Unavailable Re-disclosure Warning The records that [...] is protected by Article 27-F of the [facility] Public Health law. If you continue you may have access to information: Regarding HIV / AIDS; Provided by facilities licensed or operated by the [facility] Office of Mental Health; or Provided by the [facility] Office for People With Developmental Disabilities. If such information is present, then the following [facility] mandated warning applies: This information has [...] law may result in a fine or alf sentence or both. A general authorization for the release of medical or other information is NOT sufficient authorization for further disc losure. Family History Family Member Name Family Member Gender Family Member Status Date o f Status Description Data Source(s) Unknown Unknown Problem MEDENT ([facility]) Unknown Male Problem MEDENT ([facility] Encounters Encounter Providers Location Date Indications Data Source(s ) [place] [address] [facility] [address] 03/25/2021 12:00:00 AM EST eCW1 ([facility]) [place] [address] [facility] [address] 02/19/2021 12:00:00 AM EDT eCW1 ([facility]) Unknown [address] [facility] [address] 02/19/2021 12:00:00 AM EDT eCW1 ([facility]) Unknown [address] [facility] [address] 02/12/2021 12:00:00 AM EDT eCW1 ([facility]) [place] [address] [facility] [address] 01/08/2021 12:00:00 AM EDT eCW1 ([facility]) Unknown [address] [facility] [address] 01/07/2021 12:00:00 AM EDT eCW1 ([facility]) Unknown [address] [facility] [address] 12/26/2020 12:00:00 AM EDT eCW1 ([facility]) Unknown [address] [facility] [address] 12/16/2020 12:00:00 AM EDT eCW1 ([facility]) Outpatient [address] [facility] [address] 11/27/2020 12:00:00 AM EDT eCW1 ([facility]) Outpatient [address] [facility] [address] 11/19/2020 12:00:00 AM EDT eCW1 ([facility]) Unknown [address] [facility] [address] 11/18/2020 12:00:00 AM EDT eCW1 ([facility]) Outpatient Attender: STEVE Figueroa/Leandra/Dipesh/R eindl 11/12/2020 03:45:00 PM EDT MEDENT ([facility] [place] [address] [facility] [address] 11/12/2020 12:00:00 AM EDT [facility]CW1 [facility] [place] [address] [facility] [address] 11/11/2020 12:00:00 AM EDT eCW1 ([facility]) Unknown [address] [facility] [address] 11/06/2020 12:00:00 AM EDT eCW1 ([facility]) Unknown [address] [facility] [address] 10/15/2020 12:00:00 AM EDT eCW1 ([facility]) Unknown [address] [facility] [address] 10/10/2020 12:00:00 AM EDT eCW1 ([facility]) Outpatient Attender: STEVE Figueroa/Leandra/Dipesh/R eindl 09/24/2020 09:45:00 AM EDT MEDENT ([facility], ) [place] [address] [facility] [address] 09/10/2020 12:00:00 AM EDT eCW1 ([facility]) Unknown [address] [facility] [address] 09/09/2020 12:00:00 AM EDT eCW1 ([facility]) Outpatient Attender: Hamzah Figueroa/Leandra/Dipesh/Re indl 08/06/2020 09:00:00 AM EDT MEDENT ([facility] [place] [address] [facility] [address] 07/31/2020 12:00:00 AM EDT eCW1 [facility] [place] Outpatient Attender: Hamzah Figueroa/Leandra/Dipesh/Martina art 07/09/2020 08:15:00 AM EST MEDENT ([facility] ) Outpatient<td ID="encounterTypeDescripti onID0">COVID 19 IMM</td><td>Isatu Maldonado PRESIDENT AND CHIEF COMMERCIAL OFFICER</td><td>[facility]</td><td>06/25/2020</td><td>2:01PM</td><td>2:19PM</td><td></td> Attender: Isatu Maldonado NP [facility] 06/25/2020 02:01:00 PM EST - 06/25/2020 02:19:00 PM EST REINALDO ([facility]) 06/24/2020 12:00:00 AM EST [facility] ([facility]) Outpatient [address] [facility] [address] 06/10/2020 12:00:00 AM EST eCW1 ([facility]) Outpatient [address] [facility] [place] [address] 06/09/2020 12:00:00 AM EST eCW1 ([facility]) Unknown [address] [facility] [place] [address] 06/09/2020 12:00:00 AM EST eCW1 ([facility]) Unknown [address] [facility] [place] [address] 06/09/2020 12:00:00 AM EST eCW1 ([facility]) Unknown [address] [facility] [place] [address] 06/03/2020 12:00:00 AM EST eCW1 ([facility]) <td ID="encounterTypeDescriptionID1">COV ID 19 IMM</td><td>Isatu Maldonado PRESIDENT AND CHIEF COMMERCIAL OFFICER</td><td>[facility]</td><td>05/28/2020</td><td>1:59PM</td><td>2:17PM</td><td></td>Outpatient Attender: Isatu Maldonado NP [facility] 05/28/2020 01:59:00 PM EST - 05/28/2020 02:17:00 PM EST REINALDO ([facility]) Unknown [address] [facility] [address] 05/19/2020 12:00:00 AM EST eCW1 ([facility]) Unknown [address] [facility] [address] 05/19/2020 12:00:00 AM EST eCW1 ([facility]) Unknown [address] [facility] [place] [address] 05/05/2020 12:00:00 AM EST eCW1 ([facility]) Outpatient Attender: TRAE Figueroa/Leandra/Dipesh/Charles garrett 04/17/2020 02:45:00 PM EST MEDENT ([facility] Unknown [address] [facility] [place] [address] 03/19/2020 12:00:00 AM EST eCW1 [facility] Outpatient Attender: Nargis Figueroa/Leandra/Deepali martines/Jenny 03/10/2020 11:00:00 AM EDT MEDENT ([facility] Marely mooney, RUSSELL) Unknown [address] [facility] [place] [address] 03/04/2020 12:00:00 AM EDT eCW1 ([facility]) Unknown [address] [facility] [place] [address] 03/03/2020 12:00:00 AM EDT eCW1 ([facility]) Outpatient [address] [facility] [place] [address] 02/28/2020 12:00:00 AM EDT eCW1 ([facility]) Unknown [address] [facility] [place] [address] 02/22/2020 12:00:00 AM EDT eCW1 ([facility]) Outpatient [address] [facility] [place] [address] 02/21/2020 12:00:00 AM EDT eCW1 ([facility]) Unknown [address] [facility] [address] 02/21/2020 12:00:00 AM EDT eCW1 ([facility]) Immunizations Vaccine Date Status Description Data Source(s) Moderna COVID-19 06/25/2020 02:05:00 PM EST completed <td ID="Nneiqajvgpnlp-Igljqvmhwgl-HC0">Moderna COVID-19</td><td ID="ImmunizationDose-5">2</td><td>06/25/2020</td><td ID="Kjmgcqiwagoqw-QgxzoJojt-MO6">Right Deltoid</td><td></td><td ID="Gveyjnszzmjnn-Otrmjm-TC7">Complete (Administered)</td><td>[facility]</td><td ID="Zgocjnplastvm-Htpdr-Coaw-Comment-ID5"></td> REINALDO ([facility]) COVID-19 VACCINE a 06/25/2020 12:00:00 AM EST completed [employer] Vaccine Series Complete: YESThis Data wa s Submitted to [facility] Via [employer]. Moderna COVID-19 05/28/2020 02:02:00 PM EST completed <td ID="Vqqjcadpzamza-Auvkkexkcnu-PS4">Moderna COVID-19</td><td ID="ImmunizationDose-4">1</td><td>05/28/2020</td><td ID="Utdnyhqfjhehv-FejdrXddc-ZS4">Left Deltoid</td><td></td><td ID="Wxibudkbexsmk-Wfaahl-ZH5">Complete (Administered)</td><td>[facility]</td><td ID="Oxlrnttjovyev-Yyfam-Bwon-Comment-ID4"></td> REINALDO ([facility]) Note: VACCINE ADMINISTERED BY ANABEL Moctezuma LPN COVID-19 VACCINE Moderna 05/28/2020 12:00:00 AM EST completed [employer] Vaccine Series Complete: NOThis Data was Submitted to [facility] Via [employer]. Medications Medication Brand Name Start Date Product Form Dose Route Admi nistrative Instructions Pharmacy Instructions Status Indications Reaction Description Data Source(s) Ondansetron 4 MG Oral Tablet Ondansetron HCl 4 MG Ondansetro n HCl 4 MG 03/25/2021 12:00:00 AM EST 1.0 {tablet} active Ondansetron HCl 4 MG eCW1 ([facility]) Fluconazole 150 MG Oral Tablet [Diflucan] Diflucan 150 MG Di flucan 150 MG 02/19/2021 12:00:00 AM EDT 1.0 {tablet} active Diflucan 150 MG eCW1 ([facility]) Fluconazole 150 MG Oral Tablet [Diflucan] Diflucan 150 MG Di flucan 150 MG 02/19/2021 12:00:00 AM EDT 1.0 {tablet} active Diflucan 150 MG eCW1 ([facility]) Fluconazole 150 MG Oral Tablet [Diflucan] Diflucan 150 MG Di flucan 150 MG 02/19/2021 12:00:00 AM EDT 1.0 {tablet} active Diflucan 150 MG eCW1 ([facility]) Covid-19 vaccine, Unspecified 06/25/2020 12:00:00 AM EST completed MEDENT ([facility]) Medication administered onsite POLYETHYLENE GLYCOL 3350 142 MG/ML Oral Solution [Miralax] M iralax 06/23/2020 12:00:00 AM EST completed MEDENT ([facility]) Hydrocortisone 25 MG/ML Topical Cream [Anusol HC] Anus ol-HC 2.5 % Anusol-HC 2.5 % 06/10/2020 12:00:00 AM EST 1.0 {application} suspended Anusol-HC 2.5 % eCW1 ([facility]) Hydrocortisone 25 MG/ML Topical Cream [Anusol HC] Anus ol-HC 2.5 % Anusol-HC 2.5 % 06/10/2020 12:00:00 AM EST 1.0 {application} active Anusol-HC 2.5 % eCW1 ([facility]) Hydrocortisone 25 MG/ML Topical Cream [Anusol HC] Anus ol-HC 2.5 % Anusol-HC 2.5 % 06/10/2020 12:00:00 AM EST 1.0 {application} active Anusol-HC 2.5 % eCW1 ([facility]) Hydrocortisone 25 MG/ML Topical Cream [Anusol HC] Anus ol-HC 2.5 % Anusol-HC 2.5 % 06/10/2020 12:00:00 AM EST 1.0 {application} suspended Anusol-HC 2.5 % eCW1 ([facility]) Hydrocortisone 25 MG/ML Topical Cream [Anusol HC] Anus ol-HC 2.5 % Anusol-HC 2.5 % 06/10/2020 12:00:00 AM EST 1.0 {application} suspended Anusol-HC 2.5 % eCW1 ([facility]) Hydrocortisone 25 MG/ML Topical Cream [Anusol HC] Anus ol-HC 2.5 % Anusol-HC 2.5 % 06/10/2020 12:00:00 AM EST 1.0 {application} suspended Anusol-HC 2.5 % eCW1 ([facility]) Hydrocortisone 25 MG/ML Topical Cream [Anusol HC] Anus ol-HC 2.5 % Anusol-HC 2.5 % 06/10/2020 12:00:00 AM EST 1.0 {application} suspended Anusol-HC 2.5 % eCW1 ([facility]) Hydrocortisone 25 MG/ML Topical Cream [Anusol HC] Anus ol-HC 2.5 % Anusol-HC 2.5 % 06/10/2020 12:00:00 AM EST 1.0 {application} suspended Anusol-HC 2.5 % eCW1 ([facility]) Hydrocortisone 25 MG/ML Topical Cream [Anusol HC] Anus ol-HC 2.5 % Anusol-HC 2.5 % 06/10/2020 12:00:00 AM EST 1.0 {application} active Anusol-HC 2.5 % eCW1 ([facility]) Hydrocortisone 25 MG/ML Topical Cream [Anusol HC] Anus ol-HC 2.5 % Anusol-HC 2.5 % 06/10/2020 12:00:00 AM EST 1.0 {application} active Anusol-HC 2.5 % eCW1 ([facility]) Hydrocortisone 25 MG/ML Topical Cream [Anusol HC] Anus ol-HC 2.5 % Anusol-HC 2.5 % 06/10/2020 12:00:00 AM EST 1.0 {application} suspended Anusol-HC 2.5 % eCW1 ([facility]) Hydrocortisone 25 MG/ML Topical Cream [Anusol HC] Anus ol-HC 2.5 % Anusol-HC 2.5 % 06/10/2020 12:00:00 AM EST 1.0 {application} suspended Anusol-HC 2.5 % eCW1 ([facility]) Hydrocortisone 25 MG/ML Topical Cream [Anusol HC] Anus ol-HC 2.5 % Anusol-HC 2.5 % 06/10/2020 12:00:00 AM EST 1.0 {application} active Anusol-HC 2.5 % eCW1 ([facility]) Hydrocortisone 25 MG/ML Topical Cream [Anusol HC] Anus ol-HC 2.5 % Anusol-HC 2.5 % 06/10/2020 12:00:00 AM EST 1.0 {application} active Anusol-HC 2.5 % eCW1 ([facility]) Hydrocortisone 25 MG/ML Topical Cream [Anusol HC] Anus ol-HC 2.5 % Anusol-HC 2.5 % 06/10/2020 12:00:00 AM EST 1.0 {application} active Anusol-HC 2.5 % eCW1 ([facility]) Hydrocortisone 25 MG/ML Topical Cream [Anusol HC] Anus ol-HC 2.5 % Anusol-HC 2.5 % 06/10/2020 12:00:00 AM EST 1.0 {application} active Anusol-HC 2.5 % eCW1 ([facility]) Hydrocortisone 25 MG/ML Topical Cream [Anusol HC] Anus ol-HC 2.5 % Anusol-HC 2.5 % 06/10/2020 12:00:00 AM EST 1.0 {application} active Anusol-HC 2.5 % eCW1 ([facility]) Hydrocortisone 25 MG/ML Topical Cream [Anusol HC] Anus ol-HC 2.5 % Anusol-HC 2.5 % 06/10/2020 12:00:00 AM EST 1.0 {application} active Anusol-HC 2.5 % eCW1 ([facility]) Hydrocortisone 25 MG/ML Topical Cream [Anusol HC] Anus ol-HC 2.5 % Anusol-HC 2.5 % 06/10/2020 12:00:00 AM EST 1.0 {application} suspended Anusol-HC 2.5 % eCW1 ([facility]) Hydrocortisone 25 MG/ML Topical Cream [Anusol HC] Anus ol-HC 2.5 % Anusol-HC 2.5 % 06/10/2020 12:00:00 AM EST 1.0 {application} active Anusol-HC 2.5 % eCW1 ([facility]) Hydrocortisone 25 MG/ML Topical Cream [Anusol HC] Anus ol-HC 2.5 % Anusol-HC 2.5 % 06/10/2020 12:00:00 AM EST 1.0 {application} suspended Anusol-HC 2.5 % eCW1 ([facility]) Covid-19 vaccine, Unspecified 05/28/2020 12:00:00 AM EST completed MEDENT ([facility]) Medication administered onsite Suprep Bowel Prep Kit Suprep Bowel Prep Kit 04/17/2020 12:00:00 AM EST completed MEDENT ([facility]) hydrocortisone acetate 25 MG Rectal Suppository [Anucort-HC] Anucort-HC 03/19/2020 12:00:00 AM EST completed MEDENT ([facility]) Magnesium Hydroxide 80 MG/ML Oral Suspension Milk Of Magnesi a 03/10/2020 12:00:00 AM EDT ORAL completed MEDENT ([facility], ) Suprep Bowel Prep Kit Suprep Bowel Prep Kit 03/10/2020 12:00:00 AM EDT completed MEDENT ([facility], ) Insurance Providers Payer name Policy type / Coverage type Policy ID Covered republican ID Covered republican's relationship to krishna Policy Krishna Plan Information Medicaid of [place] Other 01 [id number] Self 01 BLUE CROSS [id number] SP [id number] BCBS of [facility] Other 0 [id number] Self 0 BLUE CROSS [id number] SP [id number] BCBS of [facility] Other 0 [id number] Self 0 EXCELLUS C [id number] Self [id number] MEDICAID M [id number] Self [id number] BCBS of [facility] Other 0 [id number] Self 0 [place]/307 [id number] SP [id number] [place]BS [place]/307 [id number] SP [id number] MEDICAID [id number] SP [id number] Medicaid - Gen One Cig [id number] Medica id [id number] ID IDENTIFICATION [id number] Other Insurance [id number] [employer] Cross [id number] Blue Cross/Kathie eld [id number] ANSI-Commercial [id number] ANSI-Medicaid [id number] [facility]-Medicaid [id number] ANSI-Commercial [id number] ANSI-Medicaid [id number] ANSI-Commercial [id number] BCBS/[employer] Commercial [id number] Self [id number] [place]BS [place]/307 [id number] SP [id number] ANSI-Medicaid [id number] ANSI-Commercial [id number] BCBS/[employer] Commercial [id number] Self Medicaid of [place] Other 01 [id number] Self 01 [facility] [id number] SP [id number] EXCELLUS BC BS [id number] SP [id number] [employer] Blue Cross Commercial [id number] Self BCBS [place]/307 [id number] SP [id number] [place]BS [place] 306/806 [id number] SP [id number] BLUE CROSS [id number] SP [id number] [place] [id number] SP [id number] BCBS [place] 302/307 [id number] SP [id number] BCBS [place] 302/307 [id number] SP [id number] [place] [id number] SP [id number] BCBS of [facility] Other 0 [id number] Self 0 [place] 302/307 [id number] SP [id number] Medicaid [facility] Other 01 [id number] Self 01 MEDICAID M [id number] S [id number] [employer] BCBS B [id number] S [id number] Problems, Conditions, and Diagnoses Code Display Name Description Problem Type Effective Dates Data Source(s) N48.9 Disorder of penis Penile abnormality Problem 03/10/2021 12:00:00 AM EDT eCW1 ([facility]) I86.1 Varicocele Varicocele Problem 02/19/2021 12:00:00 AM ED T eCW1 ([facility]) B36.9 Fungal dermatitis Fungal dermatitis Problem 02/19/2021 12:00:00 AM EDT eCW1 ([facility]) E03.8 [id number] Secondary hypothyroidism Problem 11/27/2020 12:00:00 AM EDT eCW1 ([facility]) B20 [id number] Human immunodeficiency virus [HIV] diseas e Problem 05/05/2020 12:00:00 AM EST eCW1 ([facility]) 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 Problem 02/28/2020 12:00:00 AM EDT eCW1 ([facility]) F31.9 11644488 Bipolar 1 disorder, depressed Problem 2019 12:00:00 AM EDT eCW1 ([facility]) C79.9 [id number] Malignant melanoma, metastatic Problem 02/28/2020 12:00:00 AM EDT eCW1 ([facility]) Surgeries/Procedures Procedure Description Date Indications Data Source(s) LARYNGOSCOPY FLEXIBLE FIBEROPTIC DIAGNOSTIC 11/13/2020 12:00:00 AM EDT MEDENT ([facility]) OFFICE OUTPATIENT VISIT 15 MINUTES 11/12/2020 12:00:00 AM EDT MEDENT ([facility]) OFFICE OUTPATIENT VISIT 15 MINUTES 09/24/2020 12:00:00 AM EDT [facility] ([facility]) OFFICE OUTPATIENT VISIT 15 MINUTES 08/06/2020 12:00:00 AM EDT [facility] ([facility]) Capsule Endoscopy Small Bowel 07/14/2020 12:00:[address] [facility] ([facility]) OFFICE OUTPATIENT VISIT 25 MINUTES 07/09/2020 12:00:00 AM EST [facility] ([facility]) Moderna COVID-19 Vaccine Moderna COVID-19 Vaccine 06/25/2020 12:00: 00 AM EST REINALDO ([facility]) Colonoscopy Flexible Proximal To Splenic Flexure W/Biopsy Si ngle/ 06/23/2020 12:00:00 AM EST [facility]ENT ([facility]) Moderna COVID-19 Vaccine Moderna COVID-19 Vaccine 05/28/2020 12:00: 00 AM EST REINALDO ([facility]) Moderna COVID19 Vaccine Administration First Dose Mode rna COVID19 Vaccine Administration First Dose 05/28/2020 12:00:00 AM EST GREEN[place] Y ([facility]) Endoscopy Upper GI Biopsy 03/17/2020 12:00:00 AM EST [facility]ENT ([facility]) Colonoscopy Flexible Proximal To Splenic Flexure W/Biopsy Si ngle/ 03/17/2020 12:00:00 AM EST [facility] ([facility]) Results ID Date Data Source [id number] 03/13/2021 05:33:00 PM EDT [facility] Name Value Range Interpretation Code Description Data Barb rce(s) Supporting Document(s) SARS coronavirus 2 RNA [Presence] in Res piratory specimen by [facility] with probe detection NEGATIVE [facility] This lab was ordered by [facility] a nd reported by [facility]. ID Date Data Source [id number] 11/14/2020 12:29:00 AM EDT [facility] Name Value Range Interpretation Code Description Data Barb rce(s) Supporting Document(s) SARS coronavirus 2 RNA [Presence] in Res piratory specimen by BRADLEY with probe detection NEGATIVE [facility] This lab was ordered by [facility] a nd reported by [facility]. ID Date Data Source [id number] 11/07/2020 03:56:00 AM EDT [facility] Name Value Range Interpretation Code Description Data Barb rce(s) Supporting Document(s) SARS coronavirus 2 RNA [Presence] in Res piratory specimen by BRADLEY with probe detection NEGATIVE [facility] This lab was ordered by [facility] a nd reported by [facility]. ID Date Data Source [id number] 10/30/2020 01:08:00 PM EDT [facility] Name Value Range Interpretation Code Description Data Barb rce(s) Supporting Document(s) SARS coronavirus 2 RNA NOT DETECTED [facility] [place] This lab was ordered by [facility] and reported by [facility]. ID Date Data Source [id number] 06/23/2020 07:53:00 AM EST [facility] ([facility], ) Name Value Range Interpretation Code Description Data Barb rce(s) Supporting Document(s) Surgical pathology study Laboratory test result [facility] ([facility], ) FINAL DIAGNOSIS Colon, random, biopsies: [...] MD 06/24/2020 1422 ID Date Data Source [id number] 06/18/2020 01:05:00 PM EST [facility] Name Value Range Interpretation Code Description Data Barb rce(s) Supporting Document(s) SARS coronavirus 2 RNA Not Detected [facility] This lab was ordered by [facility] and reported by [facility]. ID Date Data Source [id number] 04/28/2020 07:43:00 PM EST [facility] Name Value Range Interpretation Code Description Data Barb rce(s) Supporting Document(s) SARS coronavirus 2 RNA [facility] This lab was ordered by [facility] [place] and reported by [facility] [place]. ID Date Data Source [id number] 04/17/2020 05:01:00 PM EST [facility] ([facility], ) Name Value Range Interpretation Code Description Data Barb rce(s) Supporting Document(s) Glucose, Fasting 95 mg/dL 70-100 Normal (applies to non-numeric results) [facility] ([facility], ) Blood Urea Nitrogen 21 mg/dL 7-18 Above high normal [facility] ([facility], ) Glomerular Filtration Rate Laboratory test result Normal (applies to non- numeric results) [facility] ([facility], ) <content>Units are mL/min/1.73 m2</content>
<content></content>
<content>Chronic Kidney Disease Staging per NKF:</content>
<content></content>
<content>Stage I & II GFR >=60 Normal to Mildly Decreased</content>
<content>Stage III GFR 30- 59 Moderately Decreased</content>
<content>Stage IV GFR 15-29 Severely Decreased</content>
<content>Stage V GFR <15 Very Little GFR Left</content>
<content>ESRD GFR <15 on [employer]</content>
<content></content> Creatinine For GFR 1.05 mg/dL 0.70-1.30 Normal (applies to non -numeric results) [facility] ([facility], ) Sodium Level 141 meq/L 136-145 Normal (applies to non-numeric res ults) [facility] ([facility]) Chloride Level 105 meq/L 98-107 Normal (applies to non-numeric r esults) [facility] ([facility], ) Potassium Serum 4.3 meq/L 3.5-5.1 Normal (applies to non-numeric results) [facility] ([facility], ) Calcium Level 9.3 mg/dL 8.5-10.1 Normal (applies to non-numeric re sults) [facility] ([facility], ) Carbon Dioxide Level 31 meq/L 21-32 Normal (applies to non-num evin results) [facility]) Anion Gap 5 meq/L 8-16 Below low normal [facility] ( [facility]) Ast/Sgot 37 U/L 7-37 Normal (applies to non-numeric resul ts) [facility] ([facility]) Alt/SGPT 35 U/L 12-78 Normal (applies to non-numeric resul ts) [facility]) Alkaline Phosphatase 74 U/L 45-117 Normal (applies to non-num evin results) [facility]) Bilirubin,Total 0.3 mg/dL 0.2-1.0 Normal (applies to non-numeric results) [facility] ([facility]) Albumin 3.9 GM/DL 3.2-5.2 Normal (applies to non-numeric resul ts) [facility] ([facility]) Albumin/Globulin Ratio 1.3 Normal (applies to non-n umeric results) [facility] ([facility]) Total Protein 6.8 GM/DL 6.4-8.2 Normal (applies to non-numeric re sults) [facility]) ID Date Data Source [id number] 04/17/2020 05:00:00 PM EST [facility] ([facility]) Name Value Range Interpretation Code Description Data Barb rce(s) Supporting Document(s) White Blood Count 5.8 10 4.0-10.0 Normal (applies to non-numeri c results) [facility] ([facility], ) Hemoglobin 15.5 g/dL 13.5-17.5 Normal (applies to non-numeric resul ts) [facility]) Red Blood Count 4.94 10 4.30-6.10 Normal (applies to non-numeric results) [facility]) Hematocrit 45.2 % 42.0-52.0 Normal (applies to non-numeric resul ts) [facility]) Mean Corpuscular Volume 91.5 fl 80.0-96.0 Normal ( applies to non-numeric results) [facility] ([facility]) Mean Corpuscular Hemoglobin 31.4 pg 27.0-33.0 Norm al (applies to non-numeric results) [facility]) Mean Corpuscular HGB Conc 34.3 g/dL 32.0-36.5 Normal (applies to non-numeric results) [facility] ([facility]) Red Cell Distribution Width 12.2 % 11.5-14.5 Norm al (applies to non-numeric results) [facility] ([facility]) Platelet Count, Automated 225 10 150-450 Normal (applies to non-numeric results) [facility]) Neutrophils % 38.5 % 36.0-66.0 Normal (applies to non-numeric re sults) [facility]) Lymph % 50.9 % 24.0-44.0 Above high normal [facility] ([facility]) Cherry % 7.7 % 0.0-5.0 Above high normal [facility] ([facility]) Baso % 0.7 % 0.0-1.0 Normal (applies to non-numeric resul ts) [facility] Eos % 1.7 % 0.0-3.0 Normal (applies to non-numeric resul ts) [facility]) Immature Granulocyte % 0.5 % 0-3.0 Normal (applies to non-n umeric results) [facility]) Nucleated Red Blood Cell % 0.0 % 0-0 Normal (applies to n on-numeric results) [facility]) Neutrophils # 2.3 10 1.5-8.5 Normal (applies to non-numeric re sults) [facility]) Cherry # 0.5 10 0.0-0.8 Normal (applies to non-numeric resul ts) [facility] Lymph # 3.0 10 1.5-5.0 Normal (applies to non-numeric resul ts) [facility]) Baso # 0.0 10 0.0-0.2 Normal (applies to non-numeric resul ts) [facility] ([facility]) Eos # 0.1 10 0.0-0.5 Normal (applies to non-numeric resul ts) [facility] ([facility], ) ID Date Data Source [id number] 03/19/2020 03:06:00 PM EST [facility] Name Value Range Interpretation Code Description Data Barb rce(s) Supporting Document(s) SARS coronavirus 2 RNA panel N [facility] This lab was ordered by [facility] [place] and reported by [facility]. ID Date Data Source [id number] 03/17/2020 12:41:00 PM EST [facility] ([facility]) Name Value Range Interpretation Code Description Data Barb rce(s) Supporting Document(s) Surgical pathology study Laboratory test result [facility] ([facility]) <content>FINAL DIAGNOSIS</content>
< content></content>
<content>A - [...] 03/18/2020 1437</content>
<content></content> ID Date Data Source [id number] 03/12/2020 10:30:00 AM EDT [facility] Name Value Range Interpretation Code Description Data Barb rce(s) Supporting Document(s) SARS coronavirus 2 RNA [facility] This lab was ordered by [facility] and reported by [facility]. Procedure Social History Code Duration Value Status Description Data Source(s ) Smoking 11/12/2020 12:00:00 AM EDT Non Smoker completed Non Smoke r [facility] ([facility], ) Vital Signs ID Date Data Source UNK Name Value Range Interpretation Code Description Data Source(s) Body weight 170 [lb_av] 170 [lb_av] eCW1 ([facility]) Body height 65 [in_i] 65 [in_i] eCW1 ([facility]) Body mass index (BMI) [Ratio] 28.29 kg/m2 28.29 kg/m2 eCW1 ([facility]) Heart rate 90 /min 90 /min eCW1 ([facility]) Respiratory rate 18 /min 18 /min eCW1 ([facility]) Body temperature 96.6 [degF] 96.6 [degF] eCW1 ( [facility]) Systolic blood pressure 116 mm[Hg] 116 mm[Hg] e CW1 ([facility]) Diastolic blood pressure 62 mm[Hg] 62 mm[Hg] eCW1 ([facility]) Body weight 161.8 [lb_av] 161.8 [lb_av] eCW1 ([facility]) Body height 65 [in_i] 65 [in_i] eCW1 ([facility]) Body mass index (BMI) [Ratio] 26.92 kg/m2 26.92 kg/m2 eCW1 ([facility]) Heart rate 96 /min 96 /min eCW1 ([facility]) Respiratory rate 18 /min 18 /min eCW1 ([facility]) Body temperature 97.3 [degF] 97.3 [degF] eCW1 ( [facility]) Systolic blood pressure 120 mm[Hg] 120 mm[Hg] e CW1 ([facility]) Diastolic blood pressure 70 mm[Hg] 70 mm[Hg] eCW1 ([facility]) [place] body weight 136 [lb_av] 136 [lb_av] MEDEN T ([facility], ) Body weight 72.576 kg 72.576 kg [facility] ([facility], ) Body height 65 [in_i] 65 [in_i] [facility] ([facility]) 5'5" Body weight 160.00 [lb_av] 160.00 [lb_av] MEDEN T ([facility], ) Body mass index (BMI) [Ratio] 26.6 kg/m2 26.6 k g/m2 [facility] ([facility]) Body surface area Derived from formula 1.80 m2 1.80 m2 [facility] ([facility], ) Oxygen saturation in Arterial blood by Pulse oximetry 96 % 96 % [facility] ([facility]) Systolic blood pressure 120 mm[Hg] 120 mm[Hg] [facility] Diastolic blood pressure 64 mm[Hg] 64 mm[Hg] [facility] ([facility], ) Body surface area Derived from formula 1.81 m2 1.81 m2 [facility] ([facility]) Body weight 73.937 kg 73.937 [facility] Heart rate 66 /min 66 /min [facility] ([facility]) Body temperature 97.8 [degF] 97.8 [degF] [facility] ([facility]) Body height 65 [in_i] 65 [in_i] [facility] 5'5" Body weight 163.00 [lb_av] 163.00 [lb_av] MEDEN T ([facility]) Body mass index (BMI) [Ratio] 27.1 kg/m2 27.1 k g/m2 [facility] ([facility]) [place] body weight 136 [lb_av] 136 [lb_av] MEDEN T ([facility]) Diastolic blood pressure 64 mm[Hg] 64 mm[Hg] [facility] ([facility]) Heart rate 75 /min 75 /min [facility] ([facility]) Oxygen saturation in Arterial blood by Pulse oximetry 99 % 99 % [facility] ([facility]) Body temperature 97.0 [degF] 97.0 [degF] [facility] ([facility]) Body height 65 [in_i] 65 [in_i] [facility] ([facility]) 5'5" Body weight 166.00 [lb_av] 166.00 [lb_av] MED[facility] T ([facility]) Body mass index (BMI) [Ratio] 27.6 kg/m2 27.6 k g/m2 [facility] ([facility]) [place] body weight 136 [lb_av] 136 [lb_av] MED[facility] T ([facility]) Body weight 75.298 kg 75.298 kg [facility] ([facility]) Body surface area Derived from formula 1.83 m2 1.83 m2 [facility] ([facility]) Systolic blood pressure 110 mm[Hg] 110 mm[Hg] M EDENT ([facility]) Body weight 155.00 [lb_av] 155.00 [lb_av] MED[facility] T ([facility]) Body mass index (BMI) [Ratio] 25.8 kg/m2 25.8 k g/m[facility] Body height 65 [in_i] 65 [in_i] [facility] ([facility]) 5'5" [place] body weight 136 [lb_av] 136 [lb_av] MED[facility] T ([facility]) Body weight 70.308 kg 70.308 kg [facility] ([facility]) Body surface area Derived from formula 1.78 m2 1.78 m2 [facility] ([facility]) Body height 65 [in_i] 65 [in_i] [facility] ([facility]) 5'5" Body weight 155.00 [lb_av] 155.00 [lb_av] [facility] T ([facility]) Body mass index (BMI) [Ratio] 25.8 kg/m2 25.8 k g/m2 [facility] ([facility]) [place] body weight 136 [lb_av] 136 [lb_av] [facility] T ([facility]) Body weight 70.308 kg 70.308 kg [facility] ([facility]) Body surface area Derived from formula 1.78 m2 1.78 m2 [facility] ([facility]) Body weight 167 [lb_av] 167 [lb_av] eCW1 ([facility]) Body height 65 [in_i] 65 [in_i] eCW1 ([facility]) Body mass index (BMI) [Ratio] 27.79 kg/m2 27.79 kg/m2 eCW1 ([facility]) Heart rate 85 /min 85 /min eCW1 ([facility]) Respiratory rate 18 /min 18 /min eCW1 ([facility]) Body temperature 96.7 [degF] 96.7 [degF] eCW1 ( [facility]) Systolic blood pressure 132 mm[Hg] 132 mm[Hg] e CW1 ([facility]) Diastolic blood pressure 70 mm[Hg] 70 mm[Hg] eCW1 ([facility]) Body weight 165.4 [lb_av] 165.4 [lb_av] eCW1 ([facility]) Body height 65 [in_i] 65 [in_i] eCW1 ([facility]) Body mass index (BMI) [Ratio] 27.52 kg/m2 27.52 kg/m2 eCW1 ([facility]) Heart rate 56 /min 56 /min eCW1 ([facility]) Respiratory rate 18 /min 18 /min eCW1 ([facility]) Systolic blood pressure 116 mm[Hg] 116 mm[Hg] e CW1 ([facility]) Diastolic blood pressure 68 mm[Hg] 68 mm[Hg] eCW1 ([facility]) Systolic blood pressure 138 mm[Hg] 138 mm[Hg] M EDENT ([facility], ) Diastolic blood pressure 100 mm[Hg] 100 mm[Hg] [facility] ([facility], ) Body weight 155.00 [lb_av] 155.00 [lb_av] MEDEN T ([facility], ) Body height 65 [in_i] 65 [in_i] [facility] 5'5" Body mass index (BMI) [Ratio] 25.8 kg/m2 25.8 k g/m2 [facility] ([facility], ) [place] body weight 136 [lb_av] 136 [lb_av] MEDEN T ([facility], ) Body weight 70.308 kg 70.308 kg [facility] ([facility]) Body surface area Derived from formula 1.78 m2 1.78 m2 [facility] ([facility], ) Systolic blood pressure 138 mm[Hg] 138 mm[Hg] M EDENT ([facility], ) Diastolic blood pressure 72 mm[Hg] 72 mm[Hg] [facility] Body height 65 [in_i] 65 [in_i] [facility] ([facility], ) 5'5" Body weight 160.00 [lb_av] 160.00 [lb_av] MEDEN T ([facility]) Body mass index (BMI) [Ratio] 26.6 kg/m2 26.6 k g/m2 [facility] ([facility]) [place] body weight 136 [lb_av] 136 [lb_av] MEDEN T ([facility]) Body weight 72.576 kg 72.576 kg [facility] ([facility]) Body surface area Derived from formula 1.80 m2 1.80 m2 [facility]) Body weight 165 [lb_av] 165 [lb_av] eCW1 ([facility]) Body height 65 [in_i] 65 [in_i] eCW1 ([facility]) Body mass index (BMI) [Ratio] 27.45 kg/m2 27.45 kg/m2 W1 ([facility]) Heart rate 89 /min 89 /min eCW1 ([facility]) Respiratory rate 18 /min 18 /min eCW1 ([facility]) Body temperature 97.2 [degF] 97.2 [degF] eCW1 ( [facility]) Systolic blood pressure 106 mm[Hg] 106 mm[Hg] e CW1 ([facility]) Diastolic blood pressure 66 mm[Hg] 66 mm[Hg] eCW1 ([facility]) Body weight 159 [lb_av] 159 [lb_av] eCW1 ([facility]) Body height 65 [in_i] 65 [in_i] eCW1 ([facility]) Body mass index (BMI) [Ratio] 26.46 kg/m2 26.46 kg/m2 eCW1 ([facility]) Heart rate 97 /min 97 /min eCW1 ([facility]) Respiratory rate 18 /min 18 /min eCW1 ([facility]) Body temperature 97.9 [degF] 97.9 [degF] eCW1 ( [facility]) Systolic blood pressure 102 mm[Hg] 102 mm[Hg] e CW1 ([facility]) Diastolic blood pressure 74 mm[Hg] 74 mm[Hg] eCW1 ([facility]) Patient Treatment Plan of Care Planned Activity Planned Date Details Description Data Source (s) Ondansetron 4 MG Oral Tablet 03/25/2021 12:00:00 AM EST eCW1 ([facility]) Fluconazole 150 MG Oral Tablet [Diflucan] 02/19/2021 12:00:00 AM ED T eCW1 ([facility]) Fluconazole 150 MG Oral Tablet [Diflucan] 02/19/2021 12:00:00 AM ED T eCW1 ([facility]) Hydrocortisone 25 MG/ML Topical Cream [Anusol HC] 06/10/2020 12: 00:00 AM EST eCW1 ([facility]) Hydrocortisone 25 MG/ML Topical Cream [Anusol HC] 06/10/2020 12: 00:00 AM EST eCW1 ([facility]) Hydrocortisone 25 MG/ML Topical Cream [Anusol HC] 06/10/2020 12: 00:00 AM EST eCW1 ([facility]) Hydrocortisone 25 MG/ML Topical Cream [Anusol HC] 06/10/2020 12: 00:00 AM EST eCW1 ([facility]) Hydrocortisone 25 MG/ML Topical Cream [Anusol HC] 06/10/2020 12: 00:00 AM EST eCW1 ([facility]) Hydrocortisone 25 MG/ML Topical Cream [Anusol HC] 06/10/2020 12: 00:00 AM EST eCW1 ([facility]) Hydrocortisone 25 MG/ML Topical Cream [Anusol HC] 06/10/2020 12: 00:00 AM EST eCW1 ([facility]) Hydrocortisone 25 MG/ML Topical Cream [Anusol HC] 06/10/2020 12: 00:00 AM EST eCW1 ([facility]) Hydrocortisone 25 MG/ML Topical Cream [Anusol HC] 06/10/2020 12: 00:00 AM EST eCW1 ([facility]) Hydrocortisone 25 MG/ML Topical Cream [Anusol HC] 06/10/2020 12: 00:00 AM EST eCW1 ([facility]) Hydrocortisone 25 MG/ML Topical Cream [Anusol HC] 06/10/2020 12: 00:00 AM EST eCW1 ([facility])
[2021-03-27 19:32] LABS: HEMATOCRIT 42.9 % (42.0-52.0); HEMOGLOBIN 14.2 g/dl (13.5-17.5); MEAN CORPUSCULAR HEMOGLOBIN 28.3 pg (27.0-33.0); MEAN CORPUSCULAR HGB CONC 33.1 g/dl (32.0-36.5); MEAN CORPUSCULAR VOLUME 85.5 fl (80.0-96.0); PLATELET COUNT, AUTOMATED 210 10^3/uL (150-450); RED BLOOD COUNT 5.02 10^6/uL (4.30-6.10)
[2021-03-27 20:03] LABS: ALBUMIN 3.5 GM/DL (3.2-5.2); ALT/SGPT 62 U/L (12-78); BILIRUBIN,DIRECT < 0.1 MG/DL (0.0-0.2); BILIRUBIN,TOTAL 0.4 MG/DL (0.2-1.0); BLOOD UREA NITROGEN 19 MG/DL (7-18); CALCIUM LEVEL 9.2 MG/DL (8.5-10.1); CARBON DIOXIDE LEVEL 29 MEQ/L (21-32); CHLORIDE LEVEL 103 MEQ/L (98-107); CREATININE FOR GFR 1.06 MG/DL (0.70-1.30); GLOMERULAR FILTRATION RATE > 60.0 (>60); GLUCOSE, FASTING 129 MG/DL (70-100); POTASSIUM SERUM 4.5 MEQ/L (3.5-5.1); SALICYLATE LEVEL < 1.7 MG/DL (5.0-30.0); SODIUM LEVEL 139 MEQ/L (136-145)
[2021-03-27 20:04] LABS: ACETAMINOPHEN LEVEL < 2.0 UG/ML (10.0-30.0); ETHYL ALCOHOL (ETHANOL) < 0.003 % (0.000-0.010)
[2021-03-27 20:51] LABS: RSV AMPLIFICATION NEGATIVE (NEGATIVE)
[2021-03-27 21:33] LABS: AMPHETAMINES LEVEL URINE NEGATIVE (NEGATIVE); BARBITURATES URINE NEGATIVE (NEGATIVE); BENZODIAZEPINES URINE NEGATIVE (NEGATIVE); CANNABINOIDS URINE NEGATIVE (NEGATIVE); COCAINE METABOLITE URINE NEGATIVE (NEGATIVE); METHADONE URINE NEGATIVE (NEGATIVE); OPIATES URINE NEGATIVE (NEGATIVE); PHENCYCLIDINE URINE NEGATIVE (NEGATIVE)
[2021-03-27] MEDS ORDERED: ACETAMINOPHEN 325 MG TAB PO ONE (21:45)
[2021-03-27] MEDS ORDERED: MAALOX 30 ML SUSP *UDC PO PRN (22:25)
[2021-03-27] MEDS ORDERED: MOM 30ML SUSPENSION UDC PO PRN (22:25)
[2021-03-27] MEDS ORDERED: MECLIZINE 12.5 MG TAB PO PRN (22:25)
[2021-03-27] MEDS ORDERED: ACETAMINOPHEN TAB 650MG DOSE (2X325MG) PO PRN (22:25)
--- OUTSIDE RECORDS SUMMARY | 2021-03-27 22:46 | CCD ---
Author Author [facility] Organization [facility] Address Unknown Phone Unavailable Care Team Providers Care Moth Proofer Name Role Phone TRAE LIVINGSTON MD Unavailable [...] Darlene Goodson MD Unavailable Unavailable Maldonado, Isatu SAMPLER TESTER Unavailable Unavailable Maldonado, Isatu SAMPLER TESTER Unavailable Unavailable Maldonado, Isatu SAMPLER TESTER Unavailable Unavailable Maldonado, Isatu SAMPLER TESTER Unavailable Unavailable Maldonado, Isatu SAMPLER TESTER Unavailable Unavailable Maldonado, Isatu SAMPLER TESTER Unavailable Unavailable Maldonado, Isatu SAMPLER TESTER Unavailable Unavailable Maldonado, Isatu SAMPLER TESTER Unavailable Unavailable Maldonado, Isatu SAMPLER TESTER Unavailable Unavailable Maldonado, Isatu SAMPLER TESTER Unavailable Unavailable Maldonado, Isatu SAMPLER TESTER Unavailable Unavailable Maldonado, Isatu SAMPLER TESTER Unavailable Unavailable Maldonado, Isatu SAMPLER TESTER Unavailable Unavailable Maldonado, Isatu SAMPLER TESTER Unavailable Unavailable Maldonado, Isatu SAMPLER TESTER Unavailable Unavailable Maldonado, Isatu SAMPLER TESTER Unavailable Unavailable Maldonado, Isatu SAMPLER TESTER Unavailable Unavailable Maldonado, Isatu SAMPLER TESTER Unavailable Unavailable Maldonado, Isatu SAMPLER TESTER Unavailable Unavailable Maldonado, Isatu SAMPLER TESTER Unavailable Unavailable Maldonado, Isatu SAMPLER TESTER Unavailable Unavailable Maldonado, Isatu SAMPLER TESTER Unavailable Unavailable Charlebois, A Nargis RPA C [...] C Unavailable Unavailable JOSE DANIEL, LITTLE STEVE SURGICAL SERVICES TECH-C Unavailable Unavailable JOSE DANIEL, LITTLE STEVE SURGICAL SERVICES TECH-C Unavailable Unavailable JOSE DANIEL, LITTLE STEVE SURGICAL SERVICES TECH-C Unavailable Unavailable JOSE DANIEL, LITTLE STEVE SURGICAL SERVICES TECH-C Unavailable Unavailable JOSE DANIEL, LITTLE STEVE SURGICAL SERVICES TECH-C Unavailable Unavailable JOSE DANIEL, LITTLE STEVE SURGICAL SERVICES TECH-C Unavailable Unavailable JOSE DANIEL, LITTLE STEVE SURGICAL SERVICES TECH-C Unavailable Unavailable JOSE DANIEL, LITTLE STEVE SURGICAL SERVICES TECH-C Unavailable Unavailable JOSE DANIEL, LITTLE STEVE SURGICAL SERVICES TECH-C Unavailable Unavailable JOSE DANIEL, LITTLE STEVE SURGICAL SERVICES TECH-C Unavailable Unavailable JOSE DANIEL, LITTLE STEVE SURGICAL SERVICES TECH-C Unavailable Unavailable JOSE DANIEL, LITTLE STEVE SURGICAL SERVICES TECH-C Unavailable Unavailable JOSE DANIEL, LITTLE STEVE SURGICAL SERVICES TECH-C Unavailable Unavailable JOSE DANIEL, LITTLE STEVE SURGICAL SERVICES TECH-C Unavailable Unavailable JOSE DANIEL, LITTLE STEVE SURGICAL SERVICES TECH-C Unavailable Unavailable JOSE DANIEL, LITTLE STEVE SURGICAL SERVICES TECH-C Unavailable Unavailable JOSE DANIEL, LITTLE STEVE SURGICAL SERVICES TECH-C Unavailable Unavailable Re-disclosure Warning The records that [...] is protected by Article 27-F of the [facility] Public Health law. If you continue you may have access to information: Regarding HIV / AIDS; Provided by facilities licensed or operated by the [facility] Office of Mental Health; or Provided by the [facility] Office for People With Developmental Disabilities. If such information is present, then the following [facility] mandated warning applies: This information has [...] law may result in a fine or senior care sentence or both. A general authorization for the release of medical or other information is NOT sufficient authorization for further disc losure. Family History Family Member Name Family Member Gender Family Member Status Date o f Status Description Data Source(s) Unknown Unknown Problem MEDENT ([facility]) Unknown Male Problem MEDENT ([facility] Encounters Encounter Providers Location Date Indications Data Source(s ) [place] [address] [facility] [facility] [address] 03/25/2021 12:00:00 AM EST eCW1 ([facility]) [place]patient [address] [facility] [facility] [address] 02/19/2021 12:00:00 AM EDT eCW1 ([facility]) [place] [address] [facility] [facility] [address] 02/19/2021 12:00:00 AM EDT eCW1 ([facility]) [place] [address] [facility] [address] 02/12/2021 12:00:00 AM EDT eCW1 ([facility]) [place] [address] [facility] [address] 01/08/2021 12:00:00 AM EDT eCW1 ([facility]) [place] [address] [facility] [address] 01/07/2021 12:00:00 AM EDT eCW1 ([facility]) [place] [address] [facility] [address] 12/26/2020 12:00:00 AM EDT eCW1 ([facility]) [place] [address] [facility] [address] 12/16/2020 12:00:00 AM EDT eCW1 ([facility]) [place] [address] [facility] [address] 11/27/2020 12:00:00 AM EDT eCW1 ([facility]) [place] [address] [facility] [address] 11/19/2020 12:00:00 AM EDT eCW1 ([facility]) [place] [address] [facility] [address] 11/18/2020 12:00:00 AM EDT eCW1 ([facility]) Outpatient Attender: STEVE Figueroa/Leandra/Dipesh/R eindl 11/12/2020 03:45:00 PM EDT MEDENT ([facility] ) [place] [address] [facility] [address] 11/12/2020 12:00:00 AM EDT [facility]CW1 ([facility]) [place] [address] [facility] [address] 11/11/2020 12:00:00 AM EDT eCW1 ([facility]) [place] [address] [facility] [address] 11/06/2020 12:00:00 AM EDT eCW1 ([facility]) [place] [address] [facility] [address] 10/15/2020 12:00:00 AM EDT eCW1 ([facility]) [place] [address] [facility] [address] 10/10/2020 12:00:00 AM EDT eCW1 ([facility]) Outpatient Attender: STVEE Figueroa/Leandra/Dipesh/R eindl 09/24/2020 09:45:00 AM EDT MEDENT ([facility], ) [place] [address] [facility] [address] 09/10/2020 12:00:00 AM EDT eCW1 ([facility]) [place] [address] [facility] [address] 09/09/2020 12:00:00 AM EDT eCW1 ([facility]) Outpatient Attender: Hamzah Figueroa/Leandra/Dipesh/Re indl 08/06/2020 09:00:00 AM EDT MEDENT ([facility] ) [place] [address] [facility] [address] 07/31/2020 12:00:00 AM EDT eCW1 ([facility]) Outpatient Attender: Hamzah Figueroa/Leandra/Dipesh/Martina art 07/09/2020 08:15:00 AM EST MEDENT ([facility] ) Outpatient<td ID="encounterTypeDescripti onID0">COVID 19 IMM</td><td>Isatu Maldonado SURGICAL SERVICES TECH</td><td>[facility]</td><td>06/25/2020</td><td>2:01PM</td><td>2:19PM</td><td></td> Attender: Isatu Maldonado NP [facility] 06/25/2020 02:01:00 PM EST - 06/25/2020 02:19:00 PM EST REINALDO ([facility]) 06/24/2020 12:00:00 AM EST [facility] ([facility]) [place]patient [address] [facility] [address] 06/10/2020 12:00:00 AM EST eCW1 ([facility]) [place] [address] [facility] [place] [address] 06/09/2020 12:00:00 AM EST eCW1 ([facility]) Unknown [address] [facility] [place] [address] 06/09/2020 12:00:00 AM EST eCW1 ([facility]) Unknown [address] [facility] [place] [address] 06/09/2020 12:00:00 AM EST eCW1 ([facility]) Unknown [address] [facility] [place] [address] 06/03/2020 12:00:00 AM EST eCW1 ([facility]) Outpatient<td ID="encounterTypeDescripti onID1">COVID 19 IMM</td><td>Isatu Maldonado SURGICAL SERVICES TECH</td><td>[facility]</td><td>05/28/2020</td><td>1:59PM</td><td>2:17PM</td><td></td> Attender: Isatu Maldonado NP [facility] 05/28/2020 01:59:00 PM EST - 05/28/2020 02:17:00 PM EST [facility] [place] [address] [facility] [address] 05/19/2020 12:00:00 AM EST eCW1 ([facility]) Unknown [address] [facility] [address] 05/19/2020 12:00:00 AM EST eCW1 ([facility]) Unknown [address] [facility] [place] [address] 05/05/2020 12:00:00 AM EST eCW1 ([facility]) Outpatient Attender: TRAE Figueroa/Leandra/Dipesh/Charles garrett 04/17/2020 02:45:00 PM EST MEDENT ([facility]) Unknown [address] [facility] [place] [address] 03/19/2020 12:00:00 AM EST [facility]CW[facility] Outpatient Attender: Nargis Figueroa/Leandra/Deepali martines/Jenny 03/10/2020 11:00:00 AM EDT MEDENT ([facility] Marely mooney, RUSSELL) Unknown [address] [facility] [place] [address] 03/04/2020 12:00:00 AM EDT [facility]CW1 [facility] Unknown [address] [facility] [place] [address] 03/03/2020 12:00:00 AM EDT eCW1 ([facility]) Outpatient [address] [facility] [place] [address] 02/28/2020 12:00:00 AM EDT eCW1 ([facility]) Unknown [address] [facility] [place] [address] 02/22/2020 12:00:00 AM EDT eCW1 ([facility]) [place] [address] [facility] [address] 02/21/2020 12:00:00 AM EDT eCW1 ([facility]) [place] [address] [facility] [address] 02/21/2020 12:00:00 AM EDT eCW1 ([facility]) Immunizations Vaccine Date Status Description Data Source(s) Moderna COVID-19 06/25/2020 02:05:00 PM EST completed <td ID="Agthpnhhltzkn-Lnimtisbpmm-YP7">Moderna COVID-19</td><td ID="ImmunizationDose-5">2</td><td>06/25/2020</td><td ID="Yknkyisbpnigu-XkolcTqkv-IE1">Right Deltoid</td><td></td><td ID="Ejgosnmtgpshj-Nknhay-YO3">Complete (Administered)</td><td>[facility]</td><td ID="Buwktjmehannc-Zparh-Kptg-Comment-ID5"></td> REINALDO ([facility]) COVID-19 VACCINE a 06/25/2020 12:00:00 AM EST completed [facility] Vaccine Series Complete: YESThis Data wa s Submitted to [facility] Via [facility]. Moderna COVID-19 05/28/2020 02:02:00 PM EST completed <td ID="Ivscdknwkbvml-Irnakthojvs-HA5">Moderna COVID-19</td><td ID="ImmunizationDose-4">1</td><td>05/28/2020</td><td ID="Qoreltgejbqxc-YqrjzHoey-DD3">Left Deltoid</td><td></td><td ID="Tvthiyyszesbt-Zvtzcd-FQ2">Complete (Administered)</td><td>[facility]</td><td ID="Bbhtlzonisnqd-Kkjkb-Furr-Comment-ID4"></td> REINALDO ([facility]) Note: VACCINE ADMINISTERED BY ANABEL Moctezuma LPN COVID-19 VACCINE Moderna 05/28/2020 12:00:00 AM EST completed [facility] Vaccine Series Complete: NOThis Data was Submitted to [facility] Via [employer]. Medications Medication Brand Name Start Date Product Form Dose Route Admi nistrative Instructions Pharmacy Instructions Status Indications Reaction Description Data Source(s) Ondansetron 4 MG Oral Tablet Ondansetron HCl 4 MG Ondansetro n HCl 4 MG 03/25/2021 12:00:00 AM EST 1.0 {tablet} active Ondansetron HCl 4 MG eCW1 ([facility]) Fluconazole 150 MG Oral Tablet [Diflucan] Diflucan 150 MG Di flucan 150 MG 02/19/2021 12:00:00 AM EDT 1.0 {tablet} active Diflucan 150 MG eCW1 ([facility]) Fluconazole 150 MG Oral Tablet [Diflucan] Diflucan 150 MG Di flucan 150 MG 02/19/2021 12:00:00 AM EDT 1.0 {tablet} active Diflucan 150 MG eCW1 ([facility]) Fluconazole 150 MG Oral Tablet [Diflucan] Diflucan 150 MG Di flucan 150 MG 02/19/2021 12:00:00 AM EDT 1.0 {tablet} active Diflucan 150 MG eCW1 ([facility]) Covid-19 vaccine, Unspecified 06/25/2020 12:00:00 AM EST completed MEDENT ([facility]) Medication administered onsite POLYETHYLENE GLYCOL 3350 142 MG/ML Oral Solution [Miralax] M iralax 06/23/2020 12:00:00 AM EST completed MEDENT ([facility]) Hydrocortisone 25 MG/ML Topical Cream [Anusol HC] Anus ol-HC 2.5 % Anusol-HC 2.5 % 06/10/2020 12:00:00 AM EST 1.0 {application} suspended Anusol-HC 2.5 % eCW1 ([facility]) Hydrocortisone 25 MG/ML Topical Cream [Anusol HC] Anus ol-HC 2.5 % Anusol-HC 2.5 % 06/10/2020 12:00:00 AM EST 1.0 {application} active Anusol-HC 2.5 % eCW1 ([facility]) Hydrocortisone 25 MG/ML Topical Cream [Anusol HC] Anus ol-HC 2.5 % Anusol-HC 2.5 % 06/10/2020 12:00:00 AM EST 1.0 {application} active Anusol-HC 2.5 % eCW1 ([facility]) Hydrocortisone 25 MG/ML Topical Cream [Anusol HC] Anus ol-HC 2.5 % Anusol-HC 2.5 % 06/10/2020 12:00:00 AM EST 1.0 {application} suspended Anusol-HC 2.5 % eCW1 ([facility]) Hydrocortisone 25 MG/ML Topical Cream [Anusol HC] Anus ol-HC 2.5 % Anusol-HC 2.5 % 06/10/2020 12:00:00 AM EST 1.0 {application} suspended Anusol-HC 2.5 % eCW1 ([facility]) Hydrocortisone 25 MG/ML Topical Cream [Anusol HC] Anus ol-HC 2.5 % Anusol-HC 2.5 % 06/10/2020 12:00:00 AM EST 1.0 {application} suspended Anusol-HC 2.5 % eCW1 ([facility]) Hydrocortisone 25 MG/ML Topical Cream [Anusol HC] Anus ol-HC 2.5 % Anusol-HC 2.5 % 06/10/2020 12:00:00 AM EST 1.0 {application} suspended Anusol-HC 2.5 % eCW1 ([facility]) Hydrocortisone 25 MG/ML Topical Cream [Anusol HC] Anus ol-HC 2.5 % Anusol-HC 2.5 % 06/10/2020 12:00:00 AM EST 1.0 {application} suspended Anusol-HC 2.5 % eCW1 ([facility]) Hydrocortisone 25 MG/ML Topical Cream [Anusol HC] Anus ol-HC 2.5 % Anusol-HC 2.5 % 06/10/2020 12:00:00 AM EST 1.0 {application} active Anusol-HC 2.5 % eCW1 ([facility]) Hydrocortisone 25 MG/ML Topical Cream [Anusol HC] Anus ol-HC 2.5 % Anusol-HC 2.5 % 06/10/2020 12:00:00 AM EST 1.0 {application} active Anusol-HC 2.5 % eCW1 ([facility]) Hydrocortisone 25 MG/ML Topical Cream [Anusol HC] Anus ol-HC 2.5 % Anusol-HC 2.5 % 06/10/2020 12:00:00 AM EST 1.0 {application} suspended Anusol-HC 2.5 % eCW1 ([facility]) Hydrocortisone 25 MG/ML Topical Cream [Anusol HC] Anus ol-HC 2.5 % Anusol-HC 2.5 % 06/10/2020 12:00:00 AM EST 1.0 {application} suspended Anusol-HC 2.5 % eCW1 ([facility]) Hydrocortisone 25 MG/ML Topical Cream [Anusol HC] Anus ol-HC 2.5 % Anusol-HC 2.5 % 06/10/2020 12:00:00 AM EST 1.0 {application} active Anusol-HC 2.5 % eCW1 ([facility]) Hydrocortisone 25 MG/ML Topical Cream [Anusol HC] Anus ol-HC 2.5 % Anusol-HC 2.5 % 06/10/2020 12:00:00 AM EST 1.0 {application} active Anusol-HC 2.5 % eCW1 ([facility]) Hydrocortisone 25 MG/ML Topical Cream [Anusol HC] Anus ol-HC 2.5 % Anusol-HC 2.5 % 06/10/2020 12:00:00 AM EST 1.0 {application} active Anusol-HC 2.5 % eCW1 ([facility]) Hydrocortisone 25 MG/ML Topical Cream [Anusol HC] Anus ol-HC 2.5 % Anusol-HC 2.5 % 06/10/2020 12:00:00 AM EST 1.0 {application} active Anusol-HC 2.5 % eCW1 ([facility]) Hydrocortisone 25 MG/ML Topical Cream [Anusol HC] Anus ol-HC 2.5 % Anusol-HC 2.5 % 06/10/2020 12:00:00 AM EST 1.0 {application} active Anusol-HC 2.5 % eCW1 ([facility]) Hydrocortisone 25 MG/ML Topical Cream [Anusol HC] Anus ol-HC 2.5 % Anusol-HC 2.5 % 06/10/2020 12:00:00 AM EST 1.0 {application} active Anusol-HC 2.5 % eCW1 ([facility]) Hydrocortisone 25 MG/ML Topical Cream [Anusol HC] Anus ol-HC 2.5 % Anusol-HC 2.5 % 06/10/2020 12:00:00 AM EST 1.0 {application} suspended Anusol-HC 2.5 % eCW1 ([facility]) Hydrocortisone 25 MG/ML Topical Cream [Anusol HC] Anus ol-HC 2.5 % Anusol-HC 2.5 % 06/10/2020 12:00:00 AM EST 1.0 {application} active Anusol-HC 2.5 % eCW1 ([facility]) Hydrocortisone 25 MG/ML Topical Cream [Anusol HC] Anus ol-HC 2.5 % Anusol-HC 2.5 % 06/10/2020 12:00:00 AM EST 1.0 {application} suspended Anusol-HC 2.5 % eCW1 ([facility]) Covid-19 vaccine, Unspecified 05/28/2020 12:00:00 AM EST completed MEDENT ([facility]) Medication administered onsite Suprep Bowel Prep Kit Suprep Bowel Prep Kit 04/17/2020 12:00:00 AM EST completed MEDENT ([facility]) hydrocortisone acetate 25 MG Rectal Suppository [Anucort-HC] Anucort-HC 03/19/2020 12:00:00 AM EST completed MEDENT ([facility]) Magnesium Hydroxide 80 MG/ML Oral Suspension Milk Of Magnesi a 03/10/2020 12:00:00 AM EDT ORAL completed MEDENT ([facility], ) Suprep Bowel Prep Kit Suprep Bowel Prep Kit 03/10/2020 12:00:00 AM EDT completed MEDENT ([facility], ) Insurance Providers Payer name Policy type / Coverage type Policy ID Covered alliance party ID Covered alliance party's relationship to krishna Policy Krishna Plan Information Medicaid of [place] Other 01 [id number] Self 01 BLUE CROSS [id number] SP [id number] BCBS of [facility] Other 0 [id number] Self 0 BLUE CROSS [id number] SP [id number] BCBS of [facility] Other 0 [id number] Self 0 EXCELLUS C [id number] Self [id number] MEDICAID M [id number] Self [id number] BCBS of [facility] Other 0 [id number] Self 0 [place]/307 [id number] SP [id number] [place]/307 [id number] SP [id number] MEDICAID [id number] SP [id number] Medicaid - [place] [id number] Medica id [id number] ID IDENTIFICATION [id number] Other Insurance [id number] [employer] Blue Cross [id number] Blue Cross/Kathie eld [id number] ANSI-Commercial [id number] ANSI-Medicaid [id number] [facility]-Medicaid [id number] ANSI-Commercial [id number] ANSI-Medicaid [id number] ANSI-Commercial [id number] BCBS/[employer] Commercial [id number] Self [id number] [place]/307 [id number] SP [id number] ANSI-Medicaid [id number] ANSI-Commercial [id number] BCBS/[employer] Commercial [id number] Self Medicaid of [place] Other 01 [id number] Self 01 [facility] [id number] SP [id number] EXCELLUS BC BS [id number] SP [id number] [employer] Blue Cross Commercial [id number] Self BCBS [place]/307 [id number] SP [id number] BC[place] OF [place] 306/806 [id number] SP [id number] BLUE CROSS [id number] SP [id number] [place] [id number] SP [id number] [place] 302/307 [id number] SP [id number] BCBS [place]PO 302/307 [id number] SP [id number] SP [id number] BCBS of [facility] [place] Other 0 [id number] Self 0 [place] 302/307 [id number] SP [id number] Medicaid [facility] Other 01 [id number] Self 01 MEDICAID M [id number] S [id number] EX[employer]LL[employer] BCBS B [id number] S [id number] Problems, Conditions, and Diagnoses Code Display Name Description Problem Type Effective Dates Data Source(s) N48.9 Disorder of penis Penile abnormality Problem 03/10/2021 12:00:00 AM EDT eCW1 ([facility]) I86.1 Varicocele Varicocele Problem 02/19/2021 12:00:00 AM ED T eCW1 ([facility]) B36.9 Fungal dermatitis Fungal dermatitis Problem 02/19/2021 12:00:00 AM EDT eCW1 ([facility]) E03.8 [id number] Secondary hypothyroidism Problem 11/27/2020 12:00:00 AM EDT eCW1 ([facility]) B20 [id number] Human immunodeficiency virus [HIV] diseas e Problem 05/05/2020 12:00:00 AM EST eCW1 ([facility]) C79.89 44192861 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 Problem 02/28/2020 12:00:00 AM EDT eCW1 ([facility]) F31.9 52804642 Bipolar 1 disorder, depressed Problem 2019 12:00:00 AM EDT eCW1 ([facility]) C79.9 [id number] Malignant melanoma, metastatic Problem 02/28/2020 12:00:00 AM EDT eCW1 ([facility]) Surgeries/Procedures Procedure Description Date Indications Data Source(s) LARYNGOSCOPY FLEXIBLE FIBEROPTIC DIAGNOSTIC 11/13/2020 12:00:00 AM EDT MEDENT ([facility]) OFFICE OUTPATIENT VISIT 15 MINUTES 11/12/2020 12:00:00 AM EDT MEDENT ([facility]) OFFICE OUTPATIENT VISIT 15 MINUTES 09/24/2020 12:00:00 AM EDT MEDENT ([facility]) OFFICE OUTPATIENT VISIT 15 MINUTES 08/06/2020 12:00:00 AM EDT MEDENT ([facility]) Capsule Endoscopy Small Bowel 07/14/2020 12:00:[address] MEDENT ([facility]) OFFICE OUTPATIENT VISIT 25 MINUTES 07/09/2020 12:00:00 AM EST MEDENT ([facility]) Moderna COVID-19 Vaccine Moderna COVID-19 Vaccine 06/25/2020 12:00: 00 AM EST REINALDO ([facility]) Colonoscopy Flexible Proximal To Splenic Flexure W/Biopsy Si ngle/ 06/23/2020 12:00:00 AM EST MEDENT ([facility]) Moderna COVID-19 Vaccine Moderna COVID-19 Vaccine 05/28/2020 12:00: 00 AM EST REINALDO ([facility]) Moderna COVID19 Vaccine Administration First Dose Mode rna COVID19 Vaccine Administration First Dose 05/28/2020 12:00:00 AM EST GREEN[place] Y ([facility]) Endoscopy Upper GI Biopsy 03/17/2020 12:00:00 AM EST MEDENT ([facility]) Colonoscopy Flexible Proximal To Splenic Flexure W/Biopsy Si ngle/ 03/17/2020 12:00:00 AM EST MEDENT ([facility]) Results ID Date Data Source [id number] 03/13/2021 05:33:00 PM EDT [facility] Name Value Range Interpretation Code Description Data Barb rce(s) Supporting Document(s) SARS coronavirus 2 RNA [Presence] in Res piratory specimen by BRADLEY with probe detection NEGATIVE [facility] This lab was ordered by [facility] a nd reported by [facility]. ID Date Data Source [id number] 11/14/2020 12:29:00 AM EDT [facility] Name Value Range Interpretation Code Description Data Barb rce(s) Supporting Document(s) SARS coronavirus 2 RNA [Presence] in Res piratory specimen by [facility] with probe detection NEGATIVE [facility] This lab was ordered by [facility] a nd reported by [facility]. ID Date Data Source [id number] 11/07/2020 03:56:00 AM EDT [facility] Name Value Range Interpretation Code Description Data Barb rce(s) Supporting Document(s) SARS coronavirus 2 RNA [Presence] in Res piratory specimen by [facility] with probe detection NEGATIVE [facility] This lab was ordered by [facility] a nd reported by [facility]. ID Date Data Source [id number] 10/30/2020 01:08:00 PM EDT [facility] Name Value Range Interpretation Code Description Data Barb rce(s) Supporting Document(s) SARS coronavirus 2 RNA NOT DETECTED [facility] This lab was ordered by [facility] and reported by [facility]. ID Date Data Source [id number] 06/23/2020 07:53:00 AM EST MEDENT ([facility], ) Name Value Range Interpretation Code Description Data Barb rce(s) Supporting Document(s) Surgical pathology study Laboratory test result MED[facility] ([facility], ) FINAL DIAGNOSIS Colon, random, biopsies: [...] MD 06/24/2020 1422 ID Date Data Source [id number] 06/18/2020 01:05:00 PM EST [facility] Name Value Range Interpretation Code Description Data Barb rce(s) Supporting Document(s) SARS coronavirus 2 RNA Not Detected [facility] [place] This lab was ordered by [facility] and reported by [facility]. ID Date Data Source [id number] 04/28/2020 07:43:00 PM EST [facility] Name Value Range Interpretation Code Description Data Barb rce(s) Supporting Document(s) SARS coronavirus 2 RNA [facility] This lab was ordered by [facility] and reported by [facility]. ID Date Data Source [id number] 04/17/2020 05:01:00 PM EST [facility] ([facility], ) Name Value Range Interpretation Code Description Data Barb rce(s) Supporting Document(s) Glucose, Fasting 95 mg/dL 70-100 Normal (applies to non-numeric results) [facility] ([facility], ) Blood Urea Nitrogen 21 mg/dL 7-18 Above high normal [facility] ([facility], ) Glomerular Filtration Rate Laboratory test result Normal (applies to non- numeric results) [facility] ([facility], ) <content>Units are mL/min/1.73 m2</content>
<content></content>
<content>Chronic Kidney Disease Staging per NKF:</content>
<content></content>
<content>Stage I & II GFR >=60 Normal to Mildly Decreased</content>
<content>Stage III GFR 30- 59 Moderately Decreased</content>
<content>Stage IV GFR 15-29 Severely Decreased</content>
<content>Stage V GFR <15 Very Little GFR Left</content>
<content>ESRD GFR <15 on APPLIANCES SAMPLE MAKER</content>
<content></content> Creatinine For GFR 1.05 mg/dL 0.70-1.30 Normal (applies to non -numeric results) [facility] ([facility], ) Sodium Level 141 meq/L 136-145 Normal (applies to non-numeric res ults) [facility] Chloride Level 105 meq/L 98-107 Normal (applies to non-numeric r esults) [facility] ([facility], ) Potassium Serum 4.3 meq/L 3.5-5.1 Normal (applies to non-numeric results) [facility] ([facility], ) Calcium Level 9.3 mg/dL 8.5-10.1 Normal (applies to non-numeric re sults) [facility] ([facility], ) Carbon Dioxide Level 31 meq/L 21-32 Normal (applies to non-num evni results) [facility] ([facility]) Anion Gap 5 meq/L 8-16 Below low normal [facility] ( [facility]) Ast/Sgot 37 U/L 7-37 Normal (applies to non-numeric resul ts) [facility] ([facility]) Alt/SGPT 35 U/L 12-78 Normal (applies to non-numeric resul ts) [facility] ([facility]) Alkaline Phosphatase 74 U/L 45-117 Normal (applies to non-num evin results) [facility]) Bilirubin,Total 0.3 mg/dL 0.2-1.0 Normal (applies to non-numeric results) [facility]) Albumin 3.9 GM/DL 3.2-5.2 Normal (applies to non-numeric resul ts) [facility] ([facility]) Albumin/Globulin Ratio 1.3 Normal (applies to non-n umeric results) [facility] ([facility]) Total Protein 6.8 GM/DL 6.4-8.2 Normal (applies to non-numeric re sults) [facility]) ID Date Data Source [id number] 04/17/2020 05:00:00 PM EST [facility] ([facility]) Name Value Range Interpretation Code Description Data Barb rce(s) Supporting Document(s) White Blood Count 5.8 10 4.0-10.0 Normal (applies to non-numeri c results) [facility] ([facility], ) Hemoglobin 15.5 g/dL 13.5-17.5 Normal (applies to non-numeric resul ts) [facility]) Red Blood Count 4.94 10 4.30-6.10 Normal (applies to non-numeric results) [facility]) Hematocrit 45.2 % 42.0-52.0 Normal (applies to non-numeric resul ts) [facility]) Mean Corpuscular Volume 91.5 fl 80.0-96.0 Normal ( applies to non-numeric results) [facility] ([facility]) Mean Corpuscular Hemoglobin 31.4 pg 27.0-33.0 Norm al (applies to non-numeric results) [facility]) Mean Corpuscular HGB Conc 34.3 g/dL 32.0-36.5 Normal (applies to non-numeric results) [facility] ([facility]) Red Cell Distribution Width 12.2 % 11.5-14.5 Norm al (applies to non-numeric results) [facility] ([facility]) Platelet Count, Automated 225 10 150-450 Normal (applies to non-numeric results) [facility]) Neutrophils % 38.5 % 36.0-66.0 Normal (applies to non-numeric re sults) [facility]) Lymph % 50.9 % 24.0-44.0 Above high normal [facility] ([facility]) Gregory % 7.7 % 0.0-5.0 Above high normal [facility] ([facility]) Baso % 0.7 % 0.0-1.0 Normal (applies to non-numeric resul ts) [facility]) Eos % 1.7 % 0.0-3.0 Normal (applies to non-numeric resul ts) [facility]) Immature Granulocyte % 0.5 % 0-3.0 Normal (applies to non-n umeric results) [facility]) Nucleated Red Blood Cell % 0.0 % 0-0 Normal (applies to n on-numeric results) [facility]) Neutrophils # 2.3 10 1.5-8.5 Normal (applies to non-numeric re sults) [facility]) Gregory # 0.5 10 0.0-0.8 Normal (applies to non-numeric resul ts) [facility] Lymph # 3.0 10 1.5-5.0 Normal (applies to non-numeric resul ts) [facility]) Baso # 0.0 10 0.0-0.2 Normal (applies to non-numeric resul ts) [facility] ([facility]) Eos # 0.1 10 0.0-0.5 Normal (applies to non-numeric resul ts) [facility] ([facility], ) ID Date Data Source [id number] 03/19/2020 03:06:00 PM EST [facility] Name Value Range Interpretation Code Description Data Barb rce(s) Supporting Document(s) SARS coronavirus 2 RNA panel N [facility] This lab was ordered by [facility] and reported by [facility]. ID Date Data Source [id number] 03/17/2020 12:41:00 PM EST [facility] ([facility]) Name Value Range Interpretation Code Description Data Barb rce(s) Supporting Document(s) Surgical pathology study Laboratory test result [facility] ([facility]) <content>FINAL DIAGNOSIS</content>
< content></content>
<content>A - [...] 03/18/2020 1437</content>
<content></content> ID Date Data Source [id number] 03/12/2020 10:30:00 AM EDT [facility] Name Value Range Interpretation Code Description Data Barb rce(s) Supporting Document(s) SARS coronavirus 2 RNA [facility] This lab was ordered by [facility] and reported by [facility]. Procedure Social History Code Duration Value Status Description Data Source(s ) Smoking 11/12/2020 12:00:00 AM EDT Non Smoker completed Non Smoke r [facility] ([facility], ) Vital Signs ID Date Data Source UNK Name Value Range Interpretation Code Description Data Source(s) Body weight 170 [lb_av] 170 [lb_av] eCW1 ([facility]) Body height 65 [in_i] 65 [in_i] eCW1 ([facility]) Body mass index (BMI) [Ratio] 28.29 kg/m2 28.29 kg/m2 eCW1 ([facility]) Heart rate 90 /min 90 /min eCW1 ([facility]) Respiratory rate 18 /min 18 /min eCW1 ([facility]) Body temperature 96.6 [degF] 96.6 [degF] eCW1 ( [facility]) Systolic blood pressure 116 mm[Hg] 116 mm[Hg] e CW1 ([facility]) Diastolic blood pressure 62 mm[Hg] 62 mm[Hg] eCW1 ([facility]) Body weight 161.8 [lb_av] 161.8 [lb_av] eCW1 ([facility]) Body height 65 [in_i] 65 [in_i] eCW1 ([facility]) Body mass index (BMI) [Ratio] 26.92 kg/m2 26.92 kg/m2 eCW1 ([facility]) Heart rate 96 /min 96 /min eCW1 ([facility]) Respiratory rate 18 /min 18 /min eCW1 ([facility]) Body temperature 97.3 [degF] 97.3 [degF] eCW1 ( [facility]) Systolic blood pressure 120 mm[Hg] 120 mm[Hg] e CW1 ([facility]) Diastolic blood pressure 70 mm[Hg] 70 mm[Hg] eCW1 ([facility]) [place] body weight 136 [lb_av] 136 [lb_av] MEDEN T ([facility], ) Body weight 72.576 kg 72.576 kg [facility] ([facility], ) Body height 65 [in_i] 65 [in_i] [facility] ([facility], ) 5'5" Body weight 160.00 [lb_av] 160.00 [lb_av] MEDEN T ([facility], ) Body mass index (BMI) [Ratio] 26.6 kg/m2 26.6 k g/m2 [facility] ([facility]) Body surface area Derived from formula 1.80 m2 1.80 m2 [facility] ([facility], ) Oxygen saturation in Arterial blood by Pulse oximetry 96 % 96 % [facility] ([facility]) Systolic blood pressure 120 mm[Hg] 120 mm[Hg] M EDENT ([facility], ) Diastolic blood pressure 64 mm[Hg] 64 mm[Hg] [facility] ([facility], ) Body surface area Derived from formula 1.81 m2 1.81 m2 [facility] ([facility]) Body weight 73.937 kg 73.937 kg [facility] Heart rate 66 /min 66 /min [facility] ([facility]) Body temperature 97.8 [degF] 97.8 [degF] [facility] ([facility]) Body height 65 [in_i] 65 [in_i] [facility] ([facility]) 5'5" Body weight 163.00 [lb_av] 163.00 [lb_av] MEDEN T ([facility]) Body mass index (BMI) [Ratio] 27.1 kg/m2 27.1 k g/m2 [facility] ([facility]) [place] body weight 136 [lb_av] 136 [lb_av] MEDEN T ([facility]) Diastolic blood pressure 64 mm[Hg] 64 mm[Hg] [facility] ([facility]) Heart rate 75 /min 75 /min [facility] ([facility]) Oxygen saturation in Arterial blood by Pulse oximetry 99 % 99 % [facility] ([facility]) Body mass index (BMI) [Ratio] 27.6 kg/m2 27.6 k g/m2 [facility] ([facility]) [place] body weight 136 [lb_av] 136 [lb_av] MEDEN T ([facility]) Body weight 75.298 kg 75.298 kg [facility] ([facility]) Body surface area Derived from formula 1.83 m2 1.83 m2 [facility] ([facility]) Body temperature 97.0 [degF] 97.0 [degF] [facility] ([facility]) Body height 65 [in_i] 65 [in_i] [facility] ([facility]) 5'5" Body weight 166.00 [lb_av] 166.00 [lb_av] MEDEN T ([facility]) Systolic blood pressure 110 mm[Hg] 110 mm[Hg] M EDENT ([facility]) Body height 65 [in_i] 65 [in_i] [facility] ([facility]) 5'5" [place] body weight 136 [lb_av] 136 [lb_av] MEDEN T ([facility]) Body weight 70.308 kg 70.308 kg [facility] ([facility]) Body surface area Derived from formula 1.78 m2 1.78 m2 [facility] ([facility]) Body weight 155.00 [lb_av] 155.00 [lb_av] MEDEN T ([facility]) Body mass index (BMI) [Ratio] 25.8 kg/m2 25.8 k g/m2 [facility] ([facility]) Body height 65 [in_i] 65 [in_i] [facility] ([facility]) 5'5" Body weight 155.00 [lb_av] 155.00 [lb_av] MEDEN T ([facility]) Body mass index (BMI) [Ratio] 25.8 kg/m2 25.8 k g/m2 [facility] ([facility]) [place] body weight 136 [lb_av] 136 [lb_av] MEDEN T ([facility]) Body weight 70.308 kg 70.308 kg [facility] ([facility]) Body surface area Derived from formula 1.78 m2 1.78 m2 [facility] ([facility]) Body weight 167 [lb_av] 167 [lb_av] eCW1 ([facility]) Body height 65 [in_i] 65 [in_i] eCW1 ([facility]) Body mass index (BMI) [Ratio] 27.79 kg/m2 27.79 kg/m2 eCW1 ([facility]) Heart rate 85 /min 85 /min eCW1 ([facility]) Respiratory rate 18 /min 18 /min eCW1 ([facility]) Body temperature 96.7 [degF] 96.7 [degF] eCW1 ( [facility]) Systolic blood pressure 132 mm[Hg] 132 mm[Hg] e CW1 ([facility]) Diastolic blood pressure 70 mm[Hg] 70 mm[Hg] eCW1 ([facility]) Body weight 165.4 [lb_av] 165.4 [lb_av] eCW1 ([facility]) Body height 65 [in_i] 65 [in_i] eCW1 ([facility]) Body mass index (BMI) [Ratio] 27.52 kg/m2 27.52 kg/m2 eCW1 ([facility]) Heart rate 56 /min 56 /min eCW1 ([facility]) Respiratory rate 18 /min 18 /min eCW1 ([facility]) Systolic blood pressure 116 mm[Hg] 116 mm[Hg] e CW1 ([facility]) Diastolic blood pressure 68 mm[Hg] 68 mm[Hg] eCW1 ([facility]) Systolic blood pressure 138 mm[Hg] 138 mm[Hg] M EDENT ([facility], ) Diastolic blood pressure 100 mm[Hg] 100 mm[Hg] [facility] ([facility], ) Body weight 155.00 [lb_av] 155.00 [lb_av] MEDEN T ([facility], ) Body height 65 [in_i] 65 [in_i] [facility] 5'5" Body mass index (BMI) [Ratio] 25.8 kg/m2 25.8 k g/m2 [facility] ([facility], ) [place] body weight 136 [lb_av] 136 [lb_av] MEDEN T ([facility], ) Body weight 70.308 kg 70.308 kg [facility] ([facility]) Body surface area Derived from formula 1.78 m2 1.78 m2 [facility] ([facility]) Systolic blood pressure 138 mm[Hg] 138 mm[Hg] M EDENT ([facility], ) Diastolic blood pressure 72 mm[Hg] 72 mm[Hg] [facility] ([facility], ) Body height 65 [in_i] 65 [in_i] [facility] ([facility], ) 5'5" Body weight 160.00 [lb_av] 160.00 [lb_av] MEDEN T ([facility]) Body mass index (BMI) [Ratio] 26.6 kg/m2 26.6 k g/m2 [facility] ([facility]) [place] body weight 136 [lb_av] 136 [lb_av] MEDEN T ([facility]) Body weight 72.576 kg 72.576 kg [facility] ([facility]) Body surface area Derived from formula 1.80 m2 1.80 m2 [facility] ([facility]) Body weight 165 [lb_av] 165 [lb_av] eCW1 ([facility]) Body height 65 [in_i] 65 [in_i] eCW1 ([facility]) Body mass index (BMI) [Ratio] 27.45 kg/m2 27.45 kg/m2 W1 ([facility]) Heart rate 89 /min 89 /min eCW1 ([facility]) Respiratory rate 18 /min 18 /min eCW1 ([facility]) Body temperature 97.2 [degF] 97.2 [degF] eCW1 ( [facility]) Systolic blood pressure 106 mm[Hg] 106 mm[Hg] e CW1 ([facility]) Diastolic blood pressure 66 mm[Hg] 66 mm[Hg] eCW1 ([facility]) Body weight 159 [lb_av] 159 [lb_av] eCW1 ([facility]) Body height 65 [in_i] 65 [in_i] eCW1 ([facility]) Body mass index (BMI) [Ratio] 26.46 kg/m2 26.46 kg/m2 eCW1 ([facility]) Heart rate 97 /min 97 /min eCW1 ([facility]) Respiratory rate 18 /min 18 /min eCW1 ([facility]) Body temperature 97.9 [degF] 97.9 [degF] eCW1 ( [facility]) Systolic blood pressure 102 mm[Hg] 102 mm[Hg] e CW1 ([facility]) Diastolic blood pressure 74 mm[Hg] 74 mm[Hg] eCW1 ([facility]) Patient Treatment Plan of Care Planned Activity Planned Date Details Description Data Source (s) Ondansetron 4 MG Oral Tablet 03/25/2021 12:00:00 AM EST eCW1 ([facility]) Fluconazole 150 MG Oral Tablet [Diflucan] 02/19/2021 12:00:00 AM ED T eCW1 ([facility]) Fluconazole 150 MG Oral Tablet [Diflucan] 02/19/2021 12:00:00 AM ED T eCW1 ([facility]) Hydrocortisone 25 MG/ML Topical Cream [Anusol HC] 06/10/2020 12: 00:00 AM EST eCW1 ([facility]) Hydrocortisone 25 MG/ML Topical Cream [Anusol HC] 06/10/2020 12: 00:00 AM EST eCW1 ([facility]) Hydrocortisone 25 MG/ML Topical Cream [Anusol HC] 06/10/2020 12: 00:00 AM EST eCW1 ([facility]) Hydrocortisone 25 MG/ML Topical Cream [Anusol HC] 06/10/2020 12: 00:00 AM EST eCW1 ([facility]) Hydrocortisone 25 MG/ML Topical Cream [Anusol HC] 06/10/2020 12: 00:00 AM EST eCW1 ([facility]) Hydrocortisone 25 MG/ML Topical Cream [Anusol HC] 06/10/2020 12: 00:00 AM EST eCW1 ([facility]) Hydrocortisone 25 MG/ML Topical Cream [Anusol HC] 06/10/2020 12: 00:00 AM EST eCW1 ([facility]) Hydrocortisone 25 MG/ML Topical Cream [Anusol HC] 06/10/2020 12: 00:00 AM EST eCW1 ([facility]) Hydrocortisone 25 MG/ML Topical Cream [Anusol HC] 06/10/2020 12: 00:00 AM EST eCW1 ([facility]) Hydrocortisone 25 MG/ML Topical Cream [Anusol HC] 06/10/2020 12: 00:00 AM EST eCW1 ([facility]) Hydrocortisone 25 MG/ML Topical Cream [Anusol HC] 06/10/2020 12: 00:00 AM EST eCW1 ([facility])
[2021-03-27] MEDS ORDERED: BUSP30TA PO (23:00)
[2021-03-27] MEDS ORDERED: HYDR-643 PO (23:00)
[2021-03-27] MEDS ORDERED: HOME MED LIST COMPLETE! XX SCH (23:05)
[2021-03-27 23:31] VITALS: BP 132/70
[2021-03-28] MEDS ORDERED: DIVALPROEX 250MG *ER* TAB PO ONE (00:35)
[2021-03-28] MEDS: busPIRone 10 MG TAB PO SCH ×3 (00:41→20:18)
[2021-03-28] MEDS: risperiDONE 1 MG TAB PO SCH ×2 (00:41→08:06)
[2021-03-28] MEDS: SIMVASTATIN 10 MG TAB PO SCH ×2 (00:45→20:18)
[2021-03-28] MEDS: traZODone 50 MG TAB PO PRN ×2 (00:46→20:18)
[2021-03-28] MEDS: LEVOTHYROXINE 75MCG TABLET (0.075MG) PO SCH (06:02)
[2021-03-28 06:16] VITALS: BP 127/82
[2021-03-28] MEDS: DIVALPROEX 250MG *ER* TAB PO SCH ×2 (08:04→20:19)
[2021-03-28] MEDS: PILL CUTTER 1 EACH XX PRN (08:04)
[2021-03-28] MEDS: LORazepam 1 MG TAB PO PRN (08:04)
[2021-03-28] MEDS: LORATADINE 10 MG TAB PO SCH (08:05)
[2021-03-28] MEDS: PANTOPRAZOLE 40MG TAB (PROTONIX) PO SCH (08:06)
[2021-03-28] MEDS ORDERED: busPIRone 10 MG TAB PO SCH (09:00)
[2021-03-28] MEDS ORDERED: DIVALPROEX 250 MG TAB PO SCH (09:00)
[2021-03-28] MEDS ORDERED: risperiDONE 1 MG TAB PO SCH (09:00)
[2021-03-28] MEDS: ONDANSETRON 4 MG TAB PO PRN (09:26)
[2021-03-28 09:42] VITALS: BP 132/80
--- NOTE | 2021-03-28 15:40 | MHHPEPDOC ---
General Legal Status: 9.39 Chief Complaint "I was having a lot of strange thoughts and nightmares about someone setting me on fire and trying to kill me. History of Present Illness HISTORY OF THE PRESENT ILLNESS: Patient is a 40 -year-old , male, who has a history significant for possible bipolar disorder along with possible autism spectrum. He was recently discharged from the unit here for management of the same, on the day of discharge he also received his COVID booster shot. He began feeling tired and feverish, and began having bizarre dreams of people trying to set on fire or chasing down to kill him. This continued for several days and he became increasingly more distraught, began sleeping less as well. He perseverates somewhat on the idea of hurting his children and tries to explain the ways in which he and his have arranged her house in order to help prevent him from hurting his children, he also briefly talked about having sex with his at one point during this time as well. He is frequently quite scattered in his thought process and has a difficult time staying on track. Overall he is quite concerned about these changes, and would like to have additional answers about what would be helpful for him. He does feel that the medication changes since he was on the unit have been helpful for him. We did spend some time discussing the rationale behind the changes that were made on admission. Psychiatric Review of Systems Depression (2 or more weeks): denies Nyla (4 or more days of): irritable/elevated mood, decreased need for sleep, still with energy, talkativity, pressured, flight of ideas, distractibility, engages in risky behavior Psychosis: auditory hallucination, delusions, paranoia, disorganization PTSD: denies Anxiety: denies Past Psychiatric History Previous Psychiatric Diagnosis: . Previous Psychiatric Admissions: . Suicide Attempts: . Psychiatric Follow-up: . Psychiatric medications: . Past Medical History Head Injury: Yes Seizures: No Hospitalizations: Yes Surgeries: Yes Family Medical/Psychiatric HX Medical Problems cancer, heart disease Psychiatric Disorders: Yes (OCD, depression, autism) Addiction: No Suicide Attemps/Completions: No Addiction History denies Social History Childhood: [facility], has stable good childhood. Reports well cared for by his family.. Abuse/Trauma: Denies history of abuse or trauma. Current Living Situation: Lives with and children's endocrine. Education: High school and some college. Employment: Currently working full-time. Social Support: Brother is a physician who helps quite a bit, is also gives her support for him. Legal: No history of legal charges. Marital: with 4 children. Mental Status Examination General Appearance: well groomed, appears stated age, hospital scubs/clothing Build: average Demeanor: average Eye Contact: average Activity: agitated Behavior: cooperative, agitated Speech: clear, rapid, pressured, spontaneous, normal volume Mood: euthymic Mood I am starting to feel better Affect: flat Thought Process: tangential, loose, flight of ideas, racing Thought Content (Delusions): persecutory, paranoia Thought Content (Other): preoccupied, appears paranoid Thought Content (Aggressive): none reported Perception (Hallucinations): auditory Perception (Other): none reported Cognition (Impairment of): none reported Cognition(Intelligence Est.): average Oriented: Awake, Alert, Oriented times three Insight: fair Judgment: Fair Psychosis: Associations, Psychotic Perceptions Diagnoses Bipolar disorder, current episode manic, with psychotic features A-FIB/CHADSVASC A-FIB History Current/History of A-Fib/PAF?: No Assessment Janes is a 40-year-old man with a history of possible bipolar disorder who appears to have at this point converted to a full manic episode. Given his hi story of having just reached ability prior to discharge followed by the vaccine booster which triggered a fever it is possible that this may be due to inflammatory changes in the brain secondary to the vaccine as well as his current diagnosis of cancer. He did report that there has been some discussion about a node in his brain that was found on MRI his back in January, he is unsure of what has been addressed with this at this point time is interested to find out from his oncologist what may be related to this. We discussed how inflammatory changes may destabilize people even who were previously well controlled on medications as well as discussed the rationale switching from Latuda to risperidone for better control of acute manic phases. Raheem has noted that he feels somewhat calmer already and that his brain feels like it is beginning to slow down. He denies any notable side effects from the risperidone at this point in time and we agreed that we will continue to work on increasing this further in order to better control his symptoms. Additional follow-up may may be done with his oncologist, if there may be benefit in obtaining an MRI at this point in time and comparing to records from his scans in June and January that he reports as these may provide evidence of changing brain mass which may be altering his expression of symptoms. Problem List Problems: (1) Bipolar disorder with psychotic features Status: Acute Initial Treatment Plan 1. Patient was admitted on a 9.39 status. 2. Complete history was obtained. 3. With patients permission, family will be contacted and database will be expanded. 4. Patients medication regimen will be reviewed and changed accordingly. 5. Patient will be provided with protected environment. 6. Patient will be treated with individual, group, and milieu therapies. 7. Patient will receive supportive psych-education. 8. Discharge planning will commence immediately. 9. Outpatient follow-up treatment will be strongly recommended. 10. The initial treatment plan will focus initially on: * Nyla. * Control of psychotic features ESTIMATED LENGTH OF STAY: 7-10 DAYS. TIME SPENT COUNSELING AND COORDINATING INITIAL CARE: 60 minutes. Tobacco Cessation Screen If Patient is a Smoker Denies smoking status Ordered/Pending Vital Signs Vital Signs Date Time Temp Pulse Resp B/P (MAP) Pulse Ox O2 Delivery O2 Flow Rate FiO2 03/28/21 09:42 97.8 100 16 132/80 (97) Room Air 03/28/21 06:16 99 Laboratory Data 24H Labs Laboratory Tests 2 03/27/21 19:23: Nucleated Red Blood Cells % (auto) 0.0, Anion Gap 7L, Glomerular Filtration Rate > 60.0, Calcium Level 9.2, Total Bilirubin 0.4, Direct Bilirubin < 0.1, Aspartate Amino Transf (AST/SGOT) 43H, Alanine Aminotransferase (ALT/SGPT) 62, Alkaline Phosphatase 71, Total Protein 7.0, Albumin 3.5, Albumin/Globulin Ratio 1.0, Thyroid Stimulating Hormone (TSH) 4.280H, Salicylates Level < 1.7L, Acetaminophen Level < 2.0L, Ethyl Alcohol Level < 0.003 03/27/21 19:59: Coronavirus (COVID-19)(PCR) NEGATIVE, Influenza Type A (RT-PCR) NEGATIVE, Influenza Type B (RT-PCR) NEGATIVE, Respiratory Syncytial Virus (PCR) NEGATIVE 03/27/21 21:02: Urine Opiates Screen NEGATIVE, Urine Methadone Screen NEGATIVE, Urine Barbiturates Screen NEGATIVE, Urine Phencyclidine Screen NEGATIVE, Urine Amphetamines Screen NEGATIVE, Urine Benzodiazepines Screen NEGATIVE, Urine Cocaine Metabolite Screen NEGATIVE, Urine Cannabinoids Screen NEGATIVE CBC/BMP Laboratory Tests 03/27/21 19:23 Medications Scheduled Buspirone HCl (Buspirone HCl) 30 Mg Tablet, 30 MG PO BID, (Reported) Divalproex Sodium (Depakote ER) 250 Mg Tab.er.24h, 750 MG PO BID for Mood Hydroxyzine HCl (Hydroxyzine HCl) 10 Mg Tablet, 20 MG PO BID, (Reported) Ketoconazole (Ketoconazole) 15 Gm Cream..g., 1 DOSE EXT BID, (Reported) APPLY TO FEET Levothyroxine Sodium (Levothyroxine Sodium) 75 Mcg Tablet, 75 MCG PO DAILY, (Reported) Lurasidone Hydrochloride (Latuda) 40 Mg Tablet, 40 MG PO DAILY@08 for Mood Pantoprazole Sodium (Pantoprazole Sodium) 40 Mg Tablet.dr, 40 MG PO DAILY, (Reported) Simvastatin (Simvastatin) 10 Mg Tablet, 10 MG PO QHS, (Reported) Scheduled PRN Acetaminophen (Acetaminophen) 500 Mg Tablet, 1,000 MG PO Q6H PRN for PAIN LEVEL 1-4, (Reported) Betamethasone Dip (Betamethasone Dipropionate) 15 Gm Oint...g., 1 DOSE TOP BID PRN for CRACKS IN SKIN, (Reported) APPLIES TO HANDS AND FEET Fluticasone Propionate (Flonase Allergy Relief) 9.9 Ml [place].susp, 2 SPRAY NARES DAILY PRN for CONGESTION, (Reported) Ondansetron HCl (Ondansetron HCl) 8 Mg Tablet, 8 MG PO Q8H PRN for NAUSEA OR VOMITING, (Reported) Simethicone (Gas-X) 125 Mg Tab.chew, 125 MG PO Q6H PRN for GAS PAIN, (Reported) Allergies Coded Allergies: latex (Verified Allergy, Unknown, rash, 06/20/20) YADIRA JACQUES MD Mar 28, 2021 15:40
--- NOTE | 2021-03-28 15:56 | HPEPDOC ---
[facility] Medical History & Physical Date of Admission Mar 27, 2021 Date of Service: Mar 28, 2021 Primary Care Physician: Janes Kelly MD Other Provider Mason Vásquez MD, psychiatry Attending Physician: ALAINA KWON DO History and Physical CHIEF COMPLAINT: Strange thoughts and nightmares HISTORY OF PRESENT ILLNESS: Patient is a 40-year-old male who has a history of possible bipolar disorder as well as possible autism spectrum disorder who was r ecently discharged from the inpatient mental health unit for management of the same. Patient states on the day of discharge he received his Covid booster shot and began feeling very tired. Patient began having nightmares or hallucinations of people trying to set him on fire and people screaming. Patient states has been dealing with some stress in his life although is very difficult to follow the patient's thought processes the patient was very scattered and tangential. Patient did not complain of any pain but did state he had a fever last night which was confirmed. Patient did not have any other symptoms at the time of the fever. Patient is otherwise feeling well. PAST MEDICAL HISTORY: 1. Melanoma. 2. Heart disease. 3. Depression, possible bipolar. 4. Hyperlipidemia 5. Anxiety 6. Migraines PAST SURGICAL HISTORY: 1. Melanoma excision. 2. Lymph node dissection of the neck. 3. Tonsillectomy. SOCIAL HISTORY: Patient denies smoking cigarettes, drinking alcohol, or doing drugs FAMILY HISTORY: Father has dyslipidemia and is still alive. Patient not certain of mother's m edical history ALLERGIES: Please see below. REVIEW OF SYSTEMS: General: Patient reports fevers as above HEENT: Patient denies headaches Cardiovascular: Patient denies chest pain Respiratory: Patient denies shortness of breath, cough GI: Patient denies abdominal pain, nausea, vomiting, diarrhea : Patient denies increased frequency or pain with urination Extremities: Patient denies swelling or pain in extremities Neurological: Patient denies numbness or tingling in legs Skin: Patient denies any new rashes or lesions. Hematologic: Patient denies any easy bruising. Lymphatic: Patient denies any lumps lumps or bumps in neck, axilla, or groin HOME MEDICATIONS: Please see below. PHYSICAL EXAMINATION: VITAL SIGNS: Temperature 97.8, pulse 100, respiratory rate 16, blood pressure 132/80, pulse oximetry 99% on room air. General: Alert and oriented male patient who was eating lunch when I walked onto the unit. Patient was able to walk into the examination room without any difficulty. Patient not appear to be in any acute distress. HEENT: Normocephalic, atraumatic, moist mucous membranes. Neck: No lymphadenopathy or thyromegaly Cardiac: Regular rate and rhythm, no murmurs, normal S1, normal S2 Pulm: Clear to auscultation bilaterally. No wheezes, rhonchi, rales Abd: Nondistended, nontender to palpation, normal bowel sounds Ext: No edema bilateral lower extremities Neuro: Patient was able to move all 4 extremities on command and reported equal sensation light touch in all 4 extremities. Skin: Skin of the head, neck, upper and lower extremities was examined did not show any evidence of rash or wounds. LABORATORY DATA: See below. IMAGING: No imaging is been performed MICROBIOLOGY: Please see below. ASSESSMENT: 40-year-old male who presented to the inpatient mental health unit with either nightmares or hallucinations of people trying to hurt burn him alive and heard him who was found to have pressured speech and was diagnosed with possible bipolar disorder by psychiatry. . PLAN: 1. Bipolar disorder with dena. Patient will continue treatment per psychiatry. 2. Fever. Patient had a fever of 101.3 orally last evening. This was treated with Tylenol. Patient has not had a fever since. If the patient continues to have a fever, further work-up will be performed. On routine laboratory studies when the patient arrived, patient did not have a white count and labs were within normal range. Patient did receive his COVID-19 booster vaccination 3 days ago which may be the cause of the fever. We will need to continue to monitor. Disposition: Patient be discharged per psychiatry. Thank you for this consult and please reconsult hospitalist if the need arises. Vital Signs Vital Signs Date Time Temp Pulse Resp B/P (MAP) Pulse Ox O2 Delivery O2 Flow Rate FiO2 03/28/21 09:42 97.8 100 16 132/80 (97) Room Air 03/28/21 06:16 99 Laboratory Data Labs 24H Laboratory Tests 2 03/27/21 19:23: Nucleated Red Blood Cells % (auto) 0.0, Anion Gap 7L, Glomerular Filtration Rate > 60.0, Calcium Level 9.2, Total Bilirubin 0.4, Direct Bilirubin < 0.1, As partate Amino Transf (AST/SGOT) 43H, Alanine Aminotransferase (ALT/SGPT) 62, Alkaline Phosphatase 71, Total Protein 7.0, Albumin 3.5, Albumin/Globulin Ratio 1.0, Thyroid Stimulating Hormone (TSH) 4.280H, Salicylates Level < 1.7L, Acetaminophen Level < 2.0L, Ethyl Alcohol Level < 0.003 03/27/21 19:59: Coronavirus (COVID-19)(PCR) NEGATIVE, Influenza Type A (RT-PCR) NEGATIVE, In fluenza Type B (RT-PCR) NEGATIVE, Respiratory Syncytial Virus (PCR) NEGATIVE 03/27/21 21:02: Urine Opiates Screen NEGATIVE, Urine Methadone Screen NEGATIVE, Urine Barbiturates Screen NEGATIVE, Urine Phencyclidine Screen NEGATIVE, Urine Amphetamines Screen NEGATIVE, Urine Benzodiazepines Screen NEGATIVE, Urine Cocaine Metabolite Screen NEGATIVE, Urine Cannabinoids Screen NEGATIVE CBC/BMP Laboratory Tests 03/27/21 19:23 Home Medications Scheduled Buspirone HCl (Buspirone HCl) 30 Mg Tablet, 30 MG PO BID Divalproex Sodium (Depakote ER) 250 Mg Tab.er.24h, 750 MG PO BID for Mood Hydroxyzine HCl (Hydroxyzine HCl) 10 Mg Tablet, 20 MG PO BID Ketoconazole (Ketoconazole) 15 Gm Cream..g., 1 DOSE EXT BID APPLY TO FEET Levothyroxine Sodium (Levothyroxine Sodium) 75 Mcg Tablet, 75 MCG PO DAILY Lurasidone Hydrochloride (Latuda) 40 Mg Tablet, 40 MG PO DAILY@08 for Mood Pantoprazole Sodium (Pantoprazole Sodium) 40 Mg Tablet.dr, 40 MG PO DAILY Simvastatin (Simvastatin) 10 Mg Tablet, 10 MG PO QHS Scheduled PRN Acetaminophen (Acetaminophen) 500 Mg Tablet, 1,000 MG PO Q6H PRN for PAIN LEVEL 1-4 Betamethasone Dip (Betamethasone Dipropionate) 15 Gm Oint...g., 1 DOSE TOP BID PRN for CRACKS IN SKIN APPLIES TO HANDS AND FEET Fluticasone Propionate (Flonase Allergy Relief) 9.9 Ml [place].susp, 2 SPRAY NARES DAILY PRN for CONGESTION Ondansetron HCl (Ondansetron HCl) 8 Mg Tablet, 8 MG PO Q8H PRN for NAUSEA OR VOMITING Simethicone (Gas-X) 125 Mg Tab.chew, 125 MG PO Q6H PRN for GAS PAIN Allergies Coded Allergies: latex (Verified Allergy, Unknown, rash, 06/20/20) A-FIB/CHADSVASC A-FIB History Current/History of A-Fib/PAF?: No ALAINA KWON DO Mar 28, 2021 15:56
[2021-03-28 16:32] VITALS: BP 125/75
[2021-03-28 16:38] LABS: CHOLESTEROL RISK RATIO 3.901 (<5); FREE T4 1.06 NG/DL (0.76-1.46)
[2021-03-28 16:50] LABS: HEMOGLOBIN A1c 5.8 %
[2021-03-28] MEDS: risperiDONE 0.5 MG TAB PO SCH (20:18)
[2021-03-28] MEDS ORDERED: SIMVASTATIN 10 MG TAB PO SCH (21:00)
[2021-03-29] MEDS: LEVOTHYROXINE 75MCG TABLET (0.075MG) PO SCH (05:43)
[2021-03-29 06:27] VITALS: BP 106/61
[2021-03-29] MEDS: PILL CUTTER 1 EACH XX PRN (08:30)
[2021-03-29] MEDS: LORATADINE 10 MG TAB PO SCH (08:30)
[2021-03-29] MEDS: risperiDONE 0.5 MG TAB PO SCH ×2 (08:31→20:40)
[2021-03-29] MEDS: PANTOPRAZOLE 40MG TAB (PROTONIX) PO SCH (08:31)
[2021-03-29] MEDS: busPIRone 10 MG TAB PO SCH ×2 (08:31→20:40)
[2021-03-29] MEDS: DIVALPROEX 250MG *ER* TAB PO SCH ×2 (08:31→20:39)
--- NOTE | 2021-03-29 14:06 | MHIPNPDOC ---
[facility] Progress Note Progress Note DATE OF SERVICE: 03/29/21 HISTORY: Patient is a 40 -year-old , male, who has a history significant for possible bipolar disorder along with possible autism spectrum. He was recently discharged from the unit here for management of the same, on the day of discharge he also received his COVID booster shot. He began feeling tired and feverish, and began having bizarre dreams of people trying to set on fire or chasing down to kill him. This continued for several days and he became increasingly more distraught, began sleeping less as well. He perseverates somewhat on the idea of hurting his children and tries to explain the ways in which he and his have arranged her house in order to help prevent him from hurting his children, he also briefly talked about having sex with his at one point during this time as well. He is frequently quite scattered in his thought process and has a difficult time staying on track. Overall he is quite concerned about these changes, and would like to have additional answers about what would be helpful for him. He does feel that the medication changes since he was on the unit have been helpful for him. We did spend some time discussing the rationale behind the changes that were made on admission. INTERVAL HISTORY: Reports sleeping better with less anxiety. Overall feels that the medication has been helpful, he feels that his mind is starting to calm down. He endorses some nausea along with morning vomiting for the past 2 days, but notes that he has not vomited throughout the rest of the day yesterday or so far today. He is concerned about options for his treatment and how he should approach them in a similar situation if he were to destabilize in the future. We discussed ways when she depressed and would like destabilization's in the future. VITAL SIGNS: See below. NEW TEST RESULTS: None. CURRENT MEDICATIONS: See below. MENTAL STATUS EXAMINATION: Patient is a 40-year old male, who is dressed in hospital clothing, good grooming and hygiene. Speech: Is rapid, less pressured than yesterday, able to take pauses and listen. Spontaneous in nature, at times somewhat difficult to understand mostly due to speed of speech.. Language skills are intact. Thought processes including: Linear, goal-directed. Thought content: Denies SI, HI, AVH. Abstract reasoning, and computation: Intact. Description of associations: Still somewhat loose but improving. Description of abnormal or psychotic thoughts: Denies AVH, reports lower paranoia, still has some anxiety. Judgment: Fair. Insight: Fair. Orientation: X3. Recent and remote memory: Intact. Attention span and concentration: Intact. Mood: "Pretty good". Affect: Euthymic, blunted, congruent to stated mood. DIAGNOSES: Bipolar disorder, current episode manic, with psychotic features ASSESSMENT: Janes appears to be responding well to the Risperdal. His dena is improving as is evidenced by his greater ability to take pauses, less pressured nature of his speech, and improving linearity of his thought process. He feels that his anxiety is also begin calm down and was provided education about the ability to use Ativan if he felt that his anxiety was spiraling out of control. Overall appears to be stabilizing, will hold off on further increases of Risperdal at this time due to possible side effects of nausea and allow Janes some time to clear with current dose. MANAGEMENT PLAN: Continue current medications as prescribed. TIME SPENT: 30 minutes. Vital Signs Vital Signs Date Time Temp Pulse Resp B/P (MAP) Pulse Ox O2 Delivery O2 Flow Rate FiO2 03/29/21 06:27 97.7 100 12 106/61 (76) 97 Room Air Laboratory Data 24H Labs Laboratory Tests 2 03/28/21 15:57: Estimated Mean Plasma Glucose 120H, Hemoglobin A1c 5.8, Triglycerides Level 120, Total Cholesterol 199, LDL Cholesterol 124H, Non-HDL Cholesterol (LDL + VLDL) 148, Total HDL Cholesterol 51, Cholesterol/HDL Ratio 3.901, Free Thyroxine 1.06 Current Medications Current Medications Medications (Trade) Dose Ordered Sig/Valeria Route PRN Reason Start Time Stop Time Status Last Admin Dose Admin Acetaminophen (Tylenol Tab) 650 mg Q6HP PRN PO HEADACHE or MILD DISCOMFORT 03/27/21 22:25 Al Hydrox/Mg Hydrox/Simethicone (Mylanta) 30 ml Q4HP PRN PO HEARTBURN/INDIGESTION 03/27/21 22:25 Buspirone HCl (Buspar) 30 mg BID PO 03/27/21 21:00 03/29/21 08:31 Buspirone HCl (Buspar) 30 mg BID PO 03/28/21 09:00 03/27/21 23:47 DC Divalproex Sodium (Depakote Er) 750 mg BID PO 03/28/21 09:00 03/29/21 08:31 Divalproex Sodium (Depakote) 750 mg BID PO 03/27/21 09:00 UNV Divalproex Sodium (Depakote) 750 mg BID PO 03/28/21 09:00 03/27/21 23:47 DC Fluticasone Propionate (Flonase 0.05% Nasal [place]) 2 spray DAILY PRN NARES CONGESTION 03/27/21 22:25 Home Med (Home Med List Complete!) ASDIRECTED XX 03/27/21 23:05 03/27/21 23:09 DC Levothyroxine Sodium (Synthroid) 75 mcg DAILY@06 PO 03/28/21 06:00 03/29/21 05:43 Loratadine (Claritin) 5 mg DAILY PO 03/28/21 09:00 03/29/21 08:30 Lorazepam (Ativan) 1 mg Q2HP PRN PO ANXIETY/AGITATION 03/27/21 22:25 03/28/21 08:04 Magnesium Hydroxide (Milk Of Magnesia) 30 ml DAILYPRN PRN PO CONSTIPATION 03/27/21 22:25 Meclizine HCl (Antivert) 12.5 mg BID PRN PO DIZZINESS/VERTIGO 03/27/21 22:25 Ondansetron HCl (Zofran) 8 mg Q8H PRN PO NAUSEA/VOMITING 03/27/21 22:25 03/28/21 09:26 Pantoprazole Sodium (Protonix) 40 mg DAILY PO 03/28/21 09:00 03/29/21 08:31 Risperidone (RisperDAL) 1 mg BID PO 03/27/21 21:00 03/28/21 15:42 DC 03/28/21 08:06 Risperidone (RisperDAL) 1 mg BID PO 03/28/21 09:00 03/27/21 23:47 DC Risperidone (RisperDAL) 1.5 mg BID PO 03/28/21 21:00 03/29/21 08:31 Simvastatin (Zocor) 10 mg QHS PO 03/27/21 21:00 03/28/21 20:18 Simvastatin (Zocor) 10 mg QHS PO 03/28/21 21:00 03/27/21 23:47 DC Trazodone HCl (Desyrel) 50 mg QHSP PRN PO INSOMNIA 03/27/21 22:25 03/28/21 20:18 Allergies Coded Allergies: latex (Verified Allergy, Unknown, rash, 06/20/20) YADIRA JACQUES MD Mar 29, 2021 14:06
[2021-03-29] MEDS: LORazepam 1 MG TAB PO PRN (14:24)
[2021-03-29 16:12] VITALS: BP 136/83
[2021-03-29] MEDS: FLUTICASONE PROP 0.05% NASAL SPRAY 16 GM (FLONASE) NARES PRN (20:38)
[2021-03-29] MEDS: SIMVASTATIN 10 MG TAB PO SCH (20:40)
[2021-03-29] MEDS: traZODone 50 MG TAB PO PRN (20:41)
[2021-03-30] MEDS: LEVOTHYROXINE 75MCG TABLET (0.075MG) PO SCH (05:21)
[2021-03-30 06:34] VITALS: BP 107/80
[2021-03-30] MEDS: busPIRone 10 MG TAB PO SCH ×2 (09:08→20:11)
[2021-03-30] MEDS: risperiDONE 0.5 MG TAB PO SCH ×2 (09:08→20:11)
[2021-03-30] MEDS: LORATADINE 10 MG TAB PO SCH (09:08)
[2021-03-30] MEDS: PANTOPRAZOLE 40MG TAB (PROTONIX) PO SCH (09:08)
[2021-03-30] MEDS: DIVALPROEX 250MG *ER* TAB PO SCH ×2 (09:09→20:11)
--- NOTE | 2021-03-30 11:59 | MHIPNPDOC ---
[facility] Progress Note Progress Note DATE OF SERVICE: 03/30/21 HISTORY:Patient is a 40 -year-old , male, who has a history significant for possible bipolar disorder along with possible autism spectrum. Came in today stating, I was having a lot of strange thoughts and nightmares about someone setting me on fire and trying to kill me. He was recently discharged from the unit here for management of the same, on the day of discharge he also received his COVID booster shot. He began feeling tired and feverish, and began having bizarre dreams of people trying to set on fire or chasing down to kill him. This continued for several days and he became increasingly more distraught, began sleeping less as well. He perseverates somewhat on the idea of hurting his children and tries to explain the ways in which he and his have arranged her house in order to help prevent him from hurting his children, he also briefly talked about having sex with his at one point during this time as well. He is frequently quite scattered in his thought process and has a difficult time staying on track. Overall he is quite concerned about these changes, and would like to have additional answers about what would be helpful for him. He does feel that the medication changes since he was on the unit have been helpful for him. reporting manager psychiatrist and pt spent some time discussing the rationale behind the changes that were made on admission. VITAL SIGNS: See below. NEW TEST RESULTS: None CURRENT MEDICATIONS: See below. MENTAL STATUS EXAMINATION: Patient is a 40 -year-old , male, who has a history significant for possible bipolar disorder along with possible autism spectrum. Speech: Is fluid, conversant, normal rate, tone and volume Language skills are intact Thought processes including: linear and coherent Thought content: denies depression and anxiety. Denies suicidal/homicidal ideation, planning or intent. Abstract reasoning, and computation: fair Description of associations: denies visual or auditory hallucinations, none observed Description of abnormal or psychotic thoughts: denies, none observed. Judgment: fair Insight: fair Orientation: alert and oriented to person, place, time and situation Recent and remote memory: intact Attention span and concentration: good Language: expansive Fund of knowledge: average Mood: Euthymic Mood Affect: reactive DIAGNOSES: 1. Bipolar disorder, current episode manic, with psychotic features ASSESSMENT: Patient is reporting doing very well today, states that he feels that he had a reaction to COVID vaccine that caused inflammation and increased his visual hallucinations. Reports that he is not having any hallucinations and that he has improved since his switch from Risperdal to Latuda. He is requesting to be discharged tomorrow. States that he was hopeful to return to work. MANAGEMENT PLAN: Continue all medications and supportive therapies as ordered, patient to be discharge TIME SPENT: 20 minutes. Vital Signs Vital Signs Date Time Temp Pulse Resp B/P (MAP) Pulse Ox O2 Delivery O2 Flow Rate FiO2 03/30/21 06:34 98.1 89 18 107/80 (89) 97 Room Air Current Medications Current Medications Medications (Trade) Dose Ordered Sig/Valeria Route PRN Reason Start Time Stop Time Status Last Admin Dose Admin Acetaminophen (Tylenol Tab) 650 mg Q6HP PRN PO HEADACHE or MILD DISCOMFORT 03/27/21 22:25 Al Hydrox/Mg Hydrox/Simethicone (Mylanta) 30 ml Q4HP PRN PO HEARTBURN/INDIGESTION 03/27/21 22:25 Buspirone HCl (Buspar) 30 mg BID PO 03/27/21 21:00 03/30/21 09:08 Buspirone HCl (Buspar) 30 mg BID PO 03/28/21 09:00 03/27/21 23:47 DC Divalproex Sodium (Depakote Er) 750 mg BID PO 03/28/21 09:00 03/30/21 09:09 Divalproex Sodium (Depakote) 750 mg BID PO 03/27/21 09:00 UNV Divalproex Sodium (Depakote) 750 mg BID PO 03/28/21 09:00 03/27/21 23:47 DC Fluticasone Propionate (Flonase 0.05% Nasal [place]) 2 spray DAILY PRN NARES CONGESTION 03/27/21 22:25 03/29/21 20:38 Home Med (Home Med List Complete!) ASDIRECTED XX 03/27/21 23:05 03/27/21 23:09 DC Levothyroxine Sodium (Synthroid) 75 mcg DAILY@06 PO 03/28/21 06:00 03/30/21 05:21 Loratadine (Claritin) 5 mg DAILY PO 03/28/21 09:00 03/30/21 09:08 Lorazepam (Ativan) 1 mg Q2HP PRN PO ANXIETY/AGITATION 03/27/21 22:25 03/29/21 14:24 Magnesium Hydroxide (Milk Of Magnesia) 30 ml DAILYPRN PRN PO CONSTIPATION 03/27/21 22:25 Meclizine HCl (Antivert) 12.5 mg BID PRN PO DIZZINESS/VERTIGO 03/27/21 22:25 Ondansetron HCl (Zofran) 8 mg Q8H PRN PO NAUSEA/VOMITING 03/27/21 22:25 03/28/21 09:26 Pantoprazole Sodium (Protonix) 40 mg DAILY PO 03/28/21 09:00 03/30/21 09:08 Risperidone (RisperDAL) 1 mg BID PO 03/27/21 21:00 03/28/21 15:42 DC 03/28/21 08:06 Risperidone (RisperDAL) 1 mg BID PO 03/28/21 09:00 03/27/21 23:47 DC Risperidone (RisperDAL) 1.5 mg BID PO 03/28/21 21:00 03/30/21 09:08 Simvastatin (Zocor) 10 mg QHS PO 03/27/21 21:00 03/29/21 20:40 Simvastatin (Zocor) 10 mg QHS PO 03/28/21 21:00 03/27/21 23:47 DC Trazodone HCl (Desyrel) 50 mg QHSP PRN PO INSOMNIA 03/27/21 22:25 03/29/21 20:41 Allergies Coded Allergies: latex (Verified Allergy, Unknown, rash, 06/20/20) KELLEY BARBA [employer] Mar 30, 2021 11:59
[2021-03-30] MEDS: ONDANSETRON 4 MG TAB PO PRN (12:49)
[2021-03-30 19:10] VITALS: BP 128/82
[2021-03-30] MEDS: SIMVASTATIN 10 MG TAB PO SCH (20:11)
[2021-03-30] MEDS: traZODone 50 MG TAB PO PRN (20:13)
[2021-03-30] MEDS: LORazepam 1 MG TAB PO PRN (21:38)
[2021-03-31] MEDS: LEVOTHYROXINE 75MCG TABLET (0.075MG) PO SCH (06:08)
[2021-03-31 06:32] VITALS: BP 136/84
[2021-03-31] MEDS: busPIRone 10 MG TAB PO SCH (08:20)
[2021-03-31] MEDS: LORATADINE 10 MG TAB PO SCH (08:20)
[2021-03-31] MEDS: PANTOPRAZOLE 40MG TAB (PROTONIX) PO SCH (08:20)
[2021-03-31] MEDS: DIVALPROEX 250MG *ER* TAB PO SCH (08:20)
[2021-03-31] MEDS: risperiDONE 0.5 MG TAB PO SCH (08:20)
[2021-03-31] MEDS: FLUTICASONE PROP 0.05% NASAL SPRAY 16 GM (FLONASE) NARES PRN (08:43)
[2021-03-31] MEDS ORDERED: RISP-7 PO (09:27)
[2021-03-31] MEDS ORDERED: LORazepam 0.5 MG TAB PO STA (09:29)
--- NOTE | 2021-03-31 13:29 | MHDSPDOC ---
[facility] Discharge Summary Discharge Summary DATE OF ADMISSION: Mar 27, 2021 at 22:25 DATE OF DISCHARGE: March 31, 2021 at 0932 DISCHARGE DIAGNOSES: Bipolar disorder, current episode manic, with psychotic features REASON FOR ADMISSION: Patient is a 40 -year-old , Employed, Domiciled , male, who has a history significant for possible bipolar disorder along with possible autism spectrum. He was recently discharged from the unit here for management of the same, on the day of discharge he also received his COVID booster shot. He began feeling tired and feverish, and began having bizarre dreams of people trying to set on fire or chasing down to kill him. This continued for several days and he became increasingly more distraught, began sleeping less as well. He perseverates somewhat on the idea of hurting his children and tries to explain the ways in which he and his have arranged her house in order to help prevent him from hurting his children, he also briefly talked about having sex with his at one point during this time as well. He is frequently quite scattered in his thought process and has a difficult time staying on track. Overall he is quite concerned about these changes, and would like to have additional answers about what would be helpful for him. He does feel that the medication changes since he was on the unit have been helpful for him. We did spend some time discussing the rationale behind the changes that were made on admission. INTERVAL HISTORY: Reports sleeping better with less anxiety. Overall feels that the medication has been helpful, he feels that his mind is starting to calm down. He endorses some nausea along with morning vomiting for the past 2 days, but notes that he has not vomited throughout the rest of the day yesterday or so far today. He is concerned about options for his treatment and how he should approach them in a similar situation if he were to destabilize in the future. VITAL SIGNS: See below. CONSULTANTS INVOLVED: See Medical H + P by Hospitalist TREATMENT AND PROGRESS ON THE UNIT: Patient was admitted to the [facility] on a legal status was afforded the following treatment modalities: 1) Individual Therapy 2) Group Therapy 3) Medication Management 4) Milieu Therapy 5) Safe Environment HOSPITAL COURSE: Patient was admitted to [facility] on a legal status. Patient had been experiencing hallucinations after he was discharged last week. He had received his COVID vaccinations and had mild side effects, we postulate that this caused an inflammatory event which exacerbated manic symptoms and hallucinations. He was started on his home medications, the on-call psychiatrist saw patient over the weekend and discontinued Latuda and started patient on Risperdal. He reported that this was more effective on his hallucinations. Over the weekend patient reported that he was doing very well. Mood, anxiety, and intrusive thoughts improved with treatment. Pt found medications beneficial and tolerated them well - stating that the new regimen was effective for his depression and hallucinations. Pt attended some groups daily stay. Pts symptoms improved with treatment. On day of discharge pt. denied depression, anxiety, insomnia, SI/HI, hallucinations, delusions. Pt was discharged home with follow-up at [facility]. Pt felt safe for discharge. DISCHARGE ASSESSMENT: In today's interview, patient is alert and oriented, pt.s dress is appropriate. Hygiene and grooming is well-kempt. Smiles on approach and is pleasant and engaged in the interview. Denies depression and anxiety. Denies suicidal and homicidal ideation, planning or intent. Denies and is not observed with dean, psychotic symptoms of delusions, bizarre thinking, obsessions, paranoia, ruminations illogical thoughts, flight of ideas or having poor insight and judgement. Reinforced with patient need to abstain from alcohol and drugs. At discharge patient has normal mentation, declines further hospitalization on a voluntary status and meets criteria for discharge today. Discussed indications of medications, potential benefits and risks, alternatives (including no treatment) and questions were encouraged and answered. Patient encouraged to return to hospital if symptoms worsen or change and encouraged to call unit if he/she/they needs to speak to provider for questions regarding medications or care. On discharge he was given Ativan 0.5 mg for his increasing anxiety. MENTAL STATUS EXAMINATION ON DISCHARGE: Patient is a 40 -year-old , Employed, Domiciled , male, who has a history significant for possible return of bipolar symptoms Speech: Is fluid, conversant, normal rate, tone and volume Language skills are intact Thought processes including: linear and goal oriented Thought content: denies depression and anxiety. Denies suicidal/homicidal ideation, planning or intent. Abstract reasoning, and computation: fair Description of associations: denies, none observed Description of abnormal or psychotic thoughts: denies, none observed. Judgment: fair Insight: fair Orientation: alert and oriented to person, place, time and situation Recent and remote memory: intact Attention span and concentration: good Language: expansive Fund of knowledge: average Mood: Euthymic Mood Affect: reactive Suicide Risk Assessment: 1) Does the patient wish to be ? No 2) Since your admission, have you had any actual thought of killing yourself? No 3) Since your admission, have you been thinking about how you might do this? No 4) Since your admission, have you had these thoughts and had some intention of acting on them? No 5) Since your admission, have you started to work out or worked out the details of how to kill yourself? No 5A) Do you intent to carry out this plan? No and NA 6) Have you ever done anything, started anything, or prepared to do anything with any intent to ? No 6A) How long since your admission did you do any of these? NA MEDICATIONS ON DISCHARGE: See Medication Reconciliation PLAN/FOLLOWUP ARRANGEMENTS: Mental Health Appt 1 * Mental Health [facility] * Established With This Provider Yes * Therapist RITCHIE * Date Apr 01, 2021 * Time 13:00 * Address of Clinic or Practice [address] [place] [address] * Follow Up Care Education Label * Mental Health Appt 2 * Mental Health [facility] * Established With This Provider Yes * Therapist RITCHIE * Date Apr 08, 2021 * Time 10:00 * Address of Clinic or Practice [address] [place] [address] * Follow Up Care Education Label * Mental Health Appt 3 * Mental Health [facility] * Established With This Provider Yes * Therapist RITCHIE * Date Apr 14, 2021 * Time 13:30 * Address of Clinic or Practice [address] [place] [address] * Follow Up Care Education Label * Mental Health Appt 4 * Mental Health [facility] * Established With This Provider Yes * Therapist DR. HEIN * Date Apr 17, 2021 * Time 09:20 * Address of Clinic or Practice [address] [place] [address] * Follow Up Care Education Label * Medical * Medical Follow Up [facility] [place] * Established With This Provider Yes * Therapist DR. DELGADO * Date Apr 01, 2021 * Time 13:00 * Address of Clinic or Practice [id number] * The amount of time spent in the coordination of care for this patient was approximately 25 minutes. ETOH/Disorder Med Rx ETOH/DRUG DISORDER RX: N/A Vital Signs/I&Os Vital Signs Date Time Temp Pulse Resp B/P (MAP) Pulse Ox O2 Delivery O2 Flow Rate FiO2 03/31/21 06:32 97.6 80 20 136/84 (101) 96 Room Air Medications Scheduled Buspirone HCl (Buspirone HCl) 30 Mg Tablet, 30 MG PO BID, (Reported) Divalproex Sodium (Depakote ER) 250 Mg Tab.er.24h, 750 MG PO BID for Mood, #42 Hydroxyzine HCl (Hydroxyzine HCl) 10 Mg Tablet, 20 MG PO BID, (Reported) Ketoconazole (Ketoconazole) 15 Gm Cream..g., 1 DOSE EXT BID, (Reported) APPLY TO FEET Levothyroxine Sodium (Levothyroxine Sodium) 75 Mcg Tablet, 75 MCG PO DAILY, (Reported) Pantoprazole Sodium (Pantoprazole Sodium) 40 Mg Tablet.dr, 40 MG PO DAILY, (Reported) Risperidone (Risperidone) 0.5 Mg Tablet, 1.5 MG PO BID for Psychosis, #14 Simvastatin (Simvastatin) 10 Mg Tablet, 10 MG PO QHS, (Reported) Scheduled PRN Acetaminophen (Acetaminophen) 500 Mg Tablet, 1,000 MG PO Q6H PRN for PAIN LEVEL 1-4, (Reported) Betamethasone Dip (Betamethasone Dipropionate) 15 Gm Oint...g., 1 DOSE TOP BID PRN for CRACKS IN SKIN, (Reported) APPLIES TO HANDS AND FEET Fluticasone Propionate (Flonase Allergy Relief) 9.9 Ml [place].susp, 2 SPRAY NARES DAILY PRN for CONGESTION, (Reported) Ondansetron HCl (Ondansetron HCl) 8 Mg Tablet, 8 MG PO Q8H PRN for NAUSEA OR VOMITING, (Reported) Simethicone (Gas-X) 125 Mg Tab.chew, 125 MG PO Q6H PRN for GAS PAIN, (Reported) Allergies Coded Allergies: latex (Verified Allergy, Unknown, rash, 06/20/20) KELLEY BARBA [employer] Mar 31, 2021 09:38
== END 2021-03-31 10:00 | disposition home or self-care (01) | DRG 753 ==
LOC: M ED 15:53 → M ED INP 22:25 → M PSY 23:12
PROVIDERS: ADMIT Psychiatry & Neurology Psychiatry; ATTEND Psychiatry & Neurology Psychiatry
DX: F31.2 Bipolar disorder, current episode manic severe with psychotic features (principal); I10 Essential (primary) hypertension; Z79.899 Other long term (current) drug therapy; Z91.040 Latex allergy status; E78.5 Hyperlipidemia, unspecified; F41.9 Anxiety disorder, unspecified; G43.909 Migraine, unspecified, not intractable, without status migrainosus

== ENCOUNTER → 2021-04-15 | Outpatient (REF) | payer BC, MEDICAID ==
[~2021-04-15] MED LIST changes: -DIVALPROEX 250 MG TAB PO SCH; -FLUO10CA16 PO; +FLUO10CA18 PO; +IBUP200C25 PO; -LATU40TA PO; +LATU40TA2 PO; +NIVOLUMAB; +ONDA-84 PO; -ONDA8TAB10 PO; -PROC10TA4 PO; +PROC10TA5 PO; +RISP-7 PO; +[UNRECOGNIZED DRUG - CODE] IV
[2021-04-15 13:27] LABS: ALT/SGPT 47 U/L (12-78); BILIRUBIN,TOTAL 0.6 MG/DL (0.2-1.0); BLOOD UREA NITROGEN 15 MG/DL (7-18); CALCIUM LEVEL 10.2 MG/DL (8.5-10.1); CARBON DIOXIDE LEVEL 29 MEQ/L (21-32); CHLORIDE LEVEL 103 MEQ/L (98-107); CREATININE FOR GFR 0.92 MG/DL (0.70-1.30); FREE T4 1.27 NG/DL (0.76-1.46); GLOMERULAR FILTRATION RATE > 60.0 (>60); GLUCOSE, FASTING 82 MG/DL (70-100); POTASSIUM SERUM 4.5 MEQ/L (3.5-5.1); SODIUM LEVEL 140 MEQ/L (136-145); TOTAL PROTEIN 7.7 GM/DL (6.4-8.2)
== END ==
LOC: M SFHCADAM 09:59
PROVIDERS: ATTEND Family Medicine
DX: E03.8 Other specified hypothyroidism (principal); C79.9 Secondary malignant neoplasm of unspecified site

== ENCOUNTER 2021-06-24 11:14 | Emergency (ER) | payer BC, MEDICAID ==
[~2021-06-24] VITALS: Ht 165.1 cm; Wt 77.3 kg
[~2021-06-24 11:14] MED LIST changes: -IBUP200C25 PO; -NIVOLUMAB; -[UNRECOGNIZED DRUG - CODE] IV
[2021-06-24] MEDS ORDERED: NIVOLUMAB (11:30)
[2021-06-24] MEDS ORDERED: IBUP200C25 PO (11:30)
[2021-06-24] MEDS ORDERED: DIVA500T9 PO (11:30)
[2021-06-24] MEDS ORDERED: [UNRECOGNIZED DRUG - CODE] IV (11:30)
[2021-06-24 12:44] LABS: BASO # 0.1 10^3/uL (0.0-0.2); BASO % 1.5 % (0.0-1.0); EOS # 0.2 10^3/uL (0.0-0.5); EOS % 2.6 % (0.0-3.0); HEMATOCRIT 45.6 % (42.0-52.0); HEMOGLOBIN 15.1 g/dl (13.5-17.5); LYMPH # 1.9 10^3/uL (1.5-5.0); LYMPH % 23.2 % (24.0-44.0); MEAN CORPUSCULAR HEMOGLOBIN 29.4 pg (27.0-33.0); MEAN CORPUSCULAR HGB CONC 33.1 g/dl (32.0-36.5); MEAN CORPUSCULAR VOLUME 88.7 fl (80.0-96.0); MONO # 0.9 10^3/uL (0.0-0.8); MONO % 10.6 % (2.0-8.0); NEUTROPHILS # 4.7 10^3/uL (1.5-8.5); NEUTROPHILS % 57.4 % (36.0-66.0); PLATELET COUNT, AUTOMATED 236 10^3/uL (150-450); RED BLOOD COUNT 5.14 10^6/uL (4.30-6.10); WHITE BLOOD COUNT 8.1 10^3/uL (4.0-10.0)
[2021-06-24 13:22] LABS: ALBUMIN 3.7 GM/DL (3.2-5.2); ALT/SGPT 32 U/L (12-78); BILIRUBIN,DIRECT < 0.1 MG/DL (0.0-0.2); BILIRUBIN,TOTAL 0.3 MG/DL (0.2-1.0); BLOOD UREA NITROGEN 14 MG/DL (7-18); CALCIUM LEVEL 9.7 MG/DL (8.5-10.1); CARBON DIOXIDE LEVEL 31 MEQ/L (21-32); CHLORIDE LEVEL 105 MEQ/L (98-107); CREATININE FOR GFR 0.93 MG/DL (0.70-1.30); GLOMERULAR FILTRATION RATE > 60.0 (>60); GLUCOSE, FASTING 88 MG/DL (70-100); POTASSIUM SERUM 4.2 MEQ/L (3.5-5.1); SODIUM LEVEL 141 MEQ/L (136-145); TOTAL PROTEIN 7.1 GM/DL (6.4-8.2); VALPROIC ACID (DEPAKOTE) 131.5 UG/ML (50.0-100.0)
[2021-06-24 13:55] LABS: RSV AMPLIFICATION NEGATIVE (NEGATIVE)
[2021-06-24 18:48] VITALS: BP 135/94
== END 2021-06-24 18:50 | disposition home or self-care (01) ==
LOC: M ED 11:14 → EDBD 11:14 → M ED 18:50
DX: R51.9 Headache, unspecified (principal); R90.89 Other abnormal findings on diagnostic imaging of central nervous system; C43.4 Malignant melanoma of scalp and neck; F31.9 Bipolar disorder, unspecified; Z91.040 Latex allergy status; Z79.899 Other long term (current) drug therapy

== ENCOUNTER 2021-10-08 16:28 | Inpatient (IN) | payer BC, MEDICAID ==
[~2021-10-08] VITALS: Ht 165.1 cm; Wt 88.5 kg
[~2021-10-08 16:28] MED LIST changes: +CICL0.7739 EXT; +DIVA250T7 PO; +FLON1SPR; -FLON1SPR NARES; +HYDR-4468 PO; +IBUP200C25 PO; +NIRM1TAB PO; +NIVOLUMAB; +NYST1POW9 TOP; +ONDA-195 PO; +SERT50TA29 PO; +SYNT50TA PO; +[UNRECOGNIZED DRUG - CODE] IV
[2021-10-08 19:22] LABS: HEMATOCRIT 43.2 % (42.0-52.0); HEMOGLOBIN 14.6 g/dl (13.5-17.5); MEAN CORPUSCULAR HEMOGLOBIN 30.5 pg (27.0-33.0); MEAN CORPUSCULAR HGB CONC 33.8 g/dl (32.0-36.5); MEAN CORPUSCULAR VOLUME 90.4 fl (80.0-96.0); PLATELET COUNT, AUTOMATED 240 10^3/uL (150-450); RED BLOOD COUNT 4.78 10^6/uL (4.30-6.10); WHITE BLOOD COUNT 7.6 10^3/uL (4.0-10.0)
[2021-10-08 19:37] LABS: ACETAMINOPHEN LEVEL < 2.0 UG/ML (10.0-30.0); ALBUMIN 3.7 GM/DL (3.2-5.2); ALT/SGPT 34 U/L (12-78); BILIRUBIN,DIRECT 0.2 MG/DL (0.0-0.2); BILIRUBIN,TOTAL 0.2 MG/DL (0.2-1.0); BLOOD UREA NITROGEN 18 MG/DL (7-18); CALCIUM LEVEL 9.3 MG/DL (8.5-10.1); CARBON DIOXIDE LEVEL 28 MEQ/L (21-32); CHLORIDE LEVEL 107 MEQ/L (98-107); ETHYL ALCOHOL (ETHANOL) < 0.003 % (0.000-0.010); GLOMERULAR FILTRATION RATE > 60.0 (>60); GLUCOSE, FASTING 131 MG/DL (70-100); POTASSIUM SERUM 3.7 MEQ/L (3.5-5.1); SALICYLATE LEVEL < 1.7 MG/DL (5.0-30.0); SODIUM LEVEL 144 MEQ/L (136-145); TOTAL PROTEIN 7.2 GM/DL (6.4-8.2); VALPROIC ACID (DEPAKOTE) 103.7 UG/ML (50.0-100.0)
[2021-10-08 19:51] LABS: AMPHETAMINES LEVEL URINE NEGATIVE (NEGATIVE); BARBITURATES URINE NEGATIVE (NEGATIVE); BENZODIAZEPINES URINE NEGATIVE (NEGATIVE); CANNABINOIDS URINE NEGATIVE (NEGATIVE); COCAINE METABOLITE URINE NEGATIVE (NEGATIVE); METHADONE URINE NEGATIVE (NEGATIVE); OPIATES URINE NEGATIVE (NEGATIVE); PHENCYCLIDINE URINE NEGATIVE (NEGATIVE)
[2021-10-08 20:02] LABS: RSV AMPLIFICATION NEGATIVE (NEGATIVE)
[2021-10-08] MEDS ORDERED: CHEL50TA3 PO (22:24)
[2021-10-08] MEDS ORDERED: SYNT75TA PO (22:24)
[2021-10-08] MEDS ORDERED: C 50TAB PO (22:24)
[2021-10-08] MEDS ORDERED: HOME MED LIST COMPLETE! XX SCH (22:25)
[2021-10-09] MEDS ORDERED: busPIRone 10 MG TAB PO SCH (09:15)
[2021-10-09] MEDS ORDERED: DIVALPROEX 250MG *ER* TAB PO SCH (09:15)
[2021-10-09] MEDS ORDERED: HYDROCORTISONE 10 MG TAB PO SCH ×2 (09:15→14:00)
[2021-10-09] MEDS ORDERED: MOM 30ML SUSPENSION UDC PO PRN (16:30)
[2021-10-09] MEDS ORDERED: MAALOX 30 ML SUSP *UDC PO PRN (16:30)
[2021-10-09] MEDS ORDERED: OLANZapine ORAL DISINTEGRATING TAB 5MG PO PRN (16:40)
[2021-10-09] MEDS ORDERED: FLUTICASONE PROP 0.05% NASAL SPRAY 16 GM (FLONASE) PRN (21:55)
[2021-10-09 22:15] VITALS: BP 128/90
[2021-10-09] MEDS: DIVALPROEX 500MG *ER* TAB PO SCH (22:25)
[2021-10-09] MEDS: DIVALPROEX 250MG *ER* TAB PO SCH (22:25)
[2021-10-09] MEDS: risperiDONE 2 MG TAB PO SCH (22:26)
[2021-10-09] MEDS: busPIRone 10 MG TAB PO SCH (22:26)
[2021-10-09] MEDS: traZODone 50 MG TAB PO PRN (22:40)
[2021-10-09] MEDS: SIMVASTATIN 10 MG TAB PO SCH (22:51)
[2021-10-10] MEDS: LEVOTHYROXINE 75MCG TABLET (0.075MG) PO SCH (05:25)
[2021-10-10] MEDS ORDERED: LEVOTHYROXINE 75MCG TABLET (0.075MG) PO SCH (06:00)
[2021-10-10 06:23] VITALS: BP 129/70
[2021-10-10 08:30] LABS: VALPROIC ACID (DEPAKOTE) 62.9 UG/ML (50.0-100.0)
[2021-10-10] MEDS: HYDROCORTISONE 10 MG TAB PO SCH ×2 (08:39→14:46)
[2021-10-10] MEDS: DIVALPROEX 500MG *ER* TAB PO SCH ×2 (08:39→21:02)
[2021-10-10] MEDS: busPIRone 10 MG TAB PO SCH ×2 (08:40→21:02)
[2021-10-10] MEDS: DIVALPROEX 250MG *ER* TAB PO SCH ×2 (08:40→21:02)
[2021-10-10] MEDS: ASCORBIC ACID 500 MG TAB PO SCH (08:40)
[2021-10-10] MEDS: ACETAMINOPHEN TAB 650MG DOSE (2X325MG) PO PRN ×2 (09:56→18:18)
[2021-10-10] MEDS: risperiDONE 1 MG TAB PO SCH (11:26)
[2021-10-10 18:49] VITALS: BP 142/67
[2021-10-10] MEDS: traZODone 50 MG TAB PO PRN (21:02)
[2021-10-10] MEDS: SIMVASTATIN 10 MG TAB PO SCH (21:02)
[2021-10-10] MEDS: risperiDONE 2 MG TAB PO SCH (21:02)
[2021-10-11] MEDS: LEVOTHYROXINE 75MCG TABLET (0.075MG) PO SCH (05:43)
[2021-10-11 06:43] VITALS: BP 116/63
[2021-10-11] MEDS: busPIRone 10 MG TAB PO SCH ×2 (08:27→20:12)
[2021-10-11] MEDS: DIVALPROEX 250MG *ER* TAB PO SCH ×2 (08:27→20:12)
[2021-10-11] MEDS: ASCORBIC ACID 500 MG TAB PO SCH (08:27)
[2021-10-11] MEDS: risperiDONE 1 MG TAB PO SCH (08:27)
[2021-10-11] MEDS: DIVALPROEX 500MG *ER* TAB PO SCH ×2 (08:27→20:13)
[2021-10-11] MEDS: HYDROCORTISONE 10 MG TAB PO SCH ×2 (08:27→13:21)
[2021-10-11 10:26] LABS: FREE T4 0.71 NG/DL (0.76-1.46)
[2021-10-11 19:07] VITALS: BP 149/85
[2021-10-11] MEDS: risperiDONE 2 MG TAB PO SCH (20:13)
[2021-10-11] MEDS: SIMVASTATIN 10 MG TAB PO SCH (20:13)
[2021-10-11] MEDS: traZODone 50 MG TAB PO PRN (20:16)
[2021-10-12] MEDS: LEVOTHYROXINE 75MCG TABLET (0.075MG) PO SCH (05:20)
[2021-10-12 06:33] VITALS: BP 111/60
[2021-10-12] MEDS: ASCORBIC ACID 500 MG TAB PO SCH (08:32)
[2021-10-12] MEDS: risperiDONE 1 MG TAB PO SCH (08:32)
[2021-10-12] MEDS: DIVALPROEX 250MG *ER* TAB PO SCH ×2 (08:32→20:19)
[2021-10-12] MEDS: DIVALPROEX 500MG *ER* TAB PO SCH ×2 (08:32→20:19)
[2021-10-12] MEDS: busPIRone 10 MG TAB PO SCH ×2 (08:32→20:19)
[2021-10-12] MEDS: HYDROCORTISONE 10 MG TAB PO SCH ×2 (08:33→13:27)
[2021-10-12] MEDS: MICONAZOLE 2 % POWDER (DESENEX) TOP SCH ×2 (10:12→20:19)
[2021-10-12 18:00] VITALS: BP 123/70
[2021-10-12] MEDS: risperiDONE 2 MG TAB PO SCH (20:19)
[2021-10-12] MEDS: SIMVASTATIN 10 MG TAB PO SCH (20:19)
[2021-10-12] MEDS: traZODone 50 MG TAB PO PRN (20:19)
[2021-10-13] MEDS: LEVOTHYROXINE 75MCG TABLET (0.075MG) PO SCH (05:34)
[2021-10-13 06:58] VITALS: BP 123/74
[2021-10-13] MEDS: DIVALPROEX 500MG *ER* TAB PO SCH (08:45)
[2021-10-13] MEDS: DIVALPROEX 250MG *ER* TAB PO SCH (08:45)
[2021-10-13] MEDS: ASCORBIC ACID 500 MG TAB PO SCH (08:45)
[2021-10-13] MEDS: risperiDONE 1 MG TAB PO SCH (08:46)
[2021-10-13] MEDS: HYDROCORTISONE 10 MG TAB PO SCH (08:46)
[2021-10-13] MEDS: busPIRone 10 MG TAB PO SCH (08:46)
[2021-10-13] MEDS: MICONAZOLE 2 % POWDER (DESENEX) TOP SCH (08:48)
[2021-10-13] MEDS ORDERED: DEPA500T2 PO ×3 (11:29→11:38)
[2021-10-13] MEDS ORDERED: RISP-8 PO (11:29)
[2021-10-13] MEDS ORDERED: FLUTISP (11:29)
[2021-10-13] MEDS ORDERED: MICR2POW TOP (11:29)
[2021-10-13] MEDS ORDERED: HYDR-4468 PO ×2 (11:29)
[2021-10-13] MEDS ORDERED: ASCO50TA PO (11:29)
[2021-10-13] MEDS ORDERED: RISP-9 PO (11:29)
[2021-10-13] MEDS ORDERED: BUSP10TA PO (11:29)
[2021-10-13] MEDS ORDERED: DEPA250T2 PO ×2 (11:29→11:34)
[2021-10-13] MEDS ORDERED: SIMV10TA21 PO (11:29)
[2021-10-13] MEDS ORDERED: TRAZ-252 PO (11:29)
[2021-10-13] MEDS ORDERED: LEVO75TA4 PO (11:29)
[2021-10-13] MEDS ORDERED: BUSP30TA PO (11:31)
== END 2021-10-13 13:13 | disposition home or self-care (01) | DRG 753 ==
LOC: M ED 16:28 → M ED INP 10-09 16:28 → M PSY 10-09 21:31
PROVIDERS: ADMIT Psychiatry & Neurology Psychiatry; ATTEND Psychiatry & Neurology Psychiatry
DX: F31.2 Bipolar disorder, current episode manic severe with psychotic features (principal); F41.9 Anxiety disorder, unspecified; Z91.040 Latex allergy status; C79.31 Secondary malignant neoplasm of brain; G20 Parkinson's disease; Z79.899 Other long term (current) drug therapy; E03.9 Hypothyroidism, unspecified; Z92.21 Personal history of antineoplastic chemotherapy; Z92.25 Personal history of immunosuppression therapy; E78.5 Hyperlipidemia, unspecified; F95.2 Tourette's disorder; G43.909 Migraine, unspecified, not intractable, without status migrainosus